=== PATIENT | male | born 1945 | race Caucasian/White ===

== ENCOUNTER 2019-02-17 05:33 | Outpatient (RCR) | payer MEDICARE, OTHER, SELFPAY | END 2019-02-18 00:01 | LOC: ONCMED 05:33 | PROVIDERS: Family Provider Electrodiagnostic Medicine; Visit Provider Internal Medicine Medical Oncology | DX: C90.00 Multiple myeloma not having achieved remission (principal); D46.A Refractory cytopenia with multilineage dysplasia; D47.2 Monoclonal gammopathy; N18.9 Chronic kidney disease, unspecified; E78.5 Hyperlipidemia, unspecified; I25.10 Atherosclerotic heart disease of native coronary artery without angina pectoris; I50.9 Heart failure, unspecified; J44.9 Chronic obstructive pulmonary disease, unspecified; F17.210 Nicotine dependence, cigarettes, uncomplicated; Z95.1 Presence of aortocoronary bypass graft | CPT/HCPCS: 36415; 36430; 80053 ×2; 82728; 83540; 83550; 85025 ×9; 86850 ×3; 86900 ×3; 86901 ×3; 86920 ×4; 96374; 99214; J1642 ×3; J1940 ×2; J7050 ×3; P9040 ×5 ==

== ENCOUNTER 2019-03-03 05:41 | Outpatient (RCR) | payer MEDICARE, OTHER, SELFPAY ==
[2019-02-20 09:03] LABS: Eosinophils % 3.4 %; Hematocrit 27.2 % (42.0-52.0); Hemoglobin 8.4 g/dL (11.7-16.6); Lymphocytes # 0.4 10^3/uL (0.8-4.8); Lymphocytes % 70.7 %; Mean Corpuscular HGB Conc 30.9 g/dL (30.0-36.0); Mean Corpuscular Hemoglobin 30.2 pg (28.0-34.0); Mean Corpuscular Volume 97.8 fL (80-94); Mean Platelet Volume 13.7 fL (7.4-10.4); Monocytes % 6.9 %; Neutrophils % 13.8 %; Nucleated Red Blood Cells # 0.1 /100WBC; Nucleated Red Blood Cells % 20.7 %; Platelet Count 40 10^3/cmm (130-400); Red Blood Count 2.78 10^6/uL (4.1-5.3); Red Cell Distribution Width 19.2 % (12.1-15.1)
[2019-02-20 09:32] LABS: Add RBC Morph No; Slide Review Slide Review Perform
[2019-02-20 09:34] LABS: Neutrophils # 0.1 10^3/uL (1.8-7.7); White Blood Count 0.6 10^3/uL (4.0-10.0)
[2019-02-20 09:42] LABS: Alanine Aminotransferase 13 U/L (0-41); Albumin Level 4.5 g/dL (3.5-5.2); Alkaline Phosphatase 122 IU/L (40-130); Anion Gap 14.8 (5-19); Aspartate Amino Transferase 19 U/L (0-40); Blood Urea Nitrogen 27 mg/dL (8-23); Calcium 9.2 mg/Dl (8.8-10.2); Carbon Dioxide 25 mmol/L (22-29); Chloride 102 mmol/L (98-107); Globulin 1.9 g/dL (1.3-4.6); Glucose 99 mg/dL (74-106); Iron 215 ug/dL (59-158); Lactate Dehydrogenase 319 U/L (135-225); Potassium 3.8 mmol/L (3.5-5.1); Sodium 138 mmol/L (136-145); Total Bilirubin 1.1 mg/dL (0.15-1.2); Total Protein 6.4 g/dL (6.6-8.7)
[2019-02-20 10:32] LABS: Ferritin 1274 ng/mL (30-400); Unsaturated Iron Binding < 17 ug/dL (112-347)
[2019-02-20 10:33] LABS: Percent Saturation 92.6 % (20-50); Total Iron Binding Capacity 232 mg/dL
[2019-02-20] MEDS: sodium chloride 0.9% 250 ML 75 ML IV (12:30)
[2019-02-20] MEDS: diphenhydrAMINE 25 mg Capsule PO (12:35)
[2019-02-20] MEDS: acetaminophen 325 mg Tablet 650 MG PO (12:35)
[2019-02-20 12:55] VITALS: BP 102/68; BP 103/59; PULSE 69; PULSE 75; RESP 18; TEMP 36.6; TEMP 36.8; O2SAT 94; O2SAT 96
[2019-02-20 13:10] VITALS: BP 104/60; PULSE 68; RESP 18; TEMP 36.6; O2SAT 95
[2019-02-20 13:40] VITALS: BP 104/62; PULSE 69; RESP 18; TEMP 36.6; O2SAT 98
[2019-02-20 14:15] VITALS: BP 105/64; PULSE 72; RESP 18; TEMP 36.6
[2019-02-20] MEDS: FUROsemide 10 mg/mL SDV 2mL 20 MG IV (14:30)
[2019-02-24 09:10] LABS: Eosinophils % 4.1 %; Hematocrit 28.8 % (42.0-52.0); Lymphocytes # 0.3 10^3/uL (0.8-4.8); Lymphocytes % 63.3 %; Mean Corpuscular HGB Conc 31.3 g/dL (30.0-36.0); Mean Corpuscular Hemoglobin 29.2 pg (28.0-34.0); Mean Corpuscular Volume 93.5 fL (80-94); Mean Platelet Volume 13.2 fL (7.4-10.4); Monocytes # 0.1 10^3/uL (0.2-0.9); Monocytes % 10.2 %; Neutrophils % 22.4 %; Nucleated Red Blood Cells # 0.1 /100WBC; Nucleated Red Blood Cells % 24.5 %; Platelet Count 31 10^3/cmm (130-400); Red Blood Count 3.08 10^6/uL (4.1-5.3); Red Cell Distribution Width 18.5 % (12.1-15.1)
[2019-02-24 09:28] LABS: Alanine Aminotransferase 13 U/L (0-41); Albumin Level 4.4 g/dL (3.5-5.2); Alkaline Phosphatase 123 IU/L (40-130); Anion Gap 13.8 (5-19); Aspartate Amino Transferase 18 U/L (0-40); Blood Urea Nitrogen 26 mg/dL (8-23); Carbon Dioxide 27 mmol/L (22-29); Chloride 102 mmol/L (98-107); Globulin 2.1 g/dL (1.3-4.6); Glucose 141 mg/dL (74-106); Iron 201 ug/dL (59-158); Lactate Dehydrogenase 339 U/L (135-225); Potassium 3.8 mmol/L (3.5-5.1); Sodium 139 mmol/L (136-145); Total Bilirubin 1.2 mg/dL (0.15-1.2); Total Protein 6.5 g/dL (6.6-8.7)
[2019-02-24 09:55] LABS: Neutrophils # 0.1 10^3/uL (1.8-7.7); Slide Review Slide Review Perform; White Blood Count 0.5 10^3/uL (4.0-10.0)
[2019-02-24 10:08] LABS: Ferritin 1260 ng/mL (30-400)
[2019-02-24 10:09] LABS: Percent Saturation 92.2 % (20-50); Total Iron Binding Capacity 218 mg/dL; Unsaturated Iron Binding < 17 ug/dL (112-347)
[2019-02-27] VITALS (11 sets, daily range): BP systolic 94–113; BP diastolic 59–71; PULSE 55–79; RESP 18; TEMP 35.7–36.9; O2SAT 93–96
[2019-02-27 09:09] LABS: Hematocrit 27.7 % (42.0-52.0); Hemoglobin 8.6 g/dL (11.7-16.6); Lymphocytes # 0.4 10^3/uL (0.8-4.8); Lymphocytes % 69.2 %; Mean Corpuscular Hemoglobin 30.5 pg (28.0-34.0); Mean Corpuscular Volume 98.2 fL (80-94); Monocytes % 5.8 %; Nucleated Red Blood Cells # 0.1 /100WBC; Nucleated Red Blood Cells % 21.2 %; Red Blood Count 2.82 10^6/uL (4.1-5.3); Red Cell Distribution Width 19.1 % (12.1-15.1)
[2019-02-27 09:34] LABS: Platelet Count 28 10^3/cmm (130-400); White Blood Count 0.5 10^3/uL (4.0-10.0)
[2019-02-27 09:35] LABS: Mean Platelet Volume 12.8 fL (7.4-10.4); Neutrophils # 0.1 10^3/uL (1.8-7.7); Slide Review Slide Review Perform
[2019-02-27] MEDS: diphenhydrAMINE 25 mg Capsule PO (12:25)
[2019-02-27] MEDS: acetaminophen 325 mg Tablet 650 MG PO (12:25)
[2019-02-27] MEDS: sodium chloride 0.9% 250 ML 50 ML IV (12:25)
[2019-02-27] MEDS: FUROsemide 10 mg/mL SDV 2mL 20 MG IV (14:10)
[2019-03-03 09:28] LABS: Hematocrit 32.3 % (42.0-52.0); Hemoglobin 10.1 g/dL (11.7-16.6); Lymphocytes # 0.4 10^3/uL (0.8-4.8); Lymphocytes % 63.8 %; Mean Corpuscular HGB Conc 31.3 g/dL (30.0-36.0); Mean Corpuscular Hemoglobin 29.2 pg (28.0-34.0); Mean Corpuscular Volume 93.4 fL (80-94); Monocytes # 0.1 10^3/uL (0.2-0.9); Monocytes % 10.3 %; Neutrophils % 25.9 %; Nucleated Red Blood Cells # 0.1 /100WBC; Nucleated Red Blood Cells % 17.2 %; Red Blood Count 3.46 10^6/uL (4.1-5.3); Red Cell Distribution Width 18.5 % (12.1-15.1)
[2019-03-03 10:43] LABS: Platelet Count 23 10^3/cmm (130-400); White Blood Count 0.6 10^3/uL (4.0-10.0)
[2019-03-03 10:44] LABS: Neutrophils # 0.2 10^3/uL (1.8-7.7); Slide Review Slide Review Perform
== END 2019-03-03 23:59 | disposition home or self-care (01) ==
LOC: ONCMED 05:41
PROVIDERS: Family Provider Electrodiagnostic Medicine; PCP Electrodiagnostic Medicine; Visit Provider Internal Medicine Medical Oncology
DX: C90.00 Multiple myeloma not having achieved remission (principal); J43.9 Emphysema, unspecified; J84.10 Pulmonary fibrosis, unspecified; M06.00 Rheumatoid arthritis without rheumatoid factor, unspecified site; E78.5 Hyperlipidemia, unspecified; I25.10 Atherosclerotic heart disease of native coronary artery without angina pectoris; K21.9 Gastro-esophageal reflux disease without esophagitis; Z95.1 Presence of aortocoronary bypass graft; I25.2 Old myocardial infarction; Z98.1 Arthrodesis status; F17.210 Nicotine dependence, cigarettes, uncomplicated; E83.111 Hemochromatosis due to repeated red blood cell transfusions; N18.9 Chronic kidney disease, unspecified; Z79.899 Other long term (current) drug therapy
CPT/HCPCS: 36415; 36430; 80053; 82728; 83540; 83550; 83615; 85025; 86850; 86900; 99214; J1940; J7050; P9040

== ENCOUNTER 2019-03-04 15:33 | Observation (INO) | payer MEDICARE, OTHER, SELFPAY ==
[2019-03-04 15:34] VITALS: BP 112/82; PULSE 65; RESP 16; TEMP 36.5; O2SAT 92; BMI 30.6
--- NOTE | 2019-03-04 15:47 | XR_ITS ---
WS: [id number] CHEST XRAY TECHNIQUE: Portable chest. CLINICAL INFORMATION: CHEST PAIN COMPARISON: None. FINDINGS: Heart: Cardiomegaly. Left Port-A-Cath with tip in SVC. Sternotomy with mediastinal clips. Lungs: Chronic emphysematous changes. No acute pulmonary infiltrates. No focal pneumonia. Bones: Chronic Right upper rib fracture with callus formation. XR/XR chest 1V portable [id number] IMPRESSION: 1. Sternotomy with cardiomegaly. 2. Left Port-A-Cath with tip in the SVC. 3. Chronic emphysematous changes. No acute pulmonary infiltrates. 4. Slight volume loss left lung base.
--- NOTE | 2019-03-04 15:48 | ECG_ITS ---
Measurements Intervals [place] Rate: 62 P: 9 LA: 170 QRS: -17 QRSD: 104 T: 38 QT: 407 QTc: 416 SINUS RHYTHM WITH MARKED SINUS ARRHYTHMIA POSSIBLE LEFT ATRIAL ENLARGEMENT [-0.1mV P WAVE IN V1/V2] LOW QRS VOLTAGE IN EXTREMITY LEADS [QRS DEFLECTION < 0.5 mV IN LIMB LEADS] POSSIBLE ANTERIOR MYOCARDIAL INFARCTION , PROBABLY OLD [30 ms Q WAVE IN V3/V4, OR R R R R < 0.2 mV IN V4] No previous ECG available for comparison [id number]
--- NOTE | 2019-03-04 15:51 | ED_ITS ---
Entered by Sarah Muñoz, acting as scribe for HPI - Chest Pain General: Chief Complaint: Chest Pain Stated Complaint: chest pain Time Seen by Provider: 03/04/19 15:47 Source: patient Mode of arrival: EMS Limitations: no limitations History of Present Illness: HPI narrative: 73 yo Male present to ED with complaint of chest pain. Pt states that he had left side chest pain that radiated into his left arm. Pt states that he had an episode of sweating, nausea, vomiting, and diarrhea. Pt states that he has myelodysplastic syndrome. Pt sees Dr. Truong for hematology and Dr. Soria is his PCP. MD complaint: chest pain Onset (ago): hour(s) (1500 today) Timing of current episode: episodic and still present Prior episodes: No Onset: during rest Pain location: left chest Pain radiation: left arm Pain scale (0-10): 5 Quality: sharp Relieving factors: nothing Exacerbating factors: nothing Associated symptoms: Reports diaphoresis, nausea and vomiting; Deny dyspnea, fever(s), palpitations or syncope Treatment prior to arrival: aspirin and nitroglycerin Review of Systems General: Reports: other (negative unless marked) Const: Reports: diaphoresis; Denies: fever Eyes: Denies: change in vision or blurry vision ENMT: Denies: throat pain, painful swallowing, hoarseness, ear pain, ear discharge, Change in hearing or nasal discharge Card: Reports: chest pain; Denies: palpitations, irregular heart rhythm, syncope, pre-syncope, shortness of breath on exertion or shortness of breath when lying down Resp: Reports: pain on inspiration; Denies: shortness of breath, productive cough, non-productive cough, wheezing, coughing up blood or chest congestion GI: Reports: nausea, vomiting and diarrhea : Denies: flank pain, difficulty urinating, painful urination, urinary frequency, urinary urgency, decreased urine ouput, urinary incontinence or blood in urine Musc: Denies: neck pain, back pain, extremity pain, extremity swelling, joint pain, joint swelling, joint warmth or joint stiffness Skin/Breast: Denies: rash, skin tenderness or yellow skin Neuro: Denies: headache, numbness in extremities, weakness in extremities, changes in sensation, lack of coordination, difficulty walking, dizziness, vertigo or confusion Endo: Denies: excessive thirst, tired all the time, cold intolerance, excessive sweating, flushing or hot flashes Nafi/Lymph: Denies: easy bruising, easy bleeding, petechiae or enlarged lymph nodes All/Imm: Denies: hives, throat swelling, tongue swelling, facial swelling or acute wheezing PFSH ED PFSH: Statuses (acute, chronic, etc) shown below reflect problem list status as previously entered and may not be historically accurate Social History Smoking and tobacco status: current every day smoker cigarettes Packs smoked per day: 1.25 Alcohol intake: never Substance/Drug Use: never Physical Exam Const: COMMON NORMALS: no apparent distress, oriented x3, no limitations, healthy appearing and well nourished EXAM LIMITATIONS: no altered mental status GENERAL APPEARANCE: cooperative, well kempt and well developed ORIENTATION/CONSCIOUSNESS: Yes awake HENMT: COMMON NORMALS: normocephalic, head/scalp atraumatic, hearing grossly normal bilaterally, external ears normal, EAC's normal, external nose normal and moist oral mucous membranes HEAD & SCALP: normal to inspection, normocephalic and atraumatic FACE & SINUS: normal facial exam and face symmetric NOSE: external nose normal and nares normal EXTERNAL EAR: Yes external ears normal EXTERNAL AUDITORY CANAL: EAC's normal MOUTH: oral and palatal mucosa normal and tongue normal Eye: COMMON NORMALS: PERRL, EOMs intact bilaterally, conjunctivae normal and no scleral icterus GENERAL EYE: normal appearance of both eyes and normal light reflex CONJUNCTIVA: Yes conjunctivae normal SCLERA: sclerae normal CORNEA: Yes corneas normal PUPIL: Yes PERRL DIRECT OPHTHALMOSCOPY: Yes normal light reflex Neck/C-Spine: COMMON NORMALS: full ROM, no lymphadenopathy, supple, no meningeal signs and no JVD GENERAL: Yes normal visual inspection and Yes trachea midline CERVICAL SPINE: Yes cervical ROM normal Chest: COMMONS NORMALS: inspection of chest normal and palpation of chest normal Resp: COMMON NORMALS: normal respiratory effort, no retractions, no use of accessory muscles and clear to auscultation bilaterally EFFORT & INSPECTION: Yes able to speak in complete sentences AUSCULTATION: clear to auscultation bilaterally Cardio: COMMON NORMALS: no JVD, regular rate, regular rhythm, S1 normal heart sound, S2 normal heart sound, no gallops, no clicks, no murmurs and no rub JUGULAR VENOUS DISTENTION: no JVD RATE: regular rate RHYTHM: regular rhythm HEART SOUNDS: S1 normal and S2 normal GI: COMMON NORMALS: soft to palpation, non-tender, no hepatosplenomegaly and no masses INSPECTION: Yes normal to inspection PALPATION: Yes soft and Yes no hepatosplenomegaly : COMMON NORMALS: Yes no CVA tenderness BLADDER/KIDNEY EXAM: Yes no CVA tenderness Back/Pelvis: COMMON NORMALS: no CVA tenderness, thoracic and lumbar spine normal to inspection, no thoracic nor lumbar tenderness and thoraco-lumbar ROM normal Extremity: COMMON NORMALS: normal to inspection, full ROM, normal capillary refill, no joint enlargement, no clubbing, cyanosis or edema and no calf tenderness Neuro: COMMON NORMALS: oriented x3, CN's II-XII intact bilaterally, moves all extremities, no focal motor deficits and no sensory deficits noted MENINGEAL SIGNS: Yes no meningeal signs Psych: COMMON NORMALS: mental status grossly normal, thought process normal, cooperative, affect normal, speech normal and activity/motor behavior normal APPEARANCE: Yes well kempt SPEECH: Yes normal speech THOUGHT PROCESS: normal thought process Skin: COMMON NORMALS: no rashes or lesions noted, skin turgor normal, no jaundice, no petechiae and no mottling GENERAL SKIN EXAM: no rashes or lesions noted and turgor normal Course Vital Signs: Vital signs: Vital Signs Temperature 98.3 F 03/05/19 11:21 Pulse Rate 71 03/05/19 11:21 Respiratory Rate 18 03/05/19 11:21 Blood Pressure 110/60 03/05/19 11:21 Pulse Oximetry 92 03/05/19 11:21 MDM - Chest Pain Lab Data: Labs: Lab Results 03/04/19 03/04/19 03/04/19 Range/Units 15:06 15:06 15:06 WBC 0.7 L* (4.0-10.0) 10^3/ uL RBC 3.60 L (4.1-5.3) 10^6/u L Hgb 10.4 L (11.7-16.6) g/dL Hct 33.8 L (42.0-52.0) % MCV 93.9 (80-94) fL MCH 28.9 (28.0-34.0) pg MCHC 30.8 (30.0-36.0) g/dL RDW 18.6 H (12.1-15.1) % Plt Count 34 L (130-400) 10^3/c mm MPV Log Buncher Neut % (Auto) 23.2 % Lymph % (Auto) 66.7 % Brantley % (Auto) 10.1 % Eos % (Auto) 0.0 % Baso % (Auto) 0.0 % Neut # (Auto) 0.2 L* (1.8-7.7) 10^3/u L Lymph # (Auto) 0.5 L (0.8-4.8) 10^3/u L Brantley # (Auto) 0.1 L (0.2-0.9) 10^3/u L Eos # (Auto) 0.0 (0.0-0.8) 10^3/u L Baso # (Auto) 0.0 (0.0-0.1) 10^3/u L Nucleated RBC % (a uto) 21.7 % Nucleated RBCs # 0.2 /100WBC PT 13.80 H (10.5-13.3) SECO NDS INR 1.02 (0.8-1.2) APTT 26.8 (23.9-36.7) SECO NDS D-Dimer 0.75 H (0-0.59) ug/mIFE U Sodium 138 (136-145) mmol/L Potassium 3.7 (3.5-5.1) mmol/L Chloride 100 (98-107) mmol/L Carbon Dioxide 29 (22-29) mmol/L Anion Gap 12.7 (5-19) BUN 24 H (8-23) mg/dL Creatinine 1.4 H (0.7-1.2) mg/dL Glucose 125 H (74-106) mg/dL Calcium 9.4 (8.8-10.2) mg/Dl Total Bilirubin 1.2 (0.15-1.2) mg/dL AST 20 (0-40) U/L ALT 14 (0-41) U/L Alkaline Phosphata se 144 H (40-130) IU/L Troponin T Baselin e (0-15) ng/mL Troponin T 120 Min seminole (0-15) ng/mL Delta Troponin T (0-10) ABS# NT-Pro-B Natriuret Pep 858 H (0-450) pg/mL Total Protein 7.5 (6.6-8.7) g/dL Albumin 4.1 (3.5-5.2) g/dL Globulin 3.4 (1.3-4.6) g/dL Lipase 23 (13-60) U/L Urine Color (Yellow) Urine Appearance (CLEAR) Urine pH (5-7) Ur Specific Gravit y (1.005-1.030) Urine Protein (Negative) Urine Glucose (UA) (Normal) Urine Ketones (Negative) Urine Occult Blood (Negative) Urine Nitrate (Negative) Urine Bilirubin (NEGATIVE) Urine Urobilinogen (Negative) mg/dL Ur Leukocyte Aislinn ase (Negative) Urine RBC (0-2) /hpf Urine WBC (0-5) /hpf Ur Squamous Epith Cells (0-5) Urine Bacteria (NONE) Hyaline Casts Urine Mucus 03/04/19 03/04/19 03/04/19 Range/Units 15:06 16:27 17:45 WBC (4.0-10.0) 10^3/ uL RBC (4.1-5.3) 10^6/u L Hgb (11.7-16.6) g/dL Hct (42.0-52.0) % MCV (80-94) fL MCH (28.0-34.0) pg MCHC (30.0-36.0) g/dL RDW (12.1-15.1) % Plt Count (130-400) 10^3/c mm MPV Neut % (Auto) % Lymph % (Auto) % Brantley % (Auto) % Eos % (Auto) % Baso % (Auto) % Neut # (Auto) (1.8-7.7) 10^3/u L Lymph # (Auto) (0.8-4.8) 10^3/u L Brantley # (Auto) (0.2-0.9) 10^3/u L Eos # (Auto) (0.0-0.8) 10^3/u L Baso # (Auto) (0.0-0.1) 10^3/u L Nucleated RBC % (a uto) % Nucleated RBCs # /100WBC PT (10.5-13.3) SECO NDS INR (0.8-1.2) APTT (23.9-36.7) SECO NDS D-Dimer (0-0.59) ug/mIFE U Sodium (136-145) mmol/L Potassium (3.5-5.1) mmol/L Chloride (98-107) mmol/L Carbon Dioxide (22-29) mmol/L Anion Gap (5-19) BUN (8-23) mg/dL Creatinine (0.7-1.2) mg/dL Glucose (74-106) mg/dL Calcium (8.8-10.2) mg/Dl Total Bilirubin (0.15-1.2) mg/dL AST (0-40) U/L ALT (0-41) U/L Alkaline Phosphata se (40-130) IU/L Troponin T Baselin e 22 H (0-15) ng/mL Troponin T 120 Min seminole 20.89 H (0-15) ng/mL Delta Troponin T -1.11 L (0-10) ABS# NT-Pro-B Natriuret Pep (0-450) pg/mL Total Protein (6.6-8.7) g/dL Albumin (3.5-5.2) g/dL Globulin (1.3-4.6) g/dL Lipase (13-60) U/L Urine Color Yellow (Yellow) Urine Appearance Clear (CLEAR) Urine pH 5 (5-7) Ur Specific Gravit y 1.020 (1.005-1.030) Urine Protein Neg (Negative) Urine Glucose (UA) Norm (Normal) Urine Ketones Negative (Negative) Urine Occult Blood 3+ H (Negative) Urine Nitrate Negative (Negative) Urine Bilirubin 1+ H (NEGATIVE) Urine Urobilinogen 4 H (Negative) mg/dL Ur Leukocyte Aislinn ase Negative (Negative) Urine RBC 0-4 H (0-2) /hpf Urine WBC 0-4 H (0-5) /hpf Ur Squamous Epith Cells 0-4 H (0-5) Urine Bacteria Trace (NONE) Hyaline Casts 0-4 H Urine Mucus 3+ Imaging Data^: CXR: Radiologist's impression: [address] [address] XRay Report Signed Patient: Gabriel Thakkarelis #: [id number] : 4Acct#:[id number] Age/Sex: 73 / MADM Date: 03/04/19 Loc: ERRoom/Bed: Attending Dr: Ordering Provider/Ordering MD: Shavon Walls DO Date of Service: 03/04/19 Procedure(s): XR chest 1V portable [id number] Accession Number(s): [id number] Report Number: [id number] WS: [id number] CHEST XRAY TECHNIQUE: Portable chest. CLINICAL INFORMATION: CHEST PAIN COMPARISON: None. FINDINGS: Heart: Cardiomegaly. Left Port-A-Cath with tip in SVC. Sternotomy with mediastinal clips. Lungs: Chronic emphysematous changes. No acute pulmonary infiltrates. No focal pneumonia. Bones: Chronic Right upper rib fracture with callus formation. XR/XR chest 1V portable [id number] IMPRESSION: 1. Sternotomy with cardiomegaly. 2. Left Port-A-Cath with tip in the SVC. 3. Chronic emphysematous changes. No acute pulmonary infiltrates. 4. Slight volume loss left lung base. Dictated By:Remberto Sandra MD Signed By:Remberto Sandra MDSigned Date/Time:03/04/19 1620 DD/ 1618 CTA Chest: Radiologist's impression: [place] [address] CT Scan Report Signed Patient: Gabriel Thakkar #: [id number] : 4At#:[id number] Age/Sex: 73 / MADM Date: 03/04/19 Loc: ERRoom/Bed: Attending Dr: Ordering Provider/Ordering MD: Shavon Walls DO Date of Service: 03/04/19 Procedure(s): CT angio chest PE protcl [id number] Accession Number(s): [id number] Report Number: [id number] PROCEDURE INFORMATION: Exam: CT Angiography Chest With Contrast Exam date and time: 03/04/2019 5:47 PM Age: 73 years old Clinical indication: Left-sided chest pain; Prior surgery; Surgery type: Bypass, port TECHNIQUE: Imaging protocol: Computed tomographic angiography of the chest with intravenous contrast. 3D rendering: MIP and/or 3D reconstructed images were created by the technologist. Total DLP: 1172.74 mGy-cm Radiation optimization: All CT scans at this facility use at least one of these dose optimization techniques: automated exposure control; mA and/or kV adjustment per patient size (includes targeted exams where dose is matched to clinical indication); or iterative reconstruction. Contrast material: VISI 320; Contrast volume: 95 ml; Contrast route: IV; COMPARISON: CT chest wo con [id number] 11/21/2017 1:05 PM FINDINGS: Pulmonary arteries: Normal. No pulmonary emboli. Aorta: Unremarkable. No aortic aneurysm. No aortic dissection. Lungs: Mild atelectasis in the lower lobes. The lungs are otherwise clear. Pleural space: Unremarkable. No pneumothorax. No pleural effusion. Heart: Unremarkable. No cardiomegaly. No pericardial effusion. Kidneys and ureters: Left renal cyst. Lymph nodes: Unremarkable. No enlarged lymph nodes. Bones/joints: Mild chronic T6 and L1 compression fractures. Soft tissues: Unremarkable. CT/CT angio chest PE protcl [id number] IMPRESSION: 1. No evidence for pulmonary embolus or other acute abnormality. Radiation Dose CTDIVOL = (mGy): DLP = 1172.74 (mGy-cm) Dictated By:Uri Lorenzana Signed By:Uri LorenzanaSigned Date/Time:03/04/19 1801 DD/ 1800 Discharge Plan Discharge Patient Disposition: Placed in Observation Admit Provider: Brian Benavidez Discharge Date/Time: 03/04/19 20:08 Coding Level of Care Code ED Stem Mounter for Chg Fwd Exam Problem Focused The documentation recorded by the Wanda lackey Carmen, accurately reflects the service I personally performed and the decisions made by Titi ro Eli N Mar 04, 2019 15:33
[2019-03-04 16:35] LABS: Hematocrit 33.8 % (42.0-52.0); Hemoglobin 10.4 g/dL (11.7-16.6); Lymphocytes # 0.5 10^3/uL (0.8-4.8); Lymphocytes % 66.7 %; Mean Corpuscular HGB Conc 30.8 g/dL (30.0-36.0); Mean Corpuscular Hemoglobin 28.9 pg (28.0-34.0); Mean Corpuscular Volume 93.9 fL (80-94); Monocytes # 0.1 10^3/uL (0.2-0.9); Monocytes % 10.1 %; Neutrophils % 23.2 %; Nucleated Red Blood Cells # 0.2 /100WBC; Nucleated Red Blood Cells % 21.7 %; Platelet Count 34 10^3/cmm (130-400); Red Cell Distribution Width 18.6 % (12.1-15.1)
[2019-03-04 16:37] LABS: INR 1.02 (0.8-1.2)
[2019-03-04 16:38] LABS: Partial Thromboplastin Time 26.8 SECONDS (23.9-36.7)
[2019-03-04 16:40] LABS: D Dimer 0.75 ug/mIFEU (0-0.59)
[2019-03-04 16:49] LABS: Troponin(5th) Baseline 22 ng/mL (0-15)
[2019-03-04 16:52] LABS: Alanine Aminotransferase 14 U/L (0-41); Albumin Level 4.1 g/dL (3.5-5.2); Alkaline Phosphatase 144 IU/L (40-130); Anion Gap 12.7 (5-19); Aspartate Amino Transferase 20 U/L (0-40); Blood Urea Nitrogen 24 mg/dL (8-23); Calcium 9.4 mg/Dl (8.8-10.2); Carbon Dioxide 29 mmol/L (22-29); Chloride 100 mmol/L (98-107); Globulin 3.4 g/dL (1.3-4.6); Glucose 125 mg/dL (74-106); Lipase 23 U/L (13-60); NT Pro B Type Natriuretic Pept 858 pg/mL (0-450); Potassium 3.7 mmol/L (3.5-5.1); Sodium 138 mmol/L (136-145); Total Bilirubin 1.2 mg/dL (0.15-1.2); Total Protein 7.5 g/dL (6.6-8.7)
[2019-03-04] MEDS: sodium chloride 0.9% 500 ML 999 ML IV (17:00)
--- NOTE | 2019-03-04 17:01 | CTR_ITS ---
PROCEDURE INFORMATION: Exam: CT Angiography Chest With Contrast Exam date and time: 03/04/2019 5:47 PM Age: 73 years old Clinical indication: Left-sided chest pain; Prior surgery; Surgery type: Bypass, port TECHNIQUE: Imaging protocol: Computed tomographic angiography of the chest with intravenous contrast. 3D rendering: MIP and/or 3D reconstructed images were created by the technologist. Total DLP: 1172.74 mGy-cm Radiation optimization: All CT scans at this facility use at least one of these dose optimization techniques: automated exposure control; mA and/or kV adjustment per patient size (includes targeted exams where dose is matched to clinical indication); or iterative reconstruction. Contrast material: VISI 320; Contrast volume: 95 ml; Contrast route: IV; COMPARISON: CT chest wo [facility] [id number] 11/21/2017 1:05 PM FINDINGS: Pulmonary arteries: Normal. No pulmonary emboli. Aorta: Unremarkable. No aortic aneurysm. No aortic dissection. Lungs: Mild atelectasis in the lower lobes. The lungs are otherwise clear. Pleural space: Unremarkable. No pneumothorax. No pleural effusion. Heart: Unremarkable. No cardiomegaly. No pericardial effusion. Kidneys and ureters: Left renal cyst. Lymph nodes: Unremarkable. No enlarged lymph nodes. Bones/joints: Mild chronic T6 and L1 compression fractures. Soft tissues: Unremarkable. CT/CT angio chest PE protcl [id number] IMPRESSION: 1. No evidence for pulmonary embolus or other acute abnormality. Radiation Dose CTDIVOL = (mGy): DLP = 1172.74 (mGy-cm)
[2019-03-04 17:24] LABS: Add Urine Microscopic? YES; Bilirubin Urine 1+ (NEGATIVE); Blood Urine 3+ (Negative); Glucose Urine UA Norm (Normal); Ketones Urine Negative (Negative); Leukocyte Esterase Urine Negative (Negative); Nitrate Urine Negative (Negative); Protein Urine Neg (Negative); Urine Appearance Clear (CLEAR); Urine Color Yellow (Yellow); Urobilinogen Urine 4 mg/dL (Negative); pH Urine 5 (5-7)
[2019-03-04] MEDS: ondansetron 2 mg/ML SDV 2 mL 4 MG IVP (17:24)
[2019-03-04] MEDS: aspirin 81 mg Chew Tablet 324 MG PO (17:24)
[2019-03-04 17:25] LABS: Mucus Urine 3+
[2019-03-04] MEDS: HYDROcodone-acetaminophen 10-325 mg Tablet 1 TAB PO (17:25)
[2019-03-04 17:26] LABS: Add Urine Culture? No; Bacteria Urine TRACE; Hyaline Casts Urine 0-4; RBC Urine 0-4 /hpf (0-2); Squamous Epithelial Cell Urine 0-4 (0-5); WBC Urine 0-4 /hpf (0-5)
[2019-03-04] MEDS: nitroglycerin 0.4 mg sublingual Tablet SUBLINGUAL (17:26)
[2019-03-04] MEDS: iodixanol 320 mg/mL 100mL Btl 95 ML IV (17:47)
[2019-03-04 17:53] LABS: White Blood Count 0.7 10^3/uL (4.0-10.0)
[2019-03-04 17:54] LABS: Neutrophils # 0.2 10^3/uL (1.8-7.7)
[2019-03-04 18:00] LABS: Slide Review Slide Review Perform
[2019-03-04 18:21] LABS: Troponin 5 2HR 20.89 ng/mL (0-15)
[2019-03-04 18:44] LABS: Troponin 5 2HR Delta -1.11 ABS# (0-10)
[2019-03-04 19:58] VITALS: BP 117/65; PULSE 78; RESP 24; O2SAT 95
[2019-03-04] MEDS: HYDROcodone-acetaminophen 5-325 mg Tablet 1 TAB PO (20:05)
--- NOTE | 2019-03-04 20:08 | PM.HP ---
Providers/Chief Complaint Admitting Physician: Katie Campos MD Primary Care Provider: Edvin Soria DO Chief Complaint: chest pain History of Present Illness Gabriel Thakkar is a 73 year old male with PMHx of Myelodysplastic syndrome with chronic transfusion dependent anemia, leukopenia and thrombocytopenia, Dyslipidemia, CAD status post CABG x4, CKD stage 2, GERD, COPD, Chronic smoker, Chronic back pain; presents from home following an episode of chest discomfort, back pain and resulting diaphoresis, episode of nausea and vomiting as well as urinary and bowel incontinence. Episode occurred around 1500 this afternoon. Patient states that he does have intermittent chest pain but nothing like this in the past. He follows up with Dr. Tavares as his primary security and privacy consultant. Last chest pain work-up was done in 2018 which included an echo with ejection fraction of 55% and grade 1 diastolic dysfunction as well as a chemical stress test which is negative for significant ischemia. Patient states that he took some hydrocodone which seemed to help alleviate his symptoms but he did also take some nitroglycerin which did not seem to help as much. He did not take any aspirin due to his history of thrombocytopenia. Med rec is currently pending though I reviewed his list from his last visit with Dr. Truong in January 2019. He is currently sitting in a wheelchair during my assessment in the ER as he finds the stretcher very uncomfortable for his back. He states that his pain is starting to return and is requesting some hydrocodone for this. Dr. Walls in the ER already spoke to Dr. Tavares who will see the patient in the morning. He recommended serial troponins, telemetry monitoring and EKG monitoring in the interim. Labs indicate leukopenia with a white count of 0.7, anemia with a hemoglobin of 10.4, thrombocytopenia with a platelet count of 34, BUN of 24, creatinine of 1.4 all of which appears to be his baseline per review of medical record. Genfiber troponin x2 hours shows a negative delta. He had a slight elevation of his d-dimer so had a CTA which ruled out PE. Urinalysis shows some blood but is otherwise unremarkable. Chest x-ray is also unremarkable. Vital signs are currently stable. Given patient's underlying history and risk factors for ACS he is being admitted for further evaluation and pending cardiology evaluation in the a.m. Will be admitted to the medical surgical floor under telemetry as no CSU beds currently available. Review of Systems Const: Reports: fatigue and diaphoresis; Denies: fever, chills or change in appetite Eyes: Denies: change in vision ENMT: Denies: throat pain Card: Reports: chest pain, edema (chronic), swelling of feet/ankles (chronic) and pre-syncope; Denies: palpitations or lightheadedness Resp: Denies: shortness of breath or productive cough GI: Reports: nausea, vomiting and fecal incontinence; Denies: abdominal pain, vomiting blood or blood in stool : Reports: urinary incontinence; Denies: painful urination Musc: Reports: back pain (chronic) Skin/Breast: Denies: rash Neuro: Denies: numbness in extremities or weakness in extremities Psych: Denies: anxiety Medications/Allergies Allergies Allergy/AdvReac Type Severity Reaction Status Date / Time No Known Allergies Allergy Verified 03/04/19 20:00 Additional Medication Information Additional Medication Information: -med rec pending PFSH Acute PFSH: Statuses (acute, chronic, etc) shown below reflect problem list status as previously entered and may not be historically accurate Medical History (Updated 03/04/19 @ 20:24 by Katie Campos MD) CAD (coronary artery disease) (Acute) CHF (congestive heart failure) (Acute) Chronic kidney disease (CKD) stage G2/A3, mildly decreased glomerular filtration rate (GFR) between 60-89 mL/min/1.73 square meter and albuminuria creatinine ratio greater than 300 mg/g (Acute) COPD (chronic obstructive pulmonary disease) (Acute) GERD (gastroesophageal reflux disease) (Acute) GI bleed (Acute) Myelodysplastic syndrome (Acute) Myocardial infarction (Acute) Surgical History (Updated 03/04/19 @ 20:12 by Katie Campos MD) History of abdominal aortic aneurysm (AAA) repair (Acute) History of back surgery (Acute) Hx of CABG (Acute) x 4 vessel, in 2001 Social History (Updated 03/04/19 @ 20:12 by Katie Campos MD) Smoking and tobacco status: current every day smoker cigarettes Packs smoked per day: 1.25 Alcohol intake: never Substance/Drug Use: never Vitals/I&O/Wt Last Vital Signs Temp 97.7 F 03/04/19 15:34 Pulse 78 03/04/19 19:58 Resp 24 H 03/04/19 19:58 BP 117/65 03/04/19 19:58 Pulse Ox 95 03/04/19 19:58 Weight last 48 hrs Weight 111.13 kg Physical Exam Const: COMMON NORMALS: no apparent distress, oriented x3 and alert GENERAL APPEARANCE: cooperative and comfortable NUTRITIONAL APPEARANCE: overweight ORIENTATION/CONSCIOUSNESS: Yes awake HENMT: COMMON NORMALS: normocephalic, head/scalp atraumatic, hearing grossly normal bilaterally and moist oral mucous membranes HEAD & SCALP: normocephalic and atraumatic Eye: COMMON NORMALS: PERRL, EOMs intact bilaterally and conjunctivae normal CONJUNCTIVA: Yes conjunctivae normal PUPIL: Yes PERRL Neck/C-Spine: COMMON NORMALS: full ROM GENERAL: Yes normal visual inspection and Yes trachea midline Chest: OTHER: [id number] in place Resp: COMMON NORMALS: normal respiratory effort, no retractions, no use of accessory muscles and clear to auscultation bilaterally EFFORT & INSPECTION: Yes able to speak in complete sentences, Yes symmetric chest movement and No tachypneic AUSCULTATION: clear to auscultation bilaterally Cardio: COMMON NORMALS: regular rate, regular rhythm, S1 normal heart sound, S2 normal heart sound and no murmurs RATE: regular rate RHYTHM: regular rhythm HEART SOUNDS: S1 normal and S2 normal GI: COMMON NORMALS: normal to inspection, nondistended, normoactive bowel sounds, soft to palpation and non-tender PALPATION: Yes soft Extremity: COMMON NORMALS: normal to inspection, full ROM and no clubbing, cyanosis or edema; negative for no pedal edema Neuro: COMMON NORMALS: oriented x3, moves all extremities, no focal motor deficits and no sensory deficits noted Psych: COMMON NORMALS: mental status grossly normal, thought process normal, cooperative, affect normal and speech normal SPEECH: Yes normal speech THOUGHT PROCESS: normal thought process Skin: COMMON NORMALS: no rashes or lesions noted, no jaundice, no petechiae and no mottling GENERAL SKIN EXAM: no rashes or lesions noted OTHER: -noted chronic venous stasis dermatitis on bilateral LEs Data : 03/04/19 15:06 03/04/19 15:06 A&P Assessment and plan (1) Chest pain: -seems atypical chest pain though has significant risk factors for ACS including prior MN, CAD s/p CABG, chronic smoker, COPD -trend troponins, serial ECGs; so far negative delta following 2 hr gen 5 troponins -telemetry monitoring -CXR unremarkable -noted slight D-dimer elevation, CTA negative for PE -not on ASA due to underlying thrombocytopenia -MON -follows up with Dr. 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 Truong -Baseline hemoglobin is around 8-9 -Baseline platelet count is 20-30 -Baseline leukopenic, WBC 0.5-0.7 Status: Acute Code(s): D46.9 - Myelodysplastic syndrome, unspecified Additional A&P Information -History of prior traumatic vertebral compression fracture status post kyphoplasty in 02/2016 -Dyslipidemia; currently off statin therapy -CAD status post CABG x4 in 2001 -COPD, not oxygen dependent, no acute exacerbation -GERD, on PPI -Chronic smoker -Chronic diastolic CHF, no acute exacerbation, BNP-850 -CKD stage II; with evidence of segmental membranous glomerulonephropathy -cardiac diet as tolerated -GI ppx with PPI -DVT ppx with SCDs, no AC due to bleeding risk from chronic anemia and thrombocytopenia -Ambulate as tolerated -Dispo: home -Code status: FULL code Attestations Medical Necessity Statement*: Gabriel Thakkar's hospital stay will be less than 2 midnights for workup of chest pain including serial troponins, ECGs, telemetry monitoring and cardiology evaluation. Time Spent in Patient Care: Greater than 35 minutes (>than 50% of time spent in counselling and/or direct pt care on unit). Coding Level of Care Code Acute In Flight Technician for Chg Fwd Diagnoses Chest pain R07.89 Chest pain type: other chest pain Myelodysplastic syndrome D46.9
[2019-03-04 20:56] VITALS: BP 107/67; PULSE 95; RESP 20; TEMP 37.4; O2SAT 96
[2019-03-04] MEDS: sodium chloride 0.9% 1,000 ML 100 ML IV (21:56)
[2019-03-04 22:07] LABS: Troponin 5 6HR 19.04 ng/L (0-15)
[2019-03-04 22:11] LABS: Troponin 5 6HR Delta -2.96 ng/L (0-12)
[2019-03-05] VITALS (9 sets, daily range): BP systolic 105–119; BP diastolic 60–72; PULSE 70–88; RESP 14–20; TEMP 36.8–36.9; O2SAT 92–97
[2019-03-05] MEDS: HYDROcodone-acetaminophen 7.5-325 mg Tablet 1 TAB PO ×2 (03:22→21:30)
--- NOTE | 2019-03-05 06:04 | ECG_ITS ---
Measurements Intervals [place] Rate: 83 P: 5 IL: 145 QRS: -2 QRSD: 100 T: 36 QT: 363 QTc: 427 SINUS RHYTHM WITH MARKED SINUS ARRHYTHMIA POSSIBLE LEFT ATRIAL ENLARGEMENT [-0.1mV P WAVE IN V1/V2] LOW QRS VOLTAGE IN PRECORDIAL LEADS [QRS DEFLECTION < 1.0 mV IN CHEST LEADS] ANTEROSEPTAL MYOCARDIAL INFARCTION [40+ ms Q WAVE IN V1-V4], PROBABLY OLD ST ELEVATION, CONSIDER INFERIOR INJURY [MARKED ST ELEVATION W/O NORMALLY INFLECTED T WAVE IN II/aVF] ACUTE MO Compared to ECG 10/23/2018 21:15:29 Myocardial infarct finding now present ST (T wave) deviation still present Electronically Signed On 03-05-2019 20:11:47 PRODUCTION GRIP by Azar Tavares M.D. [email or web address]
[2019-03-05 06:11] LABS: Hematocrit 29.1 % (42.0-52.0); Hemoglobin 9.1 g/dL (11.7-16.6); Lymphocytes # 0.4 10^3/uL (0.8-4.8); Lymphocytes % 56.5 %; Mean Corpuscular HGB Conc 31.3 g/dL (30.0-36.0); Mean Corpuscular Hemoglobin 29.3 pg (28.0-34.0); Mean Corpuscular Volume 93.6 fL (80-94); Mean Platelet Volume 12.9 fL (7.4-10.4); Monocytes # 0.1 10^3/uL (0.2-0.9); Monocytes % 14.5 %; Nucleated Red Blood Cells # 0.1 /100WBC; Nucleated Red Blood Cells % 11.3 %; Red Blood Count 3.11 10^6/uL (4.1-5.3); Red Cell Distribution Width 18.6 % (12.1-15.1)
[2019-03-05] MEDS: nitroglycerin 0.4 mg sublingual Tablet SUBLINGUAL ×3 (06:11→06:25)
[2019-03-05] MEDS: morphine 4 mg/mL SDV 1 mL 2 MG IVP ×2 (06:20→10:27)
[2019-03-05] MEDS: ondansetron 2 mg/ML SDV 2 mL 4 MG IVP (06:24)
[2019-03-05 06:37] LABS: Alanine Aminotransferase 12 U/L (0-41); Albumin Level 3.8 g/dL (3.5-5.2); Alkaline Phosphatase 117 IU/L (40-130); Anion Gap 13.1 (5-19); Aspartate Amino Transferase 17 U/L (0-40); Blood Urea Nitrogen 24 mg/dL (8-23); Calcium 8.9 mg/Dl (8.8-10.2); Carbon Dioxide 27 mmol/L (22-29); Chloride 102 mmol/L (98-107); Globulin 2.9 g/dL (1.3-4.6); Glucose 111 mg/dL (74-106); Potassium 4.1 mmol/L (3.5-5.1); Sodium 138 mmol/L (136-145); Total Bilirubin 1.4 mg/dL (0.15-1.2); Total Protein 6.7 g/dL (6.6-8.7)
[2019-03-05 06:43] LABS: Neutrophils # 0.2 10^3/uL (1.8-7.7); Platelet Count 23 10^3/cmm (130-400); White Blood Count 0.6 10^3/uL (4.0-10.0)
[2019-03-05 06:44] LABS: Slide Review Slide Review Perform
[2019-03-05 07:11] LABS: Troponin T (5th) Once 27 ng/mL (0-15)
[2019-03-05 07:14] LABS: Troponin T (5th) Once 24 ng/mL (0-15)
--- NOTE | 2019-03-05 07:39 | PC.NURSE ---
pt complained of severe chest pain at 5:50 am. vitals obtained: 125/72, 80 HR, 95%o2, pain-9/10, EKG obtained, 2L NC applied, stat troponin ordered, called Dr. Campos with patient condition, Andres ordered Nitro. Nitro administered every 5 minutes X3. Chest pain improved to 4/10 after 3rd nitro and patient states he feels better. Dr. Campos came to floor and assesed pt. guitar instructor dr. cunningham to see patient.
[2019-03-05] MEDS: carvedilol 12.5 mg Tablet PO ×2 (09:25→17:40)
[2019-03-05] MEDS: pantoprazole DR 40 mg Tablet PO (09:25)
[2019-03-05] MEDS: bumetanide 1 mg Tablet 2 MG PO (09:25)
--- NOTE | 2019-03-05 10:45 | PC.CHAP ---
Pastoral Care Encounter/Spiritual Assessment Type of Contact [] Declined branch employment coordinator visit [] Patient/Family/Request visit [] Outpatient visit [] Follow-up visit [] Physician referral [] Code/Alert [] Routine visit [] Staff referral [] Actively dying [] Patient sleeping [] Family support [] [] Out of room [] Palliative care [] [] Receiving care in room [] Pre-surgical visit [] Trauma [] Long length of stay [] ICU visit [] Other: Relational/Emotional Strength [] Patient feels connected with others/family/visitors/staff [] Distress [] Loneliness/isolation [] Abandonment Spirituality of Patient [] Person of Renea [] Attends Jainism of their Renea [] Believes in Prayer [] Reads Bible or Buddhist materials [] There are Spiritual issues to be addressed Airplane Gastank Liner Assembler Interventions [] Prayer [] Active listening [] Non-anxious presence [] Spiritual/emotional support [] Crisis/trauma care [] Spiritual counseling [] Bereavement support [] Provided bereavement packet [] Provided Bible/devotional materials [] Provided toy/stuffed animal, coloring book to patient or family member [] Completed spiritual assessment [] Provided Communion [] Anointing/[place] [] Salvation [] Other: Impact on Illness or Injury [] Angry [] Fearful [] Anxious [] Often cries [] Exhaustion [] Unable to work [] Unable to attend sikhism [] Unable to walk/stand [] Unable to read [] Unable to drive [] Unable to eat/drink [] Unable to sleep [] Unable to be with family [] Other: Summary iosolation Time spent with patient
[2019-03-05] MEDS: ketorolac 30 mg/mL INJ IVP ×2 (10:58→18:14)
--- NOTE | 2019-03-05 12:47 | PM.CONSULT ---
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 Pain was so severe that he decided to come to ER. Initial cardiac markers were indeterminate with slight troponin elevation at presentation after 3 hours of chest pain not suggestive of acute coronary syndrome, delta cardiac markers further declined ruling out cardiac event. CT angiogram ruled out pulmonary embolism. Patient continues to suffer from pain which was tried to control with medicine. He had renal dysfunction upon presentation which improved this morning. When I saw him in the room he still have as having left upper back pain towards the chest. It was not relieved with nitroglycerin. Twelve-lead EKG was within his normal range without significant ST-T changes. He denies PND orthopnea he denies exertional component to it his chest pain is mostly at rest and upon taking deep breath. Review of Systems General: Reports: other (negative unless marked) Const: Reports: fatigue and diaphoresis; Denies: fever, chills or change in appetite Eyes: Denies: change in vision or blurry vision ENMT: Denies: throat pain, painful swallowing, hoarseness, ear pain, ear discharge, change in hearing or nasal discharge Card: Reports: chest pain, edema (chronic), swelling of feet/ankles (chronic) and pre-syncope; Denies: palpitations, irregular heart rhythm, lightheadedness, syncope, shortness of breath on exertion or shortness of breath when lying down Resp: Reports: pain on inspiration; Denies: shortness of breath, productive cough, non-productive cough, wheezing, coughing up blood or chest congestion GI: Reports: nausea, vomiting, diarrhea and fecal incontinence; Denies: abdominal pain, vomiting blood or blood in stool : Reports: urinary incontinence; Denies: flank pain, difficulty urinating, painful urination, urinary frequency, urinary urgency, decreased urine ouput or blood in urine Musc: Reports: back pain (chronic); Denies: neck pain, extremity pain, extremity swelling, joint pain, joint swelling, joint warmth or joint stiffness Skin/Breast: Denies: rash, skin tenderness or yellow skin Neuro: Denies: headache, numbness in extremities, weakness in extremities, changes in sensation, lack of coordination, difficulty walking, dizziness, vertigo or confusion Psych: Denies: anxiety Endo: Denies: excessive thirst, tired all the time, cold intolerance, excessive sweating, flushing or hot flashes Naif/Lymph: Denies: easy bruising, easy bleeding, petechiae or enlarged lymph nodes All/Imm: Denies: hives, throat swelling, tongue swelling, facial swelling or acute wheezing Meds/Allergies Home Medications and Allergies Home Medications Medication Instructions Recorded Confirmed Type Calcium 600 + D(3) 1 tab PO BID 03/05/19 03/05/19 History atorvastatin 40 mg PO DAILY 03/05/19 03/05/19 History bumetanide 2 - 4 mg PO PRN PRN 03/05/19 03/05/19 History carvedilol 12.5 mg PO DAILY 03/05/19 03/05/19 History deferasirox [Jadenu] 1 mg PO BID 03/05/19 03/05/19 History hydrocodone-acetaminophen 1 tab PO TID PRN 03/05/19 03/05/19 History levofloxacin 500 mg PO DAILY 03/05/19 03/05/19 History lidocaine HCl [Aspercreme 1 applic TOPICAL BID PRN 03/05/19 03/05/19 History (lidocaine)] nitroglycerin [Nitrostat] See Rx Instructions .ROUTE 03/05/19 03/05/19 History .COMPLEX PRN pantoprazole 40 mg PO DAILY PRN 03/05/19 03/05/19 History potassium chloride [Klor-Con M20] 1 meq PO DAILY 03/05/19 03/05/19 History sennosides-docusate sodium [Senna 2 tab-cap PO DAILY PRN 03/05/19 03/05/19 History Plus] Allergies Allergy/AdvReac Type Severity Reaction Status Date / Time No Known Allergies Allergy Verified 03/04/19 20:00 Current Medications Current Medications Generic Name Dose Route Start Last Admin Trade Name Freq PRN Reason Stop Dose Admin Hydrocodone Bitart/Acetaminophen 1 tab 03/04/19 20:56 03/05/19 03:22 Gordon 7.5-325 Mg PO 1 tab TID PRN Administration MODERATE PAIN Atorvastatin Calcium 40 mg 03/04/19 21:00 03/04/19 21:58 Lipitor PO Not Given BEDTIME ZONIA Bumetanide 2 mg 03/05/19 09:00 03/05/19 09:25 Bumex PO 2 mg DAILY ZONIA Administration Carvedilol 12.5 mg 03/05/19 09:00 03/05/19 09:25 Coreg PO 12.5 mg BID ZONIA Administration Ketorolac Tromethamine 30 mg 03/05/19 10:37 03/05/19 10:58 Toradol IVP 03/10/19 10:36 30 mg Q6H PRN Administration MODERATE PAIN Morphine Sulfate 2 mg 03/04/19 20:56 03/05/19 10:27 Morphine IVP 2 mg Q4H PRN Administration SEVERE PAIN Nitroglycerin 0.4 mg 03/05/19 06:05 03/05/19 06:25 Nitrostat SUBLINGUAL 0.4 mg Q5M PRN Administration CHEST PAIN Ondansetron HCl 4 mg 03/04/19 20:56 03/05/19 06:24 Zofran IVP 4 mg Q6H PRN Administration NAUSEA AND VOMITING Pantoprazole Sodium 40 mg 03/05/19 09:00 03/05/19 09:25 Protonix PO 40 mg DAILY ZONIA Administration Potassium Chloride 10 meq 03/05/19 09:00 03/05/19 09:25 Klor-Con 10 PO 10 meq DAILY ZONIA Administration Additional Medication Information -med rec pending PFSH Acute PFSH: Statuses (acute, chronic, etc) shown below reflect problem list status as previously entered and may not be historically accurate Social History Smoking and tobacco status: current every day smoker cigarettes Packs smoked per day: 1.25 Alcohol intake: never Substance/Drug Use: never Vitals/I&O/Wt Last Vital Signs Temp 98.3 F 03/05/19 11:21 Pulse 71 03/05/19 11:21 Resp 18 03/05/19 11:21 BP 110/60 03/05/19 11:21 Pulse Ox 92 01/15/20 11:21 03/04/19 03/05/19 03/05/19 22:59 06:59 14:59 Intake Total 1456.666 / 1456.666 480 / 480 Output Total 100 / 100 Balance 1356.666 / 1356.666 480 / 480 Weight last 48 hrs Weight 247 lb Weight 249 lb 9 oz Weight 245 lb Physical Exam Narrative: EXAM NARRATIVE: GENERAL: Patient is alert, awake and oriented x3 but in moderate distress because of the pain. NECK: No jugular vein distension. HEENT: No cyanosis. No icterus. No pallor. HEART: Regular S1 and S2. No murmur, rub or gallop. LUNGS: Clear to auscultate bilaterally. ABDOMEN: Soft, nontender and nondistended. Positive bowel sounds. No guarding, rebound or tenderness. CENTRAL NERVOUS SYSTEM: Grossly nonfocal. EXTREMITIES: Lower extremities with 1+ edema bilaterally. A&P Assessment and plan (1) Chest pain: Most likely days noncardiac though he has history of coronary artery disease, my suspicion is because of the fact he had chest pain going on for more than 12 hours and cardiac markers along with EKG part baseline normal. Pattern of chest pain is more of pleuritic. In any case she is not a good candidate for invasive strategy due to MDS, leukopenia , anemia and thrombocytopenia. From a cardiac perspective we will continue to monitor him and continue to treat him medically. For chest pain I will try Toradol since creatinine is normal. Status: Acute Qualifiers: Chest pain type: other chest pain Qualified Code(s): R07.89 - Other chest pain Code(s): R07.9 - Chest pain, unspecified (2) Myelodysplastic syndrome: He follows up with oncology. We will Seek their opinion while in the hospital, continue home meds Status: Acute Code(s): D46.9 - Myelodysplastic syndrome, unspecified (3) Chronic kidney disease (CKD) stage G2/A3, mildly decreased glomerular filtration rate (GFR) between 60-89 mL/min/1.73 square meter and albuminuria creatinine ratio greater than 300 mg/g: Status: Acute Code(s): N18.2 - Chronic kidney disease, stage 2 (mild) (4) CHF (congestive heart failure): Patient appeared to be well compensated. He was infected drive any came in he was given IV fluid.. His creatinine has normalized. I will resume Lasix today. Status: Acute Code(s): I50.9 - Heart failure, unspecified (5) COPD (chronic obstructive pulmonary disease): Stable , continue as per medicine recommendations Status: Acute Code(s): J44.9 - Chronic obstructive pulmonary disease, unspecified (6) GI bleed: Stable Status: Acute Code(s): K92.2 - Gastrointestinal hemorrhage, unspecified (7) CAD (coronary artery disease): Appeared to be stable as i documented my findings under chest pain , we will continue to monitor him closely he is not a candidate for invasive strategy therefore continue to treat Status: Acute Code(s): I25.10 - Atherosclerotic heart disease of unga coronary artery without angina pectoris (8) Acute renal failure (ARF): Most likely prerenal. With IV fluid it has improved. Discontinue fluid now. Status: Acute Code(s): N17.9 - Acute kidney failure, unspecified Coding Level of Care Code Acute Chemistry Quality Control Analyst for Chg Fwd History Comprehensive Exam Detailed Medical Decision Making High Complexity Diagnoses Chest pain R07.89 Chest pain type: other chest pain Myelodysplastic syndrome D46.9 Chronic kidney disease (CKD) stage G2/A3, mildly decreased glomerular filtration rate (GFR) between 60-89 mL/min/1.73 square meter and albuminuria creatinine ratio greater than 300 mg/g N18.2 CHF (congestive heart failure) I50.9 COPD (chronic obstructive pulmonary disease) J44.9 GI bleed K92.2 CAD (coronary artery disease) I25.10 Acute renal failure (ARF) N17.9
--- NOTE | 2019-03-05 20:28 | PM.PN ---
Subjective Subjective: Interval history: This afternoon he was feeling better, still some discomfort in the left side of his chest. Reports that this is triggered by deep inspiration, movement. Denies cough. Denies shortness of breath. Vitals/I&O/Wt Last Vital Signs Temp 98.4 F 03/05/19 16:00 Pulse 70 03/05/19 16:00 Resp 16 03/05/19 16:00 BP 119/70 03/05/19 16:00 Pulse Ox 95 03/05/19 16:00 03/05/19 03/05/19 03/05/19 06:59 14:59 22:59 Intake Total 1456.666 / 1456.666 480 / 480 Output Total 100 / 100 Balance 1356.666 / 1356.666 480 / 480 Weight last 48 hrs Weight 112.037 kg Weight 113.2 kg Weight 111.13 kg Physical Exam Const: COMMON NORMALS: no apparent distress and oriented x3 OTHER: Sitting up in chair. is at his side. HENMT: COMMON NORMALS: oropharynx normal Neck/C-Spine: COMMON NORMALS: no JVD Resp: COMMON NORMALS: normal respiratory effort and clear to auscultation bilaterally AUSCULTATION: clear to auscultation bilaterally Cardio: COMMON NORMALS: no JVD, regular rhythm, S1 normal heart sound, S2 normal heart sound and no murmurs RHYTHM: regular rhythm HEART SOUNDS: S1 normal and S2 normal GI: COMMON NORMALS: normal to inspection, nondistended, normoactive bowel sounds, soft to palpation and non-tender PALPATION: Yes soft Extremity: COMMON NORMALS: no joint enlargement and no pedal edema Neuro: COMMON NORMALS: oriented x3 and moves all extremities Skin: COMMON NORMALS: no rashes or lesions noted GENERAL SKIN EXAM: no rashes or lesions noted A&P Assessment and plan (1) Chest pain: Atypical chest pain, likely musculoskeletal. He has no respiratory symptoms. There was no abnormal finding on CTA. Pain does not appear cardiac. Appreciate cardiology assessment. At this time no additional investigation, but given his underlying comorbidities and still some persistence of discomfort on the left side will observe him an additional night as per request of cardiology. 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 Truong -Baseline hemoglobin is around 8-9 -Baseline platelet count is 20-30 -Baseline leukopenic, WBC 0.5-0.7 Status: Acute Code(s): D46.9 - Myelodysplastic syndrome, unspecified Additional A&P Information -History of prior traumatic vertebral compression fracture status post kyphoplasty in 02/2016 -Dyslipidemia; currently off statin therapy -CAD status post CABG x4 in 2001 -COPD, not oxygen dependent, no acute exacerbation -GERD, on PPI -Chronic smoker -Chronic diastolic CHF, no acute exacerbation, BNP-850 -CKD stage II; with evidence of segmental membranous glomerulonephropathy Attestations Medical Necessity Statement*: Continue observation status due to chest pain in a gentleman with known coronary disease, MDS with pancytopenia and other underlying comorbidities. 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
[2019-03-05] MEDS: atorvastatin 40 mg Tablet PO (21:26)
[2019-03-06] VITALS (16 sets, daily range): BP systolic 92–129; BP diastolic 57–79; PULSE 60–80; RESP 14–20; TEMP 36.4–37; O2SAT 93–96
[2019-03-06 06:29] LABS: Eosinophils % 3.8 %; Hematocrit 25.3 % (42.0-52.0); Hemoglobin 7.9 g/dL (11.7-16.6); Lymphocytes # 0.4 10^3/uL (0.8-4.8); Lymphocytes % 67.3 %; Mean Corpuscular HGB Conc 31.2 g/dL (30.0-36.0); Mean Corpuscular Hemoglobin 30.3 pg (28.0-34.0); Mean Corpuscular Volume 96.9 fL (80-94); Monocytes % 7.7 %; Neutrophils % 15.4 %; Nucleated Red Blood Cells # 0.1 /100WBC; Nucleated Red Blood Cells % 13.5 %; Red Blood Count 2.61 10^6/uL (4.1-5.3); Red Cell Distribution Width 18.4 % (12.1-15.1)
[2019-03-06 06:44] LABS: Alanine Aminotransferase 10 U/L (0-41); Albumin Level 3.2 g/dL (3.5-5.2); Alkaline Phosphatase 99 IU/L (40-130); Aspartate Amino Transferase 14 U/L (0-40); Blood Urea Nitrogen 30 mg/dL (8-23); Calcium 8.7 mg/Dl (8.8-10.2); Carbon Dioxide 24 mmol/L (22-29); Chloride 100 mmol/L (98-107); Glucose 110 mg/dL (74-106); Sodium 135 mmol/L (136-145); Total Bilirubin 0.9 mg/dL (0.15-1.2); Total Protein 6.2 g/dL (6.6-8.7)
[2019-03-06 07:00] LABS: Neutrophils # 0.1 10^3/uL (1.8-7.7); White Blood Count 0.5 10^3/uL (4.0-10.0)
[2019-03-06 07:01] LABS: Platelet Count 20 10^3/cmm (130-400); Slide Review Slide Review Perform
[2019-03-06 07:02] LABS: Mean Platelet Volume 11.9 fL (7.4-10.4)
[2019-03-06 08:43] LABS: Creatine Phosphokinase 30 U/L (39-308)
[2019-03-06] MEDS: bumetanide 1 mg Tablet 2 MG PO (09:21)
[2019-03-06] MEDS: carvedilol 12.5 mg Tablet PO (09:21)
[2019-03-06] MEDS: pantoprazole DR 40 mg Tablet PO (09:21)
[2019-03-06] MEDS: HYDROcodone-acetaminophen 7.5-325 mg Tablet 1 TAB PO (09:26)
--- NOTE | 2019-03-06 11:36 | PM.DCS ---
Discharge Providers Date of Admission: 03/04/19 18:34 Date of Discharge: 03/06/19 Attending Provider at Admission: Brian Benavidez Attending Provider at Discharge: Brian Benavidez Consults: Azar Tavares Primary Care Provider: Edvin Soria DO Diagnoses at Discharge Discharge Diagnosis (1) Chest pain: Status: Acute Qualifiers: Chest pain type: other chest pain Qualified Code(s): R07.89 - Other chest pain (2) Myelodysplastic syndrome: Status: Acute Reason for Visit Reason for Visit: Reason For Visit: chest pain Hospital Course Hospital Course: 73-year-old gentleman with history of MDS, with pancytopenia, CAD, status post CABG, history of CHF, chronic kidney disease, COPD, AAA repair was placed in observation after experiencing chest pain, which she describes as left-sided, across upper left side of his chest, shoulder, on discussion with him he describes pain is worse with deep inspiration, with movement. His pain has been noted atypical, he was assessed by cardiology who agreed his pain was non-cardiac most likely. Due to suspected musculoskeletal nature of the pain he is started on short course of Toradol. He has remained afebrile, without tachycardia. He has had no pulmonary symptoms without shortness of breath, cough. CTA on presentation without PE or suggestion of acute infection. He is noted to have recurrence of anemia for which he will receive 2 units of leuko-reduced, irradiated PRBC. Physical Exam Const: COMMON NORMALS: no apparent distress and oriented x3 OTHER: Sitting up in chair. is at his side. HENMT: COMMON NORMALS: oropharynx normal Neck/C-Spine: COMMON NORMALS: no JVD Resp: COMMON NORMALS: normal respiratory effort and clear to auscultation bilaterally AUSCULTATION: clear to auscultation bilaterally Cardio: COMMON NORMALS: no JVD, regular rhythm, S1 normal heart sound, S2 normal heart sound and no murmurs RHYTHM: regular rhythm HEART SOUNDS: S1 normal and S2 normal GI: COMMON NORMALS: normal to inspection, nondistended, normoactive bowel sounds, soft to palpation and non-tender PALPATION: Yes soft Extremity: COMMON NORMALS: no joint enlargement and no pedal edema Neuro: COMMON NORMALS: oriented x3 and moves all extremities Skin: COMMON NORMALS: no rashes or lesions noted GENERAL SKIN EXAM: no rashes or lesions noted Discharge Data Data Completed and Pending: Completed Studies During Hospitalization Category Date Time Status CT angio chest PE protcl [id number] Urge nt Cat Scan 03/04/19 17:01 Completed XR chest 1V hailey ble [id number] Stat Exams 03/04/19 15:47 Completed Pending at discharge Category Date Time Status Irradiated Leuko Red RBC Routine Lab 03/06/19 10:27 Received Type and Screen R outine Lab 03/06/19 10:27 Received Labs from last 24 hours 03/06/19 03/06/19 03/06/19 06:03 06:03 06:03 WBC 0.5 L* RBC 2.61 L Hgb 7.9 L Hct 25.3 L MCV 96.9 H MCH 30.3 MCHC 31.2 RDW 18.4 H Plt Count 20 L* MPV 11.9 H Neut % (Auto) 15.4 Lymph % (Auto) 67.3 Calloway % (Auto) 7.7 Eos % (Auto) 3.8 Baso % (Auto) 0.0 Neut # (Auto) 0.1 L* Lymph # (Auto) 0.4 L Calloway # (Auto) 0.0 L Eos # (Auto) 0.0 Baso # (Auto) 0.0 Nucleated RBC % (a uto) 13.5 Nucleated RBCs # 0.1 Sodium 135 L Potassium 4.0 Chloride 100 Carbon Dioxide 24 Anion Gap 15.0 BUN 30 H Creatinine 1.4 H Glucose 110 H Calcium 8.7 L Total Bilirubin 0.9 AST 14 ALT 10 Alkaline Phosphata se 99 Creatine Kinase 30 L Total Protein 6.2 L Albumin 3.2 L Globulin 3.0 Vitals: Last Vital Signs Temp 97.7 F 03/06/19 08:00 Pulse 68 03/06/19 08:00 Resp 14 03/06/19 08:00 BP 124/67 03/06/19 08:00 Pulse Ox 93 03/06/19 08:00 Discharge Plan Discharge Patient Disposition: Home, Self-Care Condition: Stable Prescriptions: New ibuprofen 400 mg tablet 400 mg PO TID PRN (Reason: pain) Qty: 9 RF: 0 Continued atorvastatin 40 mg Tablet 40 mg PO DAILY RF: 0 bumetanide 2 mg Tablet 2 - 4 mg PO PRN PRN (Reason: Edema) RF: 0 Calcium 600 + D(3) 600-125 mg-unit Tablet 1 tab PO BID RF: 0 carvedilol 12.5 mg Tablet 12.5 mg PO DAILY RF: 0 hydrocodone-acetaminophen 7.5-325 mg Tablet 1 tab PO TID PRN (Reason: Pain) RF: 0 levofloxacin 500 mg Tablet 500 mg PO DAILY RF: 0 Nitrostat 0.4 mg Tablet, Sublingual See Rx Instructions .ROUTE .COMPLEX PRN (Reason: Chest Pain) RF: 0 pantoprazole 40 mg Tablet,Delayed Release (Dr/Ec) 40 mg PO DAILY PRN (Reason: Acid Reflux) RF: 0 Klor-Con M20 20 mEq Tablet,Er Particles/Crystals 1 meq PO DAILY RF: 0 Senna Plus 8.6-50 mg Tablet 2 tab-cap PO DAILY PRN (Reason: Constipation) RF: 0 Jadenu 360 mg Tablet 1 mg PO BID RF: 0 Aspercreme (lidocaine) 4 % Cream 1 applic TOPICAL BID PRN (Reason: Itching) RF: 0 Discharge Orders: Discharge Order (Routine); Ordered 03/06/19 Ordered By: Brian Benavidez Referrals: Eduardo Truong MD [Hospitalist] - (As before) Edvin Soria DO [Primary Care Provider] - 4-7 days Activity Restrictions/Additional Instructions: Continue neutropenic diet and precautions. 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
--- NOTE | 2019-03-06 17:45 | PC.NURSE ---
Toradol 15 mg po TID PRN #12 called to [facility] at [facility].
--- NOTE | 2019-03-06 18:45 | P.PN_ITS ---
Subjective Subjective: Interval history: Denies any more chest pain shoulder pain or back pain. Hb is low. He requires transfusion Medications: Medication Review Details: -med rec pending Vitals/I&O/Wt Last Vital Signs Temp 98.2 F 03/06/19 17:40 Pulse 64 03/06/19 17:40 Resp 16 03/06/19 17:40 BP 111/71 03/06/19 17:40 Pulse Ox 95 03/06/19 17:40 03/06/19 03/06/19 03/06/19 06:59 14:59 22:59 Intake Total 100 / 700 240 / 240 500 / 740 Balance 100 / 700 240 / 240 500 / 740 Weight last 48 hrs Weight 260 lb 1 oz Weight 247 lb Weight 249 lb 9 oz Physical Exam Narrative: EXAM NARRATIVE: GENERAL: Patient is alert, awake and oriented x3. NECK: No jugular vein distension. HEENT: No cyanosis. No icterus. No pallor. HEART: Regular S1 and S2. No murmur, rub or gallop. LUNGS: Clear to auscultate bilaterally. ABDOMEN: Soft, nontender and nondistended. Positive bowel sounds. No guarding, rebound or tenderness. CENTRAL NERVOUS SYSTEM: Grossly nonfocal. EXTREMITIES: Lower extremities with 1+ edema bilaterally. Pulses palpable in the lower extremities, both dorsalis pedis and posterior tibial. A&P Assessment and plan (1) Chest pain: Patient chest pain and then resolved after Toradol injection. He will be discharged on nonsteroidal anti-inflammatory medicine for a few days. Advised to keep Protonix intact Status: Acute Qualifiers: Chest pain type: other chest pain Qualified Code(s): R07.89 - Other chest pain Code(s): R07.9 - Chest pain, unspecified (2) Myelodysplastic syndrome: He follows up with oncology. Patient required transfusion. He will get today 1 and he will be following up with oncology as an outpatient Status: Acute Code(s): D46.9 - Myelodysplastic syndrome, unspecified (3) Chronic kidney disease (CKD) stage G2/A3, mildly decreased glomerular filtration rate (GFR) between 60-89 mL/min/1.73 square meter and albuminuria creatinine ratio greater than 300 mg/g: Stable Status: Acute Code(s): N18.2 - Chronic kidney disease, stage 2 (mild) (4) CHF (congestive heart failure): Well compensated. Continue medicine Status: Acute Qualifiers: Heart failure type: diastolic Qualified Code(s): I50.30 - Unspecified diastolic (congestive) heart failure Code(s): I50.9 - Heart failure, unspecified (5) COPD (chronic obstructive pulmonary disease): Stable , continue as per medicine recommendations Status: Acute Qualifiers: COPD type: unspecified COPD Qualified Code(s): J44.9 - Chronic obstructive pulmonary disease, unspecified Code(s): J44.9 - Chronic obstructive pulmonary disease, unspecified (6) CAD (coronary artery disease): Stable. Status: Acute Qualifiers: Coronary Disease-Associated Artery/Lesion type: [place] artery Qualified Code(s): I25.10 - Atherosclerotic heart disease of [place] coronary artery without angina pectoris Code(s): I25.10 - Atherosclerotic heart disease of [place] coronary artery without angina pectoris (7) Acute renal failure (ARF): Stable. Status: Acute Qualifiers: Acute renal failure type: unspecified Qualified Code(s): N17.9 - Acute kidney failure, unspecified Code(s): N17.9 - Acute kidney failure, unspecified Attestations Medical Necessity Statement*: Patient can be discharged home on nonsteroidal anti-inflammatory medicine. 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 [facility] History Expanded Problem Focused Exam Expanded Problem Focused Medical Decision Making Moderate Complexity Diagnoses Chest pain R07.89 Chest pain type: other chest pain Myelodysplastic syndrome D46.9 Chronic kidney disease (CKD) stage G2/A3, mildly decreased glomerular filtration rate (GFR) between 60-89 mL/min/1.73 square meter and albuminuria creatinine ratio greater than 300 mg/g N18.2 CHF (congestive heart failure) I50.30 Heart failure type: diastolic COPD (chronic obstructive pulmonary disease) J44.9 COPD type: unspecified COPD CAD (coronary artery disease) I25.10 Coronary Disease-Associated Artery/Lesion type: [place] artery Acute renal failure (ARF) N17.9 Acute renal failure type: unspecified
== END 2019-03-06 18:00 | disposition home or self-care (01) ==
LOC: ER 16:09 → MEDSURG 18:54
PROVIDERS: Family Medicine; Admitting Provider Internal Medicine; Emergency Provider Emergency Medicine; Family Provider Electrodiagnostic Medicine; PCP Electrodiagnostic Medicine; Visit Provider Internal Medicine
DX: R07.89 Other chest pain (principal); D46.9 Myelodysplastic syndrome, unspecified; E78.5 Hyperlipidemia, unspecified; I25.10 Atherosclerotic heart disease of native coronary artery without angina pectoris; Z95.1 Presence of aortocoronary bypass graft; J44.9 Chronic obstructive pulmonary disease, unspecified; K21.9 Gastro-esophageal reflux disease without esophagitis; F17.210 Nicotine dependence, cigarettes, uncomplicated; N18.2 Chronic kidney disease, stage 2 (mild); I50.32 Chronic diastolic (congestive) heart failure; D72.819 Decreased white blood cell count, unspecified; D69.6 Thrombocytopenia, unspecified; I25.2 Old myocardial infarction; Z79.891 Long term (current) use of opiate analgesic; G89.29 Other chronic pain; M54.9 Dorsalgia, unspecified
CPT/HCPCS: 12345; 36415; 36430; 71045; 71275; 80053; 81003; 82550; 83690; 83880; 84484; 85025; 85378; 85610; 85730; 86850; 86900; 93005; 96360; 96361; 96374; 96375; 99282; 99285; G0378; J1885; J2270; J2405; J7030; J7040; P9040; P9058; Q9967

== ENCOUNTER 2019-03-12 09:09 | Outpatient (CLI) | payer MEDICARE, OTHER, SELFPAY ==
[2019-03-12] VITALS (10 sets, daily range): BP systolic 96–128; BP diastolic 62–72; PULSE 65–82; RESP 18; TEMP 36.6–37.1; O2SAT 94–98
[2019-03-12 09:49] LABS: Alanine Aminotransferase 12 U/L (0-41); Albumin Level 3.5 g/dL (3.5-5.2); Alkaline Phosphatase 101 IU/L (40-130); Anion Gap 15.1 (5-19); Aspartate Amino Transferase 12 U/L (0-40); Blood Urea Nitrogen 29 mg/dL (8-23); Calcium 9.2 mg/Dl (8.8-10.2); Carbon Dioxide 27 mmol/L (22-29); Chloride 99 mmol/L (98-107); Globulin 2.7 g/dL (1.3-4.6); Glucose 137 mg/dL (74-106); Potassium 4.1 mmol/L (3.5-5.1); Sodium 137 mmol/L (136-145); Total Protein 6.2 g/dL (6.6-8.7)
[2019-03-12] MEDS: acetaminophen 325 mg Tablet 650 MG PO (11:45)
[2019-03-12] MEDS: diphenhydrAMINE 25 mg Capsule PO (11:45)
[2019-03-12] MEDS: sodium chloride 0.9% 250 ML 999 ML IV (11:45)
[2019-03-12] MEDS: FUROsemide 10 mg/mL SDV 2mL 20 MG IV (13:40)
== END 2019-03-12 09:10 | disposition home or self-care (01) ==
LOC: LAB 09:14
PROVIDERS: Family Provider Electrodiagnostic Medicine; PCP Electrodiagnostic Medicine; Visit Provider Electrodiagnostic Medicine
DX: R07.89 Other chest pain (principal); D64.9 Anemia, unspecified; D72.819 Decreased white blood cell count, unspecified; I12.9 Hypertensive chronic kidney disease with stage 1 through stage 4 chronic kidney disease, or unspecified chronic kidney disease; N18.3 Chronic kidney disease, stage 3 (moderate)
CPT/HCPCS: 36430; 80053; 86850; 86900; J1940; J7050; P9040

== ENCOUNTER 2019-03-18 07:03 | Day surgery (SDC) | payer MEDICARE, OTHER, SELFPAY ==
[2019-03-17 12:57] VITALS: BMI 29.9
--- NOTE | 2019-03-18 07:22 | ANES.PREANES ---
Pre-Anesthetic Assessment Pre-Anesthetic Assessment: Height/Weight: Height 1.91 m Weight 108.862 kg Proposed Procedure: Operation Date: 03/18/19 08:30 Proposed Procedures p EGD 67067 K92.1(Not Applicable) - Devang Kaur MD Social: Social History: Tobacco and No alcohol Exam: Pre-Anes Outpt Exam: alert, oriented x 3, clear to auscultation bilaterally and regular rate & rhythm Airway: Submandibular: WNL Cervical ROM: WNL MP: 2 Dentition: Other (poor) History/ROS: No significant history except as noted Pulmonary: Pulmonary: COPD, RODGERS and Sleep apnea CV/HEM: CV/HEM: CAD, CHF, HTN and CT : : Chronic renal Insufficiency Hepatic: Hepatic: None reported GI: GI: GERD (occ) Metabolic: Metabolic: Hyperlipidemia and Morbid obesity Musc/skel: Musc/skel: Lower Back Pain and OA/DJD Anesthetic Plan: ASA status: III Anesthesia: Anesthesia Evaluation and MAC Risk of > 500 ml blood loss (7ml/kg in children): No PFSH Anesthesia PFSH: Medical History CAD (coronary artery disease) (Acute) CHF (congestive heart failure) (Acute) Chronic kidney disease (CKD) stage G2/A3, mildly decreased glomerular filtration rate (GFR) between 60-89 mL/min/1.73 square meter and albuminuria creatinine ratio greater than 300 mg/g (Acute) COPD (chronic obstructive pulmonary disease) (Acute) GERD (gastroesophageal reflux disease) (Acute) Hypercholesterolemia (Acute) Myelodysplastic syndrome (Acute) Myocardial infarction (Acute) Port-A-Cath in place (Acute) Surgical History H/O circumcision (Acute) History of abdominal aortic aneurysm (AAA) repair (Acute) History of back surgery (Acute) Hx of CABG (Acute) x 4 vessel, in 2001 Hx of cataract surgery (Acute) 12/07 Status post colonoscopy (Acute) Family History Other Cancer Diabetes Heart disease Denies family history of Anesthesia complication Bleeding disorder Social History Smoking and tobacco status: current every day smoker cigarettes Packs smoked per day: 1.25 Alcohol intake: never Household members: spouse Marital status: Current occupational status: retired Data Anesthesia Cardiac Studies: No Data to Display
[2019-03-18] MEDS: diphenhydrAMINE 50 mg/mL SDV 1mL 25 MG IVP (07:58)
[2019-03-18 08:03] VITALS: BP 97/59; PULSE 74; RESP 18; TEMP 36.9; O2SAT 94
--- NOTE | 2019-03-18 09:41 | PM.HPUD ---
H&P update H&P Update: DATE OF SURGERY/PROCEDURE: 03/18/19 DATE H&P PERFORMED: 03/13/19 H&P UPDATE INFORMATION: H&P completed within last 30 days and No changes to prior documentation PLANNED PROCEDURE: Operation Date: 03/18/19 08:30 Proposed Procedures p EGD 23648 K92.1(Not Applicable) - Devang Kaur MD Full H&P Perinent History: Medical/Surgical History: Medical History (Updated 03/13/19 @ 10:36 by Devang Kaur MD) CAD (coronary artery disease) (Acute) CHF (congestive heart failure) (Acute) Chronic kidney disease (CKD) stage G2/A3, mildly decreased glomerular filtration rate (GFR) between 60-89 mL/min/1.73 square meter and albuminuria creatinine ratio greater than 300 mg/g (Acute) COPD (chronic obstructive pulmonary disease) (Acute) GERD (gastroesophageal reflux disease) (Acute) Hypercholesterolemia (Acute) Myelodysplastic syndrome (Acute) Myocardial infarction (Acute) Port-A-Cath in place (Acute) Family History: Family History (Updated 03/13/19 @ 10:22 by Teodora Bhat LPN) Other Cancer Diabetes Heart disease Denies family history of Anesthesia complication Bleeding disorder Social History: Social History Smoking and tobacco status: current every day smoker cigarettes Packs smoked per day: 1.25 Alcohol intake: never Household members: spouse Marital status: Current occupational status: retired
[2019-03-18 10:11] VITALS: BP 104/64; PULSE 67; RESP 16; TEMP 36.6; O2SAT 95
--- NOTE | 2019-03-18 10:14 | ANE.PACU ---
 Inpatient post-anesthesia follow up: Airway intact: Yes Vital signs: Temperature 98.4 F Pulse Rate [Monito r] 74 Respiratory Rate 18 Blood Pressure [Le ft Arm] 97/59 Pulse Oximetry 94 Oxygen Delivery Me thod Room Air Oxygen Flow Rate Fraction of Inspir ed Oxygen Hydration adequate: Yes Nausea and vomiting: No Pain level: 2 Mental status: Baseline
[2019-03-18 10:23] VITALS: BP 107/65; PULSE 70; RESP 18; O2SAT 95
[2019-03-18] MEDS: sodium chloride 0.9% 1,000 ML 30 ML (10:44)
== END 2019-03-18 10:42 | disposition home or self-care (01) ==
PROVIDERS: Family Provider Electrodiagnostic Medicine; PCP Electrodiagnostic Medicine; Visit Provider Surgery
PROC: 0DJ08ZZ Inspection of Upper Intestinal Tract, Via Natural or Artificial Opening Endoscopic (ICD-10-PCS; CPT 43235; principal; 2019-03-18 08:30)
DX: K92.1 Melena (principal); D46.9 Myelodysplastic syndrome, unspecified; Z79.891 Long term (current) use of opiate analgesic; I25.10 Atherosclerotic heart disease of native coronary artery without angina pectoris; J44.9 Chronic obstructive pulmonary disease, unspecified; K21.9 Gastro-esophageal reflux disease without esophagitis; E78.00 Pure hypercholesterolemia, unspecified; I25.2 Old myocardial infarction; Z95.1 Presence of aortocoronary bypass graft; I13.0 Hypertensive heart and chronic kidney disease with heart failure and stage 1 through stage 4 chronic kidney disease, or unspecified chronic kidney disease; N18.3 Chronic kidney disease, stage 3 (moderate); I50.9 Heart failure, unspecified; Z82.49 Family history of ischemic heart disease and other diseases of the circulatory system; Z83.3 Family history of diabetes mellitus; F17.210 Nicotine dependence, cigarettes, uncomplicated; G47.30 Sleep apnea, unspecified; E78.5 Hyperlipidemia, unspecified; E66.01 Morbid (severe) obesity due to excess calories; Z68.30 Body mass index [BMI] 30.0-30.9, adult; M19.90 Unspecified osteoarthritis, unspecified site
CPT/HCPCS: 12345; 43235; 96365; J1200; J1642; J7030

== ENCOUNTER 2019-03-20 05:37 | Outpatient (RCR) | payer MEDICARE, OTHER, SELFPAY ==
[2019-03-10 09:41] LABS: Hematocrit 29.2 % (42.0-52.0); Hemoglobin 9.1 g/dL (11.7-16.6); Lymphocytes # 0.4 10^3/uL (0.8-4.8); Lymphocytes % 62.7 %; Mean Corpuscular HGB Conc 31.2 g/dL (30.0-36.0); Mean Corpuscular Hemoglobin 29.8 pg (28.0-34.0); Mean Corpuscular Volume 95.7 fL (80-94); Mean Platelet Volume 13.4 fL (7.4-10.4); Monocytes # 0.1 10^3/uL (0.2-0.9); Monocytes % 13.4 %; Neutrophils % 22.4 %; Nucleated Red Blood Cells # 0.1 /100WBC; Nucleated Red Blood Cells % 10.4 %; Platelet Count 43 10^3/cmm (130-400); Red Blood Count 3.05 10^6/uL (4.1-5.3); Red Cell Distribution Width 18.1 % (12.1-15.1)
[2019-03-10 09:54] LABS: Neutrophils # 0.2 10^3/uL (1.8-7.7); White Blood Count 0.7 10^3/uL (4.0-10.0)
[2019-03-10 09:55] LABS: Slide Review Slide Review Perform
[2019-03-12 09:38] LABS: Hematocrit 23.3 % (42.0-52.0); Hemoglobin 7.4 g/dL (11.7-16.6); Lymphocytes # 0.4 10^3/uL (0.8-4.8); Lymphocytes % 63.2 %; Mean Corpuscular HGB Conc 31.8 g/dL (30.0-36.0); Mean Corpuscular Hemoglobin 29.6 pg (28.0-34.0); Mean Corpuscular Volume 93.2 fL (80-94); Mean Platelet Volume 12.5 fL (7.4-10.4); Monocytes # 0.1 10^3/uL (0.2-0.9); Monocytes % 11.8 %; Neutrophils % 23.5 %; Nucleated Red Blood Cells # 0.1 /100WBC; Nucleated Red Blood Cells % 14.7 %; Platelet Count 43 10^3/cmm (130-400); Red Cell Distribution Width 17.5 % (12.1-15.1)
[2019-03-12 09:55] LABS: Slide Review Slide Review Perform
[2019-03-12 09:56] LABS: Neutrophils # 0.2 10^3/uL (1.8-7.7); White Blood Count 0.7 10^3/uL (4.0-10.0)
[2019-03-14 10:08] LABS: Hematocrit 28.4 % (42.0-52.0); Hemoglobin 9.1 g/dL (11.7-16.6); Lymphocytes # 0.4 10^3/uL (0.8-4.8); Lymphocytes % 67.7 %; Mean Corpuscular Hemoglobin 30.6 pg (28.0-34.0); Mean Corpuscular Volume 95.6 fL (80-94); Mean Platelet Volume 12.8 fL (7.4-10.4); Monocytes # 0.1 10^3/uL (0.2-0.9); Monocytes % 11.3 %; Nucleated Red Blood Cells # 0.2 /100WBC; Nucleated Red Blood Cells % 27.4 %; Platelet Count 41 10^3/cmm (130-400); Red Blood Count 2.97 10^6/uL (4.1-5.3); Red Cell Distribution Width 16.9 % (12.1-15.1)
[2019-03-14 10:24] LABS: Iron 196 ug/dL (59-158); Lactate Dehydrogenase 292 U/L (135-225); Total Iron Binding Capacity 220 mg/dL; Unsaturated Iron Binding 24 ug/dL (112-347)
[2019-03-14 10:40] LABS: Neutrophils # 0.1 10^3/uL (1.8-7.7); White Blood Count 0.6 10^3/uL (4.0-10.0)
[2019-03-14 10:42] LABS: Slide Review Slide Review Perform
[2019-03-14 10:54] LABS: Ferritin 1420 ng/mL (30-400)
[2019-03-17 09:29] LABS: Hematocrit 27.4 % (42.0-52.0); Hemoglobin 8.6 g/dL (11.7-16.6); Lymphocytes # 0.4 10^3/uL (0.8-4.8); Lymphocytes % 52.8 %; Mean Corpuscular HGB Conc 31.4 g/dL (30.0-36.0); Mean Corpuscular Hemoglobin 29.7 pg (28.0-34.0); Mean Corpuscular Volume 94.5 fL (80-94); Mean Platelet Volume 12.4 fL (7.4-10.4); Monocytes # 0.1 10^3/uL (0.2-0.9); Monocytes % 15.3 %; Neutrophils % 29.1 %; Nucleated Red Blood Cells # 0.3 /100WBC; Nucleated Red Blood Cells % 34.7 %; Platelet Count 39 10^3/cmm (130-400); Red Cell Distribution Width 17.8 % (12.1-15.1)
[2019-03-17 09:51] LABS: Neutrophils # 0.2 10^3/uL (1.8-7.7); White Blood Count 0.7 10^3/uL (4.0-10.0)
[2019-03-17 09:52] LABS: Slide Review Slide Review Perform
[2019-03-17] MEDS: acetaminophen 325 mg Tablet 650 MG PO (12:35)
[2019-03-17 12:40] VITALS: BP 104/64; PULSE 74; RESP 18; TEMP 36.9; O2SAT 94
[2019-03-17 12:55] VITALS: BP 101/59; PULSE 67; RESP 18; TEMP 36.8; O2SAT 94
[2019-03-17 13:10] VITALS: BP 106/71; PULSE 65; RESP 18; TEMP 36.9; O2SAT 94
[2019-03-17 13:40] VITALS: BP 107/72; PULSE 67; RESP 18; TEMP 36.6; O2SAT 95
[2019-03-17 14:15] VITALS: BP 108/67; PULSE 71; RESP 18; TEMP 36.9; O2SAT 95
[2019-03-17] MEDS: sodium chloride 0.9% 250 ML 999 ML IV (14:56)
[2019-03-17] MEDS: diphenhydrAMINE 25 mg Capsule PO (14:57)
[2019-03-18 08:20] VITALS: BP 97/59; PULSE 74; RESP 18; TEMP 36.9; O2SAT 94
[2019-03-18 08:24] VITALS: BP 112/66; PULSE 73; RESP 18; TEMP 36.7
[2019-03-18 08:29] VITALS: BP 116/74; PULSE 81; RESP 18; TEMP 36.6; O2SAT 95
[2019-03-18 15:16] LABS: ABNORMAL PROTEIN BAND 1 0.5 g/dL (NONE DETECTED); ALBUMIN 3.3 g/dL (3.8-4.8); ALPHA 1 GLOBULIN 0.4 g/dL (0.2-0.3); ALPHA 2 GLOBULIN 0.4 g/dL (0.5-0.9); BETA 1 GLOBULIN 0.4 g/dL (0.4-0.6); BETA 2 GLOBULIN 0.3 g/dL (0.2-0.5); GAMMA GLOBULIN 1.3 g/dL (0.8-1.7); KAPPA LIGHT CHAIN, FREE, SERUM 128.5 mg/L (3.3-19.4); KAPPA/LAMBDA LIGHT CHAINS FREE 4.19 (0.26-1.65); LAMBDA LIGHT CHAIN, FREE, SERU 30.7 mg/L (5.7-26.3); PROTEIN, TOTAL 5.9 g/dL (6.1-8.1)
[2019-03-20 09:16] LABS: Eosinophils % 1.7 %; Hematocrit 28.7 % (42.0-52.0); Hemoglobin 8.9 g/dL (11.7-16.6); Lymphocytes # 0.3 10^3/uL (0.8-4.8); Mean Corpuscular Hemoglobin 30.3 pg (28.0-34.0); Mean Corpuscular Volume 97.6 fL (80-94); Mean Platelet Volume 11.9 fL (7.4-10.4); Monocytes # 0.1 10^3/uL (0.2-0.9); Neutrophils % 28.3 %; Nucleated Red Blood Cells # 0.2 /100WBC; Platelet Count 32 10^3/cmm (130-400); Positive C 1; Positive M 1; Red Blood Count 2.94 10^6/uL (4.1-5.3); Red Cell Distribution Width 17.9 % (12.1-15.1)
[2019-03-20 10:12] LABS: White Blood Count 0.6 10^3/uL (4.0-10.0)
[2019-03-20 10:13] LABS: Neutrophils # 0.2 10^3/uL (1.8-7.7)
== END 2019-03-21 23:59 | disposition home or self-care (01) ==
LOC: ONCMED 05:37
PROVIDERS: Family Provider Electrodiagnostic Medicine; PCP Electrodiagnostic Medicine; Visit Provider Internal Medicine Medical Oncology
DX: D50.8 Other iron deficiency anemias (principal); C90.00 Multiple myeloma not having achieved remission; D46.A Refractory cytopenia with multilineage dysplasia; R19.5 Other fecal abnormalities; K92.1 Melena; D46.9 Myelodysplastic syndrome, unspecified; Z79.891 Long term (current) use of opiate analgesic; I25.10 Atherosclerotic heart disease of native coronary artery without angina pectoris; J44.9 Chronic obstructive pulmonary disease, unspecified; K21.9 Gastro-esophageal reflux disease without esophagitis; E78.00 Pure hypercholesterolemia, unspecified; I25.2 Old myocardial infarction; Z95.1 Presence of aortocoronary bypass graft; I13.0 Hypertensive heart and chronic kidney disease with heart failure and stage 1 through stage 4 chronic kidney disease, or unspecified chronic kidney disease; N18.3 Chronic kidney disease, stage 3 (moderate); I50.9 Heart failure, unspecified; Z82.49 Family history of ischemic heart disease and other diseases of the circulatory system; Z83.3 Family history of diabetes mellitus; F17.210 Nicotine dependence, cigarettes, uncomplicated; G47.30 Sleep apnea, unspecified; E78.5 Hyperlipidemia, unspecified; E66.01 Morbid (severe) obesity due to excess calories; Z68.30 Body mass index [BMI] 30.0-30.9, adult; M19.90 Unspecified osteoarthritis, unspecified site
CPT/HCPCS: 12345; 36415; 36430; 43235; 80053; 82274; 82728; 83540; 83550; 83615; 83883; 84155; 84165; 85025; 86850; 86900; 96365; J1200; J1642; J1940; J7030; J7050; P9037; P9040

== ENCOUNTER 2019-04-17 05:47 | Outpatient (RCR) | payer MEDICARE, OTHER, SELFPAY ==
[2019-03-24 09:51] LABS: Lymphocytes # 0.3 10^3/uL (0.8-4.8); Lymphocytes % 56.9 %; Mean Corpuscular Volume 96.7 fL (80-94); Mean Platelet Volume 13.4 fL (7.4-10.4); Monocytes # 0.1 10^3/uL (0.2-0.9); Monocytes % 13.8 %; Neutrophils % 24.1 %; Nucleated Red Blood Cells # 0.2 /100WBC; Nucleated Red Blood Cells % 29.3 %; Platelet Count 43 10^3/cmm (130-400); Red Cell Distribution Width 17.8 % (12.1-15.1)
[2019-03-24 10:19] LABS: Slide Review Slide Review Perform
[2019-03-24 10:20] LABS: White Blood Count 0.6 10^3/uL (4.0-10.0)
[2019-03-24 10:21] LABS: Neutrophils # 0.1 10^3/uL (1.8-7.7)
[2019-03-27] VITALS (11 sets, daily range): BP systolic 100–129; BP diastolic 64–72; PULSE 60–86; RESP 18; TEMP 36.6–37; O2SAT 94–96
[2019-03-27 09:24] LABS: Hematocrit 25.6 % (42.0-52.0); Lymphocytes # 0.4 10^3/uL (0.8-4.8); Lymphocytes % 69.5 %; Mean Corpuscular HGB Conc 31.3 g/dL (30.0-36.0); Mean Corpuscular Hemoglobin 29.5 pg (28.0-34.0); Mean Corpuscular Volume 94.5 fL (80-94); Monocytes # 0.1 10^3/uL (0.2-0.9); Monocytes % 10.2 %; Neutrophils % 20.3 %; Nucleated Red Blood Cells # 0.2 /100WBC; Nucleated Red Blood Cells % 32.2 %; Platelet Count 46 10^3/cmm (130-400); Red Blood Count 2.71 10^6/uL (4.1-5.3); Red Cell Distribution Width 17.6 % (12.1-15.1)
[2019-03-27 10:01] LABS: Add RBC Morph Yes; Neutrophils # 0.1 10^3/uL (1.8-7.7); Slide Review Slide Review Perform; White Blood Count 0.6 10^3/uL (4.0-10.0)
[2019-03-27 10:02] LABS: Dimorphic RBC 2+
[2019-03-27 10:03] LABS: Anisocytosis 2+; Ovalocytes 2+; Poikilocytosis 2+; Polychromasia 1+; RBC Morph Comp Yes; Tear Drop Cells Trace
[2019-03-27] MEDS: acetaminophen 325 mg Tablet 650 MG PO (16:32)
[2019-03-27] MEDS: diphenhydrAMINE 25 mg Capsule PO (16:33)
[2019-03-27] MEDS: sodium chloride 0.9% 250 ML 999 ML IV (16:44)
[2019-03-27] MEDS: FUROsemide 10 mg/mL SDV 2mL 20 MG IV (16:46)
[2019-03-31 09:39] LABS: Hematocrit 30.2 % (42.0-52.0); Hemoglobin 9.5 g/dL (11.7-16.6); Lymphocytes # 0.4 10^3/uL (0.8-4.8); Lymphocytes % 68.4 %; Mean Corpuscular HGB Conc 31.5 g/dL (30.0-36.0); Mean Corpuscular Hemoglobin 29.5 pg (28.0-34.0); Mean Corpuscular Volume 93.8 fL (80-94); Mean Platelet Volume 12.9 fL (7.4-10.4); Monocytes # 0.1 10^3/uL (0.2-0.9); Monocytes % 10.5 %; Neutrophils % 21.1 %; Nucleated Red Blood Cells # 0.2 /100WBC; Nucleated Red Blood Cells % 26.3 %; Platelet Count 36 10^3/cmm (130-400); Red Blood Count 3.22 10^6/uL (4.1-5.3); Red Cell Distribution Width 17.7 % (12.1-15.1)
[2019-03-31 10:04] LABS: Alanine Aminotransferase 8 U/L (0-41); Albumin Level 3.7 g/dL (3.5-5.2); Alkaline Phosphatase 110 IU/L (40-130); Anion Gap 16.9 (5-19); Aspartate Amino Transferase 16 U/L (0-40); Blood Urea Nitrogen 21 mg/dL (8-23); Carbon Dioxide 26 mmol/L (22-29); Chloride 101 mmol/L (98-107); Globulin 2.9 g/dL (1.3-4.6); Glucose 146 mg/dL (65-115); Iron 206 ug/dL (59-158); Lactate Dehydrogenase 371 U/L (135-225); Percent Saturation 89.9 % (20-50); Potassium 3.9 mmol/L (3.5-5.1); Sodium 140 mmol/L (136-145); Total Bilirubin 1.3 mg/dL (0.15-1.2); Total Iron Binding Capacity 229 mcg/dl; Total Protein 6.6 g/dL (6.6-8.7); Unsaturated Iron Binding 23 ug/dL (112-347)
[2019-03-31 10:16] LABS: Neutrophils # 0.1 10^3/uL (1.8-7.7); Slide Review Slide Review Perform; White Blood Count 0.6 10^3/uL (4.0-10.0)
[2019-03-31 10:30] LABS: Ferritin 1509 ng/mL (30-400)
[2019-04-01 06:22] LABS: PROTEIN, TOTAL 6.3 g/dL (6.1-8.1)
--- NOTE | 2019-04-01 07:14 | ONC FU_ITS ---
Dr. Truong Patient Follow-Up Note Patient: Gabriel Thakkar V Unit #: [id number]: 1945 Dicatated By: Eduardo Truong M.D.Date of Visit:Mar 31, 2019 Onc Med Follow-up/Prog Note Chief Complaint: Myelodysplastic syndrome/monoclonal gammopathy. 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 He also has monoclonal gammopathy, now with evidence of early stage myeloma. I had seen him initially on 09/24/2015. Approximately 7 weeks earlier he had developed acute onset of joint pain, which included pain and swelling in his hands/fingers and pain in his shoulders and upper arms. The pain later progressed to involve his knees and ankles. The pain was severe enough that it had affected his ability to function. He had seen Dr. Soria, and an initial steroid injection gave him only temporary benefit. He then took prednisone at 20 mg daily for 1 week, which did give him some relief. Within 2 days after stopping it, he was having severe pain again. He had subsequently restarted prednisone at 10 mg daily, and it did seem to be helping a little. He also had an emergency room visit on 08/26/2015. His evaluation included a CBC which showed moderately severe anemia, hemoglobin 9.5 g and hematocrit 31%. The red cell indices were normal. The white blood cell count was 6800 and the platelet count was normal at 203,000. Chem profile showed borderline renal function BUN 21 and creatinine 1.2 mg/dL. The liver enzymes were normal. Albumin was low at 2.9 g/dL with the calculated serum globulin 4.0 g/dL. Chest x-ray showed slight increased left lateral lower lung zone pleural thickening, effusion, or overlying soft tissue artifact. Clinically, he was felt to have some component of congestive heart failure, and at that time he did start diuretic therapy with furosemide. He had a noncontrast chest CT for follow-up of a pulmonary nodule on 08/30/2015. That study showed a 7 mm left upper lobe nodule which appeared stable from a previous study in March 2015. There was evidence of chronic emphysema. Left upper lobe interstitial fibrosis and honeycombing also appeared stable. An incompletely included left upper pole renal lesion was felt to most likely represent a cyst, though ultrasound was suggested for confirmation. His subsequent evaluation included CBC showing slight improvement in the hemoglobin to 10.7 g with hematocrit 34.9%. The white count was normal at 7700 and platelet count was normal at 187,000. The uncorrected reticulocyte count was 3.1%, but with normal haptoglobin and LDH levels. Sedimentation rate was minimally elevated at 15 mm/hr with CRP also just mildly elevated at 1.730 mg/dL. Comprehensive metabolic profile showed slightly low albumin at 3.2 g/dL. Renal function was stable and liver enzymes were normal. Protein electrophoresis was normal. The free light chain assay did show a slightly elevated kappa/lambda ratio at 3.39. LIANE screen was negative. RA titer was less than 10.0 and the IgG anti-CCP was normal. A tick fever panel also was negative. He was then seen by a slot floor attendant, and he was diagnosed with seronegative rheumatoid arthritis. He initially was placed back on higher dose prednisone, and he was started on treatment with Xeljanz. He subsequently tapered the prednisone. On 11/19/15 his fell and he attempted to catch her. In the process he sustained an L3 compression fracture. He then continued to have low back pain. MRI of the lumbar spine on 11/19/2015 showed a subacute 20% burst compression fracture at L3 with only mild impingement upon the ventral thecal sac. There was evidence of moderate central canal stenosis at L2-L3 and at L3-L4 with inferolateral recess stenosis also. There was no severe neural foraminal stenosis noted. There were right hemilaminectomy defects at the L4-L5 and the L5-S1 levels. There was significant multilevel degenerative disc disease and facet arthropathy, most significant at the L4-L5 level. He underwent a kyphoplasty procedure in February 2016. He initially did report improvement in his back pain, but he subsequently developed some new pain in his right lower back area, which he thought was probably just a pulled muscle. A followup MRI of the lumbar spine on 04/26/2016 showed chronic compression of the L3 vertebral body with post vertebroplasty changes. There was slightly more compression from the prior study. There were new acute to subacute compression fractures involving the L1 and L2 superior endplates. There was moderate spinal canal narrowing at the L3-L4 disc space. Repeat chest CT on 04/26/2016 showed stable 7 mm noncalcified nodule in the left upper lobe. There was evidence of interstitial fibrosis with honeycombing in the anteromedial left lung, also stable. There was no mediastinal or hilar adenopathy. On his follow-up visit in May 2016 his blood count was basically unchanged with hemoglobin at 10.9 g, white blood cell count 6200, and platelet count 189,000. The sedimentation rate was normal 13 mm/hour. Comprehensive metabolic profile showed stable renal function with BUN 22 and creatinine 1.3 mg/dL. The alkaline phosphatase was mildly elevated at 169/117 IU/L. Serum iron studies show transferrin saturation normal at 42%, but the ferritin was relatively low at 45 ng/mL. Further studies from 06/29/2016 showed his B-12 level at 1353 pg/mL. Repeat protein electrophoresis showed normal pattern with no monoclonal protein detected. The free kappa light chain was elevated at 65.71 mg/L with the kappa/lambda ratio elevated 3.60. He underwent bone marrow aspiration/biopsy on 07/12/2016. The cellularity was increased, estimated at 95-100%. There was no evidence of an infiltrative process. There were just rare dyspoietic changes in the red cells. Blasts were estimated at 1%. Plasma cells were also just 1%. Iron stores were noted to be absent. The chromosome analysis was normal, and the FISH panel for MDS was unrevealing. With those findings, I did opt to give him parenteral iron replacement with infusions of Injectafer on 07/26/2016 and 08/02/2016. His followup CBC in August showed his hemoglobin unchanged at 11.2 g. I had seen him for a follow-up visit on 11/30/2016. At that point his CBC was stable with hemoglobin 11.8 g. Sedimentation rate was normal at 11 mm/hour. He had decline in renal function with increase in BUN to 37 and creatinine to 1.8 mg/dL. I had suspected that it might be associated with diuretic therapy, as he was having ongoing problems with lower extremity edema. He then had nephrology consultation with Dr. Maurice Pearson in [place]. He underwent renal biopsy on 01/29/2017. 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 Other findings included segmental and global glomerulosclerosis, mild interstitial fibrosis and tubular atrophy, severe arteriolosclerosis, and mild arteriolar hyalinosis. The Congo red stain was noted to be negative for amyloid. Immunofluorescence staining showed a preponderance of kappa light chain (1-2+) with negative to trace lambda light chain. The immunofluorescence studies for IgG subtypes showed segmental positive staining for IgG1 and IgG2, but negative for PLA2R, IgG3, and IgG4. He was seen for follow-up visit here on 02/22/2017. His hemoglobin at that point was 9.8 g with a mildly elevated sedimentation rate at 24 mm/hour. His BUN was 28 with creatinine 1.4 mg/dL. Protein electrophoresis showed increased alpha-1 and alpha-2 globulins, consistent with acute phase reactive process. The free light chain assay showed elevated kappa free light chain at 80.65 mg/L with elevated kappa/lambda ratio at 2.79. His 24-hour urine showed a total protein excretion of 144 mg, with no monoclonal protein detectable by urine protein electrophoresis. With those findings together with the renal biopsy results, there was concern about the possibility of monoclonal gammopathy with renal significance, and he was referred to [facility] for further evaluation. He had nephrology consultation with Dr. Brett Graff at [facility] in March 2017, and he was then seen by Dr. Adam Woods on 05/18/2017. Myeloma was felt to be unlikely. An additional amyloid stain was requested on the bone marrow, and that came back negative. He also underwent cardiac evaluation at [facility], but I did not receive any of those reports. I had seen him for a follow-up visit on 06/11/2017. His clinical status appeared stable, though his protein electrophoresis showed a faint band in the gamma region which appeared to show free kappa light chain specificity. It was too small to quantitate. The free light chain assay continued to show elevated kappa free light chain at 90.18 mg/L with elevated kappa/lambda ratio at 3.55. At that point he was continuing pain management with Dr. Galdamez. His repeat laboratory studies from 10/31/2017 included CBC showing further decline in the hemoglobin to 8.9 g with white blood cell count low at 2700 and platelet count mildly decreased at 96,000. Sedimentation rate was just minimally elevated at 19 mm/hour. Chem profile showed stable renal function with BUN 23 and creatinine 1.5 mg/dL. Protein electrophoresis showed monoclonal paraprotein identified is free kappa light chain measuring 0.44 g/dL. The free light chain assay showed further increase in the free kappa light chain to 111.08 mg/L with kappa/lambda ratio increased to 4.59. With those changes he underwent repeat bone marrow aspiration/biopsy on 12/06/2017. The marrow was 100% cellular. There was limited megakaryocyte dyspoiesis. There was no significant dyserythropoiesis noted. Plasma cells were not increased. Blasts were estimated at 1.0%. Iron stores were noted to be absent. The FISH panel for myeloma was positive for the IGH/CCND1 (11;14) fusion and loss of distal IGH. The FISH panel for MDS was positive for deletion of PTPRT(chromosome 20q). The standard chromosome analysis showed deletion in the long arm of chromosome 20 in 50% of cells and normal male chromosome complement in the remaining 50%. 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 IPSS-R calculated to 3.0, low risk. Based on the monoclonal gammopathy and the 11;14 fusion, early myeloma was also possible. He began transfusion support in December 2017. As his baseline erythropoietin level was low relative to the anemia at 59 mIU/mL, he began a trial of therapy with Procrit 40,000 U weekly on 01/17/2018. During subsequent follow-up he required additional transfusions on 01/25/2018 and on 02/22/2018. At that point the Procrit dosage was increased to 60,000 U weekly. His repeat CBC on 03/21/2018 showed hemoglobin back down to 7.3 g with white blood cell count 1300 and platelet count 103,000. The absolute neutrophil count was 700. Differential reported 42% nucleated RBCs and 1% blasts. He was given another transfusion of 2 units of PRBC. During that time he also was evaluated with a Foundation One Heme study. There were no actionable mutations identified. Repeat bone marrow aspiration/biopsy on 03/25/2018 again showed hypercellular marrow at 100% cellularity. There was again evidence of chromosome 20q deletion by FISH and by the standard chromosome analysis. Plasma cells and blasts were both estimated at 2%. He then proceeded with a trial of therapy with 5-azacytidine, cycle 1 beginning on 03/28/2018. It was administered subcutaneously for 7 days. As expected, there was further decline in his blood counts after starting the 5-azacytidine. His cycle 2 was delayed pending hematologic recovery. During that time he did undergo placement of Port-A-Cath venous access device. He remained transfusion dependent. He was then able to continue with cycle 2 of 5-azacytidine on 05/15/2018. During subsequent followup his blood counts again declined. On 06/04/2018 he was admitted to the hospital with hypotension. His ANC was 400. He was not febrile, but he was having diarrhea. He began treatment with Neupogen and he was given broad-spectrum antibiotic coverage. His blood cultures remained negative. During the hospitalization his platelet count dropped to less than 20,000, but he did not have any evidence of bleeding tendency, and he did not require platelet transfusion. He did receive a transfusion of PRBC. He was discharged on 06/13/2018. His hemoglobin was adequate at 10.0 g. His ANC was still low, but he was not febrile. Platelet count was 23,000. During follow-up, his treatment remained on hold due to persistent neutropenia and thrombocytopenia, and during subsequent followup he remained transfusion dependent. He underwent repeat bone marrow aspiration/biopsy on 10/31/2018. The marrow was noted to be hypercellular for age, approximately 50-70%, but with trilineage dyspoiesis. Myeloblasts were noted to be increased at 3.2%. Plasma cells were also noted to be increased at 5-10%. There was focally increased reticulin fibrosis present and there was markedly increased storage iron. The FISH panel for MDS was unrevealing, but the chromosome analysis showed a deletion 12 P. Overall, the findings were consistent with myelodysplastic syndrome with multilineage dysplasia and they were suggestive of low-level involvement by a plasma cell neoplasm. With those findings, we opted to continue with supportive care measures, including transfusion support, as the likelihood of benefit with further treatment with a hypomethylating agent appeared to be low. During this time his ferritin level had been gradually increasing. As of 11/04/2018, it was up to 1402 ng/mL, and he then started treatment with Jadenu. He had significant GI side effects at the initial dosage of 1440 mg daily, and it subsequently was decreased to 720 mg daily. His other medical illnesses include dyslipidemia, coronary artery disease, COOPD, and GERD. He underwent a quadruple bypass following myocardial infarction in 2001. 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 His only other surgery was the lumbar hemilaminectomy, which was done in 1984. He has a history of smoking at least a pack of cigarettes daily for more than 50 years. INTERIM HISTORY: He is seen for a follow-up visit. He has not been feeling good generally. His energy is about the same, but his activity remains limited due to the back pain. He is up and around at home. ECOG score is 2. He has pretty good appetite with breakfast, but not much the rest of the day. He has no fever or night sweats. He does not complain of shortness of breath or cough, and he has not recently been having any chest pain. He has no GI or complaints other than frequent urination after taking the diuretic. He continues have significant back pain, Dr. Galdamez apparently is increasing his hydrocodone dosage. He does not complain of headache or dizziness, and he has no focal neurologic symptoms. Medications: Atorvastatin Calcium 1 Tablet (of 40 mg) Oral daily, Bumex 1 Tablet (of 2 mg) Oral daily PRN, Calcium 1 (600 mg) Capsule Oral daily, Carvedilol 1 Tablet (of 12.5 mg) Oral daily, Hydrocodone-Acetaminophen 1 Tablet (of 7.5-325 mg) Oral t.i.d. PRN, Jadenu 2 Tablet (of 360 mg) Oral daily, levoFLOXacin 1 Tablet (of 500 mg) Oral daily PRN, Pantoprazole Sodium 1 (40 mg) Tablet, enteric coated Oral daily, Potassium Chloride ER 1 Tablet (of 10 meq) Capsule, controlled release Oral daily Allergies: No Known Allergies. Review of Systems: Constitutional - He has limited activity, but he is up and around at home. His appetite is pretty good, but his weight is down about 6 pounds. No fever, chills, hot flashes, or night sweats. ECOG score is 2, ENMT - No sinus congestion/drainage. He has a sore in his mouth. No sore throat or difficulty swallowing, Hematologic/Lymphatic - He bruises easily, Respiratory - No shortness of breath. No cough. No pleuritic pain or hemoptysis, Cardiovascular - No angina pain. No palpitations, Gastrointestinal - No nausea or vomiting. No heartburn or acid reflux. No diarrhea or constipation. His bowels are better and the bleeding has resolved, Genitourinary (M) - No dysuria or hematuria. No urinary frequency. No urgency or incontinence, Musculoskeletal - He has chronic pain in his back that does seem to be getting worse. His pain medicine will be increased on his next fill, Integumentary - No skin complications, Neurologic - No headache or dizziness. No numbness/paresthesias or other focal neurologic symptoms, Psychiatric - No anxiety or depression. He does not sleep well at night due to his pain. Vital Signs: Performed on Mar 31, 2019 10:05 Height - 76.00 in Weight - 244.6 lbs (LOW) BSA - 2.41 sq.m BMI - 29.77 Temperature - 98.3 F (LOW) Pulse - 72 /min Respiration - 22 /min BP - 126/70 mm(hg) O2 Sat - 98 % Pain - 5 Physical Examination: Constitutional - He appears generally weak, Eyes - Sclerae nonicteric. Conjunctivae clear, ENMT - No lesions noted in the oral cavity, Hematologic/Lymphatic - No cervical, clavicular, or axillary adenopathy, Respiratory - Lungs sound clear with diminished air movement bilaterally, Cardiovascular - Heart rhythm is irregular. There is a II/ systolic murmur. There is no gallop or rub noted, Abdomen - Soft. Liver and spleen are not enlarged. There is no abdominal mass or ascites noted and there is no inguinal adenopathy, Extremities - There are venous stasis changes bilaterally. There is mild to moderately severe lower extremity edema. He has extensive purpura, Neurologic - No focal neurologic deficits noted. Lab/Imaging: Test performed on Mar 31, 2019 08:30 Ferritin 1509 ng/mL Iron 206 ug/dL LDH (Total) 371 U/L Sodium 140 mmol/L Potassium 3.9 mmol/L Chloride 101 mmol/L CO2 26 mmol/L UIBC 23 ug/dL Anion Gap 16.9 BUN 21 mg/dL Creatinine 1.2 mg/dL Cr Clearance (Est) 80.4000 mL/min Glucose 146 mg/dL Calcium 9.0 mg/dL Protein, Total 6.6 g/dL Albumin 3.7 g/dL Globulin 2.9 g/dL Bilirubin, Total 1.3 mg/dL ALT (SGPT) 8 U/L AST (SGOT) 16 U/L Alkaline Phosphatase 110 IU/L WBC 0.6 10 3/uL RBC 3.22 10 6/uL HGB 9.5 g/dL HCT 30.2 % MCV 93.8 fL MCH 29.5 pg MCHC 31.5 g/dL RDW 17.7 % Platelet Count 36 10 3/cmm MPV 12.9 fL Neutrophils 0.1 10 3/uL Lymphocytes 0.4 10 3/uL Monocytes 0.1 10 3/uL Eosinophils 0.0 10 3/uL Basophils 0.0 10 3/uL Neutrophil % 21.1 % Lymphocyte % 68.4 % Monocyte % 10.5 % Eosinophil % 0.0 % Basophils % 0.0 % CBC Slide Review Slide Review Perform SLIDE REVIEW AGREES WITH AUTOMATED RESULTS ST Impression: 1. Patient with pancytopenia, initially presenting with moderately severe anemia. 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 His IPSS-R calculated to 3.0, low risk. 2. As of December 2017 he had become transfusion dependent. 3. He also has kappa light chain monoclonal gammopathy. Based on the bone marrow findings from 10/31/2018 he likely has early stage myeloma. 4. He developed transfusion dependent iron overload. 5. During follow-up he developed persistent lower extremity edema and chronic kidney disease. 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 There was also evidence of glomerulosclerosis and severe arteriolosclerosis. The immunofluorescence showed a preponderance of kappa light chain staining, 1-2+ versus negative to trace staining for lambda light chain. The [place] red stain for amyloid was negative. 6. His management has been further complicated by traumatic vertebral compression fracture for which he underwent kyphoplasty in February 2016. His other medical illnesses include: 7. Dyslipidemia, currently off statin therapy. 8. Coronary artery disease with previous coronary artery bypass surgery. 9. He has had suspected congestive heart failure. 10. He has previously undergone repair of iliac artery aneurysm. 11. COPD. 12. GERD. 13. Nicotine dependence (cigarettes). He began a trial of Procrit 40,000 U weekly on 01/17/2018. During subsequent follow-up he remained transfusion dependent. As of 02/22/2018 the Procrit dosage was increased to 60,000 U weekly, but still with no evidence of response. 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 Both plasma cells and blasts were estimated at 2%. On 03/28/2018 he began a trial of therapy with 5-azacytidine. It was administered subcutaneously for 7 days. During subsequent follow-up, there was further decline in his blood counts, as expected. His 2nd cycle of treatment was delayed. As of 05/15/2018 his blood counts had recovered to baseline. He remained transfusion dependent, and he continued to have very marginal performance status. At that point he continued with cycle 2 of 5-azacytidine. During that time he had undergone placement of portacath venous access device. During followup his blood counts again declined. On 06/04/2018 he was admitted with hypotension in association with pancytopenia. He did not have fever, and his blood cultures remained negative. He did show some recovery with neupogen, antibiotic coverage, and other supportive measures. During subsequent follow-up his neutrophil count and platelet count have remained low. He continued to have poor performance status, and he remained transfusion dependent. His further treatment remained on hold. Repeat bone marrow aspiration/biopsy on 10/31/2018 showed mildly increased cellularity, estimated at 50-70%, but with trilineage dyspoiesis. Blasts were slightly increased at 3.2%. Plasma cells were also mildly increased, estimated at 5-10% of the cellularity. The FISH panel for MDS was unrevealing, but the cytogenetic study did show deletion 12 P. 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 With those findings he has continued symptomatic/supportive care, and during follow-up he has remained transfusion dependent. He has severe neutropenia and moderately severe thrombocytopenia, but he has not had fever, bleeding, or other complications associated with it. He has continued to have very limited activity, but his overall clinical status has remained stable. Plan: He will continue symptomatic/supportive care. His blood counts will be checked twice weekly, and he will be transfused PRBC as indicated. He will continue Jadenu 720 mg daily for the iron overload. He has Levaquin available at home to start immediately should he develop fever or other symptoms of infection. He will be scheduled for a follow-up visit in 1 month. Signed By: Eduardo Truong M.D. <<Signature on File>>
[2019-04-01 12:37] LABS: ABNORMAL PROTEIN BAND 1 0.4 g/dL (NONE DETECTED); ALBUMIN 3.4 g/dL (3.8-4.8); ALPHA 1 GLOBULIN 0.4 g/dL (0.2-0.3); ALPHA 2 GLOBULIN 0.5 g/dL (0.5-0.9); BETA 1 GLOBULIN 0.4 g/dL (0.4-0.6); BETA 2 GLOBULIN 0.3 g/dL (0.2-0.5); GAMMA GLOBULIN 1.4 g/dL (0.8-1.7)
[2019-04-01 14:50] LABS: KAPPA LIGHT CHAIN, FREE, SERUM 133.2 mg/L (3.3-19.4); KAPPA/LAMBDA LIGHT CHAINS FREE 4.77 (0.26-1.65); LAMBDA LIGHT CHAIN, FREE, SERU 27.9 mg/L (5.7-26.3)
[2019-04-03 09:43] LABS: Hematocrit 29.2 % (42.0-52.0); Hemoglobin 9.1 g/dL (11.7-16.6); Lymphocytes # 0.4 10^3/uL (0.8-4.8); Lymphocytes % 70.6 %; Mean Corpuscular HGB Conc 31.2 g/dL (30.0-36.0); Mean Corpuscular Hemoglobin 29.4 pg (28.0-34.0); Mean Corpuscular Volume 94.5 fL (80-94); Monocytes # 0.1 10^3/uL (0.2-0.9); Monocytes % 9.8 %; Neutrophils % 13.7 %; Nucleated Red Blood Cells # 0.1 /100WBC; Nucleated Red Blood Cells % 21.6 %; Red Blood Count 3.09 10^6/uL (4.1-5.3); Red Cell Distribution Width 18.4 % (12.1-15.1)
[2019-04-03 09:59] LABS: Slide Review Slide Review Perform
[2019-04-03 10:00] LABS: Neutrophils # 0.1 10^3/uL (1.8-7.7); Platelet Count 26 10^3/cmm (130-400); White Blood Count 0.5 10^3/uL (4.0-10.0)
[2019-04-07 09:32] LABS: Hematocrit 27.7 % (42.0-52.0); Hemoglobin 8.5 g/dL (11.7-16.6); Mean Corpuscular HGB Conc 30.7 g/dL (30.0-36.0); Mean Corpuscular Hemoglobin 28.9 pg (28.0-34.0); Mean Corpuscular Volume 94.2 fL (80-94); Red Blood Count 2.94 10^6/uL (4.1-5.3); Red Cell Distribution Width 18.6 % (12.1-15.1)
[2019-04-07 10:01] LABS: White Blood Count 0.6 10^3/uL (4.0-10.0)
[2019-04-07 10:02] LABS: Platelet Count 21 10^3/cmm (130-400)
[2019-04-07 10:14] LABS: Eosinophils 2 %; Lymphocytes 66 %; Lymphocytes Absolute 0.4 10^3/cmm (1.2-3.4); Segmented Neutrophils 8 %; Total Cells Counted 50 (0-100)
[2019-04-07 10:15] LABS: Corrected White Blood Count 0.5 10^3/cmm (4.8-10.8); Ovalocytes 1+; Platelet Estimate Decreased (Normal); Poikilocytosis 1+; Polychromasia 1+
[2019-04-07 10:16] LABS: Blastocytes 2 % (0-0)
[2019-04-08] VITALS (9 sets, daily range): BP systolic 94–122; BP diastolic 54–75; PULSE 54–85; RESP 18; TEMP 36.8–37; O2SAT 94–98
[2019-04-08] MEDS: acetaminophen 325 mg Tablet 650 MG PO (15:22)
[2019-04-08] MEDS: diphenhydrAMINE 25 mg Capsule PO (15:22)
[2019-04-08] MEDS: FUROsemide 10 mg/mL SDV 2mL 20 MG IV (15:23)
[2019-04-08] MEDS: sodium chloride 0.9% 250 ML 999 ML IV (15:24)
[2019-04-10 09:34] LABS: Hematocrit 30.2 % (42.0-52.0); Hemoglobin 9.4 g/dL (11.7-16.6); Lymphocytes # 0.4 10^3/uL (0.8-4.8); Lymphocytes % 59.7 %; Mean Corpuscular HGB Conc 31.1 g/dL (30.0-36.0); Mean Corpuscular Hemoglobin 29.3 pg (28.0-34.0); Mean Corpuscular Volume 94.1 fL (80-94); Monocytes # 0.1 10^3/uL (0.2-0.9); Monocytes % 13.4 %; Neutrophils % 25.4 %; Nucleated Red Blood Cells # 0.2 /100WBC; Nucleated Red Blood Cells % 26.9 %; Red Blood Count 3.21 10^6/uL (4.1-5.3); Red Cell Distribution Width 18.2 % (12.1-15.1)
[2019-04-10 09:50] LABS: Neutrophils # 0.2 10^3/uL (1.8-7.7); Platelet Count 21 10^3/cmm (130-400); White Blood Count 0.7 10^3/uL (4.0-10.0)
[2019-04-10 09:51] LABS: Slide Review Slide Review Perform
[2019-04-14 09:26] LABS: Eosinophils % 1.2 %; Hematocrit 30.9 % (42.0-52.0); Hemoglobin 9.4 g/dL (11.7-16.6); Lymphocytes # 0.6 10^3/uL (0.8-4.8); Lymphocytes % 69.5 %; Mean Corpuscular HGB Conc 30.4 g/dL (30.0-36.0); Mean Corpuscular Hemoglobin 29.4 pg (28.0-34.0); Mean Corpuscular Volume 96.6 fL (80-94); Mean Platelet Volume 11.8 fL (7.4-10.4); Monocytes # 0.1 10^3/uL (0.2-0.9); Neutrophils % 15.9 %; Nucleated Red Blood Cells # 0.2 /100WBC; Nucleated Red Blood Cells % 19.5 %; Red Cell Distribution Width 18.9 % (12.1-15.1)
[2019-04-14 09:47] LABS: Neutrophils # 0.1 10^3/uL (1.8-7.7); Platelet Count 24 10^3/cmm (130-400); Slide Review Slide Review Perform; White Blood Count 0.8 10^3/uL (4.0-10.0)
[2019-04-17] VITALS (10 sets, daily range): BP systolic 100–123; BP diastolic 26–68; PULSE 63–73; RESP 17–18; TEMP 36.1–36.8; O2SAT 95–99
[2019-04-17 09:21] LABS: Hematocrit 28.3 % (42.0-52.0); Hemoglobin 8.6 g/dL (11.7-16.6); Lymphocytes # 0.4 10^3/uL (0.8-4.8); Lymphocytes % 57.7 %; Mean Corpuscular HGB Conc 30.4 g/dL (30.0-36.0); Mean Corpuscular Hemoglobin 29.7 pg (28.0-34.0); Mean Corpuscular Volume 97.6 fL (80-94); Monocytes # 0.1 10^3/uL (0.2-0.9); Monocytes % 19.7 %; Neutrophils % 21.2 %; Nucleated Red Blood Cells # 0.2 /100WBC; Nucleated Red Blood Cells % 26.8 %; Red Cell Distribution Width 19.3 % (12.1-15.1)
[2019-04-17 10:08] LABS: Platelet Count 22 10^3/cmm (130-400); White Blood Count 0.7 10^3/uL (4.0-10.0)
[2019-04-17 10:09] LABS: Neutrophils # 0.2 10^3/uL (1.8-7.7); Slide Review Slide Review Perform
[2019-04-17] MEDS: sodium chloride 0.9% 250 ML 999 ML IV (12:30)
[2019-04-17] MEDS: acetaminophen 325 mg Tablet 650 MG PO (12:38)
[2019-04-17] MEDS: diphenhydrAMINE 25 mg Capsule PO (12:38)
[2019-04-17] MEDS: FUROsemide 10 mg/mL SDV 2mL 20 MG IV (16:03)
== END 2019-04-19 23:59 | disposition home or self-care (01) ==
LOC: ONCMED 05:47
PROVIDERS: Family Provider Electrodiagnostic Medicine; PCP Electrodiagnostic Medicine; Visit Provider Internal Medicine Medical Oncology
DX: C90.00 Multiple myeloma not having achieved remission (principal); D64.9 Anemia, unspecified; J43.9 Emphysema, unspecified; E78.5 Hyperlipidemia, unspecified; I25.10 Atherosclerotic heart disease of native coronary artery without angina pectoris; K21.9 Gastro-esophageal reflux disease without esophagitis; I25.2 Old myocardial infarction; Z98.1 Arthrodesis status; F17.210 Nicotine dependence, cigarettes, uncomplicated; G89.29 Other chronic pain; Z79.891 Long term (current) use of opiate analgesic; Z79.899 Other long term (current) drug therapy; Z95.1 Presence of aortocoronary bypass graft
CPT/HCPCS: 36415; 36430; 80053; 82728; 83540; 83550; 83615; 83883; 84155; 84165; 85007; 85025; 85027; 86850; 86900; 86920; 99214; J1940; J7050; P9040

== ENCOUNTER 2019-05-01 05:43 | Outpatient (RCR) | payer MEDICARE, OTHER, SELFPAY ==
[2019-04-21 09:20] LABS: Hematocrit 32.1 % (42.0-52.0); Hemoglobin 9.8 g/dL (11.7-16.6); Lymphocytes # 0.4 10^3/uL (0.8-4.8); Lymphocytes % 51.4 %; Mean Corpuscular HGB Conc 30.5 g/dL (30.0-36.0); Mean Corpuscular Hemoglobin 29.5 pg (28.0-34.0); Mean Corpuscular Volume 96.7 fL (80-94); Monocytes # 0.1 10^3/uL (0.2-0.9); Monocytes % 13.9 %; Neutrophils % 33.3 %; Nucleated Red Blood Cells # 0.1 /100WBC; Nucleated Red Blood Cells % 12.5 %; Red Blood Count 3.32 10^6/uL (4.1-5.3); Red Cell Distribution Width 18.7 % (12.1-15.1)
[2019-04-21 10:19] LABS: Mean Platelet Volume 9.5 fL (7.4-10.4); Neutrophils # 0.2 10^3/uL (1.8-7.7); Platelet Count 18 10^3/cmm (130-400); White Blood Count 0.7 10^3/uL (4.0-10.0)
[2019-04-21 10:20] LABS: Slide Review Slide Review Perform
[2019-04-24 09:36] LABS: Hematocrit 32.9 % (42.0-52.0); Lymphocytes # 0.4 10^3/uL (0.8-4.8); Lymphocytes % 59.5 %; Mean Corpuscular HGB Conc 30.4 g/dL (30.0-36.0); Mean Corpuscular Hemoglobin 30.1 pg (28.0-34.0); Mean Corpuscular Volume 99.1 fL (80-94); Monocytes # 0.1 10^3/uL (0.2-0.9); Monocytes % 10.8 %; Neutrophils % 28.3 %; Nucleated Red Blood Cells # 0.1 /100WBC; Nucleated Red Blood Cells % 17.6 %; Positive C 1; Positive M 1; Red Blood Count 3.32 10^6/uL (4.1-5.3); Red Cell Distribution Width 19.2 % (12.1-15.1)
[2019-04-24 09:48] LABS: Neutrophils # 0.2 10^3/uL (1.8-7.7); Platelet Count 20 10^3/cmm (130-400); Slide Review Slide Review Perform; White Blood Count 0.7 10^3/uL (4.0-10.0)
[2019-04-28] VITALS (10 sets, daily range): BP systolic 98–122; BP diastolic 58–77; PULSE 65–82; RESP 16; TEMP 36–36.7; O2SAT 92–96
[2019-04-28 08:59] LABS: Hematocrit 28.3 % (42.0-52.0); Hemoglobin 8.6 g/dL (11.7-16.6); Lymphocytes # 0.5 10^3/uL (0.8-4.8); Lymphocytes % 60.8 %; Mean Corpuscular HGB Conc 30.4 g/dL (30.0-36.0); Mean Corpuscular Hemoglobin 30.4 pg (28.0-34.0); Monocytes # 0.1 10^3/uL (0.2-0.9); Monocytes % 16.5 %; Neutrophils % 21.4 %; Nucleated Red Blood Cells # 0.2 /100WBC; Nucleated Red Blood Cells % 24.1 %; Red Blood Count 2.83 10^6/uL (4.1-5.3)
[2019-04-28 09:13] LABS: Alanine Aminotransferase 9 U/L (0-41); Albumin Level 3.4 g/dL (3.5-5.2); Alkaline Phosphatase 98 IU/L (40-130); Anion Gap 14.7 (5-19); Aspartate Amino Transferase 19 U/L (0-40); Blood Urea Nitrogen 26 mg/dL (8-23); Calcium 8.8 mg/dL (8.5-10.5); Carbon Dioxide 25 mmol/L (22-29); Chloride 103 mmol/L (98-107); Globulin 3.1 g/dL (1.3-4.6); Glucose 126 mg/dL (65-115); Iron 203 ug/dL (59-158); Lactate Dehydrogenase 350 U/L (135-225); Osmolality Calculated 286 mOsm/kg (285-295); Potassium 3.7 mmol/L (3.5-5.1); Sodium 139 mmol/L (136-145); Total Bilirubin 1.3 mg/dL (0.15-1.2); Total Iron Binding Capacity 228 mcg/dl; Total Protein 6.5 g/dL (6.6-8.7); Unsaturated Iron Binding 25 ug/dL (112-347)
[2019-04-28 09:27] LABS: Ferritin 1232 ng/mL (30-400)
[2019-04-28 09:57] LABS: Neutrophils # 0.2 10^3/uL (1.8-7.7); Platelet Count 22 10^3/cmm (130-400); White Blood Count 0.8 10^3/uL (4.0-10.0)
[2019-04-28 09:58] LABS: Slide Review Slide Review Perform
[2019-04-28] MEDS: acetaminophen 325 mg Tablet 650 MG PO (11:30)
[2019-04-28] MEDS: sodium chloride 0.9% 250 ML 999 ML IV (11:30)
[2019-04-28] MEDS: diphenhydrAMINE 25 mg Capsule PO (11:30)
[2019-04-28] MEDS: FUROsemide 10 mg/mL SDV 2mL 20 MG IV (13:20)
[2019-04-28] MEDS: sodium chloride 0.9% 100 ML 240 ML (13:23)
[2019-04-29] VITALS (8 sets, daily range): BP systolic 103–114; BP diastolic 66–73; PULSE 66–87; RESP 18; TEMP 36.1–36.6; O2SAT 93–98
--- NOTE | 2019-04-29 06:24 | ONC FU_ITS ---
Dr. Truong Patient Follow-Up Note Patient: Gabriel Thakkar V Unit #: [id number]: 1945 Dicatated By: Eduardo Truong M.D.Date of Visit:Apr 28, 2019 Onc Med Follow-up/Prog Note Chief Complaint: Myelodysplastic syndrome/monoclonal gammopathy. 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 He also has monoclonal gammopathy, now with evidence of early stage myeloma. I had seen him initially on 09/24/2015. Approximately 7 weeks earlier he had developed acute onset of joint pain, which included pain and swelling in his hands/fingers and pain in his shoulders and upper arms. The pain later progressed to involve his knees and ankles. The pain was severe enough that it had affected his ability to function. He had seen Dr. Soria, and an initial steroid injection gave him only temporary benefit. He then took prednisone at 20 mg daily for 1 week, which did give him some relief. Within 2 days after stopping it, he was having severe pain again. He had subsequently restarted prednisone at 10 mg daily, and it did seem to be helping a little. He also had an emergency room visit on 08/26/2015. His evaluation included a CBC which showed moderately severe anemia, hemoglobin 9.5 g and hematocrit 31%. The red cell indices were normal. The white blood cell count was 6800 and the platelet count was normal at 203,000. Chem profile showed borderline renal function BUN 21 and creatinine 1.2 mg/dL. The liver enzymes were normal. Albumin was low at 2.9 g/dL with the calculated serum globulin 4.0 g/dL. Chest x-ray showed slight increased left lateral lower lung zone pleural thickening, effusion, or overlying soft tissue artifact. Clinically, he was felt to have some component of congestive heart failure, and at that time he did start diuretic therapy with furosemide. He had a noncontrast chest CT for follow-up of a pulmonary nodule on 08/30/2015. That study showed a 7 mm left upper lobe nodule which appeared stable from a previous study in March 2015. There was evidence of chronic emphysema. Left upper lobe interstitial fibrosis and honeycombing also appeared stable. An incompletely included left upper pole renal lesion was felt to most likely represent a cyst, though ultrasound was suggested for confirmation. His subsequent evaluation included CBC showing slight improvement in the hemoglobin to 10.7 g with hematocrit 34.9%. The white count was normal at 7700 and platelet count was normal at 187,000. The uncorrected reticulocyte count was 3.1%, but with normal haptoglobin and LDH levels. Sedimentation rate was minimally elevated at 15 mm/hr with CRP also just mildly elevated at 1.730 mg/dL. Comprehensive metabolic profile showed slightly low albumin at 3.2 g/dL. Renal function was stable and liver enzymes were normal. Protein electrophoresis was normal. The free light chain assay did show a slightly elevated kappa/lambda ratio at 3.39. LIANE screen was negative. RA titer was less than 10.0 and the IgG anti-CCP was normal. A tick fever panel also was negative. He was then seen by a retail merchandiser technician, and he was diagnosed with seronegative rheumatoid arthritis. He initially was placed back on higher dose prednisone, and he was started on treatment with Xeljanz. He subsequently tapered the prednisone. On 11/19/15 his fell and he attempted to catch her. In the process he sustained an L3 compression fracture. He then continued to have low back pain. MRI of the lumbar spine on 11/19/2015 showed a subacute 20% burst compression fracture at L3 with only mild impingement upon the ventral thecal sac. There was evidence of moderate central canal stenosis at L2-L3 and at L3-L4 with inferolateral recess stenosis also. There was no severe neural foraminal stenosis noted. There were right hemilaminectomy defects at the L4-L5 and the L5-S1 levels. There was significant multilevel degenerative disc disease and facet arthropathy, most significant at the L4-L5 level. He underwent a kyphoplasty procedure in February 2016. He initially did report improvement in his back pain, but he subsequently developed some new pain in his right lower back area, which he thought was probably just a pulled muscle. A followup MRI of the lumbar spine on 04/26/2016 showed chronic compression of the L3 vertebral body with post vertebroplasty changes. There was slightly more compression from the prior study. There were new acute to subacute compression fractures involving the L1 and L2 superior endplates. There was moderate spinal canal narrowing at the L3-L4 disc space. Repeat chest CT on 04/26/2016 showed stable 7 mm noncalcified nodule in the left upper lobe. There was evidence of interstitial fibrosis with honeycombing in the anteromedial left lung, also stable. There was no mediastinal or hilar adenopathy. On his follow-up visit in May 2016 his blood count was basically unchanged with hemoglobin at 10.9 g, white blood cell count 6200, and platelet count 189,000. The sedimentation rate was normal 13 mm/hour. Comprehensive metabolic profile showed stable renal function with BUN 22 and creatinine 1.3 mg/dL. The alkaline phosphatase was mildly elevated at 169/117 IU/L. Serum iron studies show transferrin saturation normal at 42%, but the ferritin was relatively low at 45 ng/mL. Further studies from 06/29/2016 showed his B-12 level at 1353 pg/mL. Repeat protein electrophoresis showed normal pattern with no monoclonal protein detected. The free kappa light chain was elevated at 65.71 mg/L with the kappa/lambda ratio elevated 3.60. He underwent bone marrow aspiration/biopsy on 07/12/2016. The cellularity was increased, estimated at 95-100%. There was no evidence of an infiltrative process. There were just rare dyspoietic changes in the red cells. Blasts were estimated at 1%. Plasma cells were also just 1%. Iron stores were noted to be absent. The chromosome analysis was normal, and the FISH panel for MDS was unrevealing. With those findings, I did opt to give him parenteral iron replacement with infusions of Injectafer on 07/26/2016 and 08/02/2016. His followup CBC in August showed his hemoglobin unchanged at 11.2 g. I had seen him for a follow-up visit on 11/30/2016. At that point his CBC was stable with hemoglobin 11.8 g. Sedimentation rate was normal at 11 mm/hour. He had decline in renal function with increase in BUN to 37 and creatinine to 1.8 mg/dL. I had suspected that it might be associated with diuretic therapy, as he was having ongoing problems with lower extremity edema. He then had nephrology consultation with Dr. Maurice Pearson in [place]. He underwent renal biopsy on 01/29/2017. 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 Other findings included segmental and global glomerulosclerosis, mild interstitial fibrosis and tubular atrophy, severe arteriolosclerosis, and mild arteriolar hyalinosis. The Congo red stain was noted to be negative for amyloid. Immunofluorescence staining showed a preponderance of kappa light chain (1-2+) with negative to trace lambda light chain. The immunofluorescence studies for IgG subtypes showed segmental positive staining for IgG1 and IgG2, but negative for PLA2R, IgG3, and IgG4. He was seen for follow-up visit here on 02/22/2017. His hemoglobin at that point was 9.8 g with a mildly elevated sedimentation rate at 24 mm/hour. His BUN was 28 with creatinine 1.4 mg/dL. Protein electrophoresis showed increased alpha-1 and alpha-2 globulins, consistent with acute phase reactive process. The free light chain assay showed elevated kappa free light chain at 80.65 mg/L with elevated kappa/lambda ratio at 2.79. His 24-hour urine showed a total protein excretion of 144 mg, with no monoclonal protein detectable by urine protein electrophoresis. With those findings together with the renal biopsy results, there was concern about the possibility of monoclonal gammopathy with renal significance, and he was referred to [facility] for further evaluation. He had nephrology consultation with Dr. Brett Graff at [facility] in March 2017, and he was then seen by Dr. Adam Woods on 05/18/2017. Myeloma was felt to be unlikely. An additional amyloid stain was requested on the bone marrow, and that came back negative. He also underwent cardiac evaluation at [facility], but I did not receive any of those reports. I had seen him for a follow-up visit on 06/11/2017. His clinical status appeared stable, though his protein electrophoresis showed a faint band in the gamma region which appeared to show free kappa light chain specificity. It was too small to quantitate. The free light chain assay continued to show elevated kappa free light chain at 90.18 mg/L with elevated kappa/lambda ratio at 3.55. At that point he was continuing pain management with Dr. Galdamez. His repeat laboratory studies from 10/31/2017 included CBC showing further decline in the hemoglobin to 8.9 g with white blood cell count low at 2700 and platelet count mildly decreased at 96,000. Sedimentation rate was just minimally elevated at 19 mm/hour. Chem profile showed stable renal function with BUN 23 and creatinine 1.5 mg/dL. Protein electrophoresis showed monoclonal paraprotein identified is free kappa light chain measuring 0.44 g/dL. The free light chain assay showed further increase in the free kappa light chain to 111.08 mg/L with kappa/lambda ratio increased to 4.59. With those changes he underwent repeat bone marrow aspiration/biopsy on 12/06/2017. The marrow was 100% cellular. There was limited megakaryocyte dyspoiesis. There was no significant dyserythropoiesis noted. Plasma cells were not increased. Blasts were estimated at 1.0%. Iron stores were noted to be absent. The FISH panel for myeloma was positive for the IGH/CCND1 (11;14) fusion and loss of distal IGH. The FISH panel for MDS was positive for deletion of PTPRT(chromosome 20q). The standard chromosome analysis showed deletion in the long arm of chromosome 20 in 50% of cells and normal male chromosome complement in the remaining 50%. 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 IPSS-R calculated to 3.0, low risk. Based on the monoclonal gammopathy and the 11;14 fusion, early myeloma was also possible. He began transfusion support in December 2017. As his baseline erythropoietin level was low relative to the anemia at 59 mIU/mL, he began a trial of therapy with Procrit 40,000 U weekly on 01/17/2018. During subsequent follow-up he required additional transfusions on 01/25/2018 and on 02/22/2018. At that point the Procrit dosage was increased to 60,000 U weekly. His repeat CBC on 03/21/2018 showed hemoglobin back down to 7.3 g with white blood cell count 1300 and platelet count 103,000. The absolute neutrophil count was 700. Differential reported 42% nucleated RBCs and 1% blasts. He was given another transfusion of 2 units of PRBC. During that time he also was evaluated with a Foundation One Heme study. There were no actionable mutations identified. Repeat bone marrow aspiration/biopsy on 03/25/2018 again showed hypercellular marrow at 100% cellularity. There was again evidence of chromosome 20q deletion by FISH and by the standard chromosome analysis. Plasma cells and blasts were both estimated at 2%. He then proceeded with a trial of therapy with 5-azacytidine, cycle 1 beginning on 03/28/2018. It was administered subcutaneously for 7 days. As expected, there was further decline in his blood counts after starting the 5-azacytidine. His cycle 2 was delayed pending hematologic recovery. During that time he did undergo placement of Port-A-Cath venous access device. He remained transfusion dependent. He was then able to continue with cycle 2 of 5-azacytidine on 05/15/2018. During subsequent followup his blood counts again declined. On 06/04/2018 he was admitted to the hospital with hypotension. His ANC was 400. He was not febrile, but he was having diarrhea. He began treatment with Neupogen and he was given broad-spectrum antibiotic coverage. His blood cultures remained negative. During the hospitalization his platelet count dropped to less than 20,000, but he did not have any evidence of bleeding tendency, and he did not require platelet transfusion. He did receive a transfusion of PRBC. He was discharged on 06/13/2018. His hemoglobin was adequate at 10.0 g. His ANC was still low, but he was not febrile. Platelet count was 23,000. During follow-up, his treatment remained on hold due to persistent neutropenia and thrombocytopenia, and during subsequent followup he remained transfusion dependent. He underwent repeat bone marrow aspiration/biopsy on 10/31/2018. The marrow was noted to be hypercellular for age, approximately 50-70%, but with trilineage dyspoiesis. Myeloblasts were noted to be increased at 3.2%. Plasma cells were also noted to be increased at 5-10%. There was focally increased reticulin fibrosis present and there was markedly increased storage iron. The FISH panel for MDS was unrevealing, but the chromosome analysis showed a deletion 12 P. Overall, the findings were consistent with myelodysplastic syndrome with multilineage dysplasia and they were suggestive of low-level involvement by a plasma cell neoplasm. With those findings, we opted to continue with supportive care measures, including transfusion support, as the likelihood of benefit with further treatment with a hypomethylating agent appeared to be low. During this time his ferritin level had been gradually increasing. As of 11/04/2018, it was up to 1402 ng/mL, and he then started treatment with Jadenu. He had significant GI side effects at the initial dosage of 1440 mg daily, and it subsequently was decreased to 720 mg daily. His other medical illnesses include dyslipidemia, coronary artery disease, COOPD, and GERD. He underwent a quadruple bypass following myocardial infarction in 2001. 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 His only other surgery was the lumbar hemilaminectomy, which was done in 1984. He has a history of smoking at least a pack of cigarettes daily for more than 50 years. INTERIM HISTORY: He is seen for a follow-up visit. He has been feeling worse lately. He says he is barely making it. He has very limited activity. ECOG score is 3. Appetite has decreased. He has no fever or night sweats. He complains of having a runny nose. He has a sore on his lower lip. He complains that his breathing is shallow. He has not had much cough. He has chest pain at times, and this morning he had to take nitroglycerin again. He has no GI complaints other than his stools have looked dark. Bladder function has been okay. He continues to have back pain, and he recently had to have the dose of his hydrocodone increased, as it had not really been controlling it adequately. He does not complain of headache or dizziness, and he has no focal neurologic symptoms. Medications: Atorvastatin Calcium 1 Tablet (of 40 mg) Oral daily, Bumex 1 Tablet (of 2 mg) Oral daily PRN, Calcium 1 (600 mg) Capsule Oral daily, Carvedilol 1 Tablet (of 12.5 mg) Oral daily, Hydrocodone-Acetaminophen 1 Tablet (of 10-325 mg) Oral t.i.d. PRN, Jadenu 2 Tablet (of 360 mg) Oral daily, levoFLOXacin 1 Tablet (of 500 mg) Oral daily PRN, Pantoprazole Sodium 1 (40 mg) Tablet, enteric coated Oral daily, Potassium Chloride ER 2 Tablet (of 10 meq) Capsule, controlled release Oral daily Allergies: No Known Allergies. Review of Systems: Constitutional - His energy level is low. He is mainly sendentary. Appetite is poor and his weight is stable. No fever, chills, hot flashes, or night sweats. ECOG score is 3, ENMT - He has sinus drainage. He has a sore to his right lower lip. No sore throat or difficulty swallowing, Hematologic/Lymphatic - No abnormal bruising or bleeding, Respiratory - He has shortness of breath. No cough. No pleuritic pain or hemoptysis, Cardiovascular - He occasionally has chest pain. He had to take nitroglycerin again this morning. No palpitations, Gastrointestinal - No nausea or vomiting. No heartburn or acid reflux. No diarrhea or constipation. He states his stool is dark but he denies aydin blood, Genitourinary (M) - No dysuria or hematuria. No urinary frequency. No urgency or incontinence, Musculoskeletal - He has back pain and he feels that his pain medication isn't working as well. He recently increased the dose of hydrocodone to 7.5mg, Integumentary - No skin complication, Neurologic - No headache or dizziness. No numbness/paresthesias or other focal neurologic symptoms, Psychiatric - No anxiety or depression. He is up every few hours during the night. Vital Signs: Performed on Apr 28, 2019 09:30 Height - 76.00 in Weight - 244.4 lbs (LOW) BSA - 2.41 sq.m BMI - 29.75 Temperature - 98.5 F Pulse - 77 /min Respiration - 20 /min BP - 119/72 mm(hg) O2 Sat - 98 % Pain - 5 Physical Examination: Constitutional - He appears generally weak, Eyes - Sclerae nonicteric. Conjunctivae clear, ENMT - There is an ulceration on the lower inner lip on the right side. There are no other lesions noted in the oral cavity, Hematologic/Lymphatic - No cervical, clavicular, or axillary adenopathy, Respiratory - Lungs sound clear with diminished air movement bilaterally, Cardiovascular - Heart rhythm is irregular. There is a II/ systolic murmur. There is no gallop or rub noted, Abdomen - Soft. Liver and spleen are not enlarged. There is no abdominal mass or ascites noted and there is no inguinal adenopathy, Extremities - There are venous stasis changes bilaterally. There is 2 to 3+ lower extremity edema, which appears to be a little worse, Neurologic - No focal neurologic deficits noted. Lab/Imaging: Test performed on Apr 28, 2019 08:10 Ferritin 1232 ng/mL Iron 203 ug/dL LDH (Total) 350 U/L Sodium 139 mmol/L Iron Binding Capacity (TIBC) 228 mcg/dl Potassium 3.7 mmol/L % Iron Saturation 89.0 % Chloride 103 mmol/L CO2 25 mmol/L UIBC 25 ug/dL Anion Gap 14.7 BUN 26 mg/dL Creatinine 1.3 mg/dL Cr Clearance (Est) 74.2100 mL/min Glucose 126 mg/dL Calcium 8.8 mg/dL Protein, Total 6.5 g/dL Albumin 3.4 g/dL Globulin 3.1 g/dL Bilirubin, Total 1.3 mg/dL ALT (SGPT) 9 U/L AST (SGOT) 19 U/L Alkaline Phosphatase 98 IU/L WBC 0.8 10 3/uL RBC 2.83 10 6/uL HGB 8.6 g/dL HCT 28.3 % MCV 100.0 fL MCH 30.4 pg MCHC 30.4 g/dL RDW 19.0 % Platelet Count 22 10 3/cmm Neutrophils 0.2 10 3/uL Lymphocytes 0.5 10 3/uL Monocytes 0.1 10 3/uL Eosinophils 0.0 10 3/uL Basophils 0.0 10 3/uL Neutrophil % 21.4 % Lymphocyte % 60.8 % Monocyte % 16.5 % Eosinophil % 0.0 % Basophils % 0.0 % CBC Slide Review Slide Review Perform SLIDE REVIEW AGREES WITH AUTOMATED RESULTS ST Impression: 1. Patient with pancytopenia, initially presenting with moderately severe anemia. 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 His IPSS-R calculated to 3.0, low risk. 2. As of December 2017 he had become transfusion dependent. 3. He also has kappa light chain monoclonal gammopathy. Based on the bone marrow findings from 10/31/2018 he likely has early stage myeloma. 4. He developed transfusion dependent iron overload. 5. During follow-up he developed persistent lower extremity edema and chronic kidney disease. 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 There was also evidence of glomerulosclerosis and severe arteriolosclerosis. The immunofluorescence showed a preponderance of kappa light chain staining, 1-2+ versus negative to trace staining for lambda light chain. The [place] red stain for amyloid was negative. 6. His management has been further complicated by traumatic vertebral compression fracture for which he underwent kyphoplasty in February 2016. His other medical illnesses include: 7. Dyslipidemia, currently off statin therapy. 8. Coronary artery disease with previous coronary artery bypass surgery. 9. He has had suspected congestive heart failure. 10. He has previously undergone repair of iliac artery aneurysm. 11. COPD. 12. GERD. 13. Nicotine dependence (cigarettes). He began a trial of Procrit 40,000 U weekly on 01/17/2018. During subsequent follow-up he remained transfusion dependent. As of 02/22/2018 the Procrit dosage was increased to 60,000 U weekly, but still with no evidence of response. 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 Both plasma cells and blasts were estimated at 2%. On 03/28/2018 he began a trial of therapy with 5-azacytidine. It was administered subcutaneously for 7 days. During subsequent follow-up, there was further decline in his blood counts, as expected. His 2nd cycle of treatment was delayed. As of 05/15/2018 his blood counts had recovered to baseline. He remained transfusion dependent, and he continued to have very marginal performance status. At that point he continued with cycle 2 of 5-azacytidine. During that time he had undergone placement of portacath venous access device. During followup his blood counts again declined. On 06/04/2018 he was admitted with hypotension in association with pancytopenia. He did not have fever, and his blood cultures remained negative. He did show some recovery with neupogen, antibiotic coverage, and other supportive measures. During subsequent follow-up his neutrophil count and platelet count have remained low. He continued to have poor performance status, and he remained transfusion dependent. His further treatment remained on hold. Repeat bone marrow aspiration/biopsy on 10/31/2018 showed mildly increased cellularity, estimated at 50-70%, but with trilineage dyspoiesis. Blasts were slightly increased at 3.2%. Plasma cells were also mildly increased, estimated at 5-10% of the cellularity. The FISH panel for MDS was unrevealing, but the cytogenetic study did show deletion 12 P. 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 With those findings he continued symptomatic/supportive care. During follow-up he has remained transfusion dependent. He also has severe neutropenia and moderately severe thrombocytopenia, but he has not had fever, bleeding, or other complications associated with it. He has had ongoing problems with back pain, and there has been further decline in his performance status. Plan: With his recent chest pain and further decline in activity tolerance, he will be transfused PRBC today. He will continue Jadenu 720 mg daily. He will be treated empirically with acyclovir and fluconazole for the lip ulceration, and he also will be given a prescription for Magic mouthwash. I will continue to monitor blood counts twice weekly. He will be scheduled for a follow-up visit in 1 month. Signed By: Eduardo Truong M.D. <<Signature on File>>
[2019-05-01] MEDS: diphenhydrAMINE 25 mg Capsule PO (11:58)
[2019-05-01] MEDS: acetaminophen 325 mg Tablet 650 MG PO (11:58)
[2019-05-01] MEDS: sodium chloride 0.9% 250 ML 999 ML IV (12:10)
[2019-05-01] MEDS: FUROsemide 10 mg/mL SDV 2mL 20 MG IV (14:15)
[2019-05-01 14:18] VITALS: BP 102/67; PULSE 78; RESP 18; TEMP 36.1; O2SAT 97
[2019-05-01 14:33] VITALS: BP 111/70; PULSE 78; RESP 18; TEMP 36.3; O2SAT 95
[2019-05-01 14:48] VITALS: BP 107/67; PULSE 80; RESP 18; TEMP 36.1; O2SAT 97
[2019-05-01 15:18] VITALS: BP 105/68; PULSE 73; RESP 18; TEMP 37.1; O2SAT 96
[2019-05-01 15:45] VITALS: BP 119/74; PULSE 73; RESP 18; TEMP 36.1; O2SAT 95
--- NOTE | 2019-05-01 16:19 | PM.HP ---
Providers/Chief Complaint Primary Care Provider: Edvin Soria DO Chief Complaint: Multiple Myeloma, Myelodysplastic Syndrome History of Present Illness Gabriel Thakkar is a 73 year old male who presents as a direct admission from oncology. Patient is referred by Dr. Truong, for concern of history of black stools, and need for transfusion. Recently has CBC has an increasing number of blasts. Patient reports for the last several weeks, to a month he has been having some dark stools on occasion. He reports he does not eat or take anything that should make his stool dark. He reports he has been having at least 2 stools a day that have been dark, and formed. He denies any nausea, vomiting, abdominal pain. He reports no bright red blood in his stool. He went in to get a routine transfusion Sunday, and was very surprised his hemoglobin was down to 8 by . He has been feeling more weak than normal. No fever. Review of Systems General: Reports: 10 or more systems reviewed and unremarkable except in HPI and below Const: Denies: fever or chills Eyes: Denies: blurry vision ENMT: Denies: throat pain Card: Denies: chest pain Resp: Reports: shortness of breath GI: Reports: black tarry stool; Denies: abdominal pain, nausea, vomiting or blood in stool : Denies: difficulty urinating Musc: Reports: back pain; Denies: neck pain Skin/Breast: Denies: rash Neuro: Denies: headache Psych: Denies: anxiety or depression Endo: Denies: excessive urination Naif/Lymph: Reports: easy bruising All/Imm: Denies: hives Medications/Allergies Home Medications Medication Instructions Recorded Confirmed Last Taken Type acyclovir 400 mg PO QID 05/01/19 05/01/19 05/01/19 16:00 History fluconazole 100 mg PO DAILY 05/01/19 05/01/19 05/01/19 08:00 History Allergies Allergy/AdvReac Type Severity Reaction Status Date / Time No Known Allergies Allergy Verified 03/04/19 20:00 PFSH Acute PFSH: Medical History (Updated 05/01/19 @ 17:19 by Augusto Granados MD) CAD (coronary artery disease) CHF (congestive heart failure) Chronic kidney disease (CKD) stage G2/A3, mildly decreased glomerular filtration rate (GFR) between 60-89 mL/min/1.73 square meter and albuminuria creatinine ratio greater than 300 mg/g COPD (chronic obstructive pulmonary disease) DJD (degenerative joint disease) GERD (gastroesophageal reflux disease) Hypercholesterolemia Iron overload Myelodysplastic syndrome Myocardial infarction Nicotine dependence Pancytopenia Port-A-Cath in place Surgical History H/O circumcision H/O esophagogastroduodenoscopy 03/18/2019: Normal History of abdominal aortic aneurysm (AAA) repair History of back surgery Hx of CABG x 4 vessel, in 2001 Hx of cataract surgery 12/07 Status post colonoscopy Family History Other Cancer Diabetes Heart disease Denies family history of Anesthesia complication Bleeding disorder Social History (Updated 05/01/19 @ 16:22 by Augusto Granados MD) Smoking and tobacco status: current every day smoker cigarettes Packs smoked per day: 1.25 Alcohol intake: never Substance/Drug Use: never Household members: spouse Marital status: Current occupational status: retired Vitals/I&O/Wt Last Vital Signs Temp 97.1 F L 04/29/19 14:53 Pulse 75 04/29/19 14:53 Resp 18 04/29/19 14:53 BP 104/66 04/29/19 14:53 Pulse Ox 95 04/29/19 14:53 05/01/19 05/01/19 05/01/19 06:59 14:59 22:59 Intake Total 250 / 250 Balance 250 / 250 Physical Exam Narrative: EXAM NARRATIVE: General exam demonstrates a white male in no apparent distress. Vital signs from the nurse were reviewed HEENT: Pupils equally round. Oropharynx with small ulcer. Neck is supple with no lymphadenopathy or thyromegaly Cardiovascular regular rate and rhythm without murmur. Frequent premature beats. Lungs a few expiratory wheezes Abdomen is soft with positive bowel sounds. No obvious organomegaly was deferred Extremities no cyanosis clubbing. 1+ to 2+ edema is noted which she reports is chronic Skin easy bruising noted Neuro no focal deficits Data : 05/01/19 09:00 04/28/19 08:10 A&P Assessment and plan (1) Anemia: Recently has required increasing transfusions, and patient has noted black stool. Likely he is having a lower GI bleed. Will check stool Hemoccult. Repeat hemoglobin following transfusion he had today. Note that he had 2 units at hematology oncology clinic prior to transfer over here. We will keep a close eye on platelets. He had a platelet transfusion this week. If he has bleeding significantly these will need to be transfused again perhaps tomorrow Check stool Hemoccult Protonix 40 mg twice daily, as he is describing black tarry stools most consistent with upper GI bleeding. Clear liquid diet secondary to potential bleeding. If improving, consider increasing diet to pur?ed secondary to recent mouth ulceration. Status: Acute Code(s): D64.9 - Anemia, unspecified (2) GI bleed: See notations above Status: Acute Code(s): K92.2 - Gastrointestinal hemorrhage, unspecified (3) Myelodysplastic syndrome: Followed by oncology. Usually he requires transfusions every week. Recently noted to have blasts on CBC. Oncology will follow this up. Status: Acute Code(s): D46.9 - Myelodysplastic syndrome, unspecified Additional A&P Information Mouth ulcer. Continue fluconazole, acyclovir started by oncology Chronic kidney disease stage II COPD, not currently in exacerbation. Provide albuterol as needed Ongoing tobacco dependency History of CHF with chronic lower extremity edema. Currently appears compensated DJD with history of chronic back pain History of hyperlipidemia, on statin chronically Coronary artery disease. On statin, beta-chano. 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
[2019-05-01 16:25] VITALS: BP 110/70; PULSE 79; RESP 18; TEMP 36.2; O2SAT 96
== END 2019-05-01 23:59 | disposition home or self-care (01) ==
LOC: ONCMED 05:43
PROVIDERS: Family Provider Electrodiagnostic Medicine; PCP Electrodiagnostic Medicine; Visit Provider Internal Medicine Medical Oncology
DX: C90.00 Multiple myeloma not having achieved remission (principal); M06.00 Rheumatoid arthritis without rheumatoid factor, unspecified site; N18.9 Chronic kidney disease, unspecified; E78.5 Hyperlipidemia, unspecified; I25.10 Atherosclerotic heart disease of native coronary artery without angina pectoris; J44.9 Chronic obstructive pulmonary disease, unspecified; K21.9 Gastro-esophageal reflux disease without esophagitis; I25.2 Old myocardial infarction; F17.210 Nicotine dependence, cigarettes, uncomplicated; Z79.899 Other long term (current) drug therapy; Z98.1 Arthrodesis status; Z95.1 Presence of aortocoronary bypass graft
CPT/HCPCS: 12345; 36430; 80053; 82728; 83540; 83550; 83615; 85007; 85025; 86850; 86900; 86920; 99214; J1940; J7050; P9037; P9040

== ENCOUNTER 2019-05-01 17:08 | Inpatient (IN) | payer MEDICARE, OTHER, SELFPAY ==
[2019-05-01 09:18] LABS: Hematocrit 26.8 % (42.0-52.0); Lymphocytes # 0.6 10^3/uL (0.8-4.8); Lymphocytes % 56.6 %; Mean Corpuscular HGB Conc 29.9 g/dL (30.0-36.0); Mean Corpuscular Hemoglobin 28.5 pg (28.0-34.0); Mean Corpuscular Volume 95.4 fL (80-94); Mean Platelet Volume 12.4 fL (7.4-10.4); Monocytes # 0.2 10^3/uL (0.2-0.9); Monocytes % 18.9 %; Neutrophils % 24.5 %; Nucleated Red Blood Cells # 0.3 /100WBC; Nucleated Red Blood Cells % 28.3 %; Platelet Count 34 10^3/cmm (130-400); Red Blood Count 2.81 10^6/uL (4.1-5.3); Red Cell Distribution Width 19.9 % (12.1-15.1); White Blood Count 1.1 10^3/uL (4.0-10.0)
[2019-05-01 09:50] LABS: Slide Review Slide Review Perform
[2019-05-01 10:02] LABS: Absolute Segmented Neutrophil 0.1 10/cmm (1.6-7.1); Eosinophils 9 %; Lymphocytes 56 %; Lymphocytes Absolute 0.7 10^3/cmm (1.2-3.4); Segmented Neutrophils 15 %; Total Cells Counted 100 (0-100)
[2019-05-01 10:03] LABS: Anisocytosis 1+; Corrected White Blood Count 0.8 10^3/cmm (4.8-10.8)
[2019-05-01 10:04] LABS: Platelet Estimate Decreased (Normal); Poikilocytosis 1+; Polychromasia 1+
[2019-05-01 10:06] LABS: Neutrophils # 0.3 10^3/uL (1.8-7.7)
[2019-05-01 10:07] LABS: Blastocytes 13 % (0-0)
[2019-05-01 18:26] VITALS: BP 112/69; PULSE 70; RESP 22; TEMP 36.5; O2SAT 93
[2019-05-01 19:46] LABS: Hematocrit 26.6 % (42.0-52.0); Hemoglobin 8.4 g/dL (11.7-16.6); Lymphocytes # 0.5 10^3/uL (0.8-4.8); Mean Corpuscular HGB Conc 31.6 g/dL (30.0-36.0); Mean Corpuscular Hemoglobin 28.8 pg (28.0-34.0); Mean Corpuscular Volume 91.1 fL (80-94); Mean Platelet Volume 10.6 fL (7.4-10.4); Monocytes # 0.1 10^3/uL (0.2-0.9); Monocytes % 13.6 %; Neutrophils % 23.4 %; Nucleated Red Blood Cells # 0.2 /100WBC; Nucleated Red Blood Cells % 24.7 %; Platelet Count 36 10^3/cmm (130-400); Red Blood Count 2.92 10^6/uL (4.1-5.3); Red Cell Distribution Width 18.3 % (12.1-15.1)
[2019-05-01 19:55] LABS: Neutrophils # 0.2 10^3/uL (1.8-7.7); White Blood Count 0.8 10^3/uL (4.0-10.0)
[2019-05-01 19:59] LABS: Alanine Aminotransferase 10 U/L (0-41); Albumin Level 3.6 g/dL (3.5-5.2); Alkaline Phosphatase 78 IU/L (40-130); Anion Gap 13.7 (5-19); Aspartate Amino Transferase 18 U/L (0-40); Blood Urea Nitrogen 34 mg/dL (8-23); Calcium 8.9 mg/dL (8.5-10.5); Carbon Dioxide 26 mmol/L (22-29); Chloride 100 mmol/L (98-107); Globulin 2.4 g/dL (1.3-4.6); Glucose 150 mg/dL (65-115); INR 1.07 (0.8-1.2); Osmolality Calculated 282 mOsm/kg (285-295); Potassium 3.7 mmol/L (3.5-5.1); Sodium 136 mmol/L (136-145); Total Bilirubin 1.5 mg/dL (0.15-1.2)
[2019-05-01 20:00] VITALS: BP 90/59; PULSE 66; RESP 18; TEMP 36.9; O2SAT 93
[2019-05-01] MEDS: pantoprazole 40 mg SDV IVP (21:08)
[2019-05-01] MEDS: acyclovir 400 mg Tablet PO (21:08)
[2019-05-01 23:29] VITALS: PULSE 64; RESP 17; O2SAT 94
[2019-05-02] VITALS (18 sets, daily range): BP systolic 103–134; BP diastolic 60–85; PULSE 57–76; RESP 16–19; TEMP 36.5–37; O2SAT 93–98
[2019-05-02] MEDS: HYDROcodone-acetaminophen 7.5-325 mg Tablet 1 TAB PO (05:43)
[2019-05-02 08:06] LABS: Hematocrit 25.5 % (42.0-52.0); Lymphocytes # 0.4 10^3/uL (0.8-4.8); Mean Corpuscular HGB Conc 31.4 g/dL (30.0-36.0); Mean Corpuscular Hemoglobin 29.9 pg (28.0-34.0); Mean Corpuscular Volume 95.1 fL (80-94); Mean Platelet Volume 9.9 fL (7.4-10.4); Monocytes # 0.2 10^3/uL (0.2-0.9); Monocytes % 27.1 %; Neutrophils % 22.9 %; Nucleated Red Blood Cells # 0.2 /100WBC; Red Blood Count 2.68 10^6/uL (4.1-5.3); Red Cell Distribution Width 18.6 % (12.1-15.1)
[2019-05-02] MEDS: bumetanide 1 mg Tablet 2 MG PO (08:22)
[2019-05-02] MEDS: fluconazole 100 mg Tablet PO (08:22)
[2019-05-02] MEDS: pantoprazole 40 mg SDV IVP ×2 (08:23→21:01)
[2019-05-02] MEDS: carvedilol 12.5 mg Tablet PO (08:23)
[2019-05-02] MEDS: atorvastatin 40 mg Tablet PO (08:23)
[2019-05-02] MEDS: acyclovir 400 mg Tablet PO ×4 (08:23→21:01)
[2019-05-02 08:26] LABS: Alanine Aminotransferase 8 U/L (0-41); Albumin Level 3.3 g/dL (3.5-5.2); Alkaline Phosphatase 74 IU/L (40-130); Anion Gap 13.1 (5-19); Aspartate Amino Transferase 17 U/L (0-40); Blood Urea Nitrogen 27 mg/dL (8-23); Calcium 8.7 mg/dL (8.5-10.5); Carbon Dioxide 27 mmol/L (22-29); Chloride 102 mmol/L (98-107); Globulin 2.5 g/dL (1.3-4.6); Glucose 112 mg/dL (65-115); Osmolality Calculated 284 mOsm/kg (285-295); Potassium 4.1 mmol/L (3.5-5.1); Sodium 138 mmol/L (136-145); Total Bilirubin 1.3 mg/dL (0.15-1.2); Total Protein 5.8 g/dL (6.6-8.7)
[2019-05-02 08:52] LABS: Slide Review Slide Review Perform
[2019-05-02 08:56] LABS: Platelet Count 27 10^3/cmm (130-400); White Blood Count 0.7 10^3/uL (4.0-10.0)
[2019-05-02 08:57] LABS: Neutrophils # 0.2 10^3/uL (1.8-7.7)
--- NOTE | 2019-05-02 11:26 | P.PN_ITS ---
Subjective Subjective: Interval history: Gabriel reports he is feeling okay. Does not feel dizzy or tired. Reports he often gets chest pain when he gets up and around and his hemoglobin is less than 8.5. He reports he has not had any chest discomfort here but that is why he is often transfused with hemoglobin above 8 at oncology's office. Medications: Reviewed: Yes Vitals/I&O/Wt Last Vital Signs Temp 98.4 F 05/02/19 11:13 Pulse 64 05/02/19 11:13 Resp 18 05/02/19 11:13 BP 108/64 05/02/19 11:13 Pulse Ox 95 05/02/19 11:13 05/01/19 05/02/19 05/02/19 22:59 06:59 14:59 Intake Total 60 / 60 720 / 720 Balance 60 / 60 720 / 720 Weight last 48 hrs Weight 107.275 kg Physical Exam Narrative: EXAM NARRATIVE: General exam no apparent distress Cardiovascular regular rate and rhythm without murmur Lungs clear Abdomen is soft with positive bowel sounds, obese Extremities 1-2+ edema Data : 05/02/19 07:35 05/02/19 07:35 A&P Assessment and plan (1) GI bleed: He reports no bowel movements overnight. I am concerned that his resistant anemia may not solely be secondary to GI bleeding. Check haptoglobin Continue Protonix 40 mg IV twice daily Status: Acute Code(s): K92.2 - Gastrointestinal hemorrhage, unspecified (2) Anemia: See above Still significantly low. Transfusion of platelets, 2 units packed red blood cells Status: Acute Code(s): D64.9 - Anemia, unspecified (3) Myelodysplastic syndrome: Followed by oncology Status: Acute Code(s): D46.9 - Myelodysplastic syndrome, unspecified Additional A&P Information Mouth ulceration. Continue fluconazole, acyclovir Chronic kidney disease stage II COPD, no evidence of current exacerbation. Albuterol as needed. Tobacco dependency History of CHF, compensated Coronary disease, on statin and beta-chano. No antiplatelet drugs secondary to the severe thrombocytopenia Hyperlipidemia, continue statin DJD with chronic back pain Attestations Medical Necessity Statement*: Needs continued hospitalization secondary to significant anemia requiring transfusion and thrombocytopenia requiring platelet transfusion. Coding Level of Care Code Acute Nursing Service Administrator for [facility] Dania Diagnoses GI bleed K92.2 Anemia D64.9 Myelodysplastic syndrome D46.9
[2019-05-02] MEDS: FUROsemide 10 mg/mL SDV 2mL 20 MG IVP ×2 (13:01→15:20)
--- NOTE | 2019-05-02 18:23 | P.CONIM_ITS ---
Providers/Reason For Consult Consulting Physican/Specialty*: Hematology. Reason for Consult*: Anemia and possible hemolysis Attending Physician: Augusto Granados MD Primary Care Provider: Edvin Soria DO History of Present Illness History of Present Illness Gabriel Thakkar is a 73 year-old man who is well-known to me and has been under treatment for myelodysplastic syndrome with severe pancytopenia and transfusion dependent anemia. 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 I had seen him initially in September 2015 with fairly acute onset of joint pain and anemia. He was initially treated for seronegative rheumatoid arthritis, but ultimately he was suspected to have myelodysplastic syndrome based on bone marrow findings from June 2016. At that point he was managed expectantly, as he was still just mildly anemic. His repeat bone marrow aspiration/biopsy in November 2017 showed 100% cellularity with blast estimated 1%. 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 By March 2018 he had become pancytopenic and transfusion dependent. At that point he had a trial of therapy with 5- azacytidine. He received 2 cycles of treatment, both resulting in hospitalization. Ultimately, we felt that the likelihood of benefit with further treatment would be low, and he then continued with symptomatic/supportive care. During follow-up, he remained transfusion dependent and he had gradual worsening of his pancytopenia. His most recent bone marrow aspiration/biopsy, from 10/31/2018, was still hypercellular but with blast estimated at 3.2%. Plasma cells had increased to 5 to 10% of the marrow cellularity, suggestive of early stage myeloma. He has significant underlying medical illnesses, including coronary artery disease and COPD. In February he was admitted to the hospital with chest pain, and he had a subsequent admission for suspected GI bleeding. EGD at that time showed no abnormalities. Following discharge, he continued outpatient follow-up and transfusion support. Earlier this week he had reported recurrence of loose, dark stools. With suspected recurrence of GI bleeding, he was given outpatient PRBC and platelet transfusions. He had then reported worsening of his GI symptoms, and as his hemoglobin had remained low at 8 g, I arrange for further transfusion of PRBC and platelets and for direct hospital admission. I am asked to see him because of possible hemolysis. Following admission the hospital he had not been having melena or other overt symptoms of GI bleeding, but his hemoglobin was still not increasing with the transfusion. His hemoglobin yesterday was 8.4 g, and this morning it was 8.0 g. He is chronically had a very low neutrophil count, the range of 100-200. His platelet count yesterday was 36,000 and this morning it was 27,000. I did review the blood smear yesterday, and confirmed presence of multiple nucleated red blood cells and a small percentage of blasts. His other current laboratory studies include a mildly elevated total bilirubin, LDH elevated at 350/225 U/L, and haptoglobin low at 10.0 mg/L. Review of Systems Const: Reports: fatigue; Denies: fever or night sweats ENMT: Reports: oral sores/lesions; Denies: throat pain, painful swallowing, hoarseness, change in hearing or tinnitus Card: Reports: chest pain and swelling of feet/ankles; Denies: palpitations, lightheadedness or shortness of breath when lying down Resp: Reports: shortness of breath; Denies: productive cough, non-productive cough, wheezing, pain on inspiration or coughing up blood GI: Reports: black tarry stool; Denies: abdominal pain, nausea, vomiting, difficulty swallowing, heartburn/indigestion, diarrhea, constipation or blood in stool : Denies: difficulty urinating, painful urination, urinary frequency, urinary urgency, urinary hesitancy, urinary incontinence or blood in urine Musc: Reports: back pain; Denies: neck pain or joint pain Skin/Breast: Denies: rash or new lesion Neuro: Denies: headache, numbness in extremities, changes in sensation or dizziness Psych: Denies: anxiety or depression Naif/Lymph: Reports: easy bruising; Denies: easy bleeding Meds/Allergies Home Medications and Allergies Home Medications Medication Instructions Recorded Confirmed Type Calcium 600 + D(3) 1 tab PO BID 03/05/19 05/01/19 History atorvastatin 40 mg PO DAILY 03/05/19 05/01/19 History bumetanide 2 mg PO DAILY 03/05/19 05/01/19 History carvedilol 12.5 mg PO DAILY 03/05/19 05/01/19 History deferasirox [Jadenu] 1 mg PO BID 03/05/19 05/01/19 History hydrocodone-acetaminophen 1 tab PO TID PRN 03/05/19 05/01/19 History lidocaine HCl [Aspercreme 1 applic TOPICAL BID PRN 03/05/19 05/01/19 History (lidocaine)] nitroglycerin [Nitrostat] See Rx Instructions .ROUTE 03/05/19 05/01/19 History .COMPLEX PRN pantoprazole 40 mg PO DAILY 03/05/19 05/01/19 History potassium chloride [Klor-Con M20] 1 meq PO DAILY 03/05/19 05/01/19 History levofloxacin 500 mg tablet 500 mg PO DAILY PRN 03/13/19 05/01/19 History acyclovir 400 mg PO QID 05/01/19 05/01/19 History fluconazole 100 mg PO DAILY 05/01/19 05/01/19 History Allergies Allergy/AdvReac Type Severity Reaction Status Date / Time No Known Allergies Allergy Verified 03/04/19 20:00 Current Medications Current Medications Generic Name Dose Route Start Last Admin Trade Name Freq PRN Reason Stop Dose Admin Hydrocodone Bitart/Acetaminophen 1 tab 05/01/19 17:45 05/02/19 05:43 [place] 7.5-325 Mg PO 1 tab TID PRN Administration Pain Acyclovir 400 mg 05/01/19 21:00 05/02/19 16:41 Zovirax PO 400 mg QID ZONIA Administration Atorvastatin Calcium 40 mg 05/02/19 09:00 05/02/19 08:23 Lipitor PO 40 mg DAILY ZONIA Administration Bumetanide 2 mg 05/02/19 09:00 05/02/19 08:22 Bumex PO 2 mg DAILY ZONIA Administration Carvedilol 12.5 mg 05/02/19 09:00 05/02/19 08:23 Coreg PO 12.5 mg DAILY ZONIA Administration Fluconazole 100 mg 05/02/19 09:00 05/02/19 08:22 Diflucan Tab PO 100 mg DAILY ZONIA Administration Pantoprazole Sodium 40 mg 05/01/19 21:00 05/02/19 08:23 Protonix IVP 40 mg Q12H ZONIA Administration Potassium Chloride 20 meq 05/02/19 10:15 05/02/19 11:16 Klor-Con 10 PO 20 meq DAILY ZONIA Administration PFSH Acute PFSH: Medical History (Updated 05/01/19 @ 17:19 by Augusto Granados MD) CAD (coronary artery disease) CHF (congestive heart failure) Chronic kidney disease (CKD) stage G2/A3, mildly decreased glomerular filtration rate (GFR) between 60-89 mL/min/1.73 square meter and albuminuria creatinine ratio greater than 300 mg/g COPD (chronic obstructive pulmonary disease) DJD (degenerative joint disease) GERD (gastroesophageal reflux disease) Hypercholesterolemia Iron overload Myelodysplastic syndrome Myocardial infarction Nicotine dependence Pancytopenia Port-A-Cath in place Social History (Updated 05/01/19 @ 16:22 by Augusto Granados MD) Smoking and tobacco status: current every day smoker cigarettes Packs smoked per day: 1.25 Alcohol intake: never Household members: spouse Marital status: Current occupational status: retired Vitals/I&O/Wt Last Vital Signs Temp 97.8 F 05/02/19 15:50 Pulse 63 05/02/19 15:25 Resp 18 05/02/19 15:50 BP 110/66 05/02/19 15:50 Pulse Ox 98 05/02/19 15:50 05/02/19 05/02/19 05/02/19 06:59 14:59 22:59 Intake Total 1210 / 1210 293 / 1503 Output Total 1600 / 1600 1200 / 2800 Balance -390 / -390 -907 / -1297 Weight last 48 hrs Weight 107.275 kg Physical Exam Const: COMMON NORMALS: no apparent distress OTHER: He appears generally weak but not in acute distress. HENMT: MOUTH: other (There is a healing ulceration on the lower inner lip on the right side.); oral and palatal mucosa not normal THROAT: posterior oropharynx normal Eye: COMMON NORMALS: conjunctivae normal and no scleral icterus CONJUNCTIVA: Yes conjunctivae normal Lymph: LYMPHATIC: no lymphadenopathy noted (No cervical, clavicular, axillary, or inguinal lymphadenopathy) Resp: COMMON NORMALS: clear to auscultation bilaterally (but with diminished air movement bilaterally) AUSCULTATION: clear to auscultation bilaterally (but with diminished air movement bilaterally) Cardio: COMMON NORMALS: regular rate, regular rhythm, no gallops and no rub; negative for no murmurs (There is a II/ systolic murmur) RATE: regular rate RHYTHM: regular rhythm GI: COMMON NORMALS: soft to palpation, non-tender, no hepatosplenomegaly and no masses PALPATION: Yes soft and Yes no hepatosplenomegaly : COMMON NORMALS: Yes no CVA tenderness BLADDER/KIDNEY EXAM: Yes no CVA tenderness Back/Pelvis: COMMON NORMALS: no CVA tenderness and no thoracic nor lumbar tenderness Extremity: NARRATIVE EXTREMITY EXAM: There is 2 to 3+ lower extremity edema. There are venous stasis changes bilaterally. There is chronic purpura. Neuro: COMMON NORMALS: no focal motor deficits and no sensory deficits noted Skin: NARRATIVE SKIN EXAM: No evidence of skin eruption. No suspicious skin lesions noted. A&P Assessment and plan (1) GI bleed: Status: Acute Code(s): K92.2 - Gastrointestinal hemorrhage, unspecified (2) Myelodysplastic syndrome: Status: Acute Code(s): D46.9 - Myelodysplastic syndrome, unspecified (3) Nicotine dependence: Status: Acute Code(s): F17.200 - Nicotine dependence, unspecified, uncomplicated (4) Acute renal failure (ARF): Status: Acute Qualifiers: Acute renal failure type: unspecified Qualified Code(s): N17.9 - Acute kidney failure, unspecified Code(s): N17.9 - Acute kidney failure, unspecified (5) CAD (coronary artery disease): Status: Acute Qualifiers: Coronary Disease-Associated Artery/Lesion type: [place] artery Qualified Code(s): I25.10 - Atherosclerotic heart disease of [place] coronary artery with out angina pectoris Code(s): I25.10 - Atherosclerotic heart disease of [place] coronary artery without angina pectoris (6) COPD (chronic obstructive pulmonary disease): Status: Acute Qualifiers: COPD type: unspecified COPD Qualified Code(s): J44.9 - Chronic obstructive pulmonary disease, unspecified Code(s): J44.9 - Chronic obstructive pulmonary disease, unspecified (7) CHF (congestive heart failure): Status: Acute Qualifiers: Heart failure type: diastolic Qualified Code(s): I50.30 - Unspecified diastolic (congestive) heart failure Code(s): I50.9 - Heart failure, unspecified (8) Chronic kidney disease (CKD) stage G2/A3, mildly decreased glomerular filtration rate (GFR) between 60-89 mL/min/1.73 square meter and albuminuria creatinine ratio greater than 300 mg/g: Status: Acute Code(s): N18.2 - Chronic kidney disease, stage 2 (mild) (9) Chest pain: Status: Acute Qualifiers: Chest pain type: other chest pain Qualified Code(s): R07.89 - Other chest pain Code(s): R07.9 - Chest pain, unspecified (10) Anemia: Status: Acute Code(s): D64.9 - Anemia, unspecified Additional A&P Information He was admitted with suspected GI blood loss, as his anemia did not seem to be responding to transfusion. Based on the other laboratory studies, mainly the low haptoglobin, there is some suspicion that he may have a component of hemolysis. The low haptoglobin, though, may just be a reflection of his ineffective erythropoiesis, and he may very well have some component of GI blood loss, as he did have 2 loose and tarry bowel movements earlier this afternoon. As his antibody screens have been negative, my main concern regarding the issue of hemolysis would be the possibility of DIC. In any other case, his management would still just be supportive. I think that the most significant overall issue at this point is the fact that with development of blasts and increasing nucleated red cells peripherally, his disease is likely evolving to acute leukemia. At least for now close observation and transfusion support is still appropriate. I will request additional laboratory studies for tomorrow morning, including total and direct bilirubin levels, LDH level, repeat haptoglobin, and a DIC screen. 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 Surgeon for [facility] Fwd Exam Comprehensive Diagnoses GI bleed K92.2 Myelodysplastic syndrome D46.9 Nicotine dependence F17.200 Acute renal failure (ARF) N17.9 Acute renal failure type: unspecified CAD (coronary artery disease) I25.10 Coronary Disease-Associated Artery/Lesion type: [place] artery COPD (chronic obstructive pulmonary disease) J44.9 COPD type: unspecified COPD CHF (congestive heart failure) I50.30 Heart failure type: diastolic Chronic kidney disease (CKD) stage G2/A3, mildly decreased glomerular filtration rate (GFR) between 60-89 mL/min/1.73 square meter and albuminuria creatinine ratio greater than 300 mg/g N18.2 Chest pain R07.89 Chest pain type: other chest pain Anemia D64.9
[2019-05-02 20:05] LABS: INR 1.11 (0.8-1.2); Partial Thromboplastin Time 24.5 SECONDS (23.9-36.7)
[2019-05-02 20:06] LABS: Fibrinogen 276 mg/dL (184-529)
[2019-05-02 20:09] LABS: D Dimer 1.61 ug/mIFEU (0-0.59)
[2019-05-02 20:13] LABS: Lactate Dehydrogenase 336 U/L (135-225)
[2019-05-03] MEDS: HYDROcodone-acetaminophen 7.5-325 mg Tablet 1 TAB PO ×2 (01:39→08:24)
[2019-05-03 04:00] VITALS: BP 108/74; PULSE 64; RESP 18; TEMP 36.6; O2SAT 93
[2019-05-03 04:49] LABS: INR 1.16 (0.8-1.2)
[2019-05-03 04:50] LABS: Fibrinogen 261 mg/dL (184-529); Partial Thromboplastin Time 28.3 SECONDS (23.9-36.7)
[2019-05-03 04:53] LABS: D Dimer 1.51 ug/mIFEU (0-0.59)
[2019-05-03 04:58] LABS: Alanine Aminotransferase 9 U/L (0-41); Albumin Level 3.3 g/dL (3.5-5.2); Alkaline Phosphatase 77 IU/L (40-130); Anion Gap 9.8 (5-19); Aspartate Amino Transferase 18 U/L (0-40); Blood Urea Nitrogen 23 mg/dL (8-23); Calcium 8.5 mg/dL (8.5-10.5); Carbon Dioxide 31 mmol/L (22-29); Chloride 104 mmol/L (98-107); Globulin 2.5 g/dL (1.3-4.6); Glucose 105 mg/dL (65-115); Osmolality Calculated 289 mOsm/kg (285-295); Potassium 3.8 mmol/L (3.5-5.1); Sodium 141 mmol/L (136-145); Total Bilirubin 1.2 mg/dL (0.15-1.2); Total Protein 5.8 g/dL (6.6-8.7)
[2019-05-03 05:00] LABS: Lactate Dehydrogenase 321 U/L (135-225)
[2019-05-03 05:56] LABS: Hematocrit 27.3 % (42.0-52.0); Hemoglobin 8.8 g/dL (11.7-16.6); Lymphocytes # 0.5 10^3/uL (0.8-4.8); Lymphocytes % 63.3 %; Mean Corpuscular HGB Conc 32.2 g/dL (30.0-36.0); Mean Corpuscular Hemoglobin 29.7 pg (28.0-34.0); Mean Corpuscular Volume 92.2 fL (80-94); Mean Platelet Volume 9.3 fL (7.4-10.4); Monocytes # 0.1 10^3/uL (0.2-0.9); Monocytes % 17.7 %; Nucleated Red Blood Cells # 0.2 /100WBC; Nucleated Red Blood Cells % 30.4 %; Platelet Count 32 10^3/cmm (130-400); Red Blood Count 2.96 10^6/uL (4.1-5.3); Red Cell Distribution Width 17.2 % (12.1-15.1)
[2019-05-03 07:18] LABS: Slide Review Slide Review Perform
[2019-05-03 07:21] LABS: Neutrophils # 0.2 10^3/uL (1.8-7.7); White Blood Count 0.8 10^3/uL (4.0-10.0)
[2019-05-03 07:42] VITALS: BP 119/72; PULSE 76; RESP 20; TEMP 36.4; O2SAT 95
[2019-05-03] MEDS: carvedilol 12.5 mg Tablet PO (08:23)
[2019-05-03] MEDS: bumetanide 1 mg Tablet 2 MG PO (08:24)
[2019-05-03] MEDS: fluconazole 100 mg Tablet PO (08:24)
[2019-05-03] MEDS: acyclovir 400 mg Tablet PO (08:24)
[2019-05-03] MEDS: atorvastatin 40 mg Tablet PO (08:24)
[2019-05-03] MEDS: pantoprazole 40 mg SDV IVP (08:25)
[2019-05-03 11:53] VITALS: BP 119/72; PULSE 76; RESP 20; TEMP 36.4; O2SAT 95
--- NOTE | 2019-05-03 12:51 | PM.DCS ---
Discharge Providers Date of Admission: 05/01/19 17:08 Date of Discharge: May 03, 2019 Attending Provider at Admission: Jennifer Nolan DO Attending Provider at Discharge: Francis Conroy MD Primary Care Provider: Edvin Soria DO Diagnoses at Discharge Discharge Diagnosis (1) GI bleed: Status: Acute (2) Myelodysplastic syndrome: Status: Acute (3) Nicotine dependence: Status: Acute (4) Acute renal failure (ARF): Status: Acute Qualifiers: Acute renal failure type: unspecified Qualified Code(s): N17.9 - Acute kidney failure, unspecified (5) CAD (coronary artery disease): Status: Acute Qualifiers: Coronary Disease-Associated Artery/Lesion type: pamunkey artery Qualified Code(s): I25.10 - Atherosclerotic heart disease of pamunkey coronary artery without angina pectoris (6) COPD (chronic obstructive pulmonary disease): Status: Acute Qualifiers: COPD type: unspecified COPD Qualified Code(s): J44.9 - Chronic obstructive pulmonary disease, unspecified (7) CHF (congestive heart failure): Status: Acute Qualifiers: Heart failure type: diastolic Qualified Code(s): I50.30 - Unspecified diastolic (congestive) heart failure (8) Chronic kidney disease (CKD) stage G2/A3, mildly decreased glomerular filtration rate (GFR) between 60-89 mL/min/1.73 square meter and albuminuria creatinine ratio greater than 300 mg/g: Status: Acute (9) Chest pain: Status: Acute Qualifiers: Chest pain type: other chest pain Qualified Code(s): R07.89 - Other chest pain (10) Anemia: Status: Acute Reason for Visit Reason for Visit: Reason For Visit: MULTIPLE MYELOMA Hospital Course Discharge Summary: This is a 73-year-old male who is currently under treatment for myelodysplastic syndrome with severe pancytopenia and transfusion dependent anemia, monoclonal gammopathy, possible early stage myeloma, traumatic L3 vertebral fracture, iron overload, CAD, COPD, CKD, GERD, with a Port-A-Cath in place who was a direct admit from Dr. Corley's office due to concerns for anemia and black tarry stools, need for transfusion. Patient was admitted for acute GI bleed, his Hemoccult stool was positive, received IV hydration, Protonix, status post 2 unit PRBC. Patient's response to hemoglobin was a bit lackluster, but hemoglobin stabilized 8.8, no repeat black stools, no hemodynamic compromise, no significant orthostasis, patient was clinically doing well. Likely patient has a component of anemia secondary to his predisposing myelodysplastic syndrome, with concerns for evolving into leukemia and an upper GI bleed. In congruence with Dr. Corley, patient was discharged with instructions to continue Protonix 40 twice daily, carafate, and to drink plenty of electrolyte balance fluids; patient was instructed if he were to have lightheadedness, dizziness, worsening bloody or black stools come back to the emerency room. Patient is to follow-up with Dr. Corley on Sunday. Patient was also referred for surgery for consideration of a EGD if his symptomatology were to persist. Physical Exam Const: COMMON NORMALS: no apparent distress and oriented x3 HENMT: COMMON NORMALS: normocephalic HEAD & SCALP: normocephalic Neck/C-Spine: COMMON NORMALS: no JVD Resp: COMMON NORMALS: normal respiratory effort, no retractions, no use of accessory muscles and clear to auscultation bilaterally AUSCULTATION: clear to auscultation bilaterally Cardio: COMMON NORMALS: no JVD, regular rate, regular rhythm, S1 normal heart sound and S2 normal heart sound RATE: regular rate RHYTHM: regular rhythm HEART SOUNDS: S1 normal and S2 normal GI: COMMON NORMALS: normal to inspection, nondistended, normoactive bowel sounds, soft to palpation, non-tender, no hepatosplenomegaly, no masses and no bruits PALPATION: Yes soft and Yes no hepatosplenomegaly Extremity: COMMON NORMALS: normal capillary refill, no clubbing, cyanosis or edema, no calf tenderness and no pedal edema Neuro: COMMON NORMALS: oriented x3 Psych: COMMON NORMALS: mental status grossly normal Discharge Data Data Completed and Pending: Labs from last 24 hours 05/03/19 05/03/19 05/03/19 04:08 04:08 04:08 WBC RBC Hgb Hct MCV MCH MCHC RDW Plt Count MPV Neut % (Auto) Lymph % (Auto) Woodson % (Auto) Eos % (Auto) Baso % (Auto) Neut # (Auto) Lymph # (Auto) Woodson # (Auto) Eos # (Auto) Baso # (Auto) Nucleated RBC % (a uto) Nucleated RBCs # Haptoglobin 10.0 L PT 15.20 H INR 1.16 APTT 28.3 Fibrinogen 261 Fibrin Degrad Prod ucts Neg, <10 D-Dimer 1.51 H Sodium 141 Potassium 3.8 Chloride 104 Carbon Dioxide 31 H Anion Gap 9.8 BUN 23 Creatinine 1.2 Glucose 105 Calculated Osmolal ity 289 Calcium 8.5 Total Bilirubin 1.2 Direct Bilirubin 0.30 AST 18 ALT 9 Alkaline Phosphata se 77 Lactate Dehydrogen ase 321 H Total Protein 5.8 L Albumin 3.3 L Globulin 2.5 Blood Type Rho(D) Type Antibody Screen 05/03/19 05/02/19 05/02/19 04:08 19:30 19:30 WBC 0.8 L* RBC 2.96 L Hgb 8.8 L Hct 27.3 L MCV 92.2 MCH 29.7 MCHC 32.2 RDW 17.2 H Plt Count 32 L MPV 9.3 Neut % (Auto) 19.0 Lymph % (Auto) 63.3 Woodson % (Auto) 17.7 Eos % (Auto) 0.0 Baso % (Auto) 0.0 Neut # (Auto) 0.2 L* Lymph # (Auto) 0.5 L Woodson # (Auto) 0.1 L Eos # (Auto) 0.0 Baso # (Auto) 0.0 Nucleated RBC % (a uto) 30.4 Nucleated RBCs # 0.2 Haptoglobin 10.0 L PT 14.70 H INR 1.11 APTT 24.5 Fibrinogen 276 Fibrin Degrad Prod ucts Neg, <10 D-Dimer 1.61 H Sodium Potassium Chloride Carbon Dioxide Anion Gap BUN Creatinine Glucose Calculated Osmolal ity Calcium Total Bilirubin Direct Bilirubin 0.40 H AST ALT Alkaline Phosphata se Lactate Dehydrogen ase 336 H Total Protein Albumin Globulin Blood Type Rho(D) Type Antibody Screen 05/01/19 09:00 WBC RBC Hgb Hct MCV MCH MCHC RDW Plt Count MPV Neut % (Auto) Lymph % (Auto) Woodson % (Auto) Eos % (Auto) Baso % (Auto) Neut # (Auto) Lymph # (Auto) Woodson # (Auto) Eos # (Auto) Baso # (Auto) Nucleated RBC % (a uto) Nucleated RBCs # Haptoglobin PT INR APTT Fibrinogen Fibrin Degrad Prod ucts D-Dimer Sodium Potassium Chloride Carbon Dioxide Anion Gap BUN Creatinine Glucose Calculated Osmolal ity Calcium Total Bilirubin Direct Bilirubin AST ALT Alkaline Phosphata se Lactate Dehydrogen ase Total Protein Albumin Globulin Blood Type B Positive Rho(D) Type Positive Antibody Screen Negative Vitals: Last Vital Signs Temp 97.6 F 05/03/19 11:53 Pulse 76 05/03/19 11:53 Resp 20 H 05/03/19 11:53 BP 119/72 05/03/19 11:53 Pulse Ox 95 05/03/19 11:53 Discharge Plan Discharge Patient Disposition: Home, Self-Care Condition: Stable Prescriptions: Continued atorvastatin 40 mg Tablet 40 mg PO DAILY RF: 0 bumetanide 2 mg Tablet 2 mg PO DAILY RF: 0 Calcium 600 + D(3) 600-125 mg-unit Tablet 1 tab PO BID RF: 0 carvedilol 12.5 mg Tablet 12.5 mg PO DAILY RF: 0 hydrocodone-acetaminophen 7.5-325 mg Tablet 1 tab PO TID PRN (Reason: Pain) RF: 0 nitroglycerin [Nitrostat] 0.4 mg Tablet, Sublingual See Rx Instructions .ROUTE .COMPLEX PRN (Reason: Chest Pain) RF: 0 potassium chloride [Klor-Con M20] 20 mEq Tablet,Er Particles/Crystals 1 meq PO DAILY RF: 0 lidocaine HCl [Aspercreme (lidocaine)] 4 % Cream 1 applic TOPICAL BID PRN (Reason: Itching) RF: 0 levofloxacin 500 mg tablet 500 mg PO DAILY PRN (Reason: Fever) RF: 0 acyclovir 400 mg tablet 400 mg PO QID RF: 0 fluconazole 100 mg tablet 100 mg PO DAILY RF: 0 Changed pantoprazole 40 mg Tablet,Delayed Release (Dr/Ec) 40 mg PO BIDWM 30 Days Qty: 60 RF: 0 Held deferasirox [Jadenu] 360 mg Tablet 1 mg PO BID RF: 0 Hold Instructions: Resume on 05/20/19. hold until seen dr. corley Discharge Orders: Discharge Order (Routine); Ordered 05/03/19 Ordered By: Francis Conroy Other Ambulatory Orders: Complete Blood Count w/Auto (Routine) Timeframe: 2 Days Location: Determined by Patient Ordered By: Francis Conroy Referrals: Devang Kaur MD [Physician] - 2 weeks (Call on Sunday to make an appointment to be seen in 2 weeks.) Eduardo Corley MD [Hospitalist] - 1-3 days (Follow up with Dr. Corley on Sunday.) Discharge Diet: As Directed Discharge Activity: Resume usual activity Patient Instructions: GI Bleeding, Gastrointestinal Bleeding (GEN), Neutropenia (DC), Neutropenic Precautions (GEN), Neutropenic Diet Activity Restrictions/Additional Instructions: -please monitor for black stools, if repeat episodes and you feel lightheaded or dizzy please come back to ED -hydrate well Discharge Date/Time: 05/03/19 11:54 Discharge Attestations Time Spent in Discharge Care*: less than 30 min Quality Metrics Clinical Quality Measures During this hospital stay, did patient experience: None Coding Level of Care Code Acute Self Propelled [employer] for [employer] Fwd Diagnoses GI bleed K92.2 Myelodysplastic syndrome D46.9 Nicotine dependence F17.200 Acute renal failure (ARF) N17.9 Acute renal failure type: unspecified CAD (coronary artery disease) I25.10 Coronary Disease-Associated Artery/Lesion type: pam[place]key artery COPD (chronic obstructive pulmonary disease) J44.9 COPD type: unspecified COPD CHF (congestive heart failure) I50.30 Heart failure type: diastolic Chronic kidney disease (CKD) stage G2/A3, mildly decreased glomerular filtration rate (GFR) between 60-89 mL/min/1.73 square meter and albuminuria creatinine ratio greater than 300 mg/g N18.2 Chest pain R07.89 Chest pain type: other chest pain Anemia D64.9
== END 2019-05-03 11:54 | disposition home or self-care (01) | DRG 812 ==
PROVIDERS: Internal Medicine; Internal Medicine Medical Oncology; Admitting Provider Family Medicine; Family Provider Electrodiagnostic Medicine; PCP Electrodiagnostic Medicine; Visit Provider Family Medicine
DX: D50.0 Iron deficiency anemia secondary to blood loss (chronic) (principal); K92.2 Gastrointestinal hemorrhage, unspecified; N17.9 Acute kidney failure, unspecified; I50.30 Unspecified diastolic (congestive) heart failure; J44.9 Chronic obstructive pulmonary disease, unspecified; D46.9 Myelodysplastic syndrome, unspecified; K21.9 Gastro-esophageal reflux disease without esophagitis; K12.1 Other forms of stomatitis; E78.5 Hyperlipidemia, unspecified; N18.2 Chronic kidney disease, stage 2 (mild); Z79.899 Other long term (current) drug therapy; F17.210 Nicotine dependence, cigarettes, uncomplicated; I25.2 Old myocardial infarction; I25.10 Atherosclerotic heart disease of native coronary artery without angina pectoris; Z95.1 Presence of aortocoronary bypass graft
CPT/HCPCS: 12345; 36415; 36430; 36591; 80053; 82248; 82728; 83010; 83540; 83550; 83615; 85007; 85025; 85362; 85378; 85384; 85610; 85730; 86850; 86900; 86920; 96375; 99214; C9113; J1642; J1940; J7050; J8499; P9037; P9040

== ENCOUNTER 2019-05-19 04:05 | Outpatient (RCR) | payer MEDICARE, OTHER, SELFPAY ==
[2019-05-05 09:10] LABS: Hematocrit 34.3 % (42.0-52.0); Hemoglobin 10.7 g/dL (11.7-16.6); Lymphocytes # 0.6 10^3/uL (0.8-4.8); Lymphocytes % 58.9 %; Mean Corpuscular HGB Conc 31.2 g/dL (30.0-36.0); Mean Corpuscular Hemoglobin 29.8 pg (28.0-34.0); Mean Corpuscular Volume 95.5 fL (80-94); Mean Platelet Volume 11.5 fL (7.4-10.4); Monocytes # 0.2 10^3/uL (0.2-0.9); Monocytes % 15.8 %; Neutrophils % 24.2 %; Nucleated Red Blood Cells # 0.1 /100WBC; Nucleated Red Blood Cells % 9.5 %; Platelet Count 36 10^3/cmm (130-400); Red Blood Count 3.59 10^6/uL (4.1-5.3); Red Cell Distribution Width 18.6 % (12.1-15.1)
[2019-05-05 09:40] LABS: Neutrophils # 0.2 10^3/uL (1.8-7.7); Slide Review Slide Review Perform
[2019-05-08 09:39] LABS: Hemoglobin 10.8 g/dL (11.7-16.6); Lymphocytes # 0.6 10^3/uL (0.8-4.8); Lymphocytes % 65.2 %; Mean Corpuscular HGB Conc 30.9 g/dL (30.0-36.0); Mean Corpuscular Hemoglobin 29.4 pg (28.0-34.0); Mean Corpuscular Volume 95.4 fL (80-94); Monocytes # 0.1 10^3/uL (0.2-0.9); Neutrophils % 19.6 %; Nucleated Red Blood Cells # 0.2 /100WBC; Nucleated Red Blood Cells % 16.3 %; Red Blood Count 3.67 10^6/uL (4.1-5.3); Red Cell Distribution Width 18.5 % (12.1-15.1)
[2019-05-08 10:14] LABS: White Blood Count 0.9 10^3/uL (4.0-10.0)
[2019-05-08 10:15] LABS: Neutrophils # 0.2 10^3/uL (1.8-7.7); Platelet Count 22 10^3/cmm (130-400)
[2019-05-08 10:16] LABS: Slide Review Slide Review Perform
[2019-05-12 06:21] LABS: Hematocrit 36.1 % (42.0-52.0); Hemoglobin 11.1 g/dL (11.7-16.6); Lymphocytes # 0.7 10^3/uL (0.8-4.8); Lymphocytes % 66.3 %; Mean Corpuscular HGB Conc 30.7 g/dL (30.0-36.0); Mean Corpuscular Hemoglobin 29.6 pg (28.0-34.0); Mean Corpuscular Volume 96.3 fL (80-94); Monocytes # 0.1 10^3/uL (0.2-0.9); Monocytes % 11.5 %; Neutrophils % 22.2 %; Nucleated Red Blood Cells # 0.1 /100WBC; Nucleated Red Blood Cells % 10.6 %; Red Blood Count 3.75 10^6/uL (4.1-5.3); Red Cell Distribution Width 18.8 % (12.1-15.1)
[2019-05-12 08:28] LABS: Platelet Count 18 10^3/cmm (130-400); Slide Review Slide Review Perform
[2019-05-12 08:29] LABS: Absolute Segmented Neutrophil 0.2 10/cmm (1.6-7.1); Blastocytes 4 % (0-0); Corrected White Blood Count 0.9 10^3/cmm (4.8-10.8); Eosinophils 3 %; Segmented Neutrophils 24 %; Total Cells Counted 100 (0-100)
[2019-05-12 08:30] LABS: Lymphocytes 68 %
[2019-05-12 08:31] LABS: Anisocytosis 1+; Platelet Estimate Decreased (Normal); Poikilocytosis 1+; Polychromasia Trace
[2019-05-12 08:32] LABS: Neutrophils # 0.2 10^3/uL (1.8-7.7)
[2019-05-15 10:37] LABS: Hematocrit 34.8 % (42.0-52.0); Hemoglobin 10.6 g/dL (11.7-16.6); Lymphocytes # 0.7 10^3/uL (0.8-4.8); Lymphocytes % 68.4 %; Mean Corpuscular HGB Conc 30.5 g/dL (30.0-36.0); Mean Corpuscular Hemoglobin 29.6 pg (28.0-34.0); Mean Corpuscular Volume 97.2 fL (80-94); Monocytes # 0.1 10^3/uL (0.2-0.9); Monocytes % 10.2 %; Neutrophils % 20.4 %; Nucleated Red Blood Cells # 0.1 /100WBC; Nucleated Red Blood Cells % 11.2 %; Red Blood Count 3.58 10^6/uL (4.1-5.3); Red Cell Distribution Width 19.1 % (12.1-15.1)
[2019-05-15 10:57] LABS: Platelet Count 15 10^3/cmm (130-400)
[2019-05-15 10:58] LABS: Neutrophils # 0.2 10^3/uL (1.8-7.7)
[2019-05-15 11:02] LABS: Slide Review Slide Review Perform
[2019-05-19 12:00] LABS: Hematocrit 33.6 % (42.0-52.0); Lymphocytes # 0.5 10^3/uL (0.8-4.8); Lymphocytes % 57.1 %; Mean Corpuscular HGB Conc 29.8 g/dL (30.0-36.0); Mean Corpuscular Hemoglobin 29.8 pg (28.0-34.0); Monocytes # 0.1 10^3/uL (0.2-0.9); Monocytes % 10.7 %; Nucleated Red Blood Cells # 0.1 /100WBC; Nucleated Red Blood Cells % 16.7 %; Red Blood Count 3.36 10^6/uL (4.1-5.3); Red Cell Distribution Width 19.3 % (12.1-15.1)
[2019-05-19 13:27] LABS: Platelet Count 12 10^3/cmm (130-400); White Blood Count 0.8 10^3/uL (4.0-10.0)
[2019-05-19 13:29] LABS: Neutrophils # 0.3 10^3/uL (1.8-7.7)
[2019-05-19 13:31] LABS: Slide Review Slide Review Perform
== END 2019-05-20 23:59 | disposition home or self-care (01) ==
LOC: ONCMED 04:05
PROVIDERS: Family Medicine; Family Provider Electrodiagnostic Medicine; PCP Electrodiagnostic Medicine; Visit Provider Internal Medicine Medical Oncology
DX: C90.00 Multiple myeloma not having achieved remission (principal); D46.A Refractory cytopenia with multilineage dysplasia; D47.2 Monoclonal gammopathy; D50.8 Other iron deficiency anemias
CPT/HCPCS: 36415; 85007; 85025

== ENCOUNTER 2019-06-17 09:22 | Day surgery (SDC) | payer MEDICARE, OTHER, SELFPAY ==
[2019-06-16 17:41] VITALS: BMI 29.3
--- NOTE | 2019-06-17 08:44 | ANES.PREANE2 ---
Pre-Anesthetic Assessment Pre-Anesthetic Assessment: Height/Weight: Height 1.91 m Weight 106.594 kg Preop Diagnosis: melena Proposed Procedure: Operation Date: 06/17/19 10:30 Proposed Procedures p Bone Marrow Biospy With Aspiration(Not Applicable) - Maddison Adorno MD Familial anesthetic complications: Hard time waking up Was Beta Melanie taken within 24 hours: Yes Social: Social History: No alcohol and No tobacco Exam: Pre-Anes Outpt Exam: alert, oriented x 3, clear to auscultation bilaterally and regular rate & rhythm Airway: Cervical ROM: WNL MP: 3 Additional comments: edentulous Pulmonary: Pulmonary: None reported CV/HEM: CV/HEM: HTN and CO Comments: CABG 2 years ago : Comments: unilateral kidney Hepatic: Hepatic: None reported GI: GI: None reported Metabolic: Metabolic: None reported Musc/skel: Musc/skel: Lower Back Pain Neuropsych: Neuropsych: None reported Anesthetic Plan: ASA status: 3 Anesthesia: General Risk of > 500 ml blood loss (7ml/kg in children): No PFSH Anesthesia PFSH: Medical History (Updated 05/01/19 @ 17:19 by Augusto Granados MD) CAD (coronary artery disease) CHF (congestive heart failure) Chronic kidney disease (CKD) stage G2/A3, mildly decreased glomerular filtration rate (GFR) between 60-89 mL/min/1.73 square meter and albuminuria creatinine ratio greater than 300 mg/g COPD (chronic obstructive pulmonary disease) DJD (degenerative joint disease) GERD (gastroesophageal reflux disease) Hypercholesterolemia Iron overload Myelodysplastic syndrome Myocardial infarction Nicotine dependence Pancytopenia Port-A-Cath in place Social History (Updated 05/01/19 @ 16:22 by Augusto Granados MD) Smoking and tobacco status: current every day smoker cigarettes Packs smoked per day: 1.25 Alcohol intake: never Household members: spouse Marital status: Current occupational status: retired Data Anesthesia Cardiac Studies: No Data to Display
[2019-06-17 09:45] VITALS: BP 132/82; PULSE 76; RESP 18; TEMP 36.3; O2SAT 96
[2019-06-17] MEDS: sodium chloride 0.9% 1,000 ML 30 ML IV (09:54)
[2019-06-17 10:14] LABS: Hematocrit 29.7 % (42.0-52.0); Hemoglobin 8.4 g/dL (11.7-16.6); Lymphocytes # 0.6 10^3/uL (0.8-4.8); Lymphocytes % 54.5 %; Mean Corpuscular HGB Conc 28.3 g/dL (30.0-36.0); Mean Corpuscular Hemoglobin 29.3 pg (28.0-34.0); Mean Corpuscular Volume 103.5 fL (80-94); Monocytes # 0.2 10^3/uL (0.2-0.9); Monocytes % 16.8 %; Neutrophils % 27.7 %; Nucleated Red Blood Cells # 0.2 /100WBC; Nucleated Red Blood Cells % 20.8 %; Red Blood Count 2.87 10^6/uL (4.1-5.3); Red Cell Distribution Width 22.3 % (12.1-15.1)
[2019-06-17 10:43] LABS: Platelet Count 12 10^3/cmm (130-400)
[2019-06-17 10:44] LABS: Neutrophils # 0.3 10^3/uL (1.8-7.7); Slide Review Slide Review Perform
[2019-06-17 10:53] VITALS: BP 96/67; PULSE 69; RESP 18; TEMP 36.8; O2SAT 100
--- NOTE | 2019-06-17 10:59 | PM.BMB ---
Bone Marrow Biopsy Bone Marrow Biopsy: I was consulted by [] office regarding bone marrow biopsy on [Jose hernández,,]. Briefly, the patient is [id number] old [m] with [history of myelodysplasia]. In the Outpatient Services Department, with nursing staff and laboratory technologists in attendance, the procedure was discussed with the patient. Appropriate consent form had been signed. Appropriate alternatives, benefits and risks of procedure were discussed with the patient and she was pre-operatively assessed with a history and physical by myself and cleared for the biopsy procedure. The patient did request IV sedation and that was provided by the Anesthesia Department. Under aseptic conditions the right posterior iliac area was cleaned and prepped.. Local anesthesia was give and about 10 cc of bone marrow aspirate and core biopsy was obtained.. Patient tolerated procedure well hemostasis was obtained. Specimen was sent for routine histopathology and flow cytometry/cytogenetics and MDS panel.. Postprocedure nursing instructions were given.. Thank you for allowing me to participate in this patient's care and diagnosis. Coding Level of Care Code Acute Motor Assembly Supervisor for Jassi Najera
[2019-06-17 11:12] VITALS: BP 100/54; PULSE 66; RESP 18; O2SAT 99
[2019-06-24 09:21] LABS: Miscellaneous Test See Scanned Lab Rpt
[2019-07-02 10:25] LABS: Miscellaneous Test See Scanned Lab Rpt
== END 2019-06-17 11:37 | disposition home or self-care (01) ==
LOC: GILAB 09:27 → OPS 09:28
PROVIDERS: Family Provider Electrodiagnostic Medicine; PCP Electrodiagnostic Medicine; Visit Provider Internal Medicine Hematology & Oncology
PROC: 07DT3ZX Extraction of Bone Marrow, Percutaneous Approach, Diagnostic (ICD-10-PCS; CPT 38222; principal; 2019-06-17 10:30)
DX: D46.9 Myelodysplastic syndrome, unspecified (principal)
CPT/HCPCS: 12345; 36415; 38222; 85025; 85097; 88184; 88185; 88305; 88311; 88313; J2001; J2704; J7030

== ENCOUNTER 2019-06-19 12:44 | Outpatient (RCR) | payer MEDICARE, OTHER, SELFPAY ==
[2019-05-22 10:39] LABS: Hematocrit 31.6 % (42.0-52.0); Hemoglobin 9.5 g/dL (11.7-16.6); Lymphocytes # 0.6 10^3/uL (0.8-4.8); Lymphocytes % 63.3 %; Mean Corpuscular HGB Conc 30.1 g/dL (30.0-36.0); Mean Corpuscular Hemoglobin 29.8 pg (28.0-34.0); Mean Corpuscular Volume 99.1 fL (80-94); Monocytes # 0.1 10^3/uL (0.2-0.9); Monocytes % 13.3 %; Neutrophils % 23.4 %; Nucleated Red Blood Cells # 0.2 /100WBC; Nucleated Red Blood Cells % 15.3 %; Red Blood Count 3.19 10^6/uL (4.1-5.3)
[2019-05-22 11:09] LABS: Neutrophils # 0.2 10^3/uL (1.8-7.7); Platelet Count 12 10^3/cmm (130-400)
[2019-05-22 11:10] LABS: Slide Review Slide Review Perform
[2019-05-26 07:34] LABS: Hematocrit 32.1 % (42.0-52.0); Hemoglobin 9.4 g/dL (11.7-16.6); Lymphocytes # 0.6 10^3/uL (0.8-4.8); Lymphocytes % 59.6 %; Mean Corpuscular HGB Conc 29.3 g/dL (30.0-36.0); Mean Corpuscular Hemoglobin 29.7 pg (28.0-34.0); Mean Corpuscular Volume 101.6 fL (80-94); Monocytes # 0.2 10^3/uL (0.2-0.9); Neutrophils % 23.3 %; Nucleated Red Blood Cells # 0.2 /100WBC; Nucleated Red Blood Cells % 21.3 %; Red Blood Count 3.16 10^6/uL (4.1-5.3); Red Cell Distribution Width 20.3 % (12.1-15.1)
[2019-05-26 08:22] LABS: Neutrophils # 0.2 10^3/uL (1.8-7.7); Platelet Count 12 10^3/cmm (130-400); Slide Review Slide Review Perform; White Blood Count 0.9 10^3/uL (4.0-10.0)
[2019-05-29 09:48] LABS: Hematocrit 29.8 % (42.0-52.0); Hemoglobin 8.8 g/dL (11.7-16.6); Lymphocytes # 0.5 10^3/uL (0.8-4.8); Lymphocytes % 61.4 %; Mean Corpuscular HGB Conc 29.5 g/dL (30.0-36.0); Mean Corpuscular Hemoglobin 29.8 pg (28.0-34.0); Monocytes # 0.1 10^3/uL (0.2-0.9); Monocytes % 15.9 %; Neutrophils % 21.6 %; Nucleated Red Blood Cells # 0.1 /100WBC; Nucleated Red Blood Cells % 14.8 %; Red Blood Count 2.95 10^6/uL (4.1-5.3); Red Cell Distribution Width 20.6 % (12.1-15.1)
[2019-05-29 10:03] LABS: Alanine Aminotransferase 15 U/L (0-41); Albumin Level 3.9 g/dL (3.5-5.2); Alkaline Phosphatase 99 IU/L (40-130); Anion Gap 15.9 (5-19); Aspartate Amino Transferase 23 U/L (0-40); Blood Urea Nitrogen 18 mg/dL (8-23); Calcium 8.9 mg/dL (8.5-10.5); Carbon Dioxide 27 mmol/L (22-29); Chloride 102 mmol/L (98-107); Globulin 2.9 g/dL (1.3-4.6); Glucose 94 mg/dL (65-115); Iron 148 ug/dL (59-158); Lactate Dehydrogenase 383 U/L (135-225); Osmolality Calculated 288 mOsm/kg (285-295); Potassium 3.9 mmol/L (3.5-5.1); Sodium 141 mmol/L (136-145); Total Bilirubin 0.9 mg/dL (0.15-1.2); Total Iron Binding Capacity 170 mcg/dl; Total Protein 6.8 g/dL (6.6-8.7); Unsaturated Iron Binding 22 ug/dL (112-347)
[2019-05-29 10:45] LABS: Ferritin 1256 ng/mL (30-400)
[2019-05-29 10:51] LABS: Platelet Count 14 10^3/cmm (130-400); White Blood Count 0.9 10^3/uL (4.0-10.0)
[2019-05-29 10:52] LABS: Neutrophils # 0.2 10^3/uL (1.8-7.7)
[2019-05-29 10:53] LABS: Slide Review Slide Review Perform
[2019-05-30 05:39] LABS: PROTEIN, TOTAL 6.1 g/dL (6.1-8.1)
[2019-05-30 10:41] LABS: KAPPA LIGHT CHAIN, FREE, SERUM 148.9 mg/L (3.3-19.4); LAMBDA LIGHT CHAIN, FREE, SERU 26.6 mg/L (5.7-26.3)
[2019-05-30 11:06] LABS: ABNORMAL PROTEIN BAND 1 0.3 g/dL (NONE DETECTED); ALBUMIN 3.4 g/dL (3.8-4.8); ALPHA 1 GLOBULIN 0.4 g/dL (0.2-0.3); ALPHA 2 GLOBULIN 0.5 g/dL (0.5-0.9); BETA 1 GLOBULIN 0.3 g/dL (0.4-0.6); BETA 2 GLOBULIN 0.3 g/dL (0.2-0.5); GAMMA GLOBULIN 1.2 g/dL (0.8-1.7)
[2019-06-02 09:22] LABS: Hematocrit 31.6 % (42.0-52.0); Hemoglobin 9.2 g/dL (11.7-16.6); Lymphocytes # 0.8 10^3/uL (0.8-4.8); Lymphocytes % 63.9 %; Mean Corpuscular HGB Conc 29.1 g/dL (30.0-36.0); Mean Corpuscular Hemoglobin 29.4 pg (28.0-34.0); Monocytes # 0.2 10^3/uL (0.2-0.9); Monocytes % 13.1 %; Neutrophils % 22.2 %; Nucleated Red Blood Cells # 0.2 /100WBC; Nucleated Red Blood Cells % 16.4 %; Red Blood Count 3.13 10^6/uL (4.1-5.3); Red Cell Distribution Width 21.2 % (12.1-15.1); White Blood Count 1.2 10^3/uL (4.0-10.0)
[2019-06-02 10:30] LABS: Neutrophils # 0.3 10^3/uL (1.8-7.7); Platelet Count 19 10^3/cmm (130-400); Slide Review Slide Review Perform
[2019-06-05 10:36] LABS: Eosinophils % 1.7 %; Hematocrit 30.9 % (42.0-52.0); Lymphocytes # 0.6 10^3/uL (0.8-4.8); Lymphocytes % 54.2 %; Mean Corpuscular HGB Conc 29.1 g/dL (30.0-36.0); Monocytes # 0.3 10^3/uL (0.2-0.9); Monocytes % 23.7 %; Neutrophils % 19.6 %; Nucleated Red Blood Cells # 0.2 /100WBC; Nucleated Red Blood Cells % 15.3 %; Red Cell Distribution Width 21.7 % (12.1-15.1); White Blood Count 1.2 10^3/uL (4.0-10.0)
[2019-06-05 10:54] LABS: Slide Review Slide Review Perform
[2019-06-05 11:05] LABS: Absolute Segmented Neutrophil 0.1 10/cmm (1.6-7.1); Blastocytes 10 % (0-0); Eosinophils 2 %; Lymphocytes 64 %; Monocytes Absolute 0.1 10^3/cmm (0.1-0.6); Platelet Count 19 10^3/cmm (130-400); Platelet Estimate Decreased (Normal); Segmented Neutrophils 13 %
[2019-06-05 11:06] LABS: Absolute Neutrophil 0.1 10^3/cmm (1.4-6.5); Giant Platelets Trace; Poikilocytosis 1+; Polychromasia 1+
[2019-06-05 11:07] LABS: Anisocytosis 1+; Macrocytosis 1+; Neutrophils # 0.1 10^3/uL (1.8-7.7); Ovalocytes 1+; Tear Drop Cells 1+
[2019-06-05 11:09] LABS: Total Cells Counted 100 (0-100)
[2019-06-09 08:45] LABS: Hematocrit 32.3 % (42.0-52.0); Hemoglobin 9.3 g/dL (11.7-16.6); Lymphocytes # 0.9 10^3/uL (0.8-4.8); Lymphocytes % 65.2 %; Mean Corpuscular HGB Conc 28.8 g/dL (30.0-36.0); Mean Corpuscular Hemoglobin 29.3 pg (28.0-34.0); Mean Corpuscular Volume 101.9 fL (80-94); Monocytes # 0.2 10^3/uL (0.2-0.9); Monocytes % 13.5 %; Neutrophils % 19.9 %; Nucleated Red Blood Cells # 0.2 /100WBC; Nucleated Red Blood Cells % 13.5 %; Red Blood Count 3.17 10^6/uL (4.1-5.3); White Blood Count 1.4 10^3/uL (4.0-10.0)
[2019-06-09 09:27] LABS: Neutrophils # 0.3 10^3/uL (1.8-7.7); Platelet Count 17 10^3/cmm (130-400)
[2019-06-09 09:28] LABS: Slide Review Slide Review Perform
[2019-06-12 08:41] LABS: Hematocrit 31.5 % (42.0-52.0); Lymphocytes # 0.7 10^3/uL (0.8-4.8); Lymphocytes % 53.7 %; Mean Corpuscular HGB Conc 28.6 g/dL (30.0-36.0); Mean Corpuscular Hemoglobin 29.8 pg (28.0-34.0); Mean Corpuscular Volume 104.3 fL (80-94); Monocytes # 0.3 10^3/uL (0.2-0.9); Monocytes % 20.3 %; Neutrophils % 25.2 %; Nucleated Red Blood Cells # 0.3 /100WBC; Nucleated Red Blood Cells % 20.3 %; Positive C 1; Positive M 1; Red Blood Count 3.02 10^6/uL (4.1-5.3); Red Cell Distribution Width 22.8 % (12.1-15.1); White Blood Count 1.2 10^3/uL (4.0-10.0)
[2019-06-12 08:59] LABS: Alanine Aminotransferase 16 U/L (0-41); Albumin Level 3.9 g/dL (3.5-5.2); Alkaline Phosphatase 105 IU/L (40-130); Anion Gap 16.8 (5-19); Aspartate Amino Transferase 28 U/L (0-40); Blood Urea Nitrogen 19 mg/dL (8-23); Carbon Dioxide 26 mmol/L (22-29); Chloride 101 mmol/L (98-107); Glucose 126 mg/dL (65-115); Iron 166 ug/dL (59-158); Lactate Dehydrogenase 459 U/L (135-225); Osmolality Calculated 288 mOsm/kg (285-295); Potassium 3.8 mmol/L (3.5-5.1); Sodium 140 mmol/L (136-145); Total Bilirubin 1.2 mg/dL (0.15-1.2); Total Protein 6.9 g/dL (6.6-8.7)
[2019-06-12 09:20] LABS: Ferritin 1244 ng/mL (30-400)
[2019-06-12 09:21] LABS: Percent Saturation 90.7 % (20-50); Total Iron Binding Capacity 183 mcg/dl; Unsaturated Iron Binding < 17 ug/dL (112-347)
[2019-06-12 09:54] LABS: Neutrophils # 0.3 10^3/uL (1.8-7.7); Platelet Count 16 10^3/cmm (130-400)
[2019-06-12 09:55] LABS: Slide Review Slide Review Perform
[2019-06-13 07:46] LABS: PROTEIN, TOTAL 6.1 g/dL (6.1-8.1)
[2019-06-13 13:47] LABS: ABNORMAL PROTEIN BAND 1 0.4 g/dL (NONE DETECTED); ALBUMIN 3.4 g/dL (3.8-4.8); ALPHA 1 GLOBULIN 0.3 g/dL (0.2-0.3); ALPHA 2 GLOBULIN 0.5 g/dL (0.5-0.9); BETA 1 GLOBULIN 0.3 g/dL (0.4-0.6); BETA 2 GLOBULIN 0.3 g/dL (0.2-0.5); GAMMA GLOBULIN 1.3 g/dL (0.8-1.7)
[2019-06-13 16:02] LABS: KAPPA LIGHT CHAIN, FREE, SERUM 152.8 mg/L (3.3-19.4); KAPPA/LAMBDA LIGHT CHAINS FREE 5.58 (0.26-1.65); LAMBDA LIGHT CHAIN, FREE, SERU 27.4 mg/L (5.7-26.3)
--- NOTE | 2019-06-14 09:26 | ONC FU_ITS ---
Dr. Truong Patient Follow-Up Note Patient: Gabriel Thakkar V Unit #: [id number]: 1945 Dicatated By: Eduardo Truong M.D.Date of Visit:Jun 12, 2019 Onc Med Follow-up/Prog Note Chief Complaint: Myelodysplastic syndrome/monoclonal gammopathy. 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 He also has monoclonal gammopathy, now with evidence of early stage myeloma. I had seen him initially on 09/24/2015. Approximately 7 weeks earlier he had developed acute onset of joint pain, which included pain and swelling in his hands/fingers and pain in his shoulders and upper arms. The pain later progressed to involve his knees and ankles. The pain was severe enough that it had affected his ability to function. He had seen Dr. Soria, and an initial steroid injection gave him only temporary benefit. He then took prednisone at 20 mg daily for 1 week, which did give him some relief. Within 2 days after stopping it, he was having severe pain again. He had subsequently restarted prednisone at 10 mg daily, and it did seem to be helping a little. He also had an emergency room visit on 08/26/2015. His evaluation included a CBC which showed moderately severe anemia, hemoglobin 9.5 g and hematocrit 31%. The red cell indices were normal. The white blood cell count was 6800 and the platelet count was normal at 203,000. Chem profile showed borderline renal function BUN 21 and creatinine 1.2 mg/dL. The liver enzymes were normal. Albumin was low at 2.9 g/dL with the calculated serum globulin 4.0 g/dL. Chest x-ray showed slight increased left lateral lower lung zone pleural thickening, effusion, or overlying soft tissue artifact. Clinically, he was felt to have some component of congestive heart failure, and at that time he did start diuretic therapy with furosemide. He had a noncontrast chest CT for follow-up of a pulmonary nodule on 08/30/2015. That study showed a 7 mm left upper lobe nodule which appeared stable from a previous study in March 2015. There was evidence of chronic emphysema. Left upper lobe interstitial fibrosis and honeycombing also appeared stable. An incompletely included left upper pole renal lesion was felt to most likely represent a cyst, though ultrasound was suggested for confirmation. His subsequent evaluation included CBC showing slight improvement in the hemoglobin to 10.7 g with hematocrit 34.9%. The white count was normal at 7700 and platelet count was normal at 187,000. The uncorrected reticulocyte count was 3.1%, but with normal haptoglobin and LDH levels. Sedimentation rate was minimally elevated at 15 mm/hr with CRP also just mildly elevated at 1.730 mg/dL. Comprehensive metabolic profile showed slightly low albumin at 3.2 g/dL. Renal function was stable and liver enzymes were normal. Protein electrophoresis was normal. The free light chain assay did show a slightly elevated kappa/lambda ratio at 3.39. LIANE screen was negative. RA titer was less than 10.0 and the IgG anti-CCP was normal. A tick fever panel also was negative. He was then seen by a exercise physiologist, and he was diagnosed with seronegative rheumatoid arthritis. He initially was placed back on higher dose prednisone, and he was started on treatment with Xeljanz. He subsequently tapered the prednisone. On 11/19/15 his fell and he attempted to catch her. In the process he sustained an L3 compression fracture. He then continued to have low back pain. MRI of the lumbar spine on 11/19/2015 showed a subacute 20% burst compression fracture at L3 with only mild impingement upon the ventral thecal sac. There was evidence of moderate central canal stenosis at L2-L3 and at L3-L4 with inferolateral recess stenosis also. There was no severe neural foraminal stenosis noted. There were right hemilaminectomy defects at the L4-L5 and the L5-S1 levels. There was significant multilevel degenerative disc disease and facet arthropathy, most significant at the L4-L5 level. He underwent a kyphoplasty procedure in February 2016. He initially did report improvement in his back pain, but he subsequently developed some new pain in his right lower back area, which he thought was probably just a pulled muscle. A followup MRI of the lumbar spine on 04/26/2016 showed chronic compression of the L3 vertebral body with post vertebroplasty changes. There was slightly more compression from the prior study. There were new acute to subacute compression fractures involving the L1 and L2 superior endplates. There was moderate spinal canal narrowing at the L3-L4 disc space. Repeat chest CT on 04/26/2016 showed stable 7 mm noncalcified nodule in the left upper lobe. There was evidence of interstitial fibrosis with honeycombing in the anteromedial left lung, also stable. There was no mediastinal or hilar adenopathy. On his follow-up visit in May 2016 his blood count was basically unchanged with hemoglobin at 10.9 g, white blood cell count 6200, and platelet count 189,000. The sedimentation rate was normal 13 mm/hour. Comprehensive metabolic profile showed stable renal function with BUN 22 and creatinine 1.3 mg/dL. The alkaline phosphatase was mildly elevated at 169/117 IU/L. Serum iron studies show transferrin saturation normal at 42%, but the ferritin was relatively low at 45 ng/mL. Further studies from 06/29/2016 showed his B-12 level at 1353 pg/mL. Repeat protein electrophoresis showed normal pattern with no monoclonal protein detected. The free kappa light chain was elevated at 65.71 mg/L with the kappa/lambda ratio elevated 3.60. He underwent bone marrow aspiration/biopsy on 07/12/2016. The cellularity was increased, estimated at 95-100%. There was no evidence of an infiltrative process. There were just rare dyspoietic changes in the red cells. Blasts were estimated at 1%. Plasma cells were also just 1%. Iron stores were noted to be absent. The chromosome analysis was normal, and the FISH panel for MDS was unrevealing. With those findings, I did opt to give him parenteral iron replacement with infusions of Injectafer on 07/26/2016 and 08/02/2016. His followup CBC in August showed his hemoglobin unchanged at 11.2 g. I had seen him for a follow-up visit on 11/30/2016. At that point his CBC was stable with hemoglobin 11.8 g. Sedimentation rate was normal at 11 mm/hour. He had decline in renal function with increase in BUN to 37 and creatinine to 1.8 mg/dL. I had suspected that it might be associated with diuretic therapy, as he was having ongoing problems with lower extremity edema. He then had nephrology consultation with Dr. Maurice Pearson in [place]. He underwent renal biopsy on 01/29/2017. 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 Other findings included segmental and global glomerulosclerosis, mild interstitial fibrosis and tubular atrophy, severe arteriolosclerosis, and mild arteriolar hyalinosis. The Congo red stain was noted to be negative for amyloid. Immunofluorescence staining showed a preponderance of kappa light chain (1-2+) with negative to trace lambda light chain. The immunofluorescence studies for IgG subtypes showed segmental positive staining for IgG1 and IgG2, but negative for PLA2R, IgG3, and IgG4. He was seen for follow-up visit here on 02/22/2017. His hemoglobin at that point was 9.8 g with a mildly elevated sedimentation rate at 24 mm/hour. His BUN was 28 with creatinine 1.4 mg/dL. Protein electrophoresis showed increased alpha-1 and alpha-2 globulins, consistent with acute phase reactive process. The free light chain assay showed elevated kappa free light chain at 80.65 mg/L with elevated kappa/lambda ratio at 2.79. His 24-hour urine showed a total protein excretion of 144 mg, with no monoclonal protein detectable by urine protein electrophoresis. With those findings together with the renal biopsy results, there was concern about the possibility of monoclonal gammopathy with renal significance, and he was referred to [facility] for further evaluation. He had nephrology consultation with Dr. Brett Graff at [facility] in March 2017, and he was then seen by Dr. Adam Woods on 05/18/2017. Myeloma was felt to be unlikely. An additional amyloid stain was requested on the bone marrow, and that came back negative. He also underwent cardiac evaluation at [facility], but I did not receive any of those reports. I had seen him for a follow-up visit on 06/11/2017. His clinical status appeared stable, though his protein electrophoresis showed a faint band in the gamma region which appeared to show free kappa light chain specificity. It was too small to quantitate. The free light chain assay continued to show elevated kappa free light chain at 90.18 mg/L with elevated kappa/lambda ratio at 3.55. At that point he was continuing pain management with Dr. Galdamez. His repeat laboratory studies from 10/31/2017 included CBC showing further decline in the hemoglobin to 8.9 g with white blood cell count low at 2700 and platelet count mildly decreased at 96,000. Sedimentation rate was just minimally elevated at 19 mm/hour. Chem profile showed stable renal function with BUN 23 and creatinine 1.5 mg/dL. Protein electrophoresis showed monoclonal paraprotein identified is free kappa light chain measuring 0.44 g/dL. The free light chain assay showed further increase in the free kappa light chain to 111.08 mg/L with kappa/lambda ratio increased to 4.59. With those changes he underwent repeat bone marrow aspiration/biopsy on 12/06/2017. The marrow was 100% cellular. There was limited megakaryocyte dyspoiesis. There was no significant dyserythropoiesis noted. Plasma cells were not increased. Blasts were estimated at 1.0%. Iron stores were noted to be absent. The FISH panel for myeloma was positive for the IGH/CCND1 (11;14) fusion and loss of distal IGH. The FISH panel for MDS was positive for deletion of PTPRT(chromosome 20q). The standard chromosome analysis showed deletion in the long arm of chromosome 20 in 50% of cells and normal male chromosome complement in the remaining 50%. 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 IPSS-R calculated to 3.0, low risk. Based on the monoclonal gammopathy and the 11;14 fusion, early myeloma was also possible. He began transfusion support in December 2017. As his baseline erythropoietin level was low relative to the anemia at 59 mIU/mL, he began a trial of therapy with Procrit 40,000 U weekly on 01/17/2018. During subsequent follow-up he required additional transfusions on 01/25/2018 and on 02/22/2018. At that point the Procrit dosage was increased to 60,000 U weekly. His repeat CBC on 03/21/2018 showed hemoglobin back down to 7.3 g with white blood cell count 1300 and platelet count 103,000. The absolute neutrophil count was 700. Differential reported 42% nucleated RBCs and 1% blasts. He was given another transfusion of 2 units of PRBC. During that time he also was evaluated with a [facility] One Heme study. There were no actionable mutations identified. Repeat bone marrow aspiration/biopsy on 03/25/2018 again showed hypercellular marrow at 100% cellularity. There was again evidence of chromosome 20q deletion by FISH and by the standard chromosome analysis. Plasma cells and blasts were both estimated at 2%. He then proceeded with a trial of therapy with 5-azacytidine, cycle 1 beginning on 03/28/2018. It was administered subcutaneously for 7 days. As expected, there was further decline in his blood counts after starting the 5-azacytidine. His cycle 2 was delayed pending hematologic recovery. During that time he did undergo placement of Port-A-Cath venous access device. He remained transfusion dependent. He was then able to continue with cycle 2 of 5-azacytidine on 05/15/2018. During subsequent followup his blood counts again declined. On 06/04/2018 he was admitted to the hospital with hypotension. His ANC was 400. He was not febrile, but he was having diarrhea. He began treatment with Neupogen and he was given broad-spectrum antibiotic coverage. His blood cultures remained negative. During the hospitalization his platelet count dropped to less than 20,000, but he did not have any evidence of bleeding tendency, and he did not require platelet transfusion. He did receive a transfusion of PRBC. He was discharged on 06/13/2018. His hemoglobin was adequate at 10.0 g. His ANC was still low, but he was not febrile. Platelet count was 23,000. During follow-up, his treatment remained on hold due to persistent neutropenia and thrombocytopenia, and during subsequent followup he remained transfusion dependent. He underwent repeat bone marrow aspiration/biopsy on 10/31/2018. The marrow was noted to be hypercellular for age, approximately 50-70%, but with trilineage dyspoiesis. Myeloblasts were noted to be increased at 3.2%. Plasma cells were also noted to be increased at 5-10%. There was focally increased reticulin fibrosis present and there was markedly increased storage iron. The FISH panel for MDS was unrevealing, but the chromosome analysis showed a deletion 12 P. Overall, the findings were consistent with myelodysplastic syndrome with multilineage dysplasia and they were suggestive of low-level involvement by a plasma cell neoplasm. With those findings, we opted to continue with supportive care measures, including transfusion support, as the likelihood of benefit with further treatment with a hypomethylating agent appeared to be low. During this time his ferritin level had been gradually increasing. As of 11/04/2018, it was up to 1402 ng/mL, and he then started treatment with Jadenu. He had significant GI side effects at the initial dosage of 1440 mg daily, and it subsequently was decreased to 720 mg daily. His other medical illnesses include dyslipidemia, coronary artery disease, COOPD, and GERD. He underwent a quadruple bypass following myocardial infarction in 2001. 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 His only other surgery was the lumbar hemilaminectomy, which was done in 1984. He has a history of smoking at least a pack of cigarettes daily for more than 50 years. INTERIM HISTORY: In February 2019 he had presented with melanotic stools. He was seen by Dr. Kaur. His EGD on 03/18/2019 was unrevealing. The melena resolved with conservative treatment measures, which included platelet pheresis and PRBC transfusion. On 05/01/2019 he was admitted to the hospital with recurrence of GI bleeding. He was again managed conservatively. At that point the Jadenu was discontinued. He is seen for a follow-up visit. He still feels generally weak, and he has very limited activity. That is due, least in part, to the fact that he has severe back pain with standing or walking. His ECOG score is 3. His appetite has been okay. He has not had fever. He occasionally has night sweating. He has some shortness of breath. He does not complain of cough and he has not been having chest pain. He currently has no GI complaints. His constipation has been managed adequately with senna/docusate. He has frequent urination with his diuretic. He has occasional headache. He has no focal neurologic symptoms. Medications: Atorvastatin Calcium 1 Tablet (of 40 mg) Oral daily, Bumex 1 Tablet (of 2 mg) Oral daily PRN, Calcium 1 (600 mg) Capsule Oral daily, Carvedilol 1 Tablet (of 12.5 mg) Oral daily, Hydrocodone-Acetaminophen 1 Tablet (of 10-325 mg) Oral t.i.d. PRN, levoFLOXacin 1 Tablet (of 500 mg) Oral daily PRN, Pantoprazole Sodium 1 (40 mg) Tablet, enteric coated Oral daily, Potassium Chloride ER 2 Tablet (of 10 meq) Capsule, controlled release Oral daily, Senna Plus 2 Capsule (of 50-8.6 mg) Oral daily Allergies: No Known Allergies. Review of Systems: Constitutional - His energy level is low. He is mainly sedentary at home. His appetite is good and weight is stable. No fever, chills, or hot flashes. He has occasional night sweats. ECOG score is 3, ENMT - No sinus congestion/drainage. No mouth sores. No sore throat or difficulty swallowing, Hematologic/Lymphatic - He bruises easily, Respiratory - He has some shortness of breath. No cough. No pleuritic pain or hemoptysis, Cardiovascular - No angina pain. No palpitations, Gastrointestinal - No nausea or vomiting. No heartburn or acid reflux. His constipation is adequately managed with senna/docusate. No blood in the stool or black stools, Genitourinary (M) - No dysuria or hematuria. He has frequent urination with the diuretic. No urgency or incontinence, Musculoskeletal - He continues to have significant back pain that worsenes with any activity, Integumentary - No skin complications, Neurologic - He has occasional headaches. No dizziness. No numbness/paresthesias or other focal neurologic symptoms, Psychiatric - No anxiety or depression. He sleep 3-4 hours at a time. Vital Signs: Performed on Jun 12, 2019 09:37 Height - 76.00 in Weight - 0243.8 lbs (LOW) BSA - 2.41 sq.m BMI - 29.68 Temperature - 98.5 F Pulse - 82 /min Respiration - 24 /min BP - 135/80 mm(hg) O2 Sat - 98 % Pain - 6 Physical Examination: Constitutional - He appears generally weak, Eyes - Sclerae nonicteric. Conjunctivae clear, ENMT - There are no lesions noted in the oral cavity, Hematologic/Lymphatic - No cervical, clavicular, or axillary adenopathy, Respiratory - Lungs sound clear with diminished air movement bilaterally, Cardiovascular - Heart rhythm is irregular. There is a II/ systolic murmur. There is no gallop or rub noted, Abdomen - Soft. Liver and spleen are not enlarged. There is no abdominal mass or ascites noted and there is no inguinal adenopathy, Extremities - There are venous stasis changes bilaterally. There is 2 to 3+ lower extremity edema. There are scattered purpuric lesions, Neurologic - No focal neurologic deficits noted. Lab/Imaging: Test performed on Jun 12, 2019 08:15 Ferritin 1244 ng/mL Iron 166 mcg/dL LDH (Total) 459 U/L Sodium 140 mmol/L Iron Binding Capacity (TIBC) 183 mcg/dl Potassium 3.8 mmol/L % Iron Saturation 90.7 % Chloride 101 mmol/L CO2 26 mmol/L UIBC < 17 mcg/dL Anion Gap 16.8 BUN 19 mg/dL Creatinine 1.2 mg/dL Cr Clearance (Est) 80.4000 mL/min Glucose 126 mg/dL Calcium 9.0 mg/dL Protein, Total 6.9 g/dL Albumin 3.9 g/dL Globulin 3.0 g/dL Bilirubin, Total 1.2 mg/dL ALT (SGPT) 16 U/L AST (SGOT) 28 U/L Alkaline Phosphatase 105 IU/L WBC 1.2 10 3/uL RBC 3.02 10 6/uL HGB 9.0 g/dL HCT 31.5 % MCV 104.3 fL MCH 29.8 pg MCHC 28.6 g/dL RDW 22.8 % Platelet Count 16 10 3/cmm Neutrophils 0.3 10 3/uL Lymphocytes 0.7 10 3/uL Monocytes 0.3 10 3/uL Eosinophils 0.0 10 3/uL Basophils 0.0 10 3/uL Neutrophil % 25.2 % Lymphocyte % 53.7 % Monocyte % 20.3 % Eosinophil % 0.0 % Basophils % 0.0 % CBC Slide Review Slide Review Perform BLASTS NOTED ON SLIDE PREVIOUS DIFFERENTIAL NRBC ON SLIDE PREVIOUS DIFFERENTIAL SLIDE REVIEWED BY DR GERARD, PATHOLOGIST Impression: 1. Patient with pancytopenia, initially presenting with moderately severe anemia. 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 His IPSS-R calculated to 3.0, low risk. 2. As of December 2017 he had become transfusion dependent. 3. He also has kappa light chain monoclonal gammopathy. Based on the bone marrow findings from 10/31/2018 he likely has early stage myeloma. 4. He developed transfusion dependent iron overload. 5. During follow-up he developed persistent lower extremity edema and chronic kidney disease. 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 There was also evidence of glomerulosclerosis and severe arteriolosclerosis. The immunofluorescence showed a preponderance of kappa light chain staining, 1-2+ versus negative to trace staining for lambda light chain. The Congo red stain for amyloid was negative. 6. His management has been further complicated by traumatic vertebral compression fracture for which he underwent kyphoplasty in February 2016. His other medical illnesses include: 7. Dyslipidemia, currently off statin therapy. 8. Coronary artery disease with previous coronary artery bypass surgery. 9. He has had suspected congestive heart failure. 10. He has previously undergone repair of iliac artery aneurysm. 11. COPD. 12. GERD. 13. Nicotine dependence (cigarettes). He began a trial of Procrit 40,000 U weekly on 01/17/2018. During subsequent follow-up he remained transfusion dependent. As of 02/22/2018 the Procrit dosage was increased to 60,000 U weekly, but still with no evidence of response. 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 Both plasma cells and blasts were estimated at 2%. On 03/28/2018 he began a trial of therapy with 5-azacytidine. It was administered subcutaneously for 7 days. During subsequent follow-up, there was further decline in his blood counts, as expected. His 2nd cycle of treatment was delayed. As of 05/15/2018 his blood counts had recovered to baseline. He remained transfusion dependent, and he continued to have very marginal performance status. At that point he continued with cycle 2 of 5-azacytidine. During that time he had undergone placement of portacath venous access device. During followup his blood counts again declined. On 06/04/2018 he was admitted with hypotension in association with pancytopenia. He did not have fever, and his blood cultures remained negative. He did show some recovery with neupogen, antibiotic coverage, and other supportive measures. During subsequent follow-up his neutrophil count and platelet count have remained low. He continued to have poor performance status, and he remained transfusion dependent. His further treatment remained on hold. Repeat bone marrow aspiration/biopsy on 10/31/2018 showed mildly increased cellularity, estimated at 50-70%, but with trilineage dyspoiesis. Blasts were slightly increased at 3.2%. Plasma cells were also mildly increased, estimated at 5-10% of the cellularity. The FISH panel for MDS was unrevealing, but the cytogenetic study did show deletion 12 P. 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 With those findings he continued symptomatic/supportive care. During follow-up he has remained transfusion dependent. He also has severe neutropenia and thrombocytopenia. He has had several episodes of GI bleeding, felt to be most likely upper GI, though with unrevealing EGD. Those episodes have been managed conservatively. It was suspected that the Jadenu may have been a contributing factor, and it has been discontinued. He has remained afebrile despite the severe neutropenia. He has now showing a small percentage of peripheral blasts, which is suspicious for progression of the underlying MDS. Plan: I will continue to monitor blood counts twice weekly, and he will continue transfusion support as indicated. As it does appear likely that there is progression of the underlying MDS, he has offered the option to have repeat bone marrow aspiration/biopsy. Treatment options, though, would be limited. If there is evolution to high-grade MDS or acute leukemia, he may be eligible for treatment with a hypomethylating agent in combination with venetoclax. The only other option would be the possibility of a targeted therapy if he were to have an actionable mutation on a next generation sequencing study. He is going to think about it and let me know if he wants to schedule the bone marrow procedure. I will otherwise just plan a follow-up visit in 1 month. Signed By: Eduardo Truong M.D. <<Signature on File>>
[2019-06-16 10:34] LABS: Hemoglobin 9.5 g/dL (11.7-16.6); Lymphocytes # 0.8 10^3/uL (0.8-4.8); Lymphocytes % 52.4 %; Mean Corpuscular HGB Conc 28.8 g/dL (30.0-36.0); Mean Corpuscular Hemoglobin 29.9 pg (28.0-34.0); Mean Corpuscular Volume 103.8 fL (80-94); Monocytes # 0.3 10^3/uL (0.2-0.9); Monocytes % 19.7 %; Neutrophils % 27.2 %; Nucleated Red Blood Cells # 0.3 /100WBC; Nucleated Red Blood Cells % 18.4 %; Red Blood Count 3.18 10^6/uL (4.1-5.3); Red Cell Distribution Width 22.1 % (12.1-15.1); White Blood Count 1.5 10^3/uL (4.0-10.0)
[2019-06-16 10:50] LABS: Anion Gap 16.5 (5-19); Blood Urea Nitrogen 21 mg/dL (8-23); Calcium 9.2 mg/dL (8.5-10.5); Carbon Dioxide 26 mmol/L (22-29); Chloride 99 mmol/L (98-107); Glucose 96 mg/dL (65-115); Osmolality Calculated 282 mOsm/kg (285-295); Potassium 3.5 mmol/L (3.5-5.1); Sodium 138 mmol/L (136-145)
[2019-06-16 11:02] LABS: Neutrophils # 0.4 10^3/uL (1.8-7.7); Platelet Count 15 10^3/cmm (130-400); Slide Review Slide Review Perform
[2019-06-19] VITALS (10 sets, daily range): BP systolic 98–117; BP diastolic 54–76; PULSE 59–93; RESP 18; TEMP 32.7–37.2; O2SAT 92–96
[2019-06-19 08:59] LABS: Hematocrit 28.9 % (42.0-52.0); Lymphocytes # 0.6 10^3/uL (0.8-4.8); Mean Corpuscular HGB Conc 27.7 g/dL (30.0-36.0); Mean Corpuscular Hemoglobin 29.3 pg (28.0-34.0); Mean Corpuscular Volume 105.9 fL (80-94); Monocytes # 0.2 10^3/uL (0.2-0.9); Monocytes % 18.3 %; Neutrophils % 26.7 %; Nucleated Red Blood Cells # 0.2 /100WBC; Red Blood Count 2.73 10^6/uL (4.1-5.3); Red Cell Distribution Width 22.4 % (12.1-15.1); White Blood Count 1.1 10^3/uL (4.0-10.0)
[2019-06-19 10:30] LABS: Platelet Count 11 10^3/cmm (130-400); Slide Review Slide Review Perform
[2019-06-19 10:31] LABS: Neutrophils # 0.3 10^3/uL (1.8-7.7)
[2019-06-19] MEDS: diphenhydrAMINE 25 mg Capsule PO (13:45)
[2019-06-19] MEDS: sodium chloride 0.9% 250 ML 999 ML IV (13:45)
[2019-06-19] MEDS: acetaminophen 325 mg Tablet 650 MG PO (13:45)
[2019-06-19] MEDS: FUROsemide 10 mg/mL SDV 2mL 20 MG IV (13:45)
[2019-06-20 10:29] VITALS: BP 114/71; PULSE 78; RESP 18; TEMP 36.4; O2SAT 96
[2019-06-20 10:44] VITALS: BP 113/70; PULSE 70; RESP 18; TEMP 37.1; O2SAT 96
== END 2019-06-19 23:59 | disposition home or self-care (01) ==
LOC: ONCMED 12:44
PROVIDERS: Family Provider Electrodiagnostic Medicine; PCP Electrodiagnostic Medicine; Visit Provider Internal Medicine Medical Oncology
DX: C90.00 Multiple myeloma not having achieved remission (principal); D46.A Refractory cytopenia with multilineage dysplasia; D47.2 Monoclonal gammopathy; D50.9 Iron deficiency anemia, unspecified; E78.5 Hyperlipidemia, unspecified; I25.10 Atherosclerotic heart disease of native coronary artery without angina pectoris; Z95.5 Presence of coronary angioplasty implant and graft; I72.3 Aneurysm of iliac artery; J44.9 Chronic obstructive pulmonary disease, unspecified; K21.9 Gastro-esophageal reflux disease without esophagitis; F17.210 Nicotine dependence, cigarettes, uncomplicated; Z79.899 Other long term (current) drug therapy
CPT/HCPCS: 36415; 36430; 36591; 80048; 80053; 82728; 83540; 83550; 83615; 83883; 84155; 84165; 85007; 85025; 86850; 86900; 86920; 99214; J1940; J7050; P9040

== ENCOUNTER 2019-06-23 | Outpatient (RCR) | payer MEDICARE, OTHER, SELFPAY ==
[2019-06-23 13:18] LABS: Hemoglobin 9.3 g/dL (11.7-16.6); Lymphocytes # 0.7 10^3/uL (0.8-4.8); Lymphocytes % 55.9 %; Mean Corpuscular HGB Conc 28.2 g/dL (30.0-36.0); Mean Corpuscular Volume 102.8 fL (80-94); Monocytes # 0.2 10^3/uL (0.2-0.9); Monocytes % 15.7 %; Neutrophils % 28.4 %; Nucleated Red Blood Cells # 0.1 /100WBC; Nucleated Red Blood Cells % 9.4 %; Red Blood Count 3.21 10^6/uL (4.1-5.3); Red Cell Distribution Width 21.2 % (12.1-15.1); White Blood Count 1.3 10^3/uL (4.0-10.0)
[2019-06-23 14:27] LABS: Platelet Count 19 10^3/cmm (130-400)
[2019-06-23 14:28] LABS: Neutrophils # 0.4 10^3/uL (1.8-7.7)
[2019-06-23 14:29] LABS: Slide Review Slide Review Perform
== END 2019-06-24 | disposition home or self-care (01) ==
LOC: ONCMED
PROVIDERS: PCP Electrodiagnostic Medicine; Visit Provider Internal Medicine Medical Oncology
DX: C90.00 Multiple myeloma not having achieved remission (principal); D46.A Refractory cytopenia with multilineage dysplasia; D47.2 Monoclonal gammopathy; D50.9 Iron deficiency anemia, unspecified
CPT/HCPCS: 85025

== ENCOUNTER 2019-07-17 08:14 | Outpatient (RCR) | payer MEDICARE, OTHER, SELFPAY ==
[2019-06-20] MEDS: acetaminophen 325 mg Tablet 650 MG PO (10:25)
[2019-06-20] MEDS: diphenhydrAMINE 25 mg Capsule PO (10:25)
[2019-06-26 11:01] LABS: Hematocrit 34.7 % (42.0-52.0); Hemoglobin 9.7 g/dL (11.7-16.6); Mean Corpuscular Hemoglobin 28.9 pg (28.0-34.0); Mean Corpuscular Volume 103.3 fL (80-94); Nucleated Red Blood Cells # 0.1 /100WBC; Nucleated Red Blood Cells % 7.1 %; Red Blood Count 3.36 10^6/uL (4.1-5.3); Red Cell Distribution Width 21.3 % (12.1-15.1); White Blood Count 1.4 10^3/uL (4.0-10.0)
[2019-06-26 11:16] LABS: Anion Gap 13.9 (5-19); Blood Urea Nitrogen 22 mg/dL (8-23); Calcium 9.3 mg/dL (8.5-10.5); Carbon Dioxide 28 mmol/L (22-29); Chloride 100 mmol/L (98-107); Glucose 84 mg/dL (65-115); Osmolality Calculated 282 mOsm/kg (285-295); Potassium 3.9 mmol/L (3.5-5.1); Sodium 138 mmol/L (136-145)
[2019-06-26 11:22] LABS: Slide Review Slide Review Perform
[2019-06-26 11:29] LABS: Absolute Segmented Neutrophil 0.3 10/cmm (1.6-7.1); Corrected White Blood Count 1.3 10^3/cmm (4.8-10.8); Eosinophils 3 %; Lymphocytes 59 %; Lymphocytes Absolute 0.9 10^3/cmm (1.2-3.4); Segmented Neutrophils 27 %; Total Cells Counted 100 (0-100)
[2019-06-26 11:30] LABS: Anisocytosis 1+; Macrocytosis 1+; Platelet Estimate Decreased (Normal); Polychromasia 1+
[2019-06-26 11:31] LABS: Blastocytes 6 % (0-0); Platelet Count 17 10^3/cmm (130-400)
[2019-06-30 12:29] LABS: Hematocrit 35.5 % (42.0-52.0); Hemoglobin 9.9 g/dL (11.7-16.6); Lymphocytes # 0.7 10^3/uL (0.8-4.8); Lymphocytes % 60.2 %; Mean Corpuscular HGB Conc 27.9 g/dL (30.0-36.0); Mean Corpuscular Volume 104.1 fL (80-94); Monocytes # 0.2 10^3/uL (0.2-0.9); Monocytes % 17.9 %; Neutrophils % 21.9 %; Nucleated Red Blood Cells # 0.1 /100WBC; Nucleated Red Blood Cells % 11.4 %; Red Blood Count 3.41 10^6/uL (4.1-5.3); Red Cell Distribution Width 20.5 % (12.1-15.1); White Blood Count 1.2 10^3/uL (4.0-10.0)
[2019-06-30 12:36] LABS: Anion Gap 16.8 (5-19); Blood Urea Nitrogen 21 mg/dL (8-23); Calcium 9.5 mg/dL (8.5-10.5); Carbon Dioxide 27 mmol/L (22-29); Chloride 101 mmol/L (98-107); Glucose 90 mg/dL (65-115); Osmolality Calculated 288 mOsm/kg (285-295); Potassium 3.8 mmol/L (3.5-5.1); Sodium 141 mmol/L (136-145)
[2019-06-30 13:07] LABS: Neutrophils # 0.3 10^3/uL (1.8-7.7); Platelet Count 12 10^3/cmm (130-400)
[2019-06-30 13:08] LABS: Slide Review Slide Review Perform
[2019-07-03 08:26] LABS: Eosinophils % 2.8 %; Hematocrit 34.4 % (42.0-52.0); Hemoglobin 9.6 g/dL (11.7-16.6); Lymphocytes # 0.8 10^3/uL (0.8-4.8); Lymphocytes % 54.9 %; Mean Corpuscular HGB Conc 27.9 g/dL (30.0-36.0); Mean Corpuscular Hemoglobin 29.1 pg (28.0-34.0); Mean Corpuscular Volume 104.2 fL (80-94); Monocytes # 0.2 10^3/uL (0.2-0.9); Monocytes % 16.9 %; Neutrophils % 24.7 %; Nucleated Red Blood Cells # 0.1 /100WBC; Nucleated Red Blood Cells % 7.7 %; Red Cell Distribution Width 20.9 % (12.1-15.1); White Blood Count 1.4 10^3/uL (4.0-10.0)
[2019-07-03 09:14] LABS: Slide Review Slide Review Perform
[2019-07-03 09:15] LABS: Platelet Count 14 10^3/cmm (130-400)
[2019-07-03 09:16] LABS: Neutrophils # 0.4 10^3/uL (1.8-7.7)
[2019-07-07 09:12] LABS: Eosinophils 2 %; Lymphocytes 56 %; Segmented Neutrophils 23 %; Total Cells Counted 100 (0-100)
[2019-07-07 09:13] LABS: Anisocytosis 1+; Macrocytosis 1+; Platelet Estimate Decreased (Normal)
[2019-07-07 09:14] LABS: Absolute Segmented Neutrophil 0.2 10/cmm (1.6-7.1); Corrected White Blood Count 1.2 10^3/cmm (4.8-10.8); Hematocrit 34.1 % (42.0-52.0); Hemoglobin 9.6 g/dL (11.7-16.6); Lymphocytes Absolute 0.8 10^3/cmm (1.2-3.4); Mean Corpuscular HGB Conc 28.2 g/dL (30.0-36.0); Mean Corpuscular Hemoglobin 29.4 pg (28.0-34.0); Mean Corpuscular Volume 104.3 fL (80-94); Red Blood Count 3.27 10^6/uL (4.1-5.3); Red Cell Distribution Width 20.9 % (12.1-15.1); White Blood Count 1.3 10^3/uL (4.0-10.0)
[2019-07-07 09:17] LABS: Absolute Neutrophil 0.4 10^3/cmm (1.4-6.5); Platelet Count 11 10^3/cmm (130-400)
[2019-07-07 09:18] LABS: Blastocytes 9 % (0-0)
[2019-07-10 08:24] LABS: Hematocrit 33.8 % (42.0-52.0); Hemoglobin 9.5 g/dL (11.7-16.6); Lymphocytes # 0.8 10^3/uL (0.8-4.8); Lymphocytes % 59.6 %; Mean Corpuscular HGB Conc 28.1 g/dL (30.0-36.0); Mean Corpuscular Hemoglobin 29.2 pg (28.0-34.0); Monocytes # 0.2 10^3/uL (0.2-0.9); Monocytes % 14.9 %; Neutrophils % 24.8 %; Nucleated Red Blood Cells # 0.2 /100WBC; Nucleated Red Blood Cells % 12.1 %; Red Blood Count 3.25 10^6/uL (4.1-5.3); Red Cell Distribution Width 20.9 % (12.1-15.1); White Blood Count 1.4 10^3/uL (4.0-10.0)
[2019-07-10 08:44] LABS: Alanine Aminotransferase 19 U/L (0-41); Albumin Level 4.2 g/dL (3.5-5.2); Alkaline Phosphatase 105 IU/L (40-130); Aspartate Amino Transferase 25 U/L (0-40); Blood Urea Nitrogen 23 mg/dL (8-23); Calcium 8.8 mg/dL (8.5-10.5); Carbon Dioxide 27 mmol/L (22-29); Chloride 100 mmol/L (98-107); Globulin 2.4 g/dL (1.3-4.6); Glucose 110 mg/dL (65-115); Lactate Dehydrogenase 412 U/L (135-225); Osmolality Calculated 285 mOsm/kg (285-295); Sodium 139 mmol/L (136-145); Total Bilirubin 1.1 mg/dL (0.15-1.2); Total Protein 6.6 g/dL (6.6-8.7)
[2019-07-10 09:01] LABS: Neutrophils # 0.4 10^3/uL (1.8-7.7)
[2019-07-10 09:02] LABS: Platelet Count 13 10^3/cmm (130-400); Slide Review Slide Review Perform
--- NOTE | 2019-07-13 19:13 | ONC FU_ITS ---
Dr. Truong Patient Follow-Up Note Patient: Gabriel Thakkar V Unit #: [id number]: 1945 Dicatated By: Eduardo Truong M.D.Date of Visit:July 10, 2019 Onc Med Follow-up/Prog Note Chief Complaint: Myelodysplastic syndrome/monoclonal gammopathy. 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 I had seen him initially on 09/24/2015. Approximately 7 weeks earlier he had developed acute onset of joint pain, which included pain and swelling in his hands/fingers and pain in his shoulders and upper arms. The pain later progressed to involve his knees and ankles. The pain was severe enough that it had affected his ability to function. He had seen Dr. Soria, and an initial steroid injection gave him only temporary benefit. He then took prednisone at 20 mg daily for 1 week, which did give him some relief. Within 2 days after stopping it, he was having severe pain again. He had subsequently restarted prednisone at 10 mg daily, and it did seem to be helping a little. He also had an emergency room visit on 08/26/2015. His evaluation included a CBC which showed moderately severe anemia, hemoglobin 9.5 g and hematocrit 31%. The red cell indices were normal. The white blood cell count was 6800 and the platelet count was normal at 203,000. Chem profile showed borderline renal function BUN 21 and creatinine 1.2 mg/dL. The liver enzymes were normal. Albumin was low at 2.9 g/dL with the calculated serum globulin 4.0 g/dL. Chest x-ray showed slight increased left lateral lower lung zone pleural thickening, effusion, or overlying soft tissue artifact. Clinically, he was felt to have some component of congestive heart failure, and at that time he did start diuretic therapy with furosemide. He had a noncontrast chest CT for follow-up of a pulmonary nodule on 08/30/2015. That study showed a 7 mm left upper lobe nodule which appeared stable from a previous study in March 2015. There was evidence of chronic emphysema. Left upper lobe interstitial fibrosis and honeycombing also appeared stable. An incompletely included left upper pole renal lesion was felt to most likely represent a cyst, though ultrasound was suggested for confirmation. His subsequent evaluation included CBC showing slight improvement in the hemoglobin to 10.7 g with hematocrit 34.9%. The white count was normal at 7700 and platelet count was normal at 187,000. The uncorrected reticulocyte count was 3.1%, but with normal haptoglobin and LDH levels. Sedimentation rate was minimally elevated at 15 mm/hr with CRP also just mildly elevated at 1.730 mg/dL. Comprehensive metabolic profile showed slightly low albumin at 3.2 g/dL. Renal function was stable and liver enzymes were normal. Protein electrophoresis was normal. The free light chain assay did show a slightly elevated kappa/lambda ratio at 3.39. LIANE screen was negative. RA titer was less than 10.0 and the IgG anti-CCP was normal. A tick fever panel also was negative. He was then seen by a front end manager, and he was diagnosed with seronegative rheumatoid arthritis. He initially was placed back on higher dose prednisone, and he was started on treatment with Xeljanz. He subsequently tapered the prednisone. On 11/19/15 his fell and he attempted to catch her. In the process he sustained an L3 compression fracture. He then continued to have low back pain. MRI of the lumbar spine on 11/19/2015 showed a subacute 20% burst compression fracture at L3 with only mild impingement upon the ventral thecal sac. There was evidence of moderate central canal stenosis at L2-L3 and at L3-L4 with inferolateral recess stenosis also. There was no severe neural foraminal stenosis noted. There were right hemilaminectomy defects at the L4-L5 and the L5-S1 levels. There was significant multilevel degenerative disc disease and facet arthropathy, most significant at the L4-L5 level. He underwent a kyphoplasty procedure in February 2016. He initially did report improvement in his back pain, but he subsequently developed some new pain in his right lower back area, which he thought was probably just a pulled muscle. A followup MRI of the lumbar spine on 04/26/2016 showed chronic compression of the L3 vertebral body with post vertebroplasty changes. There was slightly more compression from the prior study. There were new acute to subacute compression fractures involving the L1 and L2 superior endplates. There was moderate spinal canal narrowing at the L3-L4 disc space. Repeat chest CT on 04/26/2016 showed stable 7 mm noncalcified nodule in the left upper lobe. There was evidence of interstitial fibrosis with honeycombing in the anteromedial left lung, also stable. There was no mediastinal or hilar adenopathy. On his follow-up visit in May 2016 his blood count was basically unchanged with hemoglobin at 10.9 g, white blood cell count 6200, and platelet count 189,000. The sedimentation rate was normal 13 mm/hour. Comprehensive metabolic profile showed stable renal function with BUN 22 and creatinine 1.3 mg/dL. The alkaline phosphatase was mildly elevated at 169/117 IU/L. Serum iron studies show transferrin saturation normal at 42%, but the ferritin was relatively low at 45 ng/mL. Further studies from 06/29/2016 showed his B-12 level at 1353 pg/mL. Repeat protein electrophoresis showed normal pattern with no monoclonal protein detected. The free kappa light chain was elevated at 65.71 mg/L with the kappa/lambda ratio elevated 3.60. He underwent bone marrow aspiration/biopsy on 07/12/2016. The cellularity was increased, estimated at 95-100%. There was no evidence of an infiltrative process. There were just rare dyspoietic changes in the red cells. Blasts were estimated at 1%. Plasma cells were also just 1%. Iron stores were noted to be absent. The chromosome analysis was normal, and the FISH panel for MDS was unrevealing. With those findings, I did opt to give him parenteral iron replacement with infusions of Injectafer on 07/26/2016 and 08/02/2016. His followup CBC in August showed his hemoglobin unchanged at 11.2 g. I had seen him for a follow-up visit on 11/30/2016. At that point his CBC was stable with hemoglobin 11.8 g. Sedimentation rate was normal at 11 mm/hour. He had decline in renal function with increase in BUN to 37 and creatinine to 1.8 mg/dL. I had suspected that it might be associated with diuretic therapy, as he was having ongoing problems with lower extremity edema. He then had nephrology consultation with Dr. Maurice Pearson in [place]. He underwent renal biopsy on 01/29/2017. 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 Other findings included segmental and global glomerulosclerosis, mild interstitial fibrosis and tubular atrophy, severe arteriolosclerosis, and mild arteriolar hyalinosis. The Congo red stain was noted to be negative for amyloid. Immunofluorescence staining showed a preponderance of kappa light chain (1-2+) with negative to trace lambda light chain. The immunofluorescence studies for IgG subtypes showed segmental positive staining for IgG1 and IgG2, but negative for PLA2R, IgG3, and IgG4. He was seen for follow-up visit here on 02/22/2017. His hemoglobin at that point was 9.8 g with a mildly elevated sedimentation rate at 24 mm/hour. His BUN was 28 with creatinine 1.4 mg/dL. Protein electrophoresis showed increased alpha-1 and alpha-2 globulins, consistent with acute phase reactive process. The free light chain assay showed elevated kappa free light chain at 80.65 mg/L with elevated kappa/lambda ratio at 2.79. His 24-hour urine showed a total protein excretion of 144 mg, with no monoclonal protein detectable by urine protein electrophoresis. With those findings together with the renal biopsy results, there was concern about the possibility of monoclonal gammopathy with renal significance, and he was referred to [facility] for further evaluation. He had nephrology consultation with Dr. Brett Graff at [facility] in March 2017, and he was then seen by Dr. Adam Woods on 05/18/2017. Myeloma was felt to be unlikely. An additional amyloid stain was requested on the bone marrow, and that came back negative. He also underwent cardiac evaluation at [facility], but I did not receive any of those reports. I had seen him for a follow-up visit on 06/11/2017. His clinical status appeared stable, though his protein electrophoresis showed a faint band in the gamma region which appeared to show free kappa light chain specificity. It was too small to quantitate. The free light chain assay continued to show elevated kappa free light chain at 90.18 mg/L with elevated kappa/lambda ratio at 3.55. At that point he was continuing pain management with Dr. Galdamez. His repeat laboratory studies from 10/31/2017 included CBC showing further decline in the hemoglobin to 8.9 g with white blood cell count low at 2700 and platelet count mildly decreased at 96,000. Sedimentation rate was just minimally elevated at 19 mm/hour. Chem profile showed stable renal function with BUN 23 and creatinine 1.5 mg/dL. Protein electrophoresis showed monoclonal paraprotein identified is free kappa light chain measuring 0.44 g/dL. The free light chain assay showed further increase in the free kappa light chain to 111.08 mg/L with kappa/lambda ratio increased to 4.59. With those changes he underwent repeat bone marrow aspiration/biopsy on 12/06/2017. The marrow was 100% cellular. There was limited megakaryocyte dyspoiesis. There was no significant dyserythropoiesis noted. Plasma cells were not increased. Blasts were estimated at 1.0%. Iron stores were noted to be absent. The FISH panel for myeloma was positive for the IGH/CCND1 (11;14) fusion and loss of distal IGH. The FISH panel for MDS was positive for deletion of PTPRT(chromosome 20q). The standard chromosome analysis showed deletion in the long arm of chromosome 20 in 50% of cells and normal male chromosome complement in the remaining 50%. 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 IPSS-R calculated to 3.0, low risk. Based on the monoclonal gammopathy and the 11;14 fusion, early myeloma was also possible. He began transfusion support in December 2017. As his baseline erythropoietin level was low relative to the anemia at 59 mIU/mL, he began a trial of therapy with Procrit 40,000 U weekly on 01/17/2018. During subsequent follow-up he required additional transfusions on 01/25/2018 and on 02/22/2018. At that point the Procrit dosage was increased to 60,000 U weekly. His repeat CBC on 03/21/2018 showed hemoglobin back down to 7.3 g with white blood cell count 1300 and platelet count 103,000. The absolute neutrophil count was 700. Differential reported 42% nucleated RBCs and 1% blasts. He was given another transfusion of 2 units of PRBC. During that time he also was evaluated with a [facility] Heme study. There were no actionable mutations identified. Repeat bone marrow aspiration/biopsy on 03/25/2018 again showed hypercellular marrow at 100% cellularity. There was again evidence of chromosome 20q deletion by FISH and by the standard chromosome analysis. Plasma cells and blasts were both estimated at 2%. He then proceeded with a trial of therapy with 5-azacytidine, cycle 1 beginning on 03/28/2018. It was administered subcutaneously for 7 days. As expected, there was further decline in his blood counts after starting the 5-azacytidine. His cycle 2 was delayed pending hematologic recovery. During that time he did undergo placement of Port-A-Cath venous access device. He remained transfusion dependent. He was then able to continue with cycle 2 of 5-azacytidine on 05/15/2018. During subsequent followup his blood counts again declined. On 06/04/2018 he was admitted to the hospital with hypotension. His ANC was 400. He was not febrile, but he was having diarrhea. He began treatment with Neupogen and he was given broad-spectrum antibiotic coverage. His blood cultures remained negative. During the hospitalization his platelet count dropped to less than 20,000, but he did not have any evidence of bleeding tendency, and he did not require platelet transfusion. He did receive a transfusion of PRBC. He was discharged on 06/13/2018. His hemoglobin was adequate at 10.0 g. His ANC was still low, but he was not febrile. Platelet count was 23,000. During follow-up, his treatment remained on hold due to persistent neutropenia and thrombocytopenia, and during subsequent followup he remained transfusion dependent. He underwent repeat bone marrow aspiration/biopsy on 10/31/2018. The marrow was noted to be hypercellular for age, approximately 50-70%, but with trilineage dyspoiesis. Myeloblasts were noted to be increased at 3.2%. Plasma cells were also noted to be increased at 5-10%. There was focally increased reticulin fibrosis present and there was markedly increased storage iron. The FISH panel for MDS was unrevealing, but the chromosome analysis showed a deletion 12 P. Overall, the findings were consistent with myelodysplastic syndrome with multilineage dysplasia and they were suggestive of low-level involvement by a plasma cell neoplasm. With those findings, we opted to continue with supportive care measures, including transfusion support, as the likelihood of benefit with further treatment with a hypomethylating agent appeared to be low. During this time his ferritin level had been gradually increasing. As of 11/04/2018, it was up to 1402 ng/mL, and he then started treatment with Jadenu. He had significant GI side effects at the initial dosage of 1440 mg daily, and it subsequently was decreased to 720 mg daily. His other medical illnesses include dyslipidemia, coronary artery disease, COOPD, and GERD. He underwent a quadruple bypass following myocardial infarction in 2001. 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 His only other surgery was the lumbar hemilaminectomy, which was done in 1984. He has a history of smoking at least a pack of cigarettes daily for more than 50 years. INTERIM HISTORY: In February 2019 he had presented with melanotic stools. He was seen by Dr. Kaur. His EGD on 03/18/2019 was unrevealing. The melena resolved with conservative treatment measures, which included platelet pheresis and PRBC transfusion. On 05/01/2019 he was admitted to the hospital with recurrence of GI bleeding. He was again managed conservatively. At that point the Jadenu was discontinued. During subsequent follow-up his hemoglobin had stabilized just above transfusion threshold. He continued to have severe neutropenia and thrombocytopenia, and he also was noted to have a small percentage of circulating blasts. He had a repeat bone marrow aspiration/biopsy on 06/17/2019. The marrow was hypercellular, estimated at 90 to 100%. Blasts had increased to 6 to 8% of the marrow cellularity. There was marked trilineage dyspoiesis. Iron stores were increased without significantly increased ring sideroblasts. There were just rare scattered plasma cells estimated 0.8% of the total cellularity. A cytogenetic study was requested but apparently not performed by the reference laboratory. The FISH panel for MDS on the specimen was unrevealing. However, a specimen was also sent to [facility] pathology services for a Myeloseq Molecular Diagnostic study. A variety of variants were detected, including an IDH1 mutation. He is seen for a follow-up visit. He continues to have very poor energy and very limited activity. His ECOG score is 3. He still has good appetite. He has no fever or night sweats. He has some shortness of breath, but his breathing is basically normal for him. He does not complain of cough. He occasionally has chest pain. He currently has no GI complaints. He has not been aware of any further GI bleeding. He has frequent urination with his diuretic. He continues to have severe lower extremity edema. He also continues to have severe back pain with any activity. He says it is tolerable with his pain medication. He has just very rare headache. He has no focal neurologic symptoms. Medications: Atorvastatin Calcium 1 Tablet (of 40 mg) Oral daily, Bumex 1 Tablet (of 2 mg) Oral daily PRN, Calcium 1 (600 mg) Capsule Oral daily, Carvedilol 1 Tablet (of 12.5 mg) Oral daily, Hydrocodone-Acetaminophen 1 Tablet (of 10-325 mg) Oral t.i.d. PRN, levoFLOXacin 1 Tablet (of 500 mg) Oral daily PRN, Pantoprazole Sodium 1 (40 mg) Tablet, enteric coated Oral daily, Potassium Chloride ER 2 Tablet (of 10 meq) Capsule, controlled release Oral daily, Senna Plus 2 Capsule (of 50-8.6 mg) Oral daily Allergies: No Known Allergies. Review of Systems: Constitutional - His energy level is low. He has very little activity. His appetite is OK. His weight is stable. No fever or night sweats. ECOG score is 3, ENMT - No sinus congestion/drainage. No mouth sores. No sore throat or difficulty swallowing, Hematologic/Lymphatic - He bruises easily, Respiratory - He has some shortness of breath. No cough. No pleuritic pain or hemoptysis, Cardiovascular - He has occasional chest pain. No palpitations. He continues to have significant lower extremity edema, Gastrointestinal - No nausea or vomiting. No heartburn or acid reflux. Bowel function has been adequate with senna/docusate. He has not been aware of any further GI bleeding, Genitourinary (M) - No dysuria or hematuria. He has frequent urination with the diuretic. No urgency or incontinence, Musculoskeletal - He has severe back pain with any activity, Integumentary - No skin complications, Neurologic - He has very occasional headache. No dizziness. No numbness/paresthesias or other focal neurologic symptoms, Psychiatric - No anxiety or depression. He sleep 2-3 hours at a time. Vital Signs: Performed on July 10, 2019 09:36 Height - 76.00 in Weight - 247.2 lbs (HIGH) BSA - 2.42 sq.m BMI - 30.09 (HIGH) Temperature - 98.5 F Pulse - 82 /min Respiration - 24 /min BP - 109/69 mm(hg) O2 Sat - 97 % Pain - 5 Physical Examination: Constitutional - He appears generally weak, Eyes - Sclerae nonicteric. Conjunctivae clear, ENMT - There are no lesions noted in the oral cavity, Hematologic/Lymphatic - No cervical, clavicular, or axillary adenopathy, Respiratory - Lungs sound clear with diminished air movement bilaterally, Cardiovascular - Heart rhythm is irregular. There is a II/ systolic murmur. There is no gallop or rub noted, Abdomen - Soft. Liver and spleen are not enlarged. There is no abdominal mass or ascites noted and there is no inguinal adenopathy, Extremities - There are venous stasis changes bilaterally. There is 3+ lower extremity edema. There are scattered purpuric lesions, Neurologic - No focal neurologic deficits noted. Lab/Imaging: Test performed on July 10, 2019 08:10 LDH (Total) 412 U/L Sodium 139 mmol/L Potassium 4.0 mmol/L Chloride 100 mmol/L CO2 27 mmol/L Anion Gap 16.0 BUN 23 mg/dL Creatinine 1.3 mg/dL Cr Clearance (Est) 74.2100 mL/min Glucose 110 mg/dL Calcium 8.8 mg/dL Protein, Total 6.6 g/dL Albumin 4.2 g/dL Globulin 2.4 g/dL Bilirubin, Total 1.1 mg/dL ALT (SGPT) 19 U/L AST (SGOT) 25 U/L Alkaline Phosphatase 105 IU/L WBC 1.4 10 3/uL RBC 3.25 10 6/uL HGB 9.5 g/dL HCT 33.8 % MCV 104.0 fL MCH 29.2 pg MCHC 28.1 g/dL RDW 20.9 % Platelet Count 13 10 3/cmm Neutrophils 0.4 10 3/uL Lymphocytes 0.8 10 3/uL Monocytes 0.2 10 3/uL Eosinophils 0.0 10 3/uL Basophils 0.0 10 3/uL Neutrophil % 24.8 % Lymphocyte % 59.6 % Monocyte % 14.9 % Eosinophil % 0.0 % Basophils % 0.0 % CBC Slide Review Slide Review Perform SLIDE REVIEW AGREES WITH AUTOMATED RESULTS AND 07/07/19 MANUAL DIFFERENTIAL Impression: 1. Patient with pancytopenia, initially presenting with moderately severe anemia. 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 His IPSS-R calculated to 3.0, low risk. 2. As of December 2017 he had become transfusion dependent. 3. He also has kappa light chain monoclonal gammopathy. Based on the bone marrow findings from 10/31/2018 he likely has early stage myeloma. 4. He developed transfusion dependent iron overload. 5. During follow-up he developed persistent lower extremity edema and chronic kidney disease. 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 There was also evidence of glomerulosclerosis and severe arteriolosclerosis. The immunofluorescence showed a preponderance of kappa light chain staining, 1-2+ versus negative to trace staining for lambda light chain. The Congo red stain for amyloid was negative. 6. His management has been further complicated by traumatic vertebral compression fracture for which he underwent kyphoplasty in February 2016. His other medical illnesses include: 7. Dyslipidemia, currently off statin therapy. 8. Coronary artery disease with previous coronary artery bypass surgery. 9. He has had suspected congestive heart failure. 10. He has previously undergone repair of iliac artery aneurysm. 11. COPD. 12. GERD. 13. Nicotine dependence (cigarettes). He began a trial of Procrit 40,000 U weekly on 01/17/2018. During subsequent follow-up he remained transfusion dependent. As of 02/22/2018 the Procrit dosage was increased to 60,000 U weekly, but still with no evidence of response. 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 Both plasma cells and blasts were estimated at 2%. On 03/28/2018 he began a trial of therapy with 5-azacytidine. It was administered subcutaneously for 7 days. During subsequent follow-up, there was further decline in his blood counts, as expected. His 2nd cycle of treatment was delayed. As of 05/15/2018 his blood counts had recovered to baseline. He remained transfusion dependent, and he continued to have very marginal performance status. At that point he continued with cycle 2 of 5-azacytidine. During that time he had undergone placement of portacath venous access device. During followup his blood counts again declined. On 06/04/2018 he was admitted with hypotension in association with pancytopenia. He did not have fever, and his blood cultures remained negative. He did show some recovery with neupogen, antibiotic coverage, and other supportive measures. During subsequent follow-up his neutrophil count and platelet count have remained low. He continued to have poor performance status, and he remained transfusion dependent. His further treatment remained on hold. Repeat bone marrow aspiration/biopsy on 10/31/2018 showed mildly increased cellularity, estimated at 50-70%, but with trilineage dyspoiesis. Blasts were slightly increased at 3.2%. Plasma cells were also mildly increased, estimated at 5-10% of the cellularity. The FISH panel for MDS was unrevealing, but the cytogenetic study did show deletion 12 P. 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 With those findings he continued symptomatic/supportive care. During follow-up he has remained transfusion dependent. He also has severe neutropenia and thrombocytopenia. He has had several episodes of GI bleeding, felt to be most likely upper GI, though with unrevealing EGD. Those episodes have been managed conservatively. It was suspected that the Jadenu may have been a contributing factor, and it was discontinued. Since then he has had no further GI bleeding, and his hemoglobin/hematocrit levels have remained just above transfusion threshold. He continues to have severe neutropenia and thrombocytopenia, though without fever and with no bleeding manifestations other than easy bruising. He was noted to have a small percentage of circulating blasts. His repeat bone marrow aspiration/biopsy showed hypercellular marrow estimated at 90 to 100% cellularity. The blast percentage had increased to 6-8%. There were just scattered plasma cells estimated at less than 1% of the marrow cellularity. The FISH panel for MDS on the specimen was unrevealing. 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 Plan: I will be in contact with Dr. Woods at [facility] to determine whether there may be other treatment options available for him there. In the meantime, I also have been in contact with Dr. Tavares in regard to his refractory edema. At his suggestion, the carvedilol dosage will be changed to 3.125 mg twice daily, and on a temporary basis his bumetanide will be increased to 2 mg twice daily. Signed By: Eduardo Truong M.D. <<Signature on File>>
[2019-07-15 08:45] LABS: Hematocrit 30.6 % (42.0-52.0); Hemoglobin 8.6 g/dL (11.7-16.6); Lymphocytes # 0.7 10^3/uL (0.8-4.8); Lymphocytes % 56.3 %; Mean Corpuscular HGB Conc 28.1 g/dL (30.0-36.0); Mean Corpuscular Hemoglobin 29.4 pg (28.0-34.0); Mean Corpuscular Volume 104.4 fL (80-94); Monocytes # 0.2 10^3/uL (0.2-0.9); Monocytes % 17.2 %; Neutrophils % 25.7 %; Nucleated Red Blood Cells # 0.2 /100WBC; Nucleated Red Blood Cells % 11.7 %; Red Blood Count 2.93 10^6/uL (4.1-5.3); Red Cell Distribution Width 20.5 % (12.1-15.1); White Blood Count 1.3 10^3/uL (4.0-10.0)
[2019-07-15 09:01] LABS: Alanine Aminotransferase 19 U/L (0-41); Albumin Level 3.8 g/dL (3.5-5.2); Alkaline Phosphatase 100 IU/L (40-130); Anion Gap 15.5 (5-19); Aspartate Amino Transferase 24 U/L (0-40); Blood Urea Nitrogen 20 mg/dL (8-23); Calcium 8.6 mg/dL (8.5-10.5); Carbon Dioxide 28 mmol/L (22-29); Chloride 101 mmol/L (98-107); Globulin 2.6 g/dL (1.3-4.6); Glucose 125 mg/dL (65-115); Lactate Dehydrogenase 409 U/L (135-225); Osmolality Calculated 290 mOsm/kg (285-295); Potassium 3.5 mmol/L (3.5-5.1); Sodium 141 mmol/L (136-145); Total Bilirubin 0.9 mg/dL (0.15-1.2); Total Protein 6.4 g/dL (6.6-8.7)
[2019-07-15 09:37] LABS: Neutrophils # 0.3 10^3/uL (1.8-7.7); Platelet Count 10 10^3/cmm (130-400)
[2019-07-15 09:38] LABS: Slide Review Slide Review Perform
[2019-07-17 08:52] LABS: Hematocrit 31.4 % (42.0-52.0); Hemoglobin 8.9 g/dL (11.7-16.6); Lymphocytes # 0.7 10^3/uL (0.8-4.8); Lymphocytes % 48.6 %; Mean Corpuscular HGB Conc 28.3 g/dL (30.0-36.0); Mean Corpuscular Hemoglobin 29.8 pg (28.0-34.0); Monocytes # 0.3 10^3/uL (0.2-0.9); Monocytes % 20.3 %; Neutrophils % 29.7 %; Nucleated Red Blood Cells # 0.2 /100WBC; Nucleated Red Blood Cells % 13.8 %; Red Blood Count 2.99 10^6/uL (4.1-5.3); Red Cell Distribution Width 20.2 % (12.1-15.1); White Blood Count 1.4 10^3/uL (4.0-10.0)
[2019-07-17 09:20] LABS: Neutrophils # 0.4 10^3/uL (1.8-7.7); Platelet Count 12 10^3/cmm (130-400); Slide Review Slide Review Perform
== END 2019-07-20 23:59 | disposition home or self-care (01) ==
LOC: ONCMED 08:14
PROVIDERS: Family Provider Electrodiagnostic Medicine; PCP Electrodiagnostic Medicine; Visit Provider Internal Medicine Medical Oncology
DX: C90.00 Multiple myeloma not having achieved remission (principal); D46.A Refractory cytopenia with multilineage dysplasia; D47.2 Monoclonal gammopathy; D50.9 Iron deficiency anemia, unspecified; J44.9 Chronic obstructive pulmonary disease, unspecified; I25.10 Atherosclerotic heart disease of native coronary artery without angina pectoris; E78.5 Hyperlipidemia, unspecified; K21.9 Gastro-esophageal reflux disease without esophagitis; Z95.5 Presence of coronary angioplasty implant and graft; Z87.891 Personal history of nicotine dependence; Z79.899 Other long term (current) drug therapy; Z45.2 Encounter for adjustment and management of vascular access device
CPT/HCPCS: 36415; 80048; 80053; 83615; 85007; 85025; 96523; 99214

== ENCOUNTER 2019-08-15 | Outpatient (CLI) | payer MEDICARE, OTHER, SELFPAY ==
--- NOTE | 2019-08-15 13:24 | XR_ITS ---
WS: [id number] SCREENING DEXA SCAN [facility] CLINICAL INFORMATION: MULTIPLE MYELOMA, VERTEBRAL COMPRESSION FRACTURE COMPARISON: None. FINDINGS: Bone mineral density in the left forearm 1.14 g/sq cm with a T score of 1.6 and Z score of 2.6 Left femoral neck bone mineral density measures 0.752 g/cm2. This corresponds to a T score of -2.4 an d Z score of -2.0. Right femoral neck bone mineral density measures 0.772 g/cm2. This corresponds to a T score -2.3of an d Z score of -1.8. Mean femoral neck bone mineral density measures 0.762 g/cm2. This corresponds to a T score of -2.4 an d Z score of -1.9. XR/XR DEXA axial skeleton* [id number] IMPRESSION: Osteoporosis in the femoral necks at the lower end of the range. Normal bone mi neralization in the forearm. Patient's FRAX calculated 10 year probability for major osteoporotic fracture i s 24.5 % and osteoporotic hip fracture is 15.2%.
== END 2019-08-15 23:00 | disposition home or self-care (01) ==
LOC: RADWPI 10-20 10:20
PROVIDERS: PCP Electrodiagnostic Medicine; Visit Provider Internal Medicine Medical Oncology
DX: C90.00 Multiple myeloma not having achieved remission (principal); M81.0 Age-related osteoporosis without current pathological fracture
CPT/HCPCS: 77080

== ENCOUNTER 2019-08-18 08:32 | Outpatient (RCR) | payer MEDICARE, OTHER, SELFPAY ==
[2019-07-21 08:58] LABS: Hematocrit 32.9 % (42.0-52.0); Hemoglobin 9.2 g/dL (11.7-16.6); Mean Corpuscular Hemoglobin 29.3 pg (28.0-34.0); Mean Corpuscular Volume 104.8 fL (80-94); Nucleated Red Blood Cells # 0.2 /100WBC; Nucleated Red Blood Cells % 14.7 %; Red Blood Count 3.14 10^6/uL (4.1-5.3); Red Cell Distribution Width 20.6 % (12.1-15.1); White Blood Count 1.5 10^3/uL (4.0-10.0)
[2019-07-21 09:16] LABS: Platelet Count 23 10^3/cmm (130-400)
[2019-07-21 09:17] LABS: Slide Review Slide Review Perform
[2019-07-21 09:23] LABS: Absolute Segmented Neutrophil 0.4 10/cmm (1.6-7.1); Blastocytes 3 % (0-0); Corrected White Blood Count 1.4 10^3/cmm (4.8-10.8); Lymphocytes 58 %; Lymphocytes Absolute 0.9 10^3/cmm (1.2-3.4); Monocytes Absolute 0.1 10^3/cmm (0.1-0.6); Platelet Estimate Decreased (Normal); Segmented Neutrophils 28 %; Total Cells Counted 100 (0-100)
[2019-07-24] VITALS (8 sets, daily range): BP systolic 97–120; BP diastolic 59–71; PULSE 62–82; RESP 18; TEMP 19.4–36.6; O2SAT 96–97
[2019-07-24 09:21] LABS: Hematocrit 29.6 % (42.0-52.0); Hemoglobin 8.1 g/dL (11.7-16.6); Lymphocytes # 0.7 10^3/uL (0.8-4.8); Lymphocytes % 46.4 %; Mean Corpuscular HGB Conc 27.4 g/dL (30.0-36.0); Mean Corpuscular Hemoglobin 29.1 pg (28.0-34.0); Mean Corpuscular Volume 106.5 fL (80-94); Monocytes # 0.3 10^3/uL (0.2-0.9); Monocytes % 20.9 %; Neutrophils % 30.7 %; Nucleated Red Blood Cells # 0.2 /100WBC; Red Blood Count 2.78 10^6/uL (4.1-5.3); Red Cell Distribution Width 20.6 % (12.1-15.1); White Blood Count 1.5 10^3/uL (4.0-10.0)
[2019-07-24 09:35] LABS: Anion Gap 15.5 (5-19); Blood Urea Nitrogen 22 mg/dL (8-23); Calcium 9.3 mg/dL (8.5-10.5); Carbon Dioxide 24 mmol/L (22-29); Chloride 102 mmol/L (98-107); Glucose 139 mg/dL (65-115); Osmolality Calculated 285 mOsm/kg (285-295); Potassium 3.5 mmol/L (3.5-5.1); Sodium 138 mmol/L (136-145)
[2019-07-24 10:18] LABS: Platelet Count 13 10^3/cmm (130-400)
[2019-07-24 10:19] LABS: Neutrophils # 0.5 10^3/uL (1.8-7.7); Slide Review Slide Review Perform
[2019-07-24] MEDS: acetaminophen 325 mg Tablet 650 MG PO (12:55)
[2019-07-24] MEDS: sodium chloride 0.9% 250 ML 75 ML IV (12:55)
[2019-07-24] MEDS: diphenhydrAMINE 25 mg Capsule PO (13:41)
[2019-07-24] MEDS: FUROsemide 10 mg/mL SDV 2mL 20 MG IV (16:54)
[2019-07-28 08:55] LABS: Hemoglobin 8.4 g/dL (11.7-16.6); Lymphocytes # 0.6 10^3/uL (0.8-4.8); Lymphocytes % 47.2 %; Mean Corpuscular Hemoglobin 30.5 pg (28.0-34.0); Mean Corpuscular Volume 105.5 fL (80-94); Monocytes # 0.3 10^3/uL (0.2-0.9); Monocytes % 20.3 %; Neutrophils % 30.1 %; Nucleated Red Blood Cells # 0.2 /100WBC; Nucleated Red Blood Cells % 12.2 %; Red Blood Count 2.75 10^6/uL (4.1-5.3); Red Cell Distribution Width 20.1 % (12.1-15.1); White Blood Count 1.2 10^3/uL (4.0-10.0)
[2019-07-28 09:19] LABS: Neutrophils # 0.4 10^3/uL (1.8-7.7)
[2019-07-28 09:21] LABS: Platelet Count 9 10^3/cmm (130-400)
[2019-07-28 09:22] LABS: Slide Review Slide Review Perform
[2019-07-29] VITALS (10 sets, daily range): BP systolic 97–126; BP diastolic 57–82; PULSE 55–89; RESP 18; TEMP 35.9–36.6; O2SAT 92–98
[2019-07-29] MEDS: diphenhydrAMINE 25 mg Capsule PO (09:30)
[2019-07-29] MEDS: sodium chloride 0.9% 250 ML 999 ML IV (09:30)
[2019-07-29] MEDS: acetaminophen 325 mg Tablet 650 MG PO (09:40)
[2019-07-29] MEDS: FUROsemide 10 mg/mL SDV 2mL 20 MG IV (10:59)
[2019-07-31 08:29] LABS: Hematocrit 38.5 % (42.0-52.0); Hemoglobin 11.3 g/dL (11.7-16.6); Mean Corpuscular HGB Conc 29.4 g/dL (30.0-36.0); Mean Corpuscular Hemoglobin 29.4 pg (28.0-34.0); Mean Corpuscular Volume 100.3 fL (80-94); Nucleated Red Blood Cells # 0.1 /100WBC; Nucleated Red Blood Cells % 4.4 %; Red Blood Count 3.84 10^6/uL (4.1-5.3); Red Cell Distribution Width 19.2 % (12.1-15.1); White Blood Count 1.6 10^3/uL (4.0-10.0)
[2019-07-31 08:42] LABS: Anion Gap 19.3 (5-19); Blood Urea Nitrogen 22 mg/dL (8-23); Calcium 9.3 mg/dL (8.5-10.5); Carbon Dioxide 25 mmol/L (22-29); Chloride 97 mmol/L (98-107); Glucose 139 mg/dL (65-115); Osmolality Calculated 285 mOsm/kg (285-295); Potassium 3.3 mmol/L (3.5-5.1); Sodium 138 mmol/L (136-145)
[2019-07-31 09:41] LABS: Platelet Count 15 10^3/cmm (130-400); Slide Review Slide Review Perform
[2019-07-31 09:44] LABS: Total Cells Counted 50 (0-100)
[2019-07-31 09:45] LABS: Blastocytes 8 % (0-0); Eosinophils 2 %; Lymphocytes 70 %; Platelet Estimate Decreased (Normal); Segmented Neutrophils 18 %
[2019-07-31 09:51] LABS: Absolute Neutrophil 0.3 10^3/cmm (1.4-6.5); Absolute Segmented Neutrophil 0.3 10/cmm (1.6-7.1); Anisocytosis 1+; Polychromasia Trace
--- NOTE | 2019-08-01 11:58 | MR_ITS ---
WS: [id number] MRI LUMBAR SPINE WITH CONTRAST TECHNIQUE: Sagittal T1, T2 and STIR imaging. Axial T1 and T2 imaging. Post gadolinium imaging was obt ained. CLINICAL INFORMATION: BACK PAIN/DIFFICULTY WALKING COMPARISON: CT December 11, 2017 and MRI June 26, 2017 FINDINGS: Prior vertebroplasty changes L3 vertebral body. Chronic compression of the L1, L2, and L5 vertebral b odies. Prior postoperative changes right L4 and L5 hemilaminectomies. Mild central canal stenosis in cervical spine seen on the optical manufacturing technician imaging at C4-5. Diffuse replacement of the normal fatty bone marrow signal throughout the lumbar spine and visualized bony structures. This is progressed since 2016 but unchanged since 2018.This is nonspecific but can be seen with hyperplastic marrow, chronic anemias, and infiltrative marrow etiologies. No focal marrow lesions. Recommend correlation with laboratory ma jakob. Mild compression superior endplate L4 with a small amount of edema. This is new since the prior MRI i n 2017. Findings consistent with acute to subacute compression. Stable biconcave compression L1, L2, and L3. No other acute appearing compression fractures. Endovasc ular aortic endograft. L1-L2: Mild annular bulging with slight effacement of ventral thecal sac. Slight narrowing of the lef t greater than right subarticular recess. Mild facet arthropathy. Foramen are patent. L2-L3: Mild annular bulging with moderate central canal stenosis. Impingement subarticular recess ron aterally. Moderate facet arthropathy with mild ligament flavum hypertrophy. Foramen are patent. L3-L4: Mild disc bulging with moderate to severe central canal stenosis. Moderate facet arthropathy w ith ligament flavum hypertrophy. Small right synovial cyst is unchanged and contributes to impingemen t traversing right L4 nerve root. Tiny synovial cyst measures 2.6 mm. Mild left and no significant ri ght foraminal narrowing. L4-L5: Postoperative right hemilaminectomy. Disc osteophyte complex with endplate ridging and narrowi ng of the subarticular recess bilaterally. Moderate facet arthropathy. Mild central canal stenosis. M ild right and no central left foraminal narrowing. L5-S1: Postoperative changes right hemilaminectomy. Disc osteophyte complex with endplate ridging. Mi ld bilateral foraminal narrowing. Slight impingement traversing S1 nerve roots bilaterally. Partially visualized left greater than right renal cysts MR/MR lumbar spine wo/w con [id number] IMPRESSION: 1. Mild compression superior endplate L4 consistent with acute to subacute com pression. Small amount of edema. This is new since 2018. 2. Chronic biconcave compression at L1, L2, and L3 are unchanged. Prior verteb roplasty changes L3. 3. Moderate central canal stenosis L2-3 and moderate to severe central canal s tenosis L3-4 with a small right synovial cyst at this level. 2.[address] impinges the traversing right L4 nerve root unchanged. 4. Prior right hemilaminectomy at L4-L5 and L5-S1. 5. Spinal canal narrowing L2-L3 and L3-L4 unchanged since 2018. 6. Mild to moderate bony foraminal narrowing described above. 7. Diffuse replacement of the normal fatty bone marrow signal throughout the v isualized bony structures is nonspecific and unchanged since 2018 described abo bert.
[2019-08-04 10:40] LABS: Hematocrit 37.1 % (42.0-52.0); Hemoglobin 10.9 g/dL (11.7-16.6); Lymphocytes # 0.7 10^3/uL (0.8-4.8); Lymphocytes % 54.4 %; Mean Corpuscular HGB Conc 29.4 g/dL (30.0-36.0); Mean Corpuscular Volume 102.2 fL (80-94); Monocytes # 0.2 10^3/uL (0.2-0.9); Neutrophils % 28.8 %; Nucleated Red Blood Cells # 0.1 /100WBC; Nucleated Red Blood Cells % 4.8 %; Red Blood Count 3.63 10^6/uL (4.1-5.3); Red Cell Distribution Width 18.4 % (12.1-15.1); White Blood Count 1.3 10^3/uL (4.0-10.0)
[2019-08-04 10:57] LABS: Anion Gap 18.6 (5-19); Blood Urea Nitrogen 15 mg/dL (8-23); Calcium 9.2 mg/dL (8.5-10.5); Carbon Dioxide 23 mmol/L (22-29); Chloride 101 mmol/L (98-107); Glucose 113 mg/dL (65-115); Osmolality Calculated 285 mOsm/kg (285-295); Potassium 3.6 mmol/L (3.5-5.1); Sodium 139 mmol/L (136-145)
[2019-08-04 11:32] LABS: Platelet Count 13 10^3/cmm (130-400)
[2019-08-04 11:33] LABS: Neutrophils # 0.4 10^3/uL (1.8-7.7)
[2019-08-04 11:34] LABS: Slide Review Slide Review Perform
[2019-08-07 08:26] LABS: Eosinophils % 1.7 %; Hemoglobin 9.9 g/dL (11.7-16.6); Lymphocytes # 0.7 10^3/uL (0.8-4.8); Mean Corpuscular HGB Conc 29.1 g/dL (30.0-36.0); Mean Corpuscular Hemoglobin 29.3 pg (28.0-34.0); Mean Corpuscular Volume 100.6 fL (80-94); Monocytes # 0.2 10^3/uL (0.2-0.9); Monocytes % 18.3 %; Neutrophils % 24.2 %; Nucleated Red Blood Cells # 0.1 /100WBC; Nucleated Red Blood Cells % 4.2 %; Red Blood Count 3.38 10^6/uL (4.1-5.3); Red Cell Distribution Width 18.2 % (12.1-15.1); White Blood Count 1.2 10^3/uL (4.0-10.0)
[2019-08-07 08:38] LABS: Blood Urea Nitrogen 16 mg/dL (8-23); Calcium 8.8 mg/dL (8.5-10.5); Carbon Dioxide 26 mmol/L (22-29); Chloride 102 mmol/L (98-107); Glucose 118 mg/dL (65-115); Osmolality Calculated 283 mOsm/kg (285-295); Sodium 138 mmol/L (136-145)
[2019-08-07 09:34] LABS: Neutrophils # 0.3 10^3/uL (1.8-7.7); Platelet Count 13 10^3/cmm (130-400); Slide Review Slide Review Perform
[2019-08-11 09:42] LABS: Hematocrit 33.4 % (42.0-52.0); Hemoglobin 9.7 g/dL (11.7-16.6); Lymphocytes # 0.9 10^3/uL (0.8-4.8); Lymphocytes % 62.3 %; Mean Corpuscular Volume 103.4 fL (80-94); Monocytes # 0.2 10^3/uL (0.2-0.9); Monocytes % 12.3 %; Neutrophils % 24.7 %; Nucleated Red Blood Cells # 0.1 /100WBC; Nucleated Red Blood Cells % 6.5 %; Red Blood Count 3.23 10^6/uL (4.1-5.3); Red Cell Distribution Width 18.6 % (12.1-15.1); White Blood Count 1.4 10^3/uL (4.0-10.0)
[2019-08-11 09:57] LABS: Anion Gap 15.5 (5-19); Blood Urea Nitrogen 21 mg/dL (8-23); Calcium 9.4 mg/dL (8.5-10.5); Carbon Dioxide 25 mmol/L (22-29); Chloride 104 mmol/L (98-107); Glucose 85 mg/dL (65-115); Neutrophils # 0.3 10^3/uL (1.8-7.7); Osmolality Calculated 286 mOsm/kg (285-295); Platelet Count 16 10^3/cmm (130-400); Potassium 4.5 mmol/L (3.5-5.1); Sodium 140 mmol/L (136-145)
[2019-08-14 11:29] LABS: Hematocrit 31.7 % (42.0-52.0); Lymphocytes # 0.6 10^3/uL (0.8-4.8); Lymphocytes % 53.5 %; Mean Corpuscular HGB Conc 28.4 g/dL (30.0-36.0); Mean Corpuscular Hemoglobin 29.9 pg (28.0-34.0); Mean Corpuscular Volume 105.3 fL (80-94); Monocytes # 0.2 10^3/uL (0.2-0.9); Monocytes % 18.4 %; Neutrophils % 26.3 %; Nucleated Red Blood Cells # 0.1 /100WBC; Nucleated Red Blood Cells % 8.8 %; Red Blood Count 3.01 10^6/uL (4.1-5.3); Red Cell Distribution Width 18.7 % (12.1-15.1); White Blood Count 1.1 10^3/uL (4.0-10.0)
[2019-08-14 11:44] LABS: Anion Gap 16.6 (5-19); Blood Urea Nitrogen 20 mg/dL (8-23); Calcium 8.9 mg/dL (8.5-10.5); Carbon Dioxide 25 mmol/L (22-29); Chloride 101 mmol/L (98-107); Glucose 89 mg/dL (65-115); Osmolality Calculated 284 mOsm/kg (285-295); Potassium 3.6 mmol/L (3.5-5.1); Sodium 139 mmol/L (136-145)
[2019-08-14 11:59] LABS: Platelet Count 9 10^3/cmm (130-400)
[2019-08-14 12:00] LABS: Neutrophils # 0.3 10^3/uL (1.8-7.7); Slide Review Slide Review Perform
[2019-08-18 09:39] LABS: Basophils % 0.7 %; Hematocrit 29.8 % (42.0-52.0); Hemoglobin 8.6 g/dL (11.7-16.6); Lymphocytes # 0.5 10^3/uL (0.8-4.8); Lymphocytes % 33.3 %; Mean Corpuscular HGB Conc 28.9 g/dL (30.0-36.0); Mean Corpuscular Volume 103.8 fL (80-94); Monocytes # 0.4 10^3/uL (0.2-0.9); Monocytes % 25.4 %; Neutrophils % 39.2 %; Nucleated Red Blood Cells # 0.1 /100WBC; Nucleated Red Blood Cells % 8.7 %; Red Blood Count 2.87 10^6/uL (4.1-5.3); Red Cell Distribution Width 18.9 % (12.1-15.1); White Blood Count 1.4 10^3/uL (4.0-10.0)
[2019-08-18 09:46] LABS: Neutrophils # 0.5 10^3/uL (1.8-7.7); Platelet Count 11 10^3/cmm (130-400)
[2019-08-18 10:06] LABS: Anion Gap 14.9 (5-19); Blood Urea Nitrogen 19 mg/dL (8-23); Calcium 8.9 mg/dL (8.5-10.5); Carbon Dioxide 26 mmol/L (22-29); Chloride 102 mmol/L (98-107); Glucose 107 mg/dL (65-115); Osmolality Calculated 285 mOsm/kg (285-295); Potassium 3.9 mmol/L (3.5-5.1); Sodium 139 mmol/L (136-145)
[2019-08-20 09:25] LABS: Hematocrit 30.2 % (42.0-52.0); Hemoglobin 8.7 g/dL (11.7-16.6); Mean Corpuscular HGB Conc 28.8 g/dL (30.0-36.0); Mean Corpuscular Hemoglobin 30.3 pg (28.0-34.0); Mean Corpuscular Volume 105.2 fL (80-94); Nucleated Red Blood Cells # 0.2 /100WBC; Nucleated Red Blood Cells % 13.2 %; Red Blood Count 2.87 10^6/uL (4.1-5.3); Red Cell Distribution Width 19.3 % (12.1-15.1); White Blood Count 1.5 10^3/uL (4.0-10.0)
[2019-08-20 09:48] LABS: Slide Review Slide Review Perform
[2019-08-20 09:49] LABS: Absolute Segmented Neutrophil 0.5 10/cmm (1.6-7.1); Corrected White Blood Count 1.3 10^3/cmm (4.8-10.8); Eosinophils 2 %; Lymphocytes 47 %; Lymphocytes Absolute 0.8 10^3/cmm (1.2-3.4); Segmented Neutrophils 35 %; Total Cells Counted 100 (0-100)
[2019-08-20 09:50] LABS: Platelet Estimate Decreased (Normal)
[2019-08-20 09:52] LABS: Absolute Neutrophil 0.5 10^3/cmm (1.4-6.5); Blastocytes 7 % (0-0); Platelet Count 15 10^3/cmm (130-400); Poikilocytosis 1+; Polychromasia 1+
[2019-08-20 09:53] LABS: Anisocytosis 1+; Tear Drop Cells Trace
== END 2019-08-19 23:59 | disposition home or self-care (01) ==
LOC: ONCMED 08:32
PROVIDERS: PCP Electrodiagnostic Medicine; Visit Provider Internal Medicine Medical Oncology
DX: M48.061 Spinal stenosis, lumbar region without neurogenic claudication (principal); M71.38 Other bursal cyst, other site; R60.9 Edema, unspecified; C90.00 Multiple myeloma not having achieved remission; D46.A Refractory cytopenia with multilineage dysplasia; D47.2 Monoclonal gammopathy; D50.8 Other iron deficiency anemias; D64.89 Other specified anemias
CPT/HCPCS: 36415; 36430; 72158; 80048; 85007; 85025; 86850; 86900; 86920; A9579; J1940; J7050; P9040

== ENCOUNTER 2019-09-19 07:00 | Outpatient (RCR) | payer MEDICARE, OTHER, SELFPAY ==
[2019-08-25] VITALS (10 sets, daily range): BP systolic 98–141; BP diastolic 60–77; PULSE 64–90; RESP 18; TEMP 36.6–37.1; O2SAT 93–96
[2019-08-25 08:21] LABS: Hematocrit 27.3 % (42.0-52.0); Hemoglobin 7.8 g/dL (11.7-16.6); Mean Corpuscular HGB Conc 28.6 g/dL (30.0-36.0); Mean Corpuscular Hemoglobin 30.5 pg (28.0-34.0); Mean Corpuscular Volume 106.6 fL (80-94); Nucleated Red Blood Cells # 0.2 /100WBC; Nucleated Red Blood Cells % 13.1 %; Red Blood Count 2.56 10^6/uL (4.1-5.3); Red Cell Distribution Width 19.8 % (12.1-15.1); White Blood Count 1.5 10^3/uL (4.0-10.0)
[2019-08-25 08:36] LABS: Anion Gap 13.9 (5-19); Blood Urea Nitrogen 17 mg/dL (8-23); Calcium 8.9 mg/dL (8.5-10.5); Carbon Dioxide 26 mmol/L (22-29); Chloride 103 mmol/L (98-107); Glucose 102 mg/dL (65-115); Osmolality Calculated 285 mOsm/kg (285-295); Potassium 3.9 mmol/L (3.5-5.1); Sodium 139 mmol/L (136-145)
[2019-08-25 08:40] LABS: Slide Review Slide Review Perform
[2019-08-25 08:49] LABS: Absolute Segmented Neutrophil 0.3 10/cmm (1.6-7.1); Basophils Absolute 0.1 10^3/cmm (0.0-0.2); Corrected White Blood Count 1.3 10^3/cmm (4.8-10.8); Lymphocytes 60 %; Platelet Estimate Decreased (Normal); Segmented Neutrophils 21 %; Total Cells Counted 100 (0-100)
[2019-08-25 08:51] LABS: Absolute Neutrophil 0.3 10^3/cmm (1.4-6.5)
[2019-08-25 08:52] LABS: Anisocytosis 2+; Blastocytes 11 % (0-0); Giant Platelets Trace; Macrocytosis 1+; Poikilocytosis 1+
[2019-08-25 08:53] LABS: Platelet Count 19 10^3/cmm (130-400)
[2019-08-25] MEDS: sodium chloride 0.9% 250 ML 999 ML IV (11:50)
[2019-08-25] MEDS: acetaminophen 325 mg Tablet 650 MG PO (11:50)
[2019-08-25] MEDS: diphenhydrAMINE 25 mg Capsule PO (11:50)
[2019-08-25] MEDS: FUROsemide 10 mg/mL SDV 2mL 20 MG IV (13:30)
[2019-08-28 08:44] LABS: Eosinophils % 1.9 %; Hematocrit 32.9 % (42.0-52.0); Hemoglobin 9.7 g/dL (11.7-16.6); Lymphocytes # 0.6 10^3/uL (0.8-4.8); Lymphocytes % 40.3 %; Mean Corpuscular HGB Conc 29.5 g/dL (30.0-36.0); Mean Corpuscular Volume 101.9 fL (80-94); Monocytes # 0.5 10^3/uL (0.2-0.9); Monocytes % 30.2 %; Neutrophils % 25.1 %; Nucleated Red Blood Cells # 0.2 /100WBC; Nucleated Red Blood Cells % 10.1 %; Red Blood Count 3.23 10^6/uL (4.1-5.3); Red Cell Distribution Width 19.3 % (12.1-15.1); White Blood Count 1.6 10^3/uL (4.0-10.0)
[2019-08-28 09:18] LABS: Platelet Count 14 10^3/cmm (130-400)
[2019-08-28 09:19] LABS: Slide Review Slide Review Perform
[2019-09-01 09:42] LABS: Hematocrit 32.3 % (42.0-52.0); Hemoglobin 9.3 g/dL (11.7-16.6); Lymphocytes # 0.9 10^3/uL (0.8-4.8); Lymphocytes % 50.6 %; Mean Corpuscular HGB Conc 28.8 g/dL (30.0-36.0); Mean Corpuscular Volume 104.2 fL (80-94); Monocytes # 0.5 10^3/uL (0.2-0.9); Monocytes % 29.8 %; Neutrophils % 18.4 %; Nucleated Red Blood Cells # 0.1 /100WBC; Nucleated Red Blood Cells % 8.3 %; Red Cell Distribution Width 19.6 % (12.1-15.1); White Blood Count 1.7 10^3/uL (4.0-10.0)
[2019-09-01 09:56] LABS: Anion Gap 12.8 (5-19); Blood Urea Nitrogen 20 mg/dL (8-23); Carbon Dioxide 29 mmol/L (22-29); Chloride 101 mmol/L (98-107); Glucose 87 mg/dL (65-115); Osmolality Calculated 284 mOsm/kg (285-295); Potassium 3.8 mmol/L (3.5-5.1); Sodium 139 mmol/L (136-145)
[2019-09-01 11:22] LABS: Neutrophils # 0.31 10^3/uL (1.8-7.7); Platelet Count 10 10^3/cmm (130-400); Slide Review Slide Review Perform
[2019-09-04 08:42] LABS: Hemoglobin 8.8 g/dL (11.7-16.6); Mean Corpuscular HGB Conc 29.3 g/dL (30.0-36.0); Mean Corpuscular Hemoglobin 30.3 pg (28.0-34.0); Mean Corpuscular Volume 103.4 fL (80-94); Red Cell Distribution Width 19.2 % (12.1-15.1); White Blood Count 1.5 10^3/uL (4.0-10.0)
[2019-09-04 08:57] LABS: Anion Gap 14.9 (5-19); Blood Urea Nitrogen 19 mg/dL (8-23); Calcium 8.4 mg/dL (8.5-10.5); Carbon Dioxide 25 mmol/L (22-29); Chloride 101 mmol/L (98-107); Glucose 97 mg/dL (65-115); Osmolality Calculated 280 mOsm/kg (285-295); Potassium 3.9 mmol/L (3.5-5.1); Sodium 137 mmol/L (136-145)
[2019-09-04 09:51] LABS: Nucleated Red Blood Cells % 0 %; Platelet Count 9 10^3/cmm (130-400); Slide Review Slide Review Perform
[2019-09-04 09:58] LABS: Absolute Segmented Neutrophil 0.3 10/cmm (1.6-7.1); Eosinophils 1 %; Lymphocytes 64 %; Lymphocytes Absolute 1.1 10^3/cmm (1.2-3.4); Segmented Neutrophils 17 %; Total Cells Counted 100 (0-100)
[2019-09-04 09:59] LABS: Absolute Neutrophil 0.3 10^3/cmm (1.4-6.5); Blastocytes 10 % (0-0); Corrected White Blood Count 1.3 10^3/cmm (4.8-10.8); Polychromasia 1+
[2019-09-04 10:00] LABS: Anisocytosis 1+; Macrocytosis 1+; Platelet Estimate Decreased (Normal)
[2019-09-08 08:45] LABS: Hematocrit 25.5 % (42.0-52.0); Hemoglobin 7.5 g/dL (11.7-16.6); Lymphocytes # 0.9 10^3/uL (0.8-4.8); Lymphocytes % 49.7 %; Mean Corpuscular HGB Conc 29.4 g/dL (30.0-36.0); Mean Corpuscular Volume 105.4 fL (80-94); Monocytes # 0.4 10^3/uL (0.2-0.9); Monocytes % 22.4 %; Nucleated Red Blood Cells # 0.3 /100WBC; Nucleated Red Blood Cells % 16.9 %; Red Blood Count 2.42 10^6/uL (4.1-5.3); Red Cell Distribution Width 19.6 % (12.1-15.1); White Blood Count 1.8 10^3/uL (4.0-10.0)
[2019-09-08 08:57] LABS: Blood Urea Nitrogen 26 mg/dL (8-23); Calcium 8.7 mg/dL (8.5-10.5); Carbon Dioxide 25 mmol/L (22-29); Chloride 105 mmol/L (98-107); Glucose 107 mg/dL (65-115); Osmolality Calculated 283 mOsm/kg (285-295); Sodium 138 mmol/L (136-145)
[2019-09-08 09:30] LABS: Platelet Count 15 10^3/cmm (130-400)
[2019-09-08 09:31] LABS: Neutrophils # 0.42 10^3/uL (1.8-7.7)
[2019-09-08 09:35] LABS: Slide Review Slide Review Perform
[2019-09-08 10:55] VITALS: BP 107/67; PULSE 90; RESP 18; TEMP 36.8; O2SAT 88
[2019-09-08 11:10] VITALS: BP 105/71; PULSE 84; RESP 18; TEMP 36.6; O2SAT 90
[2019-09-08 11:25] VITALS: BP 109/66; PULSE 79; RESP 18; TEMP 36.4; O2SAT 97
[2019-09-08 11:55] VITALS: BP 104/67; PULSE 80; RESP 18; TEMP 36.3; O2SAT 97
[2019-09-08] MEDS: acetaminophen 325 mg Tablet 650 MG PO (12:35)
[2019-09-08] MEDS: sodium chloride 0.9% 250 ML 999 ML IV (12:35)
[2019-09-08 12:50] VITALS: BP 119/64; PULSE 94; RESP 18; TEMP 37; O2SAT 96
[2019-09-08 15:30] VITALS: BP 102/65; PULSE 67; RESP 18; TEMP 36.6; O2SAT 96
[2019-09-08] MEDS: FUROsemide 10 mg/mL SDV 2mL 20 MG IV (17:22)
[2019-09-08] MEDS: diphenhydrAMINE 25 mg Capsule PO (17:22)
[2019-09-10] VITALS (10 sets, daily range): BP systolic 97–120; BP diastolic 54–75; PULSE 64–80; RESP 18; TEMP 36.3–36.8; O2SAT 97–98
[2019-09-10 08:39] LABS: Hematocrit 25.7 % (42.0-52.0); Hemoglobin 7.6 g/dL (11.7-16.6); Mean Corpuscular HGB Conc 29.6 g/dL (30.0-36.0); Mean Corpuscular Hemoglobin 29.9 pg (28.0-34.0); Mean Corpuscular Volume 101.2 fL (80-94); Nucleated Red Blood Cells # 0.4 /100WBC; Nucleated Red Blood Cells % 19.8 %; Red Blood Count 2.54 10^6/uL (4.1-5.3); Red Cell Distribution Width 19.9 % (12.1-15.1); White Blood Count 1.8 10^3/uL (4.0-10.0)
[2019-09-10 09:12] LABS: Absolute Segmented Neutrophil 0.3 10/cmm (1.6-7.1); Band Neutrophils Absolute 0.1 10^3/cmm (0.0-1.2); Corrected White Blood Count 1.6 10^3/cmm (4.8-10.8); Lymphocytes 55 %; Lymphocytes Absolute 1.2 10^3/cmm (1.2-3.4); Platelet Estimate Decreased (Normal); Segmented Neutrophils 15 %; Total Cells Counted 100 (0-100)
[2019-09-10 09:13] LABS: Anisocytosis 1+; Poikilocytosis 1+
[2019-09-10 09:14] LABS: Blastocytes 12 % (0-0); Platelet Count 12 10^3/cmm (130-400)
[2019-09-10 09:15] LABS: Absolute Neutrophil 0.3 10^3/cmm (1.4-6.5)
[2019-09-10] MEDS: acetaminophen 325 mg Tablet 650 MG PO (10:50)
[2019-09-10] MEDS: sodium chloride 0.9% 250 ML 999 ML IV (10:55)
[2019-09-10] MEDS: diphenhydrAMINE 25 mg Capsule PO (11:57)
[2019-09-10] MEDS: FUROsemide 10 mg/mL SDV 2mL 20 MG IV (15:31)
[2019-09-12] VITALS (10 sets, daily range): BP systolic 110–128; BP diastolic 63–80; PULSE 68–90; RESP 18–76; TEMP 36.3–37; O2SAT 97–99
[2019-09-12] MEDS: diphenhydrAMINE 25 mg Capsule PO (08:25)
[2019-09-12] MEDS: acetaminophen 325 mg Tablet 650 MG PO (08:25)
[2019-09-12 08:45] LABS: Eosinophils % 0.7 %; Hemoglobin 7.9 g/dL (11.7-16.6); Lymphocytes # 1.1 10^3/uL (0.8-4.8); Lymphocytes % 38.2 %; Mean Corpuscular HGB Conc 30.4 g/dL (30.0-36.0); Mean Corpuscular Hemoglobin 30.9 pg (28.0-34.0); Mean Corpuscular Volume 101.6 fL (80-94); Mean Platelet Volume 13.2 fL (7.4-10.4); Neutrophils % 20.4 %; Nucleated Red Blood Cells # 0.6 /100WBC; Platelet Count 30 10^3/cmm (130-400); Red Blood Count 2.56 10^6/uL (4.1-5.3); Red Cell Distribution Width 20.4 % (12.1-15.1); White Blood Count 2.8 10^3/uL (4.0-10.0)
[2019-09-12 08:49] LABS: Alanine Aminotransferase 13 U/L (0-41); Albumin Level 3.6 g/dL (3.5-5.2); Alkaline Phosphatase 110 IU/L (40-130); Aspartate Amino Transferase 21 U/L (0-40); Blood Urea Nitrogen 30 mg/dL (8-23); Calcium 8.8 mg/dL (8.5-10.5); Carbon Dioxide 23 mmol/L (22-29); Chloride 104 mmol/L (98-107); Globulin 2.3 g/dL (1.3-4.6); Glucose 108 mg/dL (65-115); Osmolality Calculated 282 mOsm/kg (285-295); Sodium 137 mmol/L (136-145); Total Bilirubin 0.8 mg/dL (0.15-1.2); Total Protein 5.9 g/dL (6.6-8.7)
[2019-09-12 09:03] LABS: Neutrophils # 0.56 10^3/uL (1.8-7.7); Slide Review Slide Review Perform
--- NOTE | 2019-09-12 14:13 | PC.NURSE ---
Report received from Kolton Leroy RN at [id number]
[2019-09-15 09:16] LABS: Hematocrit 28.1 % (42.0-52.0); Hemoglobin 8.4 g/dL (11.7-16.6); Mean Corpuscular HGB Conc 29.9 g/dL (30.0-36.0); Mean Corpuscular Hemoglobin 29.9 pg (28.0-34.0); Mean Platelet Volume 12.6 fL (7.4-10.4); Nucleated Red Blood Cells # 0.5 /100WBC; Nucleated Red Blood Cells % 24.3 %; Red Blood Count 2.81 10^6/uL (4.1-5.3); Red Cell Distribution Width 19.6 % (12.1-15.1); White Blood Count 2.2 10^3/uL (4.0-10.0)
[2019-09-15 09:32] LABS: Anion Gap 14.9 (5-19); Blood Urea Nitrogen 18 mg/dL (8-23); Calcium 8.8 mg/dL (8.5-10.5); Carbon Dioxide 25 mmol/L (22-29); Chloride 102 mmol/L (98-107); Glucose 86 mg/dL (65-115); Osmolality Calculated 282 mOsm/kg (285-295); Potassium 3.9 mmol/L (3.5-5.1); Sodium 138 mmol/L (136-145)
[2019-09-15 09:43] LABS: Slide Review Slide Review Perform
[2019-09-15 09:52] LABS: Absolute Segmented Neutrophil 0.3 10/cmm (1.6-7.1); Lymphocytes 60 %; Lymphocytes Absolute 1.5 10^3/cmm (1.2-3.4); Segmented Neutrophils 13 %; Total Cells Counted 100 (0-100)
[2019-09-15 09:53] LABS: Corrected White Blood Count 1.8 10^3/cmm (4.8-10.8)
[2019-09-15 09:55] LABS: Anisocytosis 1+; Giant Platelets Trace; Macrocytosis Trace; Platelet Estimate Decreased (Normal); Poikilocytosis 1+
[2019-09-15 09:58] LABS: Absolute Neutrophil 0.3 10^3/cmm (1.4-6.5); Blastocytes 19 % (0-0); Platelet Count 28 10^3/cmm (130-400)
[2019-09-17] VITALS (7 sets, daily range): BP systolic 103–135; BP diastolic 65–90; PULSE 70–80; RESP 18; TEMP 36.6–37; O2SAT 93–95
[2019-09-17 07:51] LABS: Hematocrit 24.7 % (42.0-52.0); Hemoglobin 7.3 g/dL (11.7-16.6); Lymphocytes # 0.6 10^3/uL (0.8-4.8); Lymphocytes % 36.6 %; Mean Corpuscular HGB Conc 29.6 g/dL (30.0-36.0); Mean Corpuscular Hemoglobin 29.8 pg (28.0-34.0); Mean Corpuscular Volume 100.8 fL (80-94); Mean Platelet Volume 11.8 fL (7.4-10.4); Monocytes # 0.8 10^3/uL (0.2-0.9); Monocytes % 43.4 %; Neutrophils % 17.1 %; Nucleated Red Blood Cells # 0.4 /100WBC; Nucleated Red Blood Cells % 22.9 %; Red Blood Count 2.45 10^6/uL (4.1-5.3); Red Cell Distribution Width 19.6 % (12.1-15.1); White Blood Count 1.8 10^3/uL (4.0-10.0)
[2019-09-17 08:07] LABS: Blood Urea Nitrogen 20 mg/dL (8-23); Calcium 8.6 mg/dL (8.5-10.5); Carbon Dioxide 27 mmol/L (22-29); Chloride 106 mmol/L (98-107); Glucose 104 mg/dL (65-115); Osmolality Calculated 287 mOsm/kg (285-295); Sodium 140 mmol/L (136-145)
[2019-09-17 08:22] LABS: Slide Review Slide Review Perform
[2019-09-17 08:23] LABS: Platelet Count 14 10^3/cmm (130-400)
[2019-09-19 07:58] LABS: Anion Gap 13.1 (5-19); Blood Urea Nitrogen 23 mg/dL (8-23); Calcium 8.5 mg/dL (8.5-10.5); Carbon Dioxide 24 mmol/L (22-29); Chloride 105 mmol/L (98-107); Glucose 105 mg/dL (65-115); Osmolality Calculated 283 mOsm/kg (285-295); Potassium 4.1 mmol/L (3.5-5.1); Sodium 138 mmol/L (136-145)
[2019-09-19 08:28] LABS: Hematocrit 30.1 % (42.0-52.0); Hemoglobin 9.2 g/dL (11.7-16.6); Mean Corpuscular HGB Conc 30.6 g/dL (30.0-36.0); Mean Corpuscular Hemoglobin 29.7 pg (28.0-34.0); Mean Corpuscular Volume 97.1 fL (80-94); Red Cell Distribution Width 19.1 % (12.1-15.1); White Blood Count 1.9 10^3/uL (4.0-10.0)
[2019-09-19 08:51] LABS: Slide Review Slide Review Perform
[2019-09-19 08:52] LABS: Platelet Count 11 10^3/cmm (130-400)
[2019-09-19 08:53] LABS: Absolute Neutrophil 0.4 10^3/cmm (1.4-6.5); Absolute Segmented Neutrophil 0.3 10/cmm (1.6-7.1); Anisocytosis 1+; Band Neutrophils Absolute 0.1 10^3/cmm (0.0-1.2); Blastocytes 9 % (0-0); Lymphocytes 44 %; Platelet Estimate Decreased (Normal); Poikilocytosis 1+; Segmented Neutrophils 18 %
[2019-09-19 08:54] LABS: Polychromasia Trace; Tear Drop Cells 1+; Total Cells Counted 100 (0-100)
[2019-09-19 12:35] VITALS: BP 135/90; PULSE 80; RESP 18; TEMP 36.6; O2SAT 97
[2019-09-19 13:04] VITALS: BP 127/77; PULSE 83; RESP 18; TEMP 36.8
== END 2019-09-19 23:59 | disposition home or self-care (01) ==
LOC: ONCMED 07:00
PROVIDERS: PCP Electrodiagnostic Medicine; Visit Provider Internal Medicine Medical Oncology
DX: D46.A Refractory cytopenia with multilineage dysplasia (principal); R19.5 Other fecal abnormalities; D50.8 Other iron deficiency anemias; R06.02 Shortness of breath; R07.9 Chest pain, unspecified; C90.00 Multiple myeloma not having achieved remission; M81.0 Age-related osteoporosis without current pathological fracture
CPT/HCPCS: 36415; 36430; 80048; 80053; 85007; 85025; 86850; 86900; 86920; J1642; J1940; J7050; P9016; P9037; P9040

== ENCOUNTER 2019-09-28 08:43 | Outpatient (CLI) | payer MEDICARE, OTHER, SELFPAY ==
[2019-09-28 09:01] VITALS: BMI 17.4
[2019-09-28 09:20] LABS: Hemoglobin 9.9 g/dL (11.7-16.6); Lymphocytes # 0.6 10^3/uL (0.8-4.8); Lymphocytes % 27.5 %; Mean Corpuscular HGB Conc 30.9 g/dL (30.0-36.0); Mean Corpuscular Hemoglobin 30.1 pg (28.0-34.0); Mean Corpuscular Volume 97.3 fL (80-94); Mean Platelet Volume 11.2 fL (7.4-10.4); Monocytes # 0.8 10^3/uL (0.2-0.9); Monocytes % 41.2 %; Neutrophils % 24.9 %; Nucleated Red Blood Cells # 0.4 /100WBC; Nucleated Red Blood Cells % 21.1 %; Red Blood Count 3.29 10^6/uL (4.1-5.3); Red Cell Distribution Width 16.6 % (12.1-15.1)
[2019-09-28 09:32] VITALS: BP 133/75; PULSE 69; RESP 18; TEMP 36.8; O2SAT 96
[2019-09-28 09:42] LABS: Slide Review Slide Review Perform
[2019-09-28 09:45] LABS: Neutrophils # 0.51 10^3/uL (1.8-7.7); Platelet Count 23 10^3/cmm (130-400)
--- NOTE | 2019-09-28 10:01 | PC.NURSE ---
pt hgb was at 9.9, platelets 23, ANC 0.51. Dr. Truong notified, no new orders. Dr. Truong stated patient was able to go home.
== END 2019-09-28 10:02 | disposition home or self-care (01) ==
LOC: LAB 08:47 → MEDSURG 08:48
PROVIDERS: PCP Electrodiagnostic Medicine; Visit Provider Internal Medicine Medical Oncology
DX: D46.9 Myelodysplastic syndrome, unspecified (principal)
CPT/HCPCS: 36415; 85025

== ENCOUNTER 2019-10-07 07:37 | Outpatient (RCR) | payer MEDICARE, OTHER, SELFPAY ==
[2019-09-22] VITALS (10 sets, daily range): BP systolic 107–124; BP diastolic 70–78; PULSE 68–93; RESP 18; TEMP 35.5–37; O2SAT 95–97
[2019-09-22 08:18] LABS: Hematocrit 26.9 % (42.0-52.0); Hemoglobin 8.2 g/dL (11.7-16.6); Mean Corpuscular HGB Conc 30.5 g/dL (30.0-36.0); Mean Corpuscular Hemoglobin 30.3 pg (28.0-34.0); Mean Corpuscular Volume 99.3 fL (80-94); Nucleated Red Blood Cells # 0.9 /100WBC; Nucleated Red Blood Cells % 22.2 %; Red Blood Count 2.71 10^6/uL (4.1-5.3); Red Cell Distribution Width 19.4 % (12.1-15.1)
[2019-09-22 08:41] LABS: Anion Gap 15.9 (5-19); Blood Urea Nitrogen 28 mg/dL (8-23); Calcium 8.3 mg/dL (8.5-10.5); Carbon Dioxide 23 mmol/L (22-29); Chloride 104 mmol/L (98-107); Glucose 129 mg/dL (65-115); Osmolality Calculated 287 mOsm/kg (285-295); Potassium 3.9 mmol/L (3.5-5.1); Sodium 139 mmol/L (136-145)
[2019-09-22 08:53] LABS: Mean Platelet Volume 13.1 fL (7.4-10.4); Slide Review Slide Review Perform
[2019-09-22 09:03] LABS: Absolute Segmented Neutrophil 0.8 10/cmm (1.6-7.1); Corrected White Blood Count 3.4 10^3/cmm (4.8-10.8); Lymphocytes 55 %; Poikilocytosis Trace; Segmented Neutrophils 19 %; Total Cells Counted 100 (0-100)
[2019-09-22 09:04] LABS: Anisocytosis 2+; Macrocytosis 1+; Platelet Estimate Decreased (Normal); Smudge Cells Trace
[2019-09-22 09:05] LABS: Lymphocytes Absolute 2.5 10^3/cmm (1.2-3.4)
[2019-09-22 09:09] LABS: Absolute Neutrophil 0.8 10^3/cmm (1.4-6.5); Blastocytes 16 % (0-0)
[2019-09-22 09:11] LABS: Platelet Count 29 10^3/cmm (130-400)
[2019-09-22] MEDS: sodium chloride 0.9% 250 ML 999 ML IV (10:40)
[2019-09-22] MEDS: acetaminophen 325 mg Tablet 650 MG PO (10:40)
[2019-09-22] MEDS: diphenhydrAMINE 25 mg Capsule PO (10:44)
[2019-09-22] MEDS: FUROsemide 10 mg/mL SDV 2mL 20 MG IV (16:26)
[2019-09-24] VITALS (12 sets, daily range): BP systolic 103–125; BP diastolic 68–78; PULSE 73–83; RESP 18; TEMP 36.6–36.9; O2SAT 94–97
[2019-09-24 08:58] LABS: Hematocrit 23.4 % (42.0-52.0); Hemoglobin 7.2 g/dL (11.7-16.6); Mean Corpuscular HGB Conc 30.8 g/dL (30.0-36.0); Mean Corpuscular Volume 97.5 fL (80-94); Mean Platelet Volume 11.9 fL (7.4-10.4); Red Cell Distribution Width 17.8 % (12.1-15.1); White Blood Count 2.2 10^3/uL (4.0-10.0)
[2019-09-24 09:28] LABS: Platelet Count 25 10^3/cmm (130-400)
[2019-09-24 09:29] LABS: Slide Review Slide Review Perform
[2019-09-24 09:33] LABS: Absolute Segmented Neutrophil 0.2 10/cmm (1.6-7.1); Eosinophils 1 %; Lymphocytes 35 %
[2019-09-24 09:34] LABS: Blastocytes 5 % (0-0); Corrected White Blood Count 1.9 10^3/cmm (4.8-10.8); Platelet Estimate Decreased (Normal)
[2019-09-24 09:35] LABS: Absolute Neutrophil 0.2 10^3/cmm (1.4-6.5); Anisocytosis 2+; Segmented Neutrophils 7 %; Total Cells Counted 50 (0-100)
[2019-09-24] MEDS: diphenhydrAMINE 25 mg Capsule PO (11:30)
[2019-09-24] MEDS: acetaminophen 325 mg Tablet 650 MG PO (11:30)
[2019-09-24] MEDS: sodium chloride 0.9% 250 ML 999 ML IV (12:10)
[2019-09-24] MEDS: FUROsemide 10 mg/mL SDV 2mL 20 MG IV (14:00)
[2019-09-26 08:34] LABS: Hemoglobin 8.5 g/dL (11.7-16.6); Lymphocytes # 0.6 10^3/uL (0.8-4.8); Lymphocytes % 26.8 %; Mean Corpuscular HGB Conc 31.5 g/dL (30.0-36.0); Mean Corpuscular Hemoglobin 30.6 pg (28.0-34.0); Mean Corpuscular Volume 97.1 fL (80-94); Mean Platelet Volume 10.5 fL (7.4-10.4); Monocytes # 0.9 10^3/uL (0.2-0.9); Monocytes % 43.1 %; Nucleated Red Blood Cells # 0.4 /100WBC; Nucleated Red Blood Cells % 18.7 %; Red Blood Count 2.78 10^6/uL (4.1-5.3); White Blood Count 2.1 10^3/uL (4.0-10.0)
[2019-09-26] MEDS: acetaminophen 325 mg Tablet 650 MG PO (08:45)
[2019-09-26 09:48] VITALS: BP 110/71; PULSE 74; RESP 18; TEMP 36.6; O2SAT 96
[2019-09-26 10:22] LABS: Neutrophils # 0.46 10^3/uL (1.8-7.7); Platelet Count 26 10^3/cmm (130-400); Slide Review Slide Review Perform
[2019-09-26 11:00] VITALS: BP 126/71; RESP 18; TEMP 35.9; O2SAT 96
[2019-09-26 11:15] VITALS: BP 141/70; PULSE 67; RESP 18; TEMP 36; O2SAT 96
[2019-09-26] MEDS: FUROsemide 10 mg/mL SDV 2mL 20 MG IV (13:40)
[2019-09-26] MEDS: sodium chloride 0.9% 250 ML 999 ML IV (13:40)
[2019-09-26] MEDS: diphenhydrAMINE 25 mg Capsule PO (13:40)
[2019-09-29 09:13] LABS: Hematocrit 33.1 % (42.0-52.0); Hemoglobin 10.1 g/dL (11.7-16.6); Mean Corpuscular HGB Conc 30.5 g/dL (30.0-36.0); Mean Corpuscular Hemoglobin 30.1 pg (28.0-34.0); Mean Corpuscular Volume 98.5 fL (80-94); Mean Platelet Volume 12.2 fL (7.4-10.4); Red Blood Count 3.36 10^6/uL (4.1-5.3); Red Cell Distribution Width 16.9 % (12.1-15.1); White Blood Count 2.2 10^3/uL (4.0-10.0)
[2019-09-29 09:36] LABS: Slide Review Slide Review Perform
[2019-09-29 09:38] LABS: Platelet Count 16 10^3/cmm (130-400)
[2019-09-29 09:44] LABS: Absolute Segmented Neutrophil 0.5 10/cmm (1.6-7.1); Lymphocytes 54 %; Lymphocytes Absolute 1.4 10^3/cmm (1.2-3.4); Segmented Neutrophils 23 %; Total Cells Counted 100 (0-100)
[2019-09-29 09:45] LABS: Absolute Neutrophil 0.5 10^3/cmm (1.4-6.5); Anisocytosis 1+; Corrected White Blood Count 1.9 10^3/cmm (4.8-10.8); Macrocytosis Trace; Platelet Estimate Decreased (Normal); Poikilocytosis Trace; Smudge Cells 1+
[2019-09-29 09:48] LABS: Blastocytes 12 % (0-0)
[2019-09-29] MEDS: acetaminophen 325 mg Tablet 650 MG PO (11:00)
[2019-09-29] MEDS: denosumab 60 mg SDV SUBCUT (11:05)
--- NOTE | 2019-09-29 13:07 | ONC FU_ITS ---
[facility] Patient Note Patient: Gabriel Thakkar V Unit #: [id number]: [id number] Dictated By: Eriberto CallDate of Visit: Sep 29, 2019 Onc MED Follow-Up/Prog Note Chief Complaint: Myelodysplastic syndrome/monoclonal gammopathy. 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 Dr Truong had seen him initially on 09/24/2015. Approximately 7 weeks earlier he had developed acute onset of joint pain, which included pain and swelling in his hands/fingers and pain in his shoulders and upper arms. The pain later progressed to involve his knees and ankles. The pain was severe enough that it had affected his ability to function. He had seen Dr. Soria, and an initial steroid injection gave him only temporary benefit. He then took prednisone at 20 mg daily for 1 week, which did give him some relief. Within 2 days after stopping it, he was having severe pain again. He had subsequently restarted prednisone at 10 mg daily, and it did seem to be helping a little. He also had an emergency room visit on 08/26/2015. His evaluation included a CBC which showed moderately severe anemia, hemoglobin 9.5 g and hematocrit 31%. The red cell indices were normal. The white blood cell count was 6800 and the platelet count was normal at 203,000. Chem profile showed borderline renal function BUN 21 and creatinine 1.2 mg/dL. The liver enzymes were normal. Albumin was low at 2.9 g/dL with the calculated serum globulin 4.0 g/dL. Chest x-ray showed slight increased left lateral lower lung zone pleural thickening, effusion, or overlying soft tissue artifact. Clinically, he was felt to have some component of congestive heart failure, and at that time he did start diuretic therapy with furosemide. He had a noncontrast chest CT for follow-up of a pulmonary nodule on 08/30/2015. That study showed a 7 mm left upper lobe nodule which appeared stable from a previous study in March 2015. There was evidence of chronic emphysema. Left upper lobe interstitial fibrosis and honeycombing also appeared stable. An incompletely included left upper pole renal lesion was felt to most likely represent a cyst, though ultrasound was suggested for confirmation. His subsequent evaluation included CBC showing slight improvement in the hemoglobin to 10.7 g with hematocrit 34.9%. The white count was normal at 7700 and platelet count was normal at 187,000. The uncorrected reticulocyte count was 3.1%, but with normal haptoglobin and LDH levels. Sedimentation rate was minimally elevated at 15 mm/hr with CRP also just mildly elevated at 1.730 mg/dL. Comprehensive metabolic profile showed slightly low albumin at 3.2 g/dL. Renal function was stable and liver enzymes were normal. Protein electrophoresis was normal. The free light chain assay did show a slightly elevated kappa/lambda ratio at 3.39. LIANE screen was negative. RA titer was less than 10.0 and the IgG anti-CCP was normal. A tick fever panel also was negative. He was then seen by a lawn mower operator, and he was diagnosed with seronegative rheumatoid arthritis. He initially was placed back on higher dose prednisone, and he was started on treatment with Xeljanz. He subsequently tapered the prednisone. On 11/19/15 his fell and he attempted to catch her. In the process he sustained an L3 compression fracture. He then continued to have low back pain. MRI of the lumbar spine on 11/19/2015 showed a subacute 20% burst compression fracture at L3 with only mild impingement upon the ventral thecal sac. There was evidence of moderate central canal stenosis at L2-L3 and at L3-L4 with inferolateral recess stenosis also. There was no severe neural foraminal stenosis noted. There were right hemilaminectomy defects at the L4-L5 and the L5-S1 levels. There was significant multilevel degenerative disc disease and facet arthropathy, most significant at the L4-L5 level. He underwent a kyphoplasty procedure in February 2016. He initially did report improvement in his back pain, but he subsequently developed some new pain in his right lower back area, which he thought was probably just a pulled muscle. A followup MRI of the lumbar spine on 04/26/2016 showed chronic compression of the L3 vertebral body with post vertebroplasty changes. There was slightly more compression from the prior study. There were new acute to subacute compression fractures involving the L1 and L2 superior endplates. There was moderate spinal canal narrowing at the L3-L4 disc space. Repeat chest CT on 04/26/2016 showed stable 7 mm noncalcified nodule in the left upper lobe. There was evidence of interstitial fibrosis with honeycombing in the anteromedial left lung, also stable. There was no mediastinal or hilar adenopathy. On his follow-up visit in May 2016 his blood count was basically unchanged with hemoglobin at 10.9 g, white blood cell count 6200, and platelet count 189,000. The sedimentation rate was normal 13 mm/hour. Comprehensive metabolic profile showed stable renal function with BUN 22 and creatinine 1.3 mg/dL. The alkaline phosphatase was mildly elevated at 169/117 IU/L. Serum iron studies show transferrin saturation normal at 42%, but the ferritin was relatively low at 45 ng/mL. Further studies from 06/29/2016 showed his B-12 level at 1353 pg/mL. Repeat protein electrophoresis showed normal pattern with no monoclonal protein detected. The free kappa light chain was elevated at 65.71 mg/L with the kappa/lambda ratio elevated 3.60. He underwent bone marrow aspiration/biopsy on 07/12/2016. The cellularity was increased, estimated at 95-100%. There was no evidence of an infiltrative process. There were just rare dyspoietic changes in the red cells. Blasts were estimated at 1%. Plasma cells were also just 1%. Iron stores were noted to be absent. The chromosome analysis was normal, and the FISH panel for MDS was unrevealing. With those findings, I did opt to give him parenteral iron replacement with infusions of Injectafer on 07/26/2016 and 08/02/2016. His followup CBC in August showed his hemoglobin unchanged at 11.[address] Truong had seen him for a follow-up visit on 11/30/2016. At that point his CBC was stable with hemoglobin 11.8 g. Sedimentation rate was normal at 11 mm/hour. He had decline in renal function with increase in BUN to 37 and creatinine to 1.8 mg/dL. Dr Truong had suspected that it might be associated with diuretic therapy, as he was having ongoing problems with lower extremity edema. He then had nephrology consultation with Dr. Maurice Pearson in [place]. He underwent renal biopsy on 01/29/2017. 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 Other findings included segmental and global glomerulosclerosis, mild interstitial fibrosis and tubular atrophy, severe arteriolosclerosis, and mild arteriolar hyalinosis. The [place] red stain was noted to be negative for amyloid. Immunofluorescence staining showed a preponderance of kappa light chain (1-2+) with negative to trace lambda light chain. The immunofluorescence studies for IgG subtypes showed segmental positive staining for IgG1 and IgG2, but negative for PLA2R, IgG3, and IgG4. He was seen for follow-up visit here on 02/22/2017. His hemoglobin at that point was 9.8 g with a mildly elevated sedimentation rate at 24 mm/hour. His BUN was 28 with creatinine 1.4 mg/dL. Protein electrophoresis showed increased alpha-1 and alpha-2 globulins, consistent with acute phase reactive process. The free light chain assay showed elevated kappa free light chain at 80.65 mg/L with elevated kappa/lambda ratio at 2.79. His 24-hour urine showed a total protein excretion of 144 mg, with no monoclonal protein detectable by urine protein electrophoresis. With those findings together with the renal biopsy results, there was concern about the possibility of monoclonal gammopathy with renal significance, and he was referred to [facility] for further evaluation. He had nephrology consultation with Dr. Brett Graff at [facility] in March 2017, and he was then seen by Dr. Adam Woods on 05/18/2017. Myeloma was felt to be unlikely. An additional amyloid stain was requested on the bone marrow, and that came back negative. He also underwent cardiac evaluation at [facility], but I did not receive any of those reports. I had seen him for a follow-up visit on 06/11/2017. His clinical status appeared stable, though his protein electrophoresis showed a faint band in the gamma region which appeared to show free kappa light chain specificity. It was too small to quantitate. The free light chain assay continued to show elevated kappa free light chain at 90.18 mg/L with elevated kappa/lambda ratio at 3.55. At that point he was continuing pain management with Dr. Galdamez. His repeat laboratory studies from 10/31/2017 included CBC showing further decline in the hemoglobin to 8.9 g with white blood cell count low at 2700 and platelet count mildly decreased at 96,000. Sedimentation rate was just minimally elevated at 19 mm/hour. Chem profile showed stable renal function with BUN 23 and creatinine 1.5 mg/dL. Protein electrophoresis showed monoclonal paraprotein identified is free kappa light chain measuring 0.44 g/dL. The free light chain assay showed further increase in the free kappa light chain to 111.08 mg/L with kappa/lambda ratio increased to 4.59. With those changes he underwent repeat bone marrow aspiration/biopsy on 12/06/2017. The marrow was 100% cellular. There was limited megakaryocyte dyspoiesis. There was no significant dyserythropoiesis noted. Plasma cells were not increased. Blasts were estimated at 1.0%. Iron stores were noted to be absent. The FISH panel for myeloma was positive for the IGH/CCND1 (11;14) fusion and loss of distal IGH. The FISH panel for MDS was positive for deletion of PTPRT(chromosome 20q). The standard chromosome analysis showed deletion in the long arm of chromosome 20 in 50% of cells and normal male chromosome complement in the remaining 50%. 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 IPSS-R calculated to 3.0, low risk. Based on the monoclonal gammopathy and the 11;14 fusion, early myeloma was also possible. He began transfusion support in December 2017. As his baseline erythropoietin level was low relative to the anemia at 59 mIU/mL, he began a trial of therapy with Procrit 40,000 U weekly on 01/17/2018. During subsequent follow-up he required additional transfusions on 01/25/2018 and on 02/22/2018. At that point the Procrit dosage was increased to 60,000 U weekly. His repeat CBC on 03/21/2018 showed hemoglobin back down to 7.3 g with white blood cell count 1300 and platelet count 103,000. The absolute neutrophil count was 700. Differential reported 42% nucleated RBCs and 1% blasts. He was given another transfusion of 2 units of PRBC. During that time he also was evaluated with a Foundation One Heme study. There were no actionable mutations identified. Repeat bone marrow aspiration/biopsy on 03/25/2018 again showed hypercellular marrow at 100% cellularity. There was again evidence of chromosome 20q deletion by FISH and by the standard chromosome analysis. Plasma cells and blasts were both estimated at 2%. He then proceeded with a trial of therapy with 5-azacytidine, cycle 1 beginning on 03/28/2018. It was administered subcutaneously for 7 days. As expected, there was further decline in his blood counts after starting the 5-azacytidine. His cycle 2 was delayed pending hematologic recovery. During that time he did undergo placement of Port-A-Cath venous access device. He remained transfusion dependent. He was then able to continue with cycle 2 of 5-azacytidine on 05/15/2018. During subsequent followup his blood counts again declined. On 06/04/2018 he was admitted to the hospital with hypotension. His ANC was 400. He was not febrile, but he was having diarrhea. He began treatment with Neupogen and he was given broad-spectrum antibiotic coverage. His blood cultures remained negative. During the hospitalization his platelet count dropped to less than 20,000, but he did not have any evidence of bleeding tendency, and he did not require platelet transfusion. He did receive a transfusion of PRBC. He was discharged on 06/13/2018. His hemoglobin was adequate at 10.0 g. His ANC was still low, but he was not febrile. Platelet count was 23,000. During follow-up, his treatment remained on hold due to persistent neutropenia and thrombocytopenia, and during subsequent followup he remained transfusion dependent. He underwent repeat bone marrow aspiration/biopsy on 10/31/2018. The marrow was noted to be hypercellular for age, approximately 50-70%, but with trilineage dyspoiesis. Myeloblasts were noted to be increased at 3.2%. Plasma cells were also noted to be increased at 5-10%. There was focally increased reticulin fibrosis present and there was markedly increased storage iron. The FISH panel for MDS was unrevealing, but the chromosome analysis showed a deletion 12 P. Overall, the findings were consistent with myelodysplastic syndrome with multilineage dysplasia and they were suggestive of low-level involvement by a plasma cell neoplasm. With those findings, we opted to continue with supportive care measures, including transfusion support, as the likelihood of benefit with further treatment with a hypomethylating agent appeared to be low. During this time his ferritin level had been gradually increasing. As of 11/04/2018, it was up to 1402 ng/mL, and he then started treatment with Jadenu. He had significant GI side effects at the initial dosage of 1440 mg daily, and it subsequently was decreased to 720 mg daily. His other medical illnesses include dyslipidemia, coronary artery disease, COOPD, and GERD. He underwent a quadruple bypass following myocardial infarction in 2001. 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 His only other surgery was the lumbar hemilaminectomy, which was done in 1984. He has a history of smoking at least a pack of cigarettes daily for more than 50 years. INTERIM HISTORY: In February 2019 he had presented with melanotic stools. He was seen by Dr. Kaur. His EGD on 03/18/2019 was unrevealing. The melena resolved with conservative treatment measures, which included platelet pheresis and PRBC transfusion. On 05/01/2019 he was admitted to the hospital with recurrence of GI bleeding. He was again managed conservatively. At that point the Jadenu was discontinued. During subsequent follow-up his hemoglobin had stabilized just above transfusion threshold. He continued to have severe neutropenia and thrombocytopenia, and he also was noted to have a small percentage of circulating blasts. He had a repeat bone marrow aspiration/biopsy on 06/17/2019. The marrow was hypercellular, estimated at 90 to 100%. Blasts had increased to 6 to 8% of the marrow cellularity. There was marked trilineage dyspoiesis. Iron stores were increased without significantly increased ring sideroblasts. There were just rare scattered plasma cells estimated 0.8% of the total cellularity. A cytogenetic study was requested but apparently not performed by the reference laboratory. The FISH panel for MDS on the specimen was unrevealing. However, a specimen was also sent to [facility] pathology services for a Myeloseq Molecular Diagnostic study. A variety of variants were detected, including an IDH1 mutation. Mr Thakkar was seen by Dr Woods for consultation of the MDS. Per patient report, there was nothing he could offer us . Mr Thakkar continues to receive supportive care with transfusions and platelet pheresis as needed. His last transfusion service was 2 units on 09/26/2019. Platelets were last given per our records was 09/19/2019. He is accompanied by his today. She states he has had osteporosis treatment in the past and tolerated it well. He is requesting platelets today as his platecount is 16,000. He is not currently having symptoms of bleeding but is concerned because he had a platelet count of 23,000 in ER yesterday. He is concerned that he will redevelop bleeding as he had had it in the last 3 weeks or so. He denies any new pain today. He states he has read that the Prolia will lower his blood counts. I did discuss with him that we are monitoring his blood counts 2-3 times a week now and are monitoring them closely. He is agreeable to proceed with the Prolia. Past Medical History: Chronic obstructive pulmonary disease Coronary artery disease Dyslipidemia Gastroesophageal reflux disease Past Surgical History: Egd Flu Vaccine [id number] in [address] kaur in 2018 Nerve abalation in 2019 Prevnar 13 in 2017 Flu Vaccine [id number] Lot [id number] in 2017 PCV 13 (Prevnar 13) in 2015 Repair/graft of iliac artery aneurysm in 2012 Quadruple corornary artery bypass in 2001 Back Surgery in 1984 Allergies: No Known Allergies. Medications: Atorvastatin Calcium 1 Tablet (of 40 mg) Oral daily Bumex 1 Tablet (of 2 mg) Oral daily PRN Calcium 1 (600 mg) Capsule Oral daily Carvedilol 1 Tablet (of 12.5 mg) Oral daily Duragesic-50 1 Patch(es) (of 50 mcg/hr) Patch 72 Hr Transdermal q 72 hours Hydrocodone-Acetaminophen 1 Tablet (of 10-325 mg) Oral t.i.d. PRN levoFLOXacin 1 Tablet (of 500 mg) Oral daily PRN Pantoprazole Sodium 1 (40 mg) Tablet, enteric coated Oral daily Potassium Chloride ER 2 Tablet (of 10 meq) Capsule, controlled release Oral daily Senna Plus 2 Capsule (of 50-8.6 mg) Oral daily Family History: Mr. Thakkar's mother at age 62: congestive heart failure. Mr. Thakkar's father at age 82: Cancer. Mr. Thakkar has 1 brother who is : congestive heart failure. He has 1 sister who is : cancer. Father at age 82 with urothelial cancer. A sister at age 52 with stomach cancer. His mother of heart failure at age 62, and a brother of heart failure at age 73. He also had diabetes. Social History: Mr. Thakkar is and he is retired. He is a daily smoker who has smoked 1.0 pack/day for 50 years. He is an active drinker.He consumes 1 day/week. He has indicated exposure to the following products: cigarettes. Mr. Thakkar reports the following support systems: lives with spouse, significant other, family, or friends, lives in own house, supportive family/friends willing to assist with needs, and adequate transportation available for expected visits. His diet consists of regular meals. He indicates his activity level as: daily activities. He has a history of smoking for more than 50 years, currently a little more than a pack per day. He drinks alcohol very infrequently. 1.25 packs per day . Review Of Symptoms: Constitutional Denies fevers, chills, night sweats, excessive fatigue or weight loss. Chronic back pain. Weak in general but some better than last week. He had blood yesterday in ER. Allergic/Immunologic No reactions. Eyes Denies significant visual changes. No diplopia. No amaurosis. ENMT Denies changes in hearing, sore throat, mouth sores, difficulty or changes in swallowing ability, and/or sinus drainage. Endocrine No diabetes, thyroid disease or hormone replacement. Denies hot flashes or night sweats. Hematologic/Lymphatic Denies easy bruising or bleeding. The patient denies any tender or palpable lymph nodes. Respiratory Stable dyspnea on exertion. Denies chest pain, cough or hemoptysis. Denies orthopnea. Cardiovascular Denies anginal chest pain, palpitations or orthopnea. Gastrointestinal Denies nausea, vomiting, diarrhea, GI bleeding, or constipation currently. Denies change in bowel habits and/or stool color, no heartburn or early satiety. Genitourinary (M) Denies hematuria, dysuria, increased frequency, urgency, hesitancy or incontinence. Musculoskeletal Denies joint pain, swelling or redness. No decreased range of motion. Integumentary Denies chronic rashes, inflammation, ulcerations or skin changes. Neurologic Denies headache, blurred vision, and no areas of focal weakness or numbness. Normal gait. No new sensory problems. Psychiatric Denies insomnia, depression, omar or mood swings. Vital Signs: Performed on Sep 29, 2019 10:03 Height - 76.00 in Weight - 244.6 lbs (LOW) BSA - 2.41 sq.m BMI - 29.77 Temperature - 98.1 F (LOW) Pulse - 82 /min Respiration - 19 /min BP - 120/76 mm(hg) O2 Sat - 98 % Pain - 5,2 - Ambulatory/capable of all self-care, unable to perform any work activities. Up and about more than 50% of waking hours. (ECOG) Physical Examination: Constitutional Alert, oriented, no acute distress. Skin pink, warm and dry. Head Normocephalic; atraumatic. Eyes Conjunctivae and sclerae are clear and without icterus. Pupils are reactive and equal. Neck Supple without masses or thyromegaly. No jugular venous distension. Respiratory Lungs are clear to auscultation bilaterally. Cardiovascular Regular rate and rhythm of heart without murmurs,clicks, gallops or rubs. Back/Spine Non-tender to palpation. Extremities No visible deformities, no cyanosis, clubbing or edema. Musculoskeletal No tenderness or swelling, normal range of motion without obvious weakness. Integumentary No rashes or lesions. Neurologic No sensory or motor deficits, normal cerebellar function, gait assisted with walker. Psychiatric Alert and oriented times three. Coherent speech. Verbalizes understanding of our discussions today. Laboratory:Test performed on Sep 29, 2019 08:45 WBC 2.2 10 3/uL Manual Bands % 1.0 % RBC 3.36 10 6/uL HGB 10.1 g/dL Manual Lymphs % 54 % Atypical Lymphs % 8.0 % HCT 33.1 % MCV 98.5 fL MCH 30.1 pg MCHC 30.5 g/dL RDW 16.9 % Myelocytes % 2.0 % Platelet Count 16 10 3/cmm MPV 12.2 fL Smudge Cells 1+ Anisocytosis 1+ CBC Slide Review Slide Review Perform Macrocytosis Trace Poikilocytosis Trace Manual Bands Abs 0.0 10 3/cmm Manual Neutrophils Abs 0.5 10 3/cmm Manual Lymphocytes Abs 1.4 10 3/cmm Test performed on Sep 24, 2019 07:25 Manual Eosinophils Abs 0.0 10 3/cmm Test performed on Sep 22, 2019 07:15 Sodium 139 mmol/L Potassium 3.9 mmol/L Chloride 104 mmol/L CO2 23 mmol/L Anion Gap 15.9 Glucose 129 mg/dL BUN 28 mg/dL Creatinine 1.0 mg/dL Cr Clearance (Est) 94.9900 mL/min Calcium 8.3 mg/dL Manual Monos % 1.0 % Manual Basos % 0.0 % NRBC % 22.2 % Manual Monocytes Abs 0.0 10 3/cmm Manual Basophils Abs 0.0 10 3/cmm Test performed on Sep 19, 2019 07:00 Metamyelocytes % 1.0 % Polychromasia Trace Tear Drop Cells 1+ Test performed on Sep 17, 2019 06:52 Neutrophils 0.30 10 3/uL Lymphocytes 0.6 10 3/uL Monocytes 0.8 10 3/uL Eosinophils 0.0 10 3/uL Basophils 0.0 10 3/uL Neutrophil % 17.1 % Lymphocyte % 36.6 % Monocyte % 43.4 % Eosinophil % 0.0 % Basophils % 0.0 % Test performed on Sep 12, 2019 08:15 Protein, Total 5.9 g/dL Albumin 3.6 g/dL Globulin 2.3 g/dL Bilirubin, Total 0.8 mg/dL ALT (SGPT) 13 U/L AST (SGOT) 21 U/L Alkaline Phosphatase 110 IU/L Test performed on July 15, 2019 08:20 LDH (Total) 409 U/L Test performed on Jun 12, 2019 08:15 Ferritin 1244 ng/mL Iron 166 mcg/dL Iron Binding Capacity (TIBC) 183 mcg/dl % Iron Saturation 90.7 % UIBC < 17 mcg/dL Test performed on Jun 05, 2019 06:45 Ovalocytes 1+ Impression: 1. Patient with pancytopenia, initially presenting with moderately severe anemia. 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 His IPSS-R calculated to 3.0, low risk. 2. As of December 2017 he had become transfusion dependent. 3. He also has kappa light chain monoclonal gammopathy. Based on the bone marrow findings from 10/31/2018 he likely has early stage myeloma. 4. He developed transfusion dependent iron overload. 5. During follow-up he developed persistent lower extremity edema and chronic kidney disease. 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 There was also evidence of glomerulosclerosis and severe arteriolosclerosis. The immunofluorescence showed a preponderance of kappa light chain staining, 1-2+ versus negative to trace staining for lambda light chain. The [place] red stain for amyloid was negative. 6. His management has been further complicated by traumatic vertebral compression fracture for which he underwent kyphoplasty in February 2016. His other medical illnesses include: 7. Dyslipidemia, currently off statin therapy. 8. Coronary artery disease with previous coronary artery bypass surgery. 9. He has had suspected congestive heart failure. 10. He has previously undergone repair of iliac artery aneurysm. 11. COPD. 12. GERD. 13. Nicotine dependence (cigarettes). He began a trial of Procrit 40,000 U weekly on 01/17/2018. During subsequent follow-up he remained transfusion dependent. As of 02/22/2018 the Procrit dosage was increased to 60,000 U weekly, but still with no evidence of response. 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 Both plasma cells and blasts were estimated at 2%. On 03/28/2018 he began a trial of therapy with 5-azacytidine. It was administered subcutaneously for 7 days. During subsequent follow-up, there was further decline in his blood counts, as expected. His 2nd cycle of treatment was delayed. As of 05/15/2018 his blood counts had recovered to baseline. He remained transfusion dependent, and he continued to have very marginal performance status. At that point he continued with cycle 2 of 5-azacytidine. During that time he had undergone placement of portacath venous access device. During followup his blood counts again declined. On 06/04/2018 he was admitted with hypotension in association with pancytopenia. He did not have fever, and his blood cultures remained negative. He did show some recovery with neupogen, antibiotic coverage, and other supportive measures. During subsequent follow-up his neutrophil count and platelet count have remained low. He continued to have poor performance status, and he remained transfusion dependent. His further treatment remained on hold. Repeat bone marrow aspiration/biopsy on 10/31/2018 showed mildly increased cellularity, estimated at 50-70%, but with trilineage dyspoiesis. Blasts were slightly increased at 3.2%. Plasma cells were also mildly increased, estimated at 5-10% of the cellularity. The FISH panel for MDS was unrevealing, but the cytogenetic study did show deletion 12 P. 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 With those findings he continued symptomatic/supportive care. During follow-up he has remained transfusion dependent. He also has severe neutropenia and thrombocytopenia. He has had several episodes of GI bleeding, felt to be most likely upper GI, though with unrevealing EGD. Those episodes have been managed conservatively. It was suspected that the Jadenu may have been a contributing factor, and it was discontinued. Since then he has had no further GI bleeding, and his hemoglobin/hematocrit levels have remained just above transfusion threshold. He continues to have severe neutropenia and thrombocytopenia, though without fever and with no bleeding manifestations other than easy bruising. He was noted to have a small percentage of circulating blasts. His repeat bone marrow aspiration/biopsy showed hypercellular marrow estimated at 90 to 100% cellularity. The blast percentage had increased to 6-8%. There were just scattered plasma cells estimated at less than 1% of the marrow cellularity. The FISH panel for MDS on the specimen was unrevealing. 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 Mr Thakkar was found to have a mean femoral bone density score of -2.4 on dexa screening on 08/15/2019. He will proceed with Prolia today. Plan: 1. Proceed with Prolia 60 mg subcutaneous for osteoporsis with a recent mean [place] score [place] -2.4 [place] density [place] [place] 2. Platelet phersis for platelet count of 16,[address] Truong's authorization. No bleeding present currently but his platelet count was 25,000 yesterday in ER per patient. (23,000 per lab report). 3. Recheck CBC, Typenex and iron studies with next scheduled lab draw. 4. Plan for repeat Prolia and office visit is 6 months but return as scheduled for MDS followup. 5. The patient and family were informed of potential side effects of Prolia ( a RANK ligand inhibitor) per drug information from [email or web address] to include but not limited to nausea/vomiting, rash, fatigue, dizziness, hypophosphatemia, hypokalemia, hypomagnesemia, constipation, diarrhea, anemia, bone pain, myalgia, dyspnea, fever, cough, osteonecrosis of the jaw, hypocalcemia, cystitis and site reactions, such as infection, redness, swelling. They were instructed how to reach the provider monitoring analyst if questions or concerns arise. Signed By: Eriberto Call-, [facility] Eduardo Truong MD <<Signature on File>>
[2019-09-29] MEDS: diphenhydrAMINE 25 mg Capsule PO (13:29)
[2019-10-01 08:38] LABS: Hematocrit 31.1 % (42.0-52.0); Hemoglobin 9.6 g/dL (11.7-16.6); Lymphocytes # 0.6 10^3/uL (0.8-4.8); Lymphocytes % 33.7 %; Mean Corpuscular HGB Conc 30.9 g/dL (30.0-36.0); Mean Corpuscular Hemoglobin 31.1 pg (28.0-34.0); Mean Corpuscular Volume 100.6 fL (80-94); Monocytes # 0.7 10^3/uL (0.2-0.9); Monocytes % 40.4 %; Neutrophils % 19.7 %; Nucleated Red Blood Cells # 0.3 /100WBC; Nucleated Red Blood Cells % 16.3 %; Red Blood Count 3.09 10^6/uL (4.1-5.3); Red Cell Distribution Width 17.4 % (12.1-15.1); White Blood Count 1.8 10^3/uL (4.0-10.0)
[2019-10-01 10:27] LABS: Slide Review Slide Review Perform
[2019-10-01 10:30] LABS: Neutrophils # 0.35 10^3/uL (1.8-7.7); Platelet Count 18 10^3/cmm (130-400)
[2019-10-03 08:51] LABS: Hematocrit 30.4 % (42.0-52.0); Hemoglobin 9.2 g/dL (11.7-16.6); Lymphocytes # 0.6 10^3/uL (0.8-4.8); Lymphocytes % 32.6 %; Mean Corpuscular HGB Conc 30.3 g/dL (30.0-36.0); Mean Corpuscular Hemoglobin 30.9 pg (28.0-34.0); Mean Platelet Volume 11.5 fL (7.4-10.4); Monocytes # 0.7 10^3/uL (0.2-0.9); Neutrophils % 18.3 %; Nucleated Red Blood Cells # 0.3 /100WBC; Nucleated Red Blood Cells % 17.1 %; Red Blood Count 2.98 10^6/uL (4.1-5.3); Red Cell Distribution Width 17.5 % (12.1-15.1); White Blood Count 1.8 10^3/uL (4.0-10.0)
[2019-10-03 09:25] LABS: Platelet Count 10 10^3/cmm (130-400)
[2019-10-03 09:26] LABS: Neutrophils # 0.32 10^3/uL (1.8-7.7); Slide Review Slide Review Perform
[2019-10-03 14:34] VITALS: BP 126/54; PULSE 68; RESP 18; TEMP 36.6; O2SAT 97
[2019-10-03] MEDS: diphenhydrAMINE 25 mg Capsule PO (15:10)
[2019-10-03] MEDS: acetaminophen 325 mg Tablet 650 MG PO (15:18)
[2019-10-03 15:23] VITALS: BP 126/54; PULSE 68; RESP 18; TEMP 36.5; O2SAT 97
[2019-10-03 15:43] VITALS: BP 114/76; RESP 18; TEMP 36.1
[2019-10-06 08:23] LABS: Hematocrit 21.3 % (42.0-52.0); Mean Platelet Volume 11.2 fL (7.4-10.4); Red Blood Count 2.13 10^6/uL (4.1-5.3); Red Cell Distribution Width 17.4 % (12.1-15.1); White Blood Count 2.5 10^3/uL (4.0-10.0)
[2019-10-06 08:30] LABS: Slide Review Slide Review Perform
[2019-10-06 08:33] LABS: Hemoglobin 6.4 g/dL (11.7-16.6); Platelet Count 13 10^3/cmm (130-400)
[2019-10-06 08:48] LABS: Absolute Segmented Neutrophil 0.5 10/cmm (1.6-7.1); Corrected White Blood Count 2.2 10^3/cmm (4.8-10.8); Lymphocytes 54 %; Lymphocytes Absolute 1.6 10^3/cmm (1.2-3.4); Segmented Neutrophils 19 %; Total Cells Counted 100 (0-100)
[2019-10-06 08:49] LABS: Anisocytosis 2+; Macrocytosis Trace; Microcytosis Trace; Ovalocytes Trace; Poikilocytosis 1+; Smudge Cells 1+
[2019-10-06 08:50] LABS: Platelet Estimate Decreased (Normal)
[2019-10-06 08:52] LABS: Absolute Neutrophil 0.5 10^3/cmm (1.4-6.5); Blastocytes 10 % (0-0)
[2019-10-06 08:58] LABS: Anion Gap 10.4 (5-19); Blood Urea Nitrogen 25 mg/dL (8-23); Calcium 7.4 mg/dL (8.5-10.5); Carbon Dioxide 23 mmol/L (22-29); Chloride 109 mmol/L (98-107); Glucose 122 mg/dL (65-115); Osmolality Calculated 284 mOsm/kg (285-295); Potassium 4.4 mmol/L (3.5-5.1); Sodium 138 mmol/L (136-145)
[2019-10-06 10:25] VITALS: BP 111/75; PULSE 92; RESP 18; TEMP 36.6; O2SAT 98
[2019-10-06 10:40] VITALS: BP 114/75; PULSE 83; RESP 18; TEMP 36.4; O2SAT 98
[2019-10-06 13:55] VITALS: BP 114/76; PULSE 80; RESP 18; TEMP 37.1; O2SAT 98
[2019-10-06 14:10] VITALS: BP 112/78; PULSE 80; RESP 18; TEMP 37.1; O2SAT 98
[2019-10-07 08:16] LABS: Hematocrit 21.6 % (42.0-52.0); Hemoglobin 6.7 g/dL (11.7-16.6); Lymphocytes # 0.6 10^3/uL (0.8-4.8); Lymphocytes % 28.6 %; Mean Corpuscular Hemoglobin 29.8 pg (28.0-34.0); Mean Platelet Volume 11.5 fL (7.4-10.4); Monocytes # 0.9 10^3/uL (0.2-0.9); Monocytes % 43.9 %; Neutrophils % 20.4 %; Nucleated Red Blood Cells # 0.3 /100WBC; Nucleated Red Blood Cells % 14.8 %; Red Blood Count 2.25 10^6/uL (4.1-5.3); Red Cell Distribution Width 16.7 % (12.1-15.1)
[2019-10-07 08:30] LABS: Anion Gap 10.4 (5-19); Blood Urea Nitrogen 32 mg/dL (8-23); Calcium 8.1 mg/dL (8.5-10.5); Carbon Dioxide 24 mmol/L (22-29); Chloride 109 mmol/L (98-107); Glucose 111 mg/dL (65-115); Osmolality Calculated 286 mOsm/kg (285-295); Potassium 4.4 mmol/L (3.5-5.1); Sodium 139 mmol/L (136-145)
[2019-10-07 08:46] LABS: Platelet Count 18 10^3/cmm (130-400)
[2019-10-07 08:47] LABS: Slide Review Slide Review Perform
== END 2019-10-07 10:00 | disposition home or self-care (01) ==
LOC: ONCMED 07:37
PROVIDERS: Nurse Practitioner; PCP Electrodiagnostic Medicine; Visit Provider Internal Medicine Medical Oncology
DX: M81.0 Age-related osteoporosis without current pathological fracture (principal); D46.A Refractory cytopenia with multilineage dysplasia; D47.2 Monoclonal gammopathy; R60.0 Localized edema; N18.9 Chronic kidney disease, unspecified; N26.9 Renal sclerosis, unspecified; E83.111 Hemochromatosis due to repeated red blood cell transfusions; E78.5 Hyperlipidemia, unspecified; I25.10 Atherosclerotic heart disease of native coronary artery without angina pectoris; J44.9 Chronic obstructive pulmonary disease, unspecified; K21.9 Gastro-esophageal reflux disease without esophagitis; F17.210 Nicotine dependence, cigarettes, uncomplicated; Z95.1 Presence of aortocoronary bypass graft
CPT/HCPCS: 36415; 36430; 80048; 85007; 85025; 86850; 86900; 86920; 96372; 99214; J0897; J1940; J7050; P9037; P9040; P9058

== ENCOUNTER 2019-10-07 10:02 | Inpatient (IN) | payer MEDICARE, OTHER, SELFPAY ==
[2019-10-07] VITALS (20 sets, daily range): BP systolic 108–153; BP diastolic 57–84; PULSE 69–104; RESP 12–22; TEMP 36.2–37.2; O2SAT 95–100; BMI 30.4
--- NOTE | 2019-10-07 10:21 | XR_ITS ---
WS: [id number] EXAM: AP CHEST: PORTABLE UPRIGHT DATE OF EXAM: 10/07/2019, 1042 hours COMPARISON: Chest x-ray from 03/04/2019. HISTORY: Patient is 74 years old with dyspnea and cough. FINDINGS: The cardiac silhouette is normal in size. The mediastinal contours are similar. Postop sternotomy banding again seen. The top band has undergone failure, also noted on prior imaging. Left subclavian port remains in place with the catheter ending in the SVC region. Ectasia to the aorta suggesting hyp ertension.. The pulmonary vascularity is normal. Slight chronic lung changes seen. Lungs are sligh tly hyperinflated. No infiltrate is seen. There is no effusion or pneumothorax. No acute bony abnor mality is seen. Old right posterior T4 and lateral T5 and T6 rib fracture seen. XR/XR chest 1V portable [id number] IMPRESSION: Chronic lung changes. No acute pulmonary disease.
--- NOTE | 2019-10-07 10:21 | ECG_ITS ---
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 Measurements Intervals [place] Rate: 97 P: -30 [place]: 132 QRS: -20 QRSD: 92 T: 65 QT: 346 QTc: 441 Interpretive Statements SINUS RHYTHM WITH OCCASIONAL SUPRAVENTRICULAR PREMATURE COMPLEXES POSSIBLE LEFT ATRIAL ENLARGEMENT LOW QRS VOLTAGE [QRS DEFLECTION < 0.5/1.0 mV IN LIMB/CHEST LEADS] POSSIBLE ANTERIOR MYOCARDIAL INFARCTION , PROBABLY OLD [30 ms Q WAVE IN V3/V4, OR R < 0.2 mV IN V4] Compared to ECG 03/05/2019 05:46:48 Sinus arrhythmia no longer present ST (T wave) deviation no longer present Myocardial infarct finding still present Electronically Signed On 10-07-2019 13:26:19 CDT by Cristobal Garrett M.D. [id number]
[2019-10-07 10:37] LABS: Hematocrit 21.3 % (42.0-52.0); Hemoglobin 6.6 g/dL (11.7-16.6); Lymphocytes # 0.6 10^3/uL (0.8-4.8); Lymphocytes % 26.9 %; Mean Corpuscular Hemoglobin 29.9 pg (28.0-34.0); Mean Corpuscular Volume 96.4 fL (80-94); Mean Platelet Volume 11.6 fL (7.4-10.4); Monocytes % 42.7 %; Neutrophils % 21.1 %; Nucleated Red Blood Cells # 0.3 /100WBC; Nucleated Red Blood Cells % 14.1 %; Red Blood Count 2.21 10^6/uL (4.1-5.3); Red Cell Distribution Width 16.6 % (12.1-15.1); White Blood Count 2.3 10^3/uL (4.0-10.0)
--- NOTE | 2019-10-07 10:39 | W.ED.GIBLEED ---
HPI - GI Bleed General: Chief complaint: GI Bleed Stated complaint: sent by dr truong for blood Time Seen by Provider: 10/07/19 10:12 History of Present Illness: HPI Narrative: 74-year-old male presents emergency room after having blood drawn this morning at the direction of Dr. Truong who usually sees him for myelodysplastic syndrome. They called him back his hemoglobin was 6.7 directed him to the emergency room he is weak and lethargic he has been getting chest pain with minimal exertion which for which she is taken nitro with relief of his chest pain. He has had this in the past him over the last. Over the last 3 days he had black tarry stools. 6 weeks ago he had an EGD done here at [facility] [place] was supposed of a colonoscopy as well but they were not able to do it. He denies any bright red blood per rectum or any hematemesis. MD complaint: blood streaked stool Onset (ago): day(s) Severity: moderate Relieving factors: rest Exacerbating factors: movement and other (Exertion) Context: history of GI bleed and other (Myelo dysplastic syndrome) Associated symptoms: Denies abdominal pain, chills, easy bruising, epistaxis, fever(s), headache(s), malaise, nausea, other bleeding, poor appetite, rash, syncope, vomiting or weakness Review of Systems Const: Denies: fever(s), chills or malaise ENMT: Denies: epistaxis Card: Denies: syncope GI: Denies: abdominal pain, nausea or vomiting Skin/Breast: Denies: rash Neuro: Denies: headache(s) Naif/Lymph: Denies: easy bruising [facility] PFSH: Medical History (Updated 10/08/19 @ 07:37 by Wali Caceres DO) CAD (coronary artery disease) CHF (congestive heart failure) Chronic kidney disease (CKD) stage G2/A3, mildly decreased glomerular filtration rate (GFR) between 60-89 mL/min/1.73 square meter and albuminuria creatinine ratio greater than 300 mg/g COPD (chronic obstructive pulmonary disease) DJD (degenerative joint disease) GERD (gastroesophageal reflux disease) Hypercholesterolemia Iron overload Myelodysplastic syndrome Myocardial infarction Nicotine dependence Pancytopenia Port-A-Cath in place Surgical History (Updated 10/07/19 @ 12:49 by Jnenifer Nolan DO) H/O circumcision H/O esophagogastroduodenoscopy 03/18/2019: Normal History of abdominal aortic aneurysm (AAA) repair History of iliac artery aneurysm repair History of back surgery History of bone marrow biopsy History of hemilaminectomy 1985 History of prior ablation treatment Nerve ablation Hx of CABG x 4 vessel, in 2001 Hx of cataract surgery 12/07 Status post colonoscopy Family History Other Cancer Diabetes Heart disease Denies family history of Anesthesia complication Bleeding disorder Social History (Updated 10/07/19 @ 12:50 by Jennifer Nolan DO) Smoking and tobacco status: current every day smoker cigarettes Packs smoked per day: 1.25 Alcohol intake: former Former alcohol use details: occasional former use Substance/Drug Use: never Household members: spouse Marital status: Current occupational status: retired Physical Exam Const: COMMON NORMALS: no acute distress GENERAL APPEARANCE: cooperative and comfortable ORIENTATION/CONSCIOUSNESS: Yes awake, Yes oriented to person, Yes oriented to place and Yes oriented to time HENMT: COMMON NORMALS: normocephalic and atraumatic HEAD & SCALP: normocephalic and atraumatic Eye: COMMON NORMALS: Equal, round and reactive pupils present, EOMs intact bilaterally, conjunctivae normal and no scleral icterus CONJUNCTIVA: Yes conjunctivae normal PUPIL: Yes Equal, round and reactive pupils present Neck/C-Spine: COMMON NORMALS: full ROM, no lymphadenopathy, supple and no JVD Resp: COMMON NORMALS: normal respiratory effort, No retractions, No use of accessory muscles and clear to auscultation bilaterally AUSCULTATION: clear to auscultation bilaterally Cardio: COMMON NORMALS: no JVD, regular rate, regular rhythm and No murmurs present (Cardio) RATE: regular rate RHYTHM: regular rhythm GI: COMMON NORMALS: Soft to palpation and No hepatosplenomegaly present AUSCULTATION: Yes normoactive bowel sounds PALPATION: Yes Soft to palpation, No Tenderness to palpation present (GI), No Guarding due to palpation present (GI) and Yes No hepatosplenomegaly present Extremity: COMMON NORMALS: normal to inspection, capillary refill normal, no clubbing, cyanosis or edema, no calf tenderness and no pedal edema Neuro: SENSORIUM/ORIENTATION: Yes oriented to person, Yes oriented to place and Yes oriented to time Skin: COMMON NORMALS: no rashes or lesions noted GENERAL SKIN EXAM: no rashes or lesions noted Course Vital Signs: Vital signs: Vital Signs Temperature 98.1 F 10/08/19 07:11 Pulse Rate 96 10/08/19 07:11 Respiratory Rate 22 H 10/08/19 07:11 Blood Pressure 135/75 10/08/19 07:11 Pulse Oximetry 98 10/08/19 07:11 MDM - GI Bleed MDM Narrative: Medical decision making narrative: Patient at this point is in rather dire straits he is essentially reliant on transfusions of blood and platelets. He has quite a bit of blasts afraid that he may be going to some form of leukemia. Discussed with Dr. Nolan she will be admitting the patient and consulting with Dr. Truong. Lab Data: Labs: Lab Results 10/07/19 10/07/19 10/07/19 Range/Units 07:37 10:33 10:33 WBC 2.3 L (4.0-10.0) 10^3/ uL RBC 2.21 L (4.1-5.3) 10^6/u L Hgb 6.6 L (11.7-16.6) g/dL Hct 21.3 L (42.0-52.0) % MCV 96.4 H (80-94) fL MCH 29.9 (28.0-34.0) pg MCHC 31.0 (30.0-36.0) g/dL RDW 16.6 H (12.1-15.1) % Plt Count 18 L* (130-400) 10^3/c mm MPV 11.6 H (7.4-10.4) fL Neut % (Auto) 21.1 % Lymph % (Auto) 26.9 % [place] % (Auto) 42.7 % Eos % (Auto) 0.0 % Baso % (Auto) 0.0 % Neut # (Auto) 0.48 L* (1.8-7.7) 10^3/u L Lymph # (Auto) 0.6 L (0.8-4.8) 10^3/u L [place] # (Auto) 1.0 H (0.2-0.9) 10^3/u L Eos # (Auto) 0.0 (0.0-0.8) 10^3/u L Baso # (Auto) 0.0 (0.0-0.1) 10^3/u L Nucleated RBC % (a uto) 14.1 % Nucleated RBCs # 0.3 /100WBC PT 14.60 (12.1-14.9) SECO NDS INR 1.11 (0.8-1.2) APTT 26.7 (23.9-36.7) SECO NDS Sodium (136-145) mmol/L Potassium (3.5-5.1) mmol/L Chloride (98-107) mmol/L Carbon Dioxide (22-29) mmol/L Anion Gap (5-19) BUN (8-23) mg/dL Creatinine (0.7-1.2) mg/dL GFR Calculation Glucose (65-115) mg/dL Calculated Osmolal ity (285-295) mOsm/k g Calcium (8.5-10.5) mg/dL Total Bilirubin (0.15-1.2) mg/dL AST (0-40) U/L ALT (0-41) U/L Alkaline Phosphata se (40-130) IU/L Total Protein (6.6-8.7) g/dL Albumin (3.5-5.2) g/dL Globulin (1.3-4.6) g/dL TSH (0.27-4.20) uIU/ mL Blood Type B Positive Rho(D) Type Positive Antibody Screen Negative Crossmatch See Detail 10/07/19 10/07/19 Range/Units 10:33 10:33 WBC (4.0-10.0) 10^3/ uL RBC (4.1-5.3) 10^6/u L Hgb (11.7-16.6) g/dL Hct (42.0-52.0) % MCV (80-94) fL MCH (28.0-34.0) pg MCHC (30.0-36.0) g/dL RDW (12.1-15.1) % Plt Count (130-400) 10^3/c mm MPV (7.4-10.4) fL Neut % (Auto) % Lymph % (Auto) % [place] % (Auto) % Eos % (Auto) % Baso % (Auto) % Neut # (Auto) (1.8-7.7) 10^3/u L Lymph # (Auto) (0.8-4.8) 10^3/u L [place] # (Auto) (0.2-0.9) 10^3/u L Eos # (Auto) (0.0-0.8) 10^3/u L Baso # (Auto) (0.0-0.1) 10^3/u L Nucleated RBC % (a uto) % Nucleated RBCs # /100WBC PT (12.1-14.9) SECO NDS INR (0.8-1.2) APTT (23.9-36.7) SECO NDS Sodium 137 (136-145) mmol/L Potassium 4.1 (3.5-5.1) mmol/L Chloride 108 H (98-107) mmol/L Carbon Dioxide 21 L (22-29) mmol/L Anion Gap 12.1 (5-19) BUN 33 H (8-23) mg/dL Creatinine 0.9 (0.7-1.2) mg/dL GFR Calculation Not Reportable Glucose 128 H (65-115) mg/dL Calculated Osmolal ity 283 L (285-295) mOsm/k g Calcium 7.7 L (8.5-10.5) mg/dL Total Bilirubin 0.8 (0.15-1.2) mg/dL AST 23 (0-40) U/L ALT 14 (0-41) U/L Alkaline Phosphata se 85 (40-130) IU/L Total Protein 5.4 L (6.6-8.7) g/dL Albumin 3.2 L (3.5-5.2) g/dL Globulin 2.2 (1.3-4.6) g/dL TSH 3.04 (0.27-4.20) uIU/ mL Blood Type Rho(D) Type Antibody Screen Crossmatch Discharge Plan Discharge Patient Disposition: Admitted As Inpatient Admit Provider: Jennifer Nolan Clinical Impression: Myelodysplastic syndrome, COPD (chronic obstructive pulmonary disease), CAD (coronary artery disease), CHF (congestive heart failure), Acute renal failure (ARF), Anemia, GI bleed, Nicotine dependence Condition: Stable Interventions: ED Discharge Assessment Last Done: 10/07/19 12:30 ED Charges Last Done: 10/07/19 12:30 Discharge Date/Time: 10/07/19 12:30 Coding Level of Care Code ED Employee Benefits Coordinator for Chg Fwd Exam Comprehensive
--- NOTE | 2019-10-07 10:47 | PC.NURSE ---
portable xray at bedside
[2019-10-07 10:50] LABS: INR 1.11 (0.8-1.2)
[2019-10-07 10:51] LABS: Partial Thromboplastin Time 26.7 SECONDS (23.9-36.7)
[2019-10-07 10:53] LABS: Neutrophils # 0.48 10^3/uL (1.8-7.7); Platelet Count 18 10^3/cmm (130-400)
[2019-10-07 10:54] LABS: Slide Review Slide Review Perform
[2019-10-07 10:58] LABS: Alanine Aminotransferase 14 U/L (0-41); Albumin Level 3.2 g/dL (3.5-5.2); Alkaline Phosphatase 85 IU/L (40-130); Anion Gap 12.1 (5-19); Aspartate Amino Transferase 23 U/L (0-40); Blood Urea Nitrogen 33 mg/dL (8-23); Calcium 7.7 mg/dL (8.5-10.5); Carbon Dioxide 21 mmol/L (22-29); Chloride 108 mmol/L (98-107); Globulin 2.2 g/dL (1.3-4.6); Glucose 128 mg/dL (65-115); Osmolality Calculated 283 mOsm/kg (285-295); Potassium 4.1 mmol/L (3.5-5.1); Sodium 137 mmol/L (136-145); Total Bilirubin 0.8 mg/dL (0.15-1.2); Total Protein 5.4 g/dL (6.6-8.7)
--- NOTE | 2019-10-07 12:39 | PM.HP ---
Providers/Chief Complaint Admitting Physician: Jennifer Nolan DO Primary Care Provider: Edvin Soria DO Chief Complaint: sent by dr corley for blood History of Present Illness Gabriel Thakkar is a 74 year old male with a past medical history of coronary artery disease, hypertension, GERD, myelodysplastic syndrome and COPD that presented to the emergency department for concern of anemia and thrombocytopenia. Patient reports that he has had dark and melanotic stools for the past 2 days. He stated that he has had symptoms of this in the past. He reports that he was diagnosed with an upper GI bleed in February, had EGD at that time which did not show any evidence of active bleeding on upper endoscopy. Patient reports no fevers at home, no recent medication changes other than increase in fentanyl dosing. He reports that he has not had any sick contacts, no fevers, no exposure to anyone under investigation are positive for COVID-19. Patient states he has chronic anemia and thrombocytopenia and requires frequent transfusions. Had platelets and blood yesterday and again on Sunday. Patient reports that he has had increased fatigue and shortness of breath. He stated that his shortness of breath is worse with exertion whenever his blood counts are low. He stated that he does have intermittent chest pain whenever his blood counts are low, improved with nitroglycerin. He did take nitroglycerin once today. Not currently having any chest pain or shortness of breath at time of exam but feels generalized weakness and fatigue. Patient was seen and evaluated in the emergency department noted to have concern for myelodysplastic syndrome and upper GI bleed with anemia and thrombocytopenia as well as severe neutropenia. Patient was admitted for further evaluation and treatment. Review of Systems Const: Reports: malaise; Denies: fever(s) or chills Eyes: Denies: change in vision ENMT: Denies: nasal congestion Card: Reports: chest pain (Intermittent chest pain, resolved at time of exam), edema and dyspnea on exertion; Denies: palpitations Resp: Reports: dyspnea and productive cough (Chronic productive cough, no acute changes); Denies: hemoptysis GI: Reports: nausea, vomiting and melena; Denies: abdominal pain, diarrhea, constipation or hematochezia : Denies: dysuria or hematuria Musc: Denies: extremity pain or muscle cramps Skin/Breast: Denies: rash or new lesions Neuro: Denies: headache(s) or dizziness Psych: Denies: anxiety or depression Endo: Denies: polyuria or hot flashes Naif/Lymph: Reports: easy bruising and easy bleeding Medications/Allergies Home Medications Medication Instructions Recorded Confirmed Last Taken Type Calcium 600 + D(3) 1 tab PO DAILY 03/05/19 10/07/19 10/06/19 History atorvastatin 40 mg PO DAILY 03/05/19 10/07/19 10/06/19 History pantoprazole 40 mg PO BIDWM 30 Days #60 tab 05/03/19 10/07/19 10/06/19 Rx carvedilol 3.125 mg tablet 3.125 mg PO BID tab 09/09/19 10/07/19 10/06/19 History furosemide 40 mg tablet See Rx Instructions .ROUTE 09/09/19 10/07/19 09/28/19 History .COMPLEX tab hydrocodone 10 mg-acetaminophen 1 tab PO QID PRN tab 09/09/19 10/07/19 10/06/19 History 325 mg tablet fentanyl 1 patch TRANSDERMAL Q72H 09/28/19 10/07/19 10/07/19 History denosumab [Prolia] See Rx Instructions .ROUTE .COMPLEX 10/07/19 10/07/19 Unknown History metolazone See Rx Instructions .ROUTE .COMPLEX 10/07/19 10/07/19 Unknown History naloxone [Narcan] See Rx Instructions .ROUTE .COMPLEX 10/07/19 10/07/19 Unknown History nitroglycerin 0.4 mg SUBLINGUAL PRN 10/07/19 10/07/19 Unknown History potassium chloride 20 meq PO DAILY 10/07/19 10/07/19 10/06/19 History sennosides-docusate sodium [Senna 2 tab PO DAILY 10/07/19 10/07/19 10/06/19 History Plus] Allergies Allergy/AdvReac Type Severity Reaction Status Date / Time No Known Allergies Allergy Verified 10/07/19 10:11 PFSH Acute PFSH: Medical History CAD (coronary artery disease) CHF (congestive heart failure) Chronic kidney disease (CKD) stage G2/A3, mildly decreased glomerular filtration rate (GFR) between 60-89 mL/min/1.73 square meter and albuminuria creatinine ratio greater than 300 mg/g COPD (chronic obstructive pulmonary disease) DJD (degenerative joint disease) GERD (gastroesophageal reflux disease) Hypercholesterolemia Iron overload Myelodysplastic syndrome Myocardial infarction Nicotine dependence Pancytopenia Port-A-Cath in place Surgical History (Updated 10/07/19 @ 12:49 by Jennifer Nolan DO) H/O circumcision H/O esophagogastroduodenoscopy 03/18/2019: Normal History of abdominal aortic aneurysm (AAA) repair History of iliac artery aneurysm repair History of back surgery History of bone marrow biopsy History of hemilaminectomy 1985 History of prior ablation treatment Nerve ablation Hx of CABG x 4 vessel, in 2001 Hx of cataract surgery 12/07 Status post colonoscopy Family History Other Cancer Diabetes Heart disease Denies family history of Anesthesia complication Bleeding disorder Social History (Updated 10/07/19 @ 12:50 by Jennifer Nolan DO) Smoking and tobacco status: current every day smoker cigarettes Packs smoked per day: 1.25 Alcohol intake: former Former alcohol use details: occasional former use Substance/Drug Use: never Household members: spouse Marital status: Current occupational status: retired Vitals/I&O/Wt Last Vital Signs Temp 97.5 F L 10/07/19 12:30 Pulse 87 10/07/19 12:30 Resp 13 10/07/19 12:30 BP 116/71 10/07/19 12:30 Pulse Ox 99 10/07/19 12:30 10/06/19 10/07/19 10/07/19 22:59 06:59 14:59 Intake Total 0 / 0 Balance 0 / 0 Weight last 48 hrs Weight 110.677 kg Physical Exam Const: COMMON NORMALS: patient oriented x3 and alert GENERAL APPEARANCE: cooperative and ill appearing ORIENTATION/CONSCIOUSNESS: Yes awake, Yes oriented to person, Yes oriented to place and Yes oriented to time HENMT: COMMON NORMALS: normocephalic and atraumatic HEAD & SCALP: normocephalic and atraumatic Eye: COMMON NORMALS: Equal, round and reactive pupils present PUPIL: Yes Equal, round and reactive pupils present Neck/C-Spine: COMMON NORMALS: supple GENERAL: Yes normal visual inspection Resp: COMMON NORMALS: normal respiratory effort and clear to auscultation bilaterally EFFORT & INSPECTION: Yes able to speak in complete sentences AUSCULTATION: clear to auscultation bilaterally, no rhonchi and no wheezes Cardio: COMMON NORMALS: regular rate, regular rhythm and No murmurs present (Cardio) RATE: regular rate RHYTHM: regular rhythm OTHER: Prior sternotomy incision over the anterior chest, well-healed GI: COMMON NORMALS: Soft to palpation INSPECTION: No abdominal distension AUSCULTATION: Yes normoactive bowel sounds PALPATION: Yes Soft to palpation OTHER: Mild tenderness to palpation in the left and right lower quadrant, no guarding or rigidity Extremity: COMMON NORMALS: no calf tenderness NARRATIVE EXTREMITY EXAM: 3+ pitting edema in the lower extremities bilaterally Neuro: COMMON NORMALS: patient oriented x3, CN's II-XII intact bilaterally, moves all extremities and no focal motor deficits SENSORIUM/ORIENTATION: Yes alert, Yes oriented to person, Yes oriented to place and Yes oriented to time SPEECH: speech normal Psych: COMMON NORMALS: mental status grossly normal and cooperative Skin: NARRATIVE SKIN EXAM: Bruising over the upper extremities bilaterally, petechiae in the eyelids bilaterally Data : 10/07/19 10:33 10/07/19 10:33 CXR: I personally reviewed and interpreted this imaging study as follows: Radiologist's impression: FINDINGS: The cardiac silhouette is normal in size. The mediastinal contours are similar. Postop sternotomy banding again seen. The top band has undergone failure, also noted on prior imaging. Left subclavian port remains in place with the catheter ending in the SVC region. Ectasia to the aorta suggesting hypertension.. The pulmonary vascularity is normal. Slight chronic lung changes seen. Lungs are slightly hyperinflated. No infiltrate is seen. There is no effusion or pneumothorax. No acute bony abnormality is seen. Old right posterior T4 and lateral T5 and T6 rib fracture seen. XR/XR chest 1V portable [id number] IMPRESSION: Chronic lung changes. No acute pulmonary disease. A&P Assessment and plan (1) GI bleed: With acute on chronic anemia Type and screen performed 2units pRBCs ordered in the ED Continue Protonix IV every 12 hours Platelets also ordered in the ED, will continue with irradiated platelets Patient also with myelodysplastic syndrome, hematology consulted, Dr. Corley, appreciate recommendations and assistance in patient's care We will hold off on EGD and colonoscopy at this time due to patient's immunocompromise status with neutropenia Clear liquid diet Hold any type of anticoagulation or antiplatelet medication Status: Acute (2) Anemia: Acute on chronic anemia, received blood on Sunday and again yesterday, continue with 2 units packed red blood cells as ordered in the ED Continue to monitor serial H&H Myelodysplastic syndrome, followed by Dr. Corley. Appreciate consultation Status: Acute (3) Myelodysplastic syndrome: Patient with myelodysplastic syndrome has been followed by Dr. Corley and has been seen in consultation at [facility]. Unfortunately patient was not a candidate for further therapy at that time and remains on intermittent transfusions Status: Acute Additional A&P Information Severe thrombocytopenia: Platelets ordered in the ED Neutropenia: Continue on broad-spectrum antibiotics and blood cultures ordered and pending. Reverse isolation precautions Coronary artery disease: Patient is not on aspirin or Plavix due to above. He is followed closely by Dr. Tavares. 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 Attestations Medical Necessity Statement*: Patient requires hospitalization due to GI bleed with myelodysplastic syndrome severe neutropenia and severe thrombocytopenia as well as acute on chronic anemia. Expected stay greater than 2 midnights Coding Level of Care Code Acute Editor Map for [facility] Fwd Exam Comprehensive Diagnoses GI bleed K92.2 Anemia D64.9 Myelodysplastic syndrome D46.9
[2019-10-07 13:08] LABS: Thyroid Stimulating Hormone 3.04 uIU/mL (0.27-4.20)
[2019-10-07] MEDS: pantoprazole 40 mg SDV IVP (13:39)
[2019-10-07] MEDS: atorvastatin 40 mg Tablet PO (14:35)
[2019-10-07] MEDS: HYDROcodone-acetaminophen 10-325 mg Tablet 1 TAB PO (17:15)
[2019-10-07] MEDS: carvedilol 3.125 mg Tablet PO (17:15)
[2019-10-07] MEDS: piperacillin-tazobactam 3.375 GM in sodium chloride 0.9% (plus) 50 ML IV (17:15)
[2019-10-07 17:17] LABS: Add Urine Microscopic? YES; Bilirubin Urine Neg (NEGATIVE); Blood Urine 2+ (Negative); Glucose Urine UA Norm (Normal); Ketones Urine Negative (Negative); Leukocyte Esterase Urine Negative (Negative); Nitrate Urine Negative (Negative); Protein Urine Neg (Negative); Urine Appearance Hazy (CLEAR); Urine Color Yellow (Yellow); Urobilinogen Urine Norm (Negative); pH Urine 7 (5-7)
--- NOTE | 2019-10-07 17:27 | P.CONIM_ITS ---
Providers/Reason For Consult Consulting Physican/Specialty*: This is a 74-year-old man with myelodysplastic syndrome and associated pancytopenia, including transfusion dependent anemia and thrombocytopenia as well as severe neutropenia. He also has suspected myeloma involving the bone marrow, but that was presumed to be asymptomatic. He had presented in 2015 with anemia and joint pain. He was initially thought to have seronegative rheumatoid arthritis. He had only temporary improvement with steroid therapy. His initial bone marrow aspiration/biopsy in June 2016 was hypercellular but otherwise nondiagnostic. His clinical course during that time was complicated by a traumatic burst fracture involving the L3 vertebral body. His repeat bone marrow biopsy in November 2017 showed evidence of chromosome 20q deletion, consistent with myelodysplastic syndrome. He ultimately began a trial of therapy with a hypomethylating agent (5-azacytidine) in March 2018. He received a second cycle in April 2018. Both were complicated by neutropenia requiring hospitalization. He has since then been on supportive care. His most recent bone marrow aspiration/biopsy, from 06/17/2019, showed hypercellular marrow at 90 to 100%. Blasts had increased to 6 to 8% of the marrow cellularity. A Myeloseq Molecular diagnostic study done at [facility] showed a variety of variants, including an IDH1 mutation. He subsequently had a follow-up visit there with Dr. Woods, but they did not have any specific treatment to offer. The recommended options were trial of therapy with a hypomethylating agent in combination with venetoclax or just continuing supportive care measures. During follow-up he has remained transfusion dependent. As of 2 weeks ago we had started platelet pheresis together with his PRBC transfusion, as he had recurrence of melanotic stools and worsening anemia. His significant other indicates that last week he been doing pretty well. However, on Sunday morning he had recurrence of melena. His hemoglobin yesterday had dropped back to 6.4 g with his platelet count at 13,000. He was given 2 units PRBC and a platelet pheresis. This morning he felt very weak and shaky. His hemoglobin was still low at 6.6 g, and with the ongoing GI bleeding, I had recommended that he go to the hospital for inpatient therapy. Reason for Consult*: Pancytopenia with GI bleeding Attending Physician: Jennifer Nolan DO Primary Care Provider: Edvin Soria DO History of Present Illness History of Present Illness Gabriel Thakkar is a 74 year old male Review of Systems Narrative: He feels generally weak and shaky. Appetite is poor. He is not having fever or night sweats. Const: Denies: fever(s), night sweats or other (no hot flashes) ENMT: Denies: throat pain, odynophagia, hoarseness, oral sores, change in hearing or tinnitus Card: Reports: other (He has chest pain Calreticulin his blood count is low. He does get relief with nitroglycerin. He has had refractory swelling in the lo wer extremities. ); Denies: palpitations, orthopnea or leg pain with exertion Resp: Reports: other (He has shortness of breath when his blood count is low. He has a smoker's cough.); Denies: wheezing, pain on inspiration or hemoptysis GI: Reports: other (He has had nausea and occasional vomiting. He has been having melanotic stools.); Denies: abdominal pain, dysphagia, heartburn, diarrhea or constipation : Reports: other (His urine has been dark. He is not having difficulty voiding.); Denies: difficulty urinating, dysuria, urinary frequency, urinary urgency, urinary hesitancy, urinary incontinence or hematuria Musc: Reports: other (He has had chronic back pain associated with the vertebral compression fracture. The pain is adequately managed with medication.); Denies: neck pain, joint pain, joint stiffness or muscle cramps Skin/Breast: Denies: rash or new lesions Neuro: Denies: headache(s), numbness in extremities or sensory changes Psych: Denies: anxiety or depression Meds/Allergies Home Medications and Allergies Home Medications Medication Instructions Recorded Confirmed Last Taken Type Calcium 600 + D(3) 1 tab PO DAILY 03/05/19 10/07/19 10/06/19 History atorvastatin 40 mg PO DAILY 03/05/19 10/07/19 10/06/19 History pantoprazole 40 mg PO BIDWM 30 Days #60 tab 05/03/19 10/07/19 10/06/19 Rx carvedilol 3.125 mg tablet 3.125 mg PO BID tab 09/09/19 10/07/19 10/06/19 History furosemide 40 mg tablet See Rx Instructions .ROUTE 09/09/19 10/07/19 09/28/19 History .COMPLEX tab hydrocodone 10 mg-acetaminophen 1 tab PO QID PRN tab 09/09/19 10/07/19 10/06/19 History 325 mg tablet fentanyl 1 patch TRANSDERMAL Q72H 09/28/19 10/07/19 10/07/19 History denosumab [Prolia] See Rx Instructions .ROUTE .COMPLEX 10/07/19 10/07/19 Unknown History metolazone See Rx Instructions .ROUTE .COMPLEX 10/07/19 10/07/19 Unknown History naloxone [Narcan] See Rx Instructions .ROUTE .COMPLEX 10/07/19 10/07/19 Unknown History nitroglycerin 0.4 mg SUBLINGUAL PRN 10/07/19 10/07/19 Unknown History potassium chloride 20 meq PO DAILY 10/07/19 10/07/19 10/06/19 History sennosides-docusate sodium [Senna 2 tab PO DAILY 10/07/19 10/07/19 10/06/19 History Plus] Allergies Allergy/AdvReac Type Severity Reaction Status Date / Time No Known Allergies Allergy Verified 10/07/19 10:11 Current Medications Current Medications Generic Name Dose Route Start Last Admin Trade Name Freq PRN Reason Stop Dose Admin Hydrocodone Bitart/Acetaminophen 1 tab 10/07/19 13:18 10/07/19 17:15 Tatums 10-325 Mg PO 1 tab QID PRN Administration pain Atorvastatin Calcium 40 mg 10/07/19 13:18 10/07/19 14:35 Lipitor PO 40 mg DAILY ZONIA Administration Carvedilol 3.125 mg 10/07/19 18:00 10/07/19 17:15 Coreg PO 3.125 mg BID ZONIA Administration Fentanyl 1 patch 10/07/19 13:18 10/07/19 13:49 Duragesic 50 Mcg Patch TRANSDERMA Not Given Q72H ZONIA Vancomycin HCl 1,500 mg/ 250 mls @ 166.667 mls/hr 10/07/19 14:30 10/07/19 14:39 Sodium Chloride IV 166.7 mls/hr Q12H ZONIA Administration Protocol Piperacillin Sod/Tazobactam 50 mls @ 12.5 mls/hr 10/07/19 16:00 10/07/19 17:15 Sod 3.375 gm/ Sodium Chloride IV 12.5 mls/hr Q8H ZONIA Administration Protocol Pantoprazole Sodium 40 mg 10/07/19 13:18 10/07/19 13:39 Protonix IVP 40 mg Q12H ZONIA Administration PFSH Acute PFSH: Medical History CAD (coronary artery disease) CHF (congestive heart failure) Chronic kidney disease (CKD) stage G2/A3, mildly decreased glomerular filtration rate (GFR) between 60-89 mL/min/1.73 square meter and albuminuria creatinine ratio greater than 300 mg/g COPD (chronic obstructive pulmonary disease) DJD (degenerative joint disease) GERD (gastroesophageal reflux disease) Hypercholesterolemia Iron overload Myelodysplastic syndrome Myocardial infarction Nicotine dependence Pancytopenia Port-A-Cath in place Surgical History (Updated 10/07/19 @ 12:49 by Jennifer Nolan DO) H/O circumcision H/O esophagogastroduodenoscopy 03/18/2019: Normal History of abdominal aortic aneurysm (AAA) repair History of iliac artery aneurysm repair History of back surgery History of bone marrow biopsy History of hemilaminectomy 1985 History of prior ablation treatment Nerve ablation Hx of CABG x 4 vessel, in 2001 Hx of cataract surgery 12/07 Status post colonoscopy Family History Other Cancer Diabetes Heart disease Denies family history of Anesthesia complication Bleeding disorder Social History (Updated 10/07/19 @ 12:50 by Jennifer Nolan DO) Smoking and tobacco status: current every day smoker cigarettes Packs smoked per day: 1.25 Alcohol intake: former Former alcohol use details: occasional former use Substance/Drug Use: never Household members: spouse Marital status: Current occupational status: retired Vitals/I&O/Wt Last Vital Signs Temp 98.9 F 10/07/19 17:03 Pulse 79 10/07/19 17:03 Resp 18 10/07/19 17:03 BP 127/78 10/07/19 17:03 Pulse Ox 96 10/07/19 17:03 10/07/19 10/07/19 10/07/19 06:59 14:59 22:59 Intake Total 0 / 0 250 / 250 Output Total 225 / 225 Balance 0 / 0 25 / 25 Weight last 48 hrs Weight 110.677 kg Physical Exam Const: ORIENTATION/CONSCIOUSNESS: Yes Other orientation findings (He appears generally weak, but not acutely ill.) HENMT: OTHER: There are no lesions noted in the oral cavity. In particular, there are no mucosal hemorrhages noted. Eye: OTHER: Sclera nonicteric. Conjunctiva clear. Lymph: OTHER: No cervical clavicular or axillar lymphadenopathy. Resp: OTHER: Lungs show slightly coarse breath sounds bilaterally. Cardio: OTHER: Heart rhythm is regular with some premature beats. There is no murmur, gallop, or rub noted. GI: OTHER: Abdomen is soft and nontender. There is no mass or hepatosplenomegaly. There is no inguinal adenopathy. Back/Pelvis: OTHER: There is no spine or CVA tenderness. Extremity: OTHER: There is 3+ lower extremity edema, which is chronic. Neuro: OTHER: There are no focal neurologic deficits. Data Micro: Micro: Microbiology 10/07/19 14:04 Blood Culture - Pr eliminary Blood SPECIMEN [facility] 10/07/19 14:08 Blood Culture - Pr eliminary Blood SPECIMEN [facility] A&P Assessment and plan (1) GI bleed: Status: Acute (2) Anemia: Status: Acute (3) Nicotine dependence: Status: Acute (4) CAD (coronary artery disease): Status: Acute Qualifiers: Coronary Disease-Associated Artery/Lesion type: [place] artery Qualified Code(s): I25.10 - Atherosclerotic heart disease of [place] coronary artery without angina pectoris (5) COPD (chronic obstructive pulmonary disease): Status: Acute Qualifiers: COPD type: unspecified COPD Qualified Code(s): J44.9 - Chronic obstructive pulmonary disease, unspecified (6) Myelodysplastic syndrome: Status: Acute Additional A&P Information Recommendation: The patient has myelodysplastic syndrome with severe pancytopenia. He now has active GI bleeding in association with severe thrombocytopenia. As he is at significant risk for sepsis and other complications, his overall management will be conservative. Initially I would recommend continuing with platelet pheresis on a daily basis and transfusing PRBC as needed to maintain adequate hemoglobin/hematocrit levels. He will need broad-spectrum antibiotic coverage with any evidence of infection. Given his failure to respond to his previous therapy, his overall prognosis is poor. Coding Level of Care Code Acute Body And Frame Man for [facility] Fwd Exam Problem Focused Diagnoses GI bleed K92.2 Anemia D64.9 Nicotine dependence F17.200 CAD (coronary artery disease) I25.10 Coronary Disease-Associated Artery/Lesion type: [place] artery COPD (chronic obstructive pulmonary disease) J44.9 COPD type: unspecified COPD Myelodysplastic syndrome D46.9
[2019-10-07 17:49] LABS: Add Urine Culture? Yes; Bacteria Urine TRACE
--- NOTE | 2019-10-07 19:20 | PC.NURSE ---
PT RECEIVED 2 UNITS OF BLOOD AND IS TRANSFUSING PLATELETS AT THIS TIME. PT STATES HE STILL FEELS WEAK AND FATIGUED HE DID WHEN HE CAME IN. PT TOLERATED WELL.
[2019-10-07] MEDS: ipratropium-albuterol 3 mL Neb INHALATION (20:50)
[2019-10-07] MEDS: nitroglycerin 0.4 mg sublingual Tablet SUBLINGUAL (21:20)
--- NOTE | 2019-10-07 21:44 | ECG_ITS ---
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 Measurements Intervals [place] Rate: 79 P: 14 TX: 170 QRS: -5 QRSD: 92 T: 51 QT: 394 QTc: 453 Interpretive Statements SINUS RHYTHM WITH OCCASIONAL VENTRICULAR PREMATURE COMPLEXES LOW QRS VOLTAGE [QRS DEFLECTION < 0.5/1.0 mV IN LIMB/CHEST LEADS] POSSIBLE ANTERIOR MYOCARDIAL INFARCTION [30 ms Q WAVE IN V3/V4, OR R < 0.2 mV IN V4], PROBABLY OLD Compared to ECG 10/07/2019 10:30:07 Ventricular premature complex(es) now present Myocardial infarct finding still present Electronically Signed On 10-08-2019 20:19:22 CDT by Azar Tavares M.D. [id number]
--- NOTE | 2019-10-07 21:49 | PC.NURSE ---
2117 PATIENT NOTIFIED STAFF THAT HE WAS EXPERIENCING CHEST PAIN AND NEEDED NITRO. NITRO ADMINISTERED SUBLINGUAL AT 2119. PATIENT DESCRIBED PAIN PRESSURE IN THE MIDDLE OF CHEST, NO RADIATION. V/S 121/75 P-85 O2-97%. AT 2122 THE PATIENT STATES THE PAIN HAD RESOLVED. 2139 DR. RENE NOTIFIED IN PERSON OF THE SITUATION. VERBAL ORDERS GIVEN TO HAVE A TROPONIN DRAWN AND AND EKG PERFORMED.
[2019-10-07 22:48] LABS: Troponin(5th) Baseline 21 ng/L (0-15)
[2019-10-07 23:59] LABS: Troponin 5 2HR 24.29 ng/L (0-15); Troponin 5 2HR Delta 3.29 ABS# (0-10)
[2019-10-08] VITALS (38 sets, daily range): BP systolic 93–151; BP diastolic 43–104; PULSE 68–115; RESP 8–24; TEMP 36.5–37; O2SAT 94–100
[2019-10-08] MEDS: piperacillin-tazobactam 3.375 GM in sodium chloride 0.9% (plus) 50 ML IV ×4 (01:00→23:59)
[2019-10-08] MEDS: nitroglycerin 0.4 mg sublingual Tablet SUBLINGUAL ×6 (01:10→07:07)
[2019-10-08] MEDS: pantoprazole 40 mg SDV IVP (01:37)
--- NOTE | 2019-10-08 03:44 | ECG_ITS ---
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 Measurements Intervals [place] Rate: 92 P: -18 NV: 129 QRS: -6 QRSD: 92 T: 56 QT: 381 QTc: 472 Interpretive Statements SINUS RHYTHM WITH OCCASIONAL VENTRICULAR PREMATURE COMPLEXES POSSIBLE LEFT ATRIAL ENLARGEMENT [-0.1mV P WAVE IN V1/V2] LOW QRS VOLTAGE [QRS DEFLECTION < 0.5/1.0 mV IN LIMB/CHEST LEADS] ANTEROSEPTAL MYOCARDIAL INFARCTION [40+ ms Q WAVE IN V1-V4], PROBABLY OLD INTERPRETATION BASED ON A DEFAULT AGE OF 40 YEARS Compared to ECG 10/07/2019 21:51:40 No significant changes Electronically Signed On 10-08-2019 20:26:32 CDT by Azar Tavares M.D. [id number]
[2019-10-08 04:09] LABS: Lymphocytes # 0.7 10^3/uL (0.8-4.8); Lymphocytes % 36.3 %; Mean Corpuscular HGB Conc 31.6 g/dL (30.0-36.0); Mean Corpuscular Hemoglobin 29.4 pg (28.0-34.0); Mean Corpuscular Volume 92.9 fL (80-94); Mean Platelet Volume 11.5 fL (7.4-10.4); Monocytes # 0.6 10^3/uL (0.2-0.9); Monocytes % 32.4 %; Neutrophils % 23.1 %; Nucleated Red Blood Cells # 0.3 /100WBC; Nucleated Red Blood Cells % 14.3 %; Red Blood Count 2.11 10^6/uL (4.1-5.3); Red Cell Distribution Width 17.6 % (12.1-15.1); White Blood Count 1.8 10^3/uL (4.0-10.0)
[2019-10-08 04:34] LABS: Alanine Aminotransferase 13 U/L (0-41); Albumin Level 3.2 g/dL (3.5-5.2); Alkaline Phosphatase 78 IU/L (40-130); Anion Gap 12.1 (5-19); Aspartate Amino Transferase 23 U/L (0-40); Blood Urea Nitrogen 33 mg/dL (8-23); Calcium 7.5 mg/dL (8.5-10.5); Carbon Dioxide 21 mmol/L (22-29); Chloride 111 mmol/L (98-107); Globulin 1.7 g/dL (1.3-4.6); Glucose 117 mg/dL (65-115); Osmolality Calculated 288 mOsm/kg (285-295); Potassium 4.1 mmol/L (3.5-5.1); Sodium 140 mmol/L (136-145); Total Bilirubin 0.9 mg/dL (0.15-1.2); Total Protein 4.9 g/dL (6.6-8.7)
[2019-10-08 04:35] LABS: INR 1.19 (0.8-1.2)
[2019-10-08 04:39] LABS: Troponin 5 6HR 23.99 ng/L (0-15); Troponin 5 6HR Delta 2.99 ng/L (0-12)
--- NOTE | 2019-10-08 05:57 | PC.NURSE ---
THE PATIENT HAS HAD SEVERAL EPISODES OF CHEST PAIN/PRESSURE AND REQUIRED A SINGLE DOSE OF NITRO EACH TIME. THE PATIENT STATES HE IS BLEEDING OUT ON THE INSIDE. HIS STOOLS ARE DESCRIBED WATERY, TARRY, AND NOW WITH STREAKS OF BRIGHT RED BLOOD. STATES HE FEELS WEAKER. HE STATES HE FEELS LIKE HE'S GOING TO GO INTO CARDIAC ARREST FROM NOT ENOUGH BLOOD.
[2019-10-08 06:00] LABS: Hematocrit 19.6 % (42.0-52.0); Hemoglobin 6.2 g/dL (11.7-16.6)
[2019-10-08 06:01] LABS: Neutrophils # 0.42 10^3/uL (1.8-7.7); Platelet Count 25 10^3/cmm (130-400)
[2019-10-08 06:02] LABS: Slide Review Slide Review Perform
--- NOTE | 2019-10-08 07:16 | PC.OT ---
OT Note: Hold pt due to critically low lab values. Will see pt tomorrow for eval as able.
--- NOTE | 2019-10-08 07:25 | ECG_ITS ---
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 Measurements Intervals Louise Rate: 91 P: 36 CO: 144 QRS: 38 QRSD: 90 T: 67 QT: 366 QTc: 450 Interpretive Statements SINUS RHYTHM WITH OCCASIONAL VENTRICULAR PREMATURE COMPLEXES POSSIBLE LEFT ATRIAL ENLARGEMENT [-0.1mV P WAVE IN V1/V2] Compared to ECG 10/08/2019 03:48:57 Myocardial infarct finding no longer present Electronically Signed On 10-08-2019 20:19:30 CDT by Azar Tavares M.D. [email or web address]
--- NOTE | 2019-10-08 07:40 | PC.NURSE ---
pt when arrived this am was complaining of chest pain, Bautista SINGLETARYN from manufacturing supervisor 2nd shift gave nitro at approximately 0700, blood pressure was taken 135/75 heart rate 79. Nurse notified Dr Nolan of nitro given and critical labs that was passed on from Bautista OPERATIONS SUPPORT ANALYST. Pt has had two coffee ground BM'S SINCE 0700. EKG ORDERED DUE TO PT Chest pain and chest pressure along with fatigue. Second set of vitals taken after EKG blood pressure was 129/74, heart rate of 81.
[2019-10-08] MEDS: nitroglycerin 1 gm/inch oint Pkt 0.5 INCH TOPICAL (07:51)
[2019-10-08] MEDS: ondansetron 2 mg/ML SDV 2 mL 4 MG IVP (08:24)
[2019-10-08 08:33] LABS: Fibrinogen 211 mg/dL (174-498)
[2019-10-08 08:44] LABS: Lactate Dehydrogenase 467 U/L (135-225)
--- NOTE | 2019-10-08 09:45 | PM.PN ---
Subjective Subjective: Interval history: Patient seen and evaluated earlier this morning. Reported by nursing to have melanotic stools overnight and vomiting bright red blood this morning. Patient reports abdominal discomfort with melanotic stools. Reported chest pain this morning, given nitroglycerin, EKG ordered and Nitropaste ordered. Vitals/I&O/Wt Last Vital Signs Temp 98.1 F 10/08/19 08:54 Pulse 115 H 10/08/19 08:54 Resp 18 10/08/19 08:54 BP 124/75 10/08/19 08:54 Pulse Ox 99 10/08/19 08:54 10/07/19 10/08/19 10/08/19 22:59 06:59 14:59 Intake Total 550 / 550 50 / 600 0 / 0 Output Total 475 / 475 350 / 350 Balance 75 / 75 50 / 125 -350 / -350 Weight last 48 hrs Weight 82.508 kg Weight 110.677 kg Physical Exam Const: COMMON NORMALS: patient oriented x3 and alert GENERAL APPEARANCE: cooperative, ill appearing and diaphoretic ORIENTATION/CONSCIOUSNESS: Yes awake, Yes oriented to person, Yes oriented to place and Yes oriented to time OTHER: General pallor HENMT: COMMON NORMALS: normocephalic and atraumatic HEAD & SCALP: normocephalic and atraumatic Eye: COMMON NORMALS: Equal, round and reactive pupils present PUPIL: Yes Equal, round and reactive pupils present Neck/C-Spine: COMMON NORMALS: supple GENERAL: Yes normal visual inspection Resp: COMMON NORMALS: normal respiratory effort and clear to auscultation bilaterally EFFORT & INSPECTION: Yes able to speak in complete sentences AUSCULTATION: clear to auscultation bilaterally, no rhonchi and no wheezes Cardio: COMMON NORMALS: regular rhythm and No murmurs present (Cardio) RATE: tachycardic RHYTHM: regular rhythm OTHER: Prior sternotomy incision over the anterior chest, well-healed GI: COMMON NORMALS: Soft to palpation INSPECTION: No abdominal distension AUSCULTATION: Yes normoactive bowel sounds PALPATION: Yes Soft to palpation OTHER: Mild tenderness to palpation in the left and right lower quadrant, no guarding or rigidity Extremity: COMMON NORMALS: no calf tenderness NARRATIVE EXTREMITY EXAM: 3+ pitting edema in the lower extremities bilaterally Neuro: COMMON NORMALS: patient oriented x3, CN's II-XII intact bilaterally, moves all extremities and no focal motor deficits SENSORIUM/ORIENTATION: Yes alert, Yes oriented to person, Yes oriented to place and Yes oriented to time SPEECH: speech normal Psych: COMMON NORMALS: mental status grossly normal and cooperative Skin: NARRATIVE SKIN EXAM: Bruising over the upper extremities bilaterally, petechiae in the eyelids bilaterally Data : 10/08/19 03:46 10/08/19 03:46 Micro: Microbiology 10/07/19 14:04 Blood Culture - Preliminary Blood SPECIMEN COLLECTED 10/07/19 14:08 Blood Culture - Preliminary Blood SPECIMEN COLLECTED A&P Assessment and plan (1) GI bleed: Acute on chronic anemia, given 2 units of blood yesterday, 4 units of blood ordered for today Patient had increased melanotic stools overnight and vomiting blood this morning. Urgent consultation to general surgeon, Dr. Milligan. Appreciate recommendations and assistance in patient's care. Discussed again with Dr. Truong, bridge painter helper. Platelet pheresis ordered for today, 2 units. Transferred to ICU Transition from IV Protonix every 12 hours to Protonix drip Continue on Carafate Potential endoscopy later today, patient is thrombocytopenic, anemic, neutropenic with underlying myelodysplastic syndrome with question of transition to an acute leukemia Status: Acute (2) Anemia: Ordered 4 units of packed red blood cells today Myelodysplastic syndrome, followed by Dr. Truong. Appreciate consultation Status: Acute (3) Myelodysplastic syndrome: Patient with myelodysplastic syndrome has been followed by Dr. Truong and has been seen in consultation at [facility]. Unfortunately patient was not a candidate for further therapy at that time and remains on intermittent transfusions Status: Acute Additional A&P Information Severe thrombocytopenia: 2, single donor platelet pheresis today Neutropenia: Continue on broad-spectrum antibiotics and blood cultures ordered and pending. Reverse isolation precautions Coronary artery disease: Patient is not on aspirin or Plavix due to above. He is followed closely by Dr. Tavares. Nitropaste ordered this morning. EKG repeated, serial troponin without significant change. Chest pain likely due to anemia, continue with transfusion and close monitoring on telemetry Diastolic congestive heart failure: Patient has chronic lower extremity edema is on metolazone and Lasix, hold metolazone and continue on Lasix Chronic compression fractures in the spine: Continue with current pain control, [place] 10-325 mg, morphine IV as needed for pain, continue on recently increased dose of fentanyl patch 50 mcg every 72 hours COPD without acute exacerbation: Respiratory therapy to assess and treat, oxygen per protocol, albuterol PRN DVT ppx: SCDs, no pharmacologic prophylaxis due to anemia and thrombocytopenia Diet: Clear liquid CODE STATUS: DNI/DNR, discussed with patient and his at bedside and he reported that due to his comorbidities and chronic medical condition he does not wish to have any resuscitative measures. Discussion with patient's over the phone today, discussed with her the concern for continued GI bleed and anemia, thrombocytopenia, neutropenia and underlying myelodysplastic syndrome. Discussed with her concern for poor prognosis and critical condition. Patient's verbalized understanding and stated Reggie and I are both concerned he may be nearing the end. Discussed with Mary and she has been allowed to visit her in the hospital due to his critical condition and concern of his critical condition Prognosis: poor Attestations Medical Necessity Statement*: Patient requires transfer to ICU today due to an for upper GI bleed with underlying myelodysplastic syndrome, worsening anemia and continued thrombocytopenia and neutropenia Coding Level of Care Code Acute Senior Counsel for [facility] Fwd Diagnoses GI bleed K92.2 Anemia D64.9 Myelodysplastic syndrome D46.9
--- NOTE | 2019-10-08 10:14 | P.CONIM_ITS ---
Providers/Reason For Consult Consulting Physican/Specialty*: Roger Zarate MD Reason for Consult*: Hematemesis and melanotic stool Attending Physician: Jennifer Nolan DO Primary Care Provider: Edvin Soria DO History of Present Illness History of Present Illness Chief Complaint: I vomited blood History of present illness: Mr. Gabriel Thakkar is a 74 year old male patient is well-known with history of myelodysplastic syndrome and other associated medical comorbidities including coronary artery disease, hypertension, GERD and COPD patient has been under going evaluation and management per Dr. Truong. Presented to the emergency department with melanotic stools over the past few days and back in February he was diagnosed with upper GI bleed and had an EGD at that time that showed no active bleeding, apparently today patient showed evidence of hematemesis and continued to have melanotic stools in the presence of low platelet count, patient was transferred from the floor to the ICU for further care and evaluation and general surgery was consulted for potential in tervention. Platelets are pending and patient currently undergoing blood transfusion in the ICU unit Review of Systems General: Reports: 10 or more systems reviewed and unremarkable except in HPI and below Meds/Allergies Home Medications and Allergies Home Medications Medication Instructions Recorded Confirmed Last Taken Type Calcium 600 + D(3) 1 tab PO DAILY 03/05/19 10/07/19 10/06/19 History atorvastatin 40 mg PO DAILY 03/05/19 10/07/19 10/06/19 History pantoprazole 40 mg PO BIDWM 30 Days #60 tab 05/03/19 10/07/19 10/06/19 Rx carvedilol 3.125 mg tablet 3.125 mg PO BID tab 09/09/19 10/07/19 10/06/19 History furosemide 40 mg tablet See Rx Instructions .ROUTE 09/09/19 10/07/19 09/28/19 History .COMPLEX tab hydrocodone 10 mg-acetaminophen 1 tab PO QID PRN tab 09/09/19 10/07/19 10/06/19 History 325 mg tablet fentanyl 1 patch TRANSDERMAL Q72H 09/28/19 10/07/19 10/07/19 History denosumab [Prolia] See Rx Instructions .ROUTE .COMPLEX 10/07/19 10/07/19 Unknown History metolazone See Rx Instructions .ROUTE .COMPLEX 10/07/19 10/07/19 Unknown History naloxone [Narcan] See Rx Instructions .ROUTE .COMPLEX 10/07/19 10/07/19 Unknown History nitroglycerin 0.4 mg SUBLINGUAL PRN 10/07/19 10/07/19 Unknown History potassium chloride 20 meq PO DAILY 10/07/19 10/07/19 10/06/19 History sennosides-docusate sodium [Senna 2 tab PO DAILY 10/07/19 10/07/19 10/06/19 H istory Plus] Allergies Allergy/AdvReac Type Severity Reaction Status Date / Time No Known Allergies Allergy Verified 10/08/19 10:17 Current Medications Current Medications Generic Name Dose Route Start Last Admin Trade Name Freq PRN Reason Stop Dose Admin Hydrocodone Bitart/Acetaminophen 1 tab 10/07/19 13:18 10/07/19 17:15 Belford 10-325 Mg PO 1 tab QID PRN Administration pain Albuterol/Ipratropium 3 ml 10/07/19 21:00 10/07/19 20:50 Duoneb INHALATION 3 ml Q6H.RESPIRATORY PRN Administration SHORTNESS OF BREATH Atorvastatin Calcium 40 mg 10/07/19 13:18 10/07/19 14:35 Lipitor PO 40 mg DAILY ZONIA Administration Carvedilol 3.125 mg 10/07/19 18:00 10/07/19 17:15 Coreg PO 3.125 mg BID ZONIA Administration Fentanyl 1 patch 10/07/19 13:18 10/07/19 13:49 Duragesic 50 Mcg Patch TRANSDERMA Not Given Q72H ZONIA Vancomycin HCl 1,500 mg/ 250 mls @ 166.667 mls/hr 10/07/19 14:30 10/08/19 05:15 Sodium Chloride IV 166.7 mls/hr Q12H ZONIA Administration Protocol Piperacillin Sod/Tazobactam 50 mls @ 12.5 mls/hr 10/07/19 16:00 10/08/19 07:58 Sod 3.375 gm/ Sodium Chloride IV 12.5 mls/hr Q8H ZONIA Administration Protocol Nitroglycerin 0.4 mg 10/07/19 13:18 10/08/19 07:07 Nitrostat SUBLINGUAL 0.4 mg PRN ZONIA Administration Nitroglycerin 0.5 inch 10/08/19 08:00 10/08/19 07:51 Nitro-Bid TOPICAL 0.5 inch Q6H ZONIA Administration Ondansetron HCl 4 mg 10/07/19 12:27 10/08/19 08:24 Zofran IVP 4 mg Q8H PRN Administration vomiting, or N/V if npo PFSH Acute PFSH: Medical History CAD (coronary artery disease) CHF (congestive heart failure) Chronic kidney disease (CKD) stage G2/A3, mildly decreased glomerular filtration rate (GFR) between 60-89 mL/min/1.73 square meter and albuminuria creatinine ratio greater than 300 mg/g COPD (chronic obstructive pulmonary disease) DJD (degenerative joint disease) GERD (gastroesophageal reflux disease) Hypercholesterolemia Iron overload Myelodysplastic syndrome Myocardial infarction Nicotine dependence Pancytopenia Port-A-Cath in place Surgical History H/O circumcision H/O esophagogastroduodenoscopy 03/18/2019: Normal History of abdominal aortic aneurysm (AAA) repair History of iliac artery aneurysm repair History of back surgery History of bone marrow biopsy History of hemilaminectomy 1985 History of prior ablation treatment Nerve ablation Hx of CABG x 4 vessel, in 2001 Hx of cataract surgery 12/07 Status post colonoscopy Family History Other Cancer Diabetes Heart disease Denies family history of Anesthesia complication Bleeding disorder Social History Smoking and tobacco status: current every day smoker cigarettes Packs smoked per day: 1.25 Alcohol intake: former Former alcohol use details: occasional former use Substance/Drug Use: never Household members: spouse Marital status: Current occupational status: retired Vitals/I&O/Wt Last Vital Signs Temp 98.1 F 10/08/19 08:54 Pulse 115 H 10/08/19 08:54 Resp 18 10/08/19 08:54 BP 124/75 10/08/19 08:54 Pulse Ox 99 10/08/19 08:54 10/07/19 10/08/19 10/08/19 22:59 06:59 14:59 Intake Total 550 / 550 50 / 600 0 / 0 Output Total 475 / 475 350 / 350 Balance 75 / 75 50 / 125 -350 / -350 Weight last 48 hrs Weight 181 lb 14.4 oz Weight 244 lb Physical Exam Narrative: EXAM NARRATIVE: Patient is conscious alert oriented X3 BMI 23 Head and neck examination PERRLA no masses no cervical lymphadenopathy no jaundice Cardiac examination audible S1-S2 no murmurs no gallops no arrhythmias Chest is clear bilateral,abscence of Rhonchi or wheezes,no surgical emphysema Abdominal examination nontender nondistended soft and no signs of peritonitis Data Micro: Micro: Microbiology 10/07/19 14:04 Blood Culture - Pr eliminary Blood SPECIMEN COLLE CHRISTIE 10/07/19 14:08 Blood Culture - Pr eliminary Blood SPECIMEN [facility] A&P Assessment and plan (1) GI bleed: After history taking physical examination and reviewing the chart my recommendation is to repeat a diagnostic EGD in the presence of platelets available at the time of the procedure to transfuse, less likely there will be appreciated findings on repeat EGD as the patient had one back in February yet he could have developed an ulcer or an underlying gastropathy, Shall the patient will a have negative EGD my recommendation is to obtain an enteroscopy/capsule endoscopy for further evaluation of the midgut. Indications risks benefits and alternatives were all discussed with the patient and he did agree to proceed accordingly, informed consent per chart. Thank you for consulting general surgery to participate taking care of Mr. Thakkar Status: Acute Consult Attestations Medical Necessity Statement: Per hospitalist service Time Spent in Patient Care: (>than 50% of time spent in counselling and/or direct pt care on unit) . Coding Level of Care Code Acute And Rescue Fire Fighter Crash Fire for [facility] Fwd Diagnoses GI bleed K92.2
[2019-10-08 11:29] LABS: Hematocrit 20.8 % (42.0-52.0); Hemoglobin 6.5 g/dL (11.7-16.6)
[2019-10-08] MEDS: HYDROcodone-acetaminophen 10-325 mg Tablet 1 TAB PO ×3 (11:38→23:59)
--- NOTE | 2019-10-08 13:10 | ANES.PREANE2 ---
Pre-Anesthetic Assessment Pre-Anesthetic Assessment: Height/Weight: Height 1.91 m Weight 82.508 kg Temp Pulse Resp BP Pulse Ox 98.1 F 77 18 109/66 98 10/08/19 08:54 10/08/19 12:40 10/08/19 12:40 10/08/19 12:40 10/08/19 12:40 Preop Diagnosis: melena Was Beta Melanie taken within 24 hours: N/A Social: Social History: Tobacco and No alcohol Exam: Pre-Anes Outpt Exam: alert, oriented x 3 and regular rate & rhythm Airway: Submandibular: WNL Cervical ROM: WNL MP: 2 Dentition: Full Pulmonary: Pulmonary: COPD Comments: Long smoking hx CV/HEM: CV/HEM: Anemia, Angina (Stable), CAD and HTN Comments: S/P CABG, anemia, myelodysplasia : : None reported Hepatic: Hepatic: None reported GI: GI: GERD Comments: Hematemesis Metabolic: Metabolic: None reported Musc/skel: Musc/skel: None reported Neuropsych: Neuropsych: None reported Anesthetic Plan: ASA status: 4 Anesthesia: MAC Risk of > 500 ml blood loss (7ml/kg in children): No Meds/Allergies Current Medications: Current Medications Generic Name Dose Route Start Last Admin Trade Name Freq PRN Reason Stop Dose Admin Hydrocodone Bitart /Acetaminophen 1 tab 10/07/19 13:18 10/08/19 11:38 Otis 10-325 Mg PO 1 tab QID PRN Administration pain Albuterol/Ipratrop ium 3 ml 10/07/19 21:00 10/07/19 20:50 Duoneb INHALATION 3 ml Q6H.RESPIRATORY P RN Administration SHORTNESS OF CARLYLE TH Atorvastatin Calci um 40 mg 10/07/19 13:18 10/07/19 14:35 Lipitor PO 40 mg DAILY ZONIA Administration Carvedilol 3.125 mg 10/07/19 18:00 10/07/19 17:15 Coreg PO 3.125 mg BID ZONIA Administration Fentanyl 1 patch 10/07/19 13:18 10/07/19 13:49 Duragesic 50 Mcg Patch TRANSDERMA Not Given Q72H ZONIA Vancomycin HCl 1,5 00 mg/ 250 mls @ 166.667 mls/hr 10/07/19 14:30 10/08/19 05:15 Sodium Chloride IV 166.7 mls/hr Q12H ZONIA Administration Protocol Piperacillin Sod/T azobactam 50 mls @ 12.5 mls /hr 10/07/19 16:00 10/08/19 07:58 Sod 3.375 gm/ So dium Chloride IV 12.5 mls/hr Q8H ZONIA Administration Protocol Nitroglycerin 0.4 mg 10/07/19 13:18 10/08/19 07:07 Nitrostat SUBLINGUAL 0.4 mg PRN ZONIA Administration Nitroglycerin 0.5 inch 10/08/19 08:00 10/08/19 07:51 Nitro-Bid TOPICAL 0.5 inch Q6H ZONIA Administration Ondansetron HCl 4 mg 10/07/19 12:27 10/08/19 08:24 Zofran IVP 4 mg Q8H PRN Administration vomiting, or N/V if npo PFSH Anesthesia PFSH: Medical History CAD (coronary artery disease) CHF (congestive heart failure) Chronic kidney disease (CKD) stage G2/A3, mildly decreased glomerular filtration rate (GFR) between 60-89 mL/min/1.73 square meter and albuminuria creatinine ratio greater than 300 mg/g COPD (chronic obstructive pulmonary disease) DJD (degenerative joint disease) GERD (gastroesophageal reflux disease) Hypercholesterolemia Iron overload Myelodysplastic syndrome Myocardial infarction Nicotine dependence Pancytopenia Port-A-Cath in place Surgical History H/O circumcision H/O esophagogastroduodenoscopy 03/18/2019: Normal History of abdominal aortic aneurysm (AAA) repair History of iliac artery aneurysm repair History of back surgery History of bone marrow biopsy History of hemilaminectomy 1985 History of prior ablation treatment Nerve ablation Hx of CABG x 4 vessel, in 2001 Hx of cataract surgery 12/07 Status post colonoscopy Family History Other Cancer Diabetes Heart disease Denies family history of Anesthesia complication Bleeding disorder Social History Smoking and tobacco status: current every day smoker cigarettes Packs smoked per day: 1.25 Alcohol intake: former Former alcohol use details: occasional former use Substance/Drug Use: never Household members: spouse Marital status: Current occupational status: retired Data Anesthesia CBC & Chem 7: 10/08/19 11:06 10/08/19 03:46 Other Labs: Laboratory Results - last 48 hr 10/07/19 10/07/19 10/07/19 07:37 10:33 10:33 WBC 2.3 L RBC 2.21 L Hgb 6.6 L Hct 21.3 L MCV 96.4 H MCH 29.9 MCHC 31.0 RDW 16.6 H Plt Count 18 L* MPV 11.6 H Neut % (Auto) 21.1 Lymph % (Auto) 26.9 [place] % (Auto) 42.7 Eos % (Auto) 0.0 Baso % (Auto) 0.0 Neut # (Auto) 0.48 L* Lymph # (Auto) 0.6 L [place] # (Auto) 1.0 H Eos # (Auto) 0.0 Baso # (Auto) 0.0 Nucleated RBC % (auto) 14.1 Nucleated RBCs # 0.3 PT 14.60 INR 1.11 APTT 26.7 Fibrinogen Sodium Potassium Chloride Carbon Dioxide Anion Gap BUN Creatinine GFR Calculation Glucose Calculated Osmolality Calcium Total Bilirubin AST ALT Alkaline Phosphatase Lactate Dehydrogenase Troponin T Baseline Troponin T 120 Minute Delta Troponin T Troponin T Hi Sens 6Hr Troponin T Hi Sens 6Hr Delta Total Protein Albumin Globulin TSH Urine Color Urine Appearance Urine pH Ur Specific [place] Urine Protein Urine Glucose (UA) Urine Ketones Urine Blood Urine Nitrate Urine Bilirubin Urine Urobilinogen Ur Leukocyte Esterase Urine RBC Urine WBC Ur Squamous Epith Cells Amorphous Sediment Urine Bacteria Blood Type B Positive Rho(D) Type Positive Antibody Screen Negative Crossmatch See Detail 10/07/19 10/07/19 10/07/19 10:33 10:33 16:30 WBC RBC Hgb Hct MCV MCH MCHC RDW Plt Count MPV Neut % (Auto) Lymph % (Auto) [place] % (Auto) Eos % (Auto) Baso % (Auto) Neut # (Auto) Lymph # (Auto) [place] # (Auto) Eos # (Auto) Baso # (Auto) Nucleated RBC % (auto) Nucleated RBCs # PT INR APTT Fibrinogen Sodium 137 Potassium 4.1 Chloride 108 H Carbon Dioxide 21 L Anion Gap 12.1 BUN 33 H Creatinine 0.9 GFR Calculation Not Reportable Glucose 128 H Calculated Osmolality 283 L Calcium 7.7 L Total Bilirubin 0.8 AST 23 ALT 14 Alkaline Phosphatase 85 Lactate Dehydrogenase Troponin T Baseline Troponin T 120 Minute Delta Troponin T Troponin T Hi Sens 6Hr Troponin T Hi Sens 6Hr Delta Total Protein 5.4 L Albumin 3.2 L Globulin 2.2 TSH 3.04 Urine Color Yellow Urine Appearance Hazy A Urine pH 7 Ur Specific [place] 1.010 Urine Protein Neg Urine Glucose (UA) Norm Urine Ketones Negative Urine Blood 2+ H Urine Nitrate Negative Urine Bilirubin Neg Urine Urobilinogen Norm Ur Leukocyte Esterase Negative Urine RBC 10-15 H Urine WBC None Ur Squamous Epith Cells None Amorphous Sediment Not Reportable Urine Bacteria Trace Blood Type Rho(D) Type Antibody Screen Crossmatch 10/07/19 10/07/19 10/07/19 22:00 23:24 23:25 WBC RBC Hgb Hct MCV MCH MCHC RDW Plt Count MPV Neut % (Auto) Lymph % (Auto) [place] % (Auto) Eos % (Auto) Baso % (Auto) Neut # (Auto) Lymph # (Auto) [place] # (Auto) Eos # (Auto) Baso # (Auto) Nucleated RBC % (auto) Nucleated RBCs # PT INR APTT Fibrinogen Sodium Potassium Chloride Carbon Dioxide Anion Gap BUN Creatinine GFR Calculation Glucose Calculated Osmolality Calcium Total Bilirubin AST ALT Alkaline Phosphatase Lactate Dehydrogenase 467 H Troponin T Baseline 21 H Troponin T 120 Minute 24.29 H Delta Troponin T 3.29 Troponin T Hi Sens 6Hr Troponin T Hi Sens 6Hr Delta Total Protein Albumin Globulin TSH Urine Color Urine Appearance Urine pH Ur Specific [place] Urine Protein Urine Glucose (UA) Urine Ketones Urine Blood Urine Nitrate Urine Bilirubin Urine Urobilinogen Ur Leukocyte Esterase Urine RBC Urine WBC Ur Squamous Epith Cells Amorphous Sediment Urine Bacteria Blood Type Rho(D) Type Antibody Screen Crossmatch 10/08/19 10/08/19 10/08/19 03:46 03:46 03:46 WBC 1.8 L RBC 2.11 L Hgb 6.2 L* Hct 19.6 L* MCV 92.9 MCH 29.4 MCHC 31.6 RDW 17.6 H Plt Count 25 L* MPV 11.5 H Neut % (Auto) 23.1 Lymph % (Auto) 36.3 [place] % (Auto) 32.4 Eos % (Auto) 0.0 Baso % (Auto) 0.0 Neut # (Auto) 0.42 L* Lymph # (Auto) 0.7 L [place] # (Auto) 0.6 Eos # (Auto) 0.0 Baso # (Auto) 0.0 Nucleated RBC % (auto) 14.3 Nucleated RBCs # 0.3 PT 15.50 H INR 1.19 APTT Fibrinogen Sodium 140 Potassium 4.1 Chloride 111 H Carbon Dioxide 21 L Anion Gap 12.1 BUN 33 H Creatinine 1.1 GFR Calculation Not Reportable Glucose 117 H Calculated Osmolality 288 Calcium 7.5 L Total Bilirubin 0.9 AST 23 ALT 13 Alkaline Phosphatase 78 Lactate Dehydrogenase Troponin T Baseline Troponin T 120 Minute Delta Troponin T Troponin T Hi Sens 6Hr Troponin T Hi Sens 6Hr Delta Total Protein 4.9 L Albumin 3.2 L Globulin 1.7 TSH Urine Color Urine Appearance Urine pH Ur Specific [place] Urine Protein Urine Glucose (UA) Urine Ketones Urine Blood Urine Nitrate Urine Bilirubin Urine Urobilinogen Ur Leukocyte Esterase Urine RBC Urine WBC Ur Squamous Epith Cells Amorphous Sediment Urine Bacteria Blood Type Rho(D) Type Antibody Screen Crossmatch 10/08/19 10/08/19 10/08/19 03:46 03:46 11:06 WBC RBC Hgb 6.5 L* Hct 20.8 L* MCV MCH MCHC RDW Plt Count MPV Neut % (Auto) Lymph % (Auto) [place] % (Auto) Eos % (Auto) Baso % (Auto) Neut # (Auto) Lymph # (Auto) [place] # (Auto) Eos # (Auto) Baso # (Auto) Nucleated RBC % (auto) Nucleated RBCs # PT INR APTT Fibrinogen 211 Sodium Potassium Chloride Carbon Dioxide Anion Gap BUN Creatinine GFR Calculation Glucose Calculated Osmolality Calcium Total Bilirubin AST ALT Alkaline Phosphatase Lactate Dehydrogenase Troponin T Baseline Troponin T 120 Minute Delta Troponin T Troponin T Hi Sens 6Hr 23.99 H Troponin T Hi Sens 6Hr Delta 2.99 Total Protein Albumin Globulin TSH Urine Color Urine Appearance Urine pH Ur Specific [place] Urine Protein Urine Glucose (UA) Urine Ketones Urine Blood Urine Nitrate Urine Bilirubin Urine Urobilinogen Ur Leukocyte Esterase Urine RBC Urine WBC Ur Squamous Epith Cells Amorphous Sediment Urine Bacteria Blood Type Rho(D) Type Antibody Screen Crossmatch Micro: Microbiology 10/07/19 14:04 Blood Culture - Preliminary Blood SPECIMEN COLLECTED 10/07/19 14:08 Blood Culture - Preliminary Blood SPECIMEN COLLECTED Cardiac Studies: No Data to Display
[2019-10-08] MEDS: sodium chloride 0.9% (100 ml) 100 ML 250 ML (14:22)
[2019-10-08] MEDS: sodium chloride 0.9% (100 ml) 100 ML ×2 (14:24→15:07)
[2019-10-08] MEDS: pantoprazole 40 MG in sodium chloride 0.9% (plus) 100 ML 20 MG IV ×3 (14:26→21:07)
--- NOTE | 2019-10-08 16:19 | PC.RESP ---
SMOKING CESSATION AND PULMONARY REHAB INFORMATION SENT TO PATIENT.
[2019-10-08] MEDS: sucralfate 1 gm/10 mL Oral Liq UDC PO ×2 (18:10→21:08)
[2019-10-08] MEDS: carvedilol 3.125 mg Tablet PO (18:10)
[2019-10-08 18:42] LABS: Hematocrit 24.4 % (42.0-52.0); Hemoglobin 7.4 g/dL (11.7-16.6)
[2019-10-08] MEDS: sodium chloride 0.9% 1,000 ML 30 ML IV (21:09)
[2019-10-09] VITALS (22 sets, daily range): BP systolic 93–118; BP diastolic 57–86; PULSE 64–91; RESP 8–22; TEMP 36.6–37; O2SAT 97–100
[2019-10-09 01:45] LABS: Hematocrit 20.5 % (42.0-52.0); Hemoglobin 6.5 g/dL (11.7-16.6)
[2019-10-09 01:58] LABS: Vancomycin Trough 14.7 ug/mL (10-15)
[2019-10-09] MEDS: sodium chloride 0.9% (100 ml) 100 ML 40 ML (02:56)
[2019-10-09] MEDS: pantoprazole 40 MG in sodium chloride 0.9% (plus) 100 ML 20 MG IV (03:11)
--- NOTE | 2019-10-09 04:00 | PC.NURSE ---
Patient requested to speak to charge nurse Ganga Power RN and myself regarding code status. Patient is alert and oriented x4. Patient verbalized his wishes to be AND. Reassured patient we would honor his wishes.
[2019-10-09 07:28] LABS: Lymphocytes # 0.3 10^3/uL (0.8-4.8); Lymphocytes % 27.4 %; Mean Corpuscular HGB Conc 30.5 g/dL (30.0-36.0); Mean Corpuscular Hemoglobin 28.4 pg (28.0-34.0); Mean Corpuscular Volume 93.3 fL (80-94); Mean Platelet Volume 9.6 fL (7.4-10.4); Monocytes # 0.5 10^3/uL (0.2-0.9); Monocytes % 41.6 %; Neutrophils % 19.5 %; Nucleated Red Blood Cells # 0.3 /100WBC; Nucleated Red Blood Cells % 22.1 %; Platelet Count 31 10^3/cmm (130-400); Red Blood Count 2.25 10^6/uL (4.1-5.3); Red Cell Distribution Width 18.2 % (12.1-15.1); White Blood Count 1.1 10^3/uL (4.0-10.0)
[2019-10-09 07:47] LABS: Alanine Aminotransferase 12 U/L (0-41); Albumin Level 2.8 g/dL (3.5-5.2); Alkaline Phosphatase 65 IU/L (40-130); Anion Gap 10.1 (5-19); Aspartate Amino Transferase 21 U/L (0-40); Blood Urea Nitrogen 34 mg/dL (8-23); Calcium 6.9 mg/dL (8.5-10.5); Carbon Dioxide 21 mmol/L (22-29); Chloride 114 mmol/L (98-107); Globulin 1.8 g/dL (1.3-4.6); Glucose 104 mg/dL (65-115); Osmolality Calculated 290 mOsm/kg (285-295); Potassium 4.1 mmol/L (3.5-5.1); Sodium 141 mmol/L (136-145); Total Bilirubin 0.6 mg/dL (0.15-1.2); Total Protein 4.6 g/dL (6.6-8.7)
[2019-10-09 07:54] LABS: Hemoglobin 6.4 g/dL (11.7-16.6); Neutrophils # 0.22 10^3/uL (1.8-7.7)
[2019-10-09 07:55] LABS: Slide Review Slide Review Perform
[2019-10-09 08:15] LABS: Absolute Segmented Neutrophil 0.1 10/cmm (1.6-7.1); Corrected White Blood Count 0.9 10^3/cmm (4.8-10.8); Lymphocytes 71 %; Lymphocytes Absolute 0.9 10^3/cmm (1.2-3.4); Platelet Estimate Decreased (Normal); Segmented Neutrophils 12 %; Total Cells Counted 75 (0-100)
[2019-10-09 08:16] LABS: Anisocytosis 2+; Polychromasia Trace
[2019-10-09] MEDS: sucralfate 1 gm/10 mL Oral Liq UDC PO (08:44)
[2019-10-09] MEDS: atorvastatin 40 mg Tablet PO (08:45)
[2019-10-09] MEDS: carvedilol 3.125 mg Tablet PO (08:46)
[2019-10-09] MEDS: potassium chloride ER 10 mEq Tablet 20 MEQ PO (08:47)
[2019-10-09] MEDS: HYDROcodone-acetaminophen 10-325 mg Tablet 1 TAB PO ×4 (08:48→22:56)
[2019-10-09] MEDS: piperacillin-tazobactam 3.375 GM in sodium chloride 0.9% (plus) 50 ML IV (08:49)
--- NOTE | 2019-10-09 09:14 | P.PN_ITS ---
Subjective Subjective: Interval history: Patient awake sitting in bed at time of exam today. He reported that he continues to feel short of breath due to his low hemoglobin. Patient reports no chest pain this morning. Long discussion with patient about current treatment plan, prognosis and goals of care. Patient reported that he feels tired and realizes what is to come. Discussed with moreno ent alternative plans of care including transition to hospice care or comfort care measures depending on his goals of care. Discussed with patient the concern that he has received 7 units of blood since admission and remains with a hemoglobin of 6.4, has received 4 units of platelets and platelets remain at 31. Discussed the EGD was unremarkable for any active bleeding. Patient reported that he would like to discuss further about transitioning his goals of care and focusing more on his comfort. He reported again that he does not want resuscitation. Would like to discuss with his when she arrives about transitioning to hospice care. When discussing with patient if he would like to work to get home, he stated that he did not feel comfortable going home for this transition due to his significant decrease in energy. Vitals/I&O/Wt Last Vital Signs Temp 98.1 F 10/09/19 04:24 Pulse 70 10/09/19 08:20 Resp 12 10/09/19 08:20 BP 95/59 10/09/19 05:41 Pulse Ox 100 10/09/19 08:20 10/08/19 10/09/19 10/09/19 22:59 06:59 14:59 Intake Total 1343.667 / 1643.667 400 / 2043.667 Output Total 410 / 1160 250 / 1410 250 / 250 Balance 933.667 / 483.667 150 / 633.667 -250 / -250 Weight last 48 hrs Weight 82.508 kg Weight 110.677 kg Physical Exam Const: COMMON NORMALS: patient oriented x3 and alert GENERAL APPEARANCE: cooperative, ill appearing and diaphoretic ORIENTATION/CONSCIOUSNESS: Yes awake, Yes oriented to person, Yes oriented to place and Yes oriented to time OTHER: General pallor HENMT: COMMON NORMALS: normocephalic and atraumatic HEAD & SCALP: normocephalic and atraumatic Eye: COMMON NORMALS: Equal, round and reactive pupils present PUPIL: Yes Equal, round and reactive pupils present Neck/C-Spine: COMMON NORMALS: supple GENERAL: Yes normal visual inspection Resp: COMMON NORMALS: clear to auscultation bilaterally EFFORT & INSPECTION: Yes able to speak in complete sentences and Yes tachypneic AUSCULTATION: clear to auscultation bilaterally, no rhonchi and no wheezes Cardio: COMMON NORMALS: regular rate, regular rhythm and No murmurs present (Cardio) RATE: regular rate RHYTHM: regular rhythm OTHER: Prior sternotomy incision over the anterior chest, well-healed GI: COMMON NORMALS: Soft to palpation INSPECTION: No abdominal distension AUSCULTATION: Yes normoactive bowel sounds PALPATION: Yes Soft to palpation OTHER: Nontender, nondistended Extremity: COMMON NORMALS: no calf tenderness NARRATIVE EXTREMITY EXAM: 3+ pitting edema in the lower extremities bilaterally Neuro: COMMON NORMALS: patient oriented x3, CN's II-XII intact bilaterally, moves all extremities and no focal motor deficits SENSORIUM/ORIENTATION: Yes alert, Yes oriented to person, Yes oriented to place and Yes oriented to time SPEECH: speech normal Psych: COMMON NORMALS: mental status grossly normal and cooperative Skin: NARRATIVE SKIN EXAM: Bruising over the upper extremities bilaterally, petechiae in the eyelids bilaterally Data : 10/09/19 07:18 10/09/19 07:18 Micro: Microbiology 10/07/19 14:08 Blood Culture - Preliminary Blood NEGATIVE TO DATE 10/07/19 14:04 Blood Culture - Preliminary Blood NEGATIVE TO DATE A&P Assessment and plan (1) GI bleed: Status post EGD yesterday which did not show any evidence of active bleeding Patient has had a total of 7 units of packed red blood cells since admission 4 units of blood ordered for today, 2 units transfused with 2 on hold Hemoglobin remains low at 6.4 Long discussion with patient as noted above and will likely be transitioning to comfort care once his arrives Status: Acute (2) Anemia: Patient has received a total of 7 units of packed red blood cells since admission Hemoglobin remains low at 6.4 Multifactorial with underlying myelodysplastic syndrome with concern for transition to acute leukemia and GI bleed Status: Acute (3) Myelodysplastic syndrome: Patient with myelodysplastic syndrome has been followed by Dr. Truong and has been seen in consultation at [facility]. Unfortunately patient was not a candidate for further therapy at that time and remains on intermittent transfusions Status: Acute Additional A&P Information Severe thrombocytopenia: 2, single donor platelet pheresis yesterday with 2 more units ordered for today Neutropenia: Continue on broad-spectrum antibiotics. 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 Patient reports that he feels that his time is coming to an end and once his arrives today he would like to discuss transitioning to comfort care. Ca lled and updated his via phone, she verbalized understanding and agreed with plan, reported that she worked in hospice in the past and understands the benefit of hospice care. 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
--- NOTE | 2019-10-09 11:41 | PC.OT ---
OT note: OT eval held due to low hgb. Will attempt again as able as needed.
[2019-10-09] MEDS: sodium chloride 0.9% (100 ml) 100 ML 30 ML ×2 (13:02→13:03)
[2019-10-09] MEDS: fentaNYL 50 mcg Patch 1 PATCH TRANSDERMA (13:03)
--- NOTE | 2019-10-09 17:41 | PC.OT ---
OT note: From chart review pt is to transition to comfort care, will not attempt eval.
--- NOTE | 2019-10-09 17:45 | PC.NURSE ---
Pt states that he wants to talk to Dr. Nolan. She was called to let her know. She came to the floor right away and spoke with pt. No new orders at this time.
[2019-10-10] MEDS: HYDROcodone-acetaminophen 10-325 mg Tablet 1 TAB PO ×3 (08:07→19:45)
--- NOTE | 2019-10-10 08:50 | PC.SOCIAL ---
IMM Page 2 of IMM explained to patient. Initialed, dated, and timed and placed in chart. Copy provided to patient.
--- NOTE | 2019-10-10 16:04 | P.PN_ITS ---
Subjective Subjective: Interval history: Patient awake in bed surrounded by family at time of exam this morning. Discussed with the patient regarding his acute on chronic illness, he continues to note that he would like to remain allow natural due to the hematemesis and melena and would like to remain on comfort care measures. Discussed with patient and he is concerned about going home due to the melena that he has had diffusely over the past 2 days. Patient voiced no needs at this time. at bedside. Vitals/I&O/Wt Last Vital Signs Temp 98.4 F 10/09/19 12:00 Pulse 73 10/09/19 11:42 Resp 22 H 10/09/19 11:42 BP 117/86 10/09/19 12:00 Pulse Ox 100 10/09/19 11:00 10/10/19 10/10/19 10/10/19 06:59 14:59 22:59 Intake Total 240 / 1170 480 / 480 Balance 240 / 620 480 / 480 Physical Exam Narrative: EXAM NARRATIVE: Physical exam deferred due to patient being on comfort care measures Data : 10/09/19 07:18 10/09/19 07:18 Micro: Microbiology 10/07/19 16:30 Urine Culture - Final Urine,Clean Catch A&P Assessment and plan (1) GI bleed: Status post EGD this admission that did not show any evidence of active bleeding Patient has had a total of 9 units of packed red blood cells since admission Hemoglobin remains at 6.4 Remains on hospice, comfort care, at this time Status: Acute (2) Anemia: Patient has failed outpatient chemotherapy in the past Multifactorial with underlying myelodysplastic syndrome with concern for transition to acute leukemia and GI bleed Status: Acute (3) Myelodysplastic syndrome: Patient with myelodysplastic syndrome has been followed by Dr. Truong and has been seen in consultation at [facility]. 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
--- NOTE | 2019-10-10 19:23 | PC.NURSE ---
pt has not reported any bloody stools this shift.has had back pain controlled with hydrocodone.visiting with friends and going to [employer] to [place].
[2019-10-11 03:48] VITALS: PULSE 75; RESP 18; O2SAT 97
[2019-10-11] MEDS: HYDROcodone-acetaminophen 10-325 mg Tablet 1 TAB PO ×4 (04:53→22:07)
--- NOTE | 2019-10-11 06:40 | PC.NURSE ---
Pt did well throughout the night. Reports 2 loose stools with coffee ground appearance. Spouse at bedside.
--- NOTE | 2019-10-11 10:49 | PM.PN ---
Subjective Subjective: Interval history: Patient sitting in the chair this morning with his at his side. He reported that he began having more melanotic stools this morning. He reports that he is also been having intermittent chest pain, none at time of exam. Reports that pain medication has helped Vitals/I&O/Wt Last Vital Signs Temp 98.4 F 10/09/19 12:00 Pulse 75 10/11/19 03:48 Resp 18 10/11/19 03:48 BP 117/86 10/09/19 12:00 Pulse Ox 97 10/11/19 03:48 10/10/19 10/11/19 10/11/19 22:59 06:59 14:59 Intake Total 360 / 840 240 / 1080 240 / 240 Balance 360 / 840 240 / 1080 240 / 240 Physical Exam Narrative: EXAM NARRATIVE: Full physical exam deferred due to patient being on comfort care measures Data : 10/09/19 07:18 10/09/19 07:18 Micro: Microbiology 10/07/19 16:30 Urine Culture - Final Urine,Clean Catch A&P Assessment and plan (1) GI bleed: Status post EGD this admission that did not show any evidence of active bleeding Patient has had a total of 9 units of packed red blood cells since admission Hemoglobin remains at 6.4 Remains on hospice, comfort care, at this time Status: Acute (2) Anemia: Patient has failed outpatient chemotherapy in the past Multifactorial with underlying myelodysplastic syndrome with concern for transition to acute leukemia and GI bleed Status: Acute (3) Myelodysplastic syndrome: Patient with myelodysplastic syndrome has been followed by Dr. Truong and has been seen in consultation at [facility]. 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 We will continue to follow up with patient, remain hospitalized at this time due to anticipated shortly Attestations Medical Necessity Statement*: Patient requires further hospitalization due to concern for severe neutropenia, thrombocytopenia, myelodysplastic syndrome with GI bleed with expected in the next 48 hours and remains on comfort care. Coding Level of Care Code Acute [employer] Manager for [facility] Fwd Diagnoses GI bleed K92.2 Anemia D64.9 Myelodysplastic syndrome D46.9
--- NOTE | 2019-10-11 11:16 | PC.CHAP ---
Pastoral Care Encounter/Spiritual Assessment Type of Contact [] Declined health unit coordinator visit [] Patient/Family/Request visit [] Outpatient visit [] Follow-up visit [] Physician referral [] Code/Alert [] Routine visit [X] Staff referral [] Actively dying [] Patient sleeping [] Family support [] [] Out of room [] Palliative care [] [] Receiving care in room [] Pre-surgical visit [] Trauma [] Long length of stay [] ICU visit [] Other: Relational/Emotional Strength [] Patient feels connected with others/family/visitors/staff [] Distress [] Loneliness/isolation [] Abandonment Spirituality of Patient [] Person of Renea [] Attends Zoroastrianism of their Renea [] Believes in Prayer [] Reads Bible or Adventism materials [] There are Spiritual issues to be addressed Belling Machine Operator Interventions [] Prayer [] Active listening [] Non-anxious presence [] Spiritual/emotional support [] Crisis/trauma care [] Spiritual counseling [] Bereavement support [] Provided bereavement packet [] Provided Bible/devotional materials [] Provided toy/stuffed animal, coloring book to patient or family member [] Provided Communion [] Anointing/[place] [] Salvation [] Completed spiritual assessment [] Other: Impact on Illness or Injury [] Angry [] Fearful [] Anxious [] Often cries [] Exhaustion [] Unable to work [] Unable to attend anabaptist [] Unable to walk/stand [] Unable to read [] Unable to drive [] Unable to eat/drink [] Unable to sleep [] Unable to be with family [] Patient intubated [] Other: Summary: Nurse suggested I visit with pt as he is on comfort care. He had not yet had a health unit coordinator visit despite his admission note indicating that he would welcome a health unit coordinator visit. When the nurse asked if he wanted a visit this morning, he declined wanting to focus on family today. I will check in with the nurse tomorrow as we will both be working. Time spent with patient
[2019-10-11] MEDS: fentaNYL 50 mcg Patch 1 PATCH TRANSDERMA (15:27)
--- NOTE | 2019-10-11 23:39 | PC.NURSE ---
PT OFF TIPTON AT THE BEGINNING OF THE SHIFT. PT C/O PAIN. SHOWER DOORS AND PANELS FABRICATOR NURSE TOOK PT PRN PAIN PILL. WILL CONTINUE TO MONITOR.
[2019-10-12 01:25] VITALS: PULSE 74; RESP 18; O2SAT 96
--- NOTE | 2019-10-12 05:40 | PC.NURSE ---
PT IS UP IN WHEELCHAIR. PT DOESN'T HAVE AND C/O AT THIS TIME. PT STATES THAT THIS HOSPITAL AND ALL OF ITS STAFF HAS BEEN TOP NOTCH. WILL CONTINUE TO MONITOR.
--- NOTE | 2019-10-12 07:44 | P.PN_ITS ---
Subjective Subjective: Interval history: Patient awake sitting at the side of bed upon entering the room. He reported that pain is been well controlled. He reported that he actually slept well overnight. Discussion with patient about options for care including staying here in the hospital on hospice versus going home with hospice. Vitals/I&O/Wt Last Vital Signs Temp 98.4 F 10/09/19 12:00 Pulse 74 10/12/19 01:25 Resp 18 10/12/19 01:25 BP 117/86 10/09/19 12:00 Pulse Ox 96 10/12/19 01:25 10/11/19 10/12/19 10/12/19 22:59 06:59 14:59 Intake Total 360 / 960 240 / 1200 Balance 360 / 960 240 / 1200 Physical Exam Narrative: EXAM NARRATIVE: Complete physical exam deferred due to patient being on comfort care measures Patient alert and oriented Data : 10/09/19 07:18 10/09/19 07:18 A&P Assessment and plan (1) GI bleed: Status post EGD this admission that did not show any evidence of active bleeding Patient has had a total of 9 units of packed red blood cells since admission, hemoglobin remained less than 7 Remains on hospice, comfort care, at this time. Discussed with patient potential discharge to home with hospice today Status: Acute (2) Anemia: Patient has failed outpatient chemotherapy in the past Multifactorial with underlying myelodysplastic syndrome with concern for transition to acute leukemia and GI bleed Status: Acute (3) Myelodysplastic syndrome: Patient with myelodysplastic syndrome has been followed by Dr. Truong and has been seen in consultation at [facility]. Unfortunately patient was not a candidate for further therapy at that time and remains on intermittent transfusions Status: Acute Additional A&P Information Severe thrombocytopenia Severe neutropenia Coronary artery disease Diastolic congestive heart failure Chronic compression fractures in the spine: Continue with current pain control, [place] 10-325 mg, morphine IV as needed for pain, continue on recently increased dose of fentanyl patch 50 mcg every 72 hours COPD without acute exacerbation: Respiratory therapy to assess and treat, oxygen per protocol, albuterol PRN Diet: Regular diet as tolerated CODE STATUS: DNI/DNR Patient remains on comfort care measures for the dying patient. Attestations Medical Necessity Statement*: Hospitalization due to GI bleed with underlying myelodysplastic syndrome with concern for transition to acute leukemia. Patient remains on comfort care measures Coding Level of Care Code Acute Correctional Therapy Director for Chg Fwd Diagnoses GI bleed K92.2 Anemia D64.9 Myelodysplastic syndrome D46.9
[2019-10-12] MEDS: FUROsemide 40 mg Tablet PO (08:29)
[2019-10-12] MEDS: HYDROcodone-acetaminophen 10-325 mg Tablet 1 TAB PO ×3 (08:29→21:08)
--- NOTE | 2019-10-12 09:39 | PC.SOCIAL ---
IMM completed and copy of rights given to pt.
--- NOTE | 2019-10-12 10:59 | PC.NURSE ---
bilat le's with 2-3+ edema;dry,scaly.cleansed with skin cleanser;eucerin cream applied ,and size f tubigrips.instructed to keep le's elevated.pt verb understanding of instructions
--- NOTE | 2019-10-12 11:23 | PC.CHAP ---
Pastoral Care Encounter/Spiritual Assessment Type of Contact [] Declined dinkey press operator visit [] Patient/Family/Request visit [] Outpatient visit [] Follow-up visit [] Physician referral [] Code/Alert [] Routine visit [X] Staff referral [] Actively dying [] Patient sleeping [] Family support [] [] Out of room [X] Palliative care [] [] Receiving care in room [] Pre-surgical visit [] Trauma [] Long length of stay [] ICU visit [] Other: Relational/Emotional Strength [X] Patient feels connected with others/family/visitors/staff [] Distress [] Loneliness/isolation [] Abandonment Spirituality of Patient [] Person of Renea [] Attends Yazidi of their Renea [] Believes in Prayer [] Reads Bible or Congregation materials [X] There are Spiritual issues to be addressed Coremaker Pipe Interventions [X] Prayer [X] Active listening [X] Non-anxious presence [] Spiritual/emotional support [] Crisis/trauma care [X] Spiritual counseling [] Bereavement support [] Provided bereavement packet [] Provided Bible/devotional materials [] Provided toy/stuffed animal, coloring book to patient or family member [] Provided Communion [] Anointing/[place] [] Salvation [X] Completed spiritual assessment [] Other: Impact on Illness or Injury [] Angry [] Fearful [] Anxious [] Often cries [] Exhaustion [] Unable to work [] Unable to attend synagogue [] Unable to walk/stand [] Unable to read [] Unable to drive [] Unable to eat/drink [] Unable to sleep [] Unable to be with family [] Patient intubated [] Other: Summary: Pt agreed to spiritual care visit at the suggestion of the nurse. [facility] His son-in-law was present for the visit. My approach was to assess where he was at with knowing that his life will end soon; where he was at in his relationship with God; and to ascertain what I could offer him during this time. The conversation boiled down to the fact that he remains a skeptic yet wants to believe. His son-in-law viewed this discussion as an answer to prayer because he had wanted to talk with the patient about these spiritual matters for some time but didn't know how. The son-in-law is distressed about where the pt will spend eternity. At the end of the conversation, we read scriptures and prayed. The visit was well-received overall despite my approach to meet the pt where he is at rather than strong attempt to convert him. Time spent with patient: at least 45 mins
[2019-10-12 14:16] VITALS: PULSE 80; RESP 18; O2SAT 96
[2019-10-12] MEDS: simethicone 80 mg Chew PO (18:20)
[2019-10-12 20:06] VITALS: PULSE 78; RESP 18; O2SAT 95
[2019-10-13] MEDS: simethicone 80 mg Chew PO (02:26)
[2019-10-13] MEDS: HYDROcodone-acetaminophen 10-325 mg Tablet 1 TAB PO ×4 (02:28→21:29)
[2019-10-13] MEDS: sennosides-docusate Tablet 2 TAB PO (10:16)
--- NOTE | 2019-10-13 16:41 | PC.NURSE ---
Tubigrips removed for shower. Lower extremities cleansed with skin cleanser following shower, eucerin applied followed by tubigrips and socks. Patient tolerated well.
--- NOTE | 2019-10-13 17:41 | PC.NURSE ---
Shift Summary Patient had uneventful shift. No coffee ground stools noted. Patient made frequent trips to court yard to smoke. No further needs identified at this time. Nurse to continue to monitor.
--- NOTE | 2019-10-13 20:13 | P.PN_ITS ---
Subjective Subjective: Interval history: Patient awake in bed this morning at time of exam. Discussed possibility of going home with hospice, he reported being hesitant due to the amount of bleeding he has experienced in the last week. Discussed with patient and he agreed to take with hospice company today. Vitals/I&O/Wt Last Vital Signs Temp 98.4 F 10/09/19 12:00 Pulse 78 10/12/19 20:06 Resp 18 10/12/19 20:06 BP 117/86 10/09/19 12:00 Pulse Ox 95 10/12/19 20:06 10/13/19 10/13/19 10/13/19 06:59 14:59 22:59 Intake Total 350 / 1310 360 / 360 240 / 600 Balance 350 / 1310 360 / 360 240 / 600 Physical Exam Narrative: EXAM NARRATIVE: Full exam deferred due to patient being on comfort care Awake, alert, ill appearing Data : 10/09/19 07:18 10/09/19 07:18 A&P Assessment and plan (1) GI bleed: Status post EGD this admission that did not show any evidence of active bleeding Patient has had a total of 9 units of packed red blood cells since admission, hemoglobin remained less than 7 Remains on hospice, comfort care, at this time. Discussed with patient potential discharge to home with hospice again today, he is hesistant due to the amount of blood loss he has had and does not want that to happen at home. Patient will discuss with hospice company today Status: Acute (2) Anemia: Patient has failed outpatient chemotherapy in the past Multifactorial with underlying myelodysplastic syndrome with concern for transition to acute leukemia and GI bleed Status: Acute (3) Myelodysplastic syndrome: Patient with myelodysplastic syndrome has been followed by Dr. Truong and has been seen in consultation at [facility]. Unfortunately patient was not a candidate for further therapy at that time and remains on intermittent transfusions Status: Acute Additional A&P Information Severe thrombocytopenia Severe neutropenia Coronary artery disease Diastolic congestive heart failure Chronic compression fractures in the spine: Continue with current pain control, [place] 10-325 mg, morphine IV as needed for pain, continue on recently increased dose of fentanyl patch 50 mcg every 72 hours COPD without acute exacerbation: Respiratory therapy to assess and treat, oxygen per protocol, albuterol PRN Diet: Regular diet as tolerated CODE STATUS: DNI/DNR Patient remains on comfort care measures for the dying patient. Attestations Medical Necessity Statement*: Requires hospitalization due to GI bleed with MDS and currently on comfort care measures until disposition of hospice can be arranged Coding Level of Care Code Acute Medical Auditor for dudley Najera Diagnoses GI bleed K92.2 Anemia D64.9 Myelodysplastic syndrome D46.9
--- NOTE | 2019-10-13 21:20 | PC.NURSE ---
Patient is asking for Senna. Per documentation, patient did not take Senna dose earlier, but is wanting it now. Dr. Lima ordered one time dose of Senna.
[2019-10-13] MEDS: sennosides-docusate Tablet 1 TAB PO (21:32)
[2019-10-13 22:14] VITALS: PULSE 76; RESP 18; O2SAT 96
--- NOTE | 2019-10-14 00:30 | PC.NURSE ---
Patient is currently resting with eyes closed. Will monitor.
--- NOTE | 2019-10-14 03:50 | PC.NURSE ---
Patient is currently resting with eyes closed with family member at bedside. Will monitor.
[2019-10-14] MEDS: HYDROcodone-acetaminophen 10-325 mg Tablet 1 TAB PO ×2 (04:38→10:42)
[2019-10-14 05:24] LABS: Hematocrit 23.6 % (42.0-52.0); Hemoglobin 7.4 g/dL (11.7-16.6); Lymphocytes # 0.6 10^3/uL (0.8-4.8); Lymphocytes % 27.1 %; Mean Corpuscular HGB Conc 31.4 g/dL (30.0-36.0); Mean Corpuscular Hemoglobin 29.8 pg (28.0-34.0); Mean Corpuscular Volume 95.2 fL (80-94); Mean Platelet Volume 14.1 fL (7.4-10.4); Monocytes % 47.7 %; Neutrophils % 13.3 %; Nucleated Red Blood Cells # 0.5 /100WBC; Nucleated Red Blood Cells % 24.8 %; Red Blood Count 2.48 10^6/uL (4.1-5.3); Red Cell Distribution Width 16.6 % (12.1-15.1); White Blood Count 2.2 10^3/uL (4.0-10.0)
[2019-10-14 06:02] LABS: Blood Urea Nitrogen 22 mg/dL (8-23); Calcium 7.2 mg/dL (8.5-10.5); Carbon Dioxide 24 mmol/L (22-29); Chloride 108 mmol/L (98-107); Glucose 103 mg/dL (65-115); Osmolality Calculated 285 mOsm/kg (285-295); Sodium 139 mmol/L (136-145)
[2019-10-14 06:28] LABS: Slide Review Slide Review Perform
[2019-10-14 06:29] LABS: Neutrophils # 0.29 10^3/uL (1.8-7.7); Platelet Count 9 10^3/cmm (130-400)
[2019-10-14] MEDS: sennosides-docusate Tablet 2 TAB PO (09:14)
--- NOTE | 2019-10-14 09:24 | P.DS_ITS ---
Discharge Providers Date of Admission: 10/07/19 11:27 Date of Discharge: October 14, 2019 Attending Provider at Admission: Jennifer Nolan DO Attending Provider at Discharge: Jennifer Nolan DO Primary Care Provider: Edvin Soria DO Diagnoses at Discharge Discharge Diagnosis (1) GI bleed: Status: Acute (2) Anemia: Status: Acute (3) Myelodysplastic syndrome: Status: Acute Reason for Visit Reason for Visit: sent by dr truong for blood Hospital Course Hospital Course: Patient was seen and evaluated in the emergency department noted to have concern for severe neutropenia, anemia, GI bleed, thrombocytopenia with a history of myelodysplastic syndrome. Patient was admitted to the hospital for further evaluation and treatment and started on Protonix twice daily. Patient then developed worsening melanotic stools and vomiting bright red blood therefore he was transferred to the ICU. He was transitioned to a Protonix drip and general surgery was consulted. Patient was kept n.p.o. for EGD, EGD revealed no evidence of any active bleeding however patient continued to have melanotic stools. Hematology/oncologist Dr. Truong was consulted and followed with patient throughout his stay. Patient was given a total of 9 units of packed red blood cells and 6 units of platelets. He continued to have anemia and thrombocytopenia he was also managed on broad-spectrum antibiotics due to severe neutropenia. Ultimately after discussion with patient he elected to proceed with comfort care measures, this was discussed with general surgery along with Dr. Truong and they both agreed this was the most appropriate care. Patient was transitioned to comfort care and ultimately discharged to home on hospice care Physical Exam Narrative: EXAM NARRATIVE: Full physical exam deferred due to patient being on comfort care measures Patient is awake and alert, general pallor apparent Discharge Data Data Completed and Pending: Completed Studies During Hospitalization Category Date Time Status XR chest 1V hailey ble [id number] Stat Exams 10/07/19 10:21 Completed Labs from last 24 hours 10/14/19 10/14/19 04:44 04:44 WBC 2.2 L RBC 2.48 L Hgb 7.4 L Hct 23.6 L MCV 95.2 H MCH 29.8 MCHC 31.4 RDW 16.6 H Plt Count 9 L* MPV 14.1 H Neut % (Auto) 13.3 Lymph % (Auto) 27.1 [place] % (Auto) 47.7 Eos % (Auto) 0.0 Baso % (Auto) 0.0 Neut # (Auto) 0.29 L* Lymph # (Auto) 0.6 L [place] # (Auto) 1.0 H Eos # (Auto) 0.0 Baso # (Auto) 0.0 Nucleated RBC % (a uto) 24.8 Nucleated RBCs # 0.5 Sodium 139 Potassium 4.0 Chloride 108 H Carbon Dioxide 24 Anion Gap 11.0 BUN 22 Creatinine 0.9 GFR Calculation Not Reportable Glucose 103 Calculated Osmolal ity 285 Calcium 7.2 L Vitals: Last Vital Signs Temp 98.4 F 10/09/19 12:00 Pulse 76 10/13/19 22:14 Resp 18 10/13/19 22:14 BP 117/86 10/09/19 12:00 Pulse Ox 96 10/13/19 22:14 Discharge Plan Discharge Patient Disposition: Hospice - Home Condition: Fair Prescriptions: New Isopto Atropine 1 % Drops 2 drp sublingual Q2H PRN (Reason: Secretions) 30 Days Qty: 1 RF: 0 simethicone 80 mg Tablet,Chewable 80 mg PO Q4H PRN (Reason: Flatulence) 10 Days Qty: 60 RF: 0 morphine 20 mg/5 mL (4 mg/mL) solution 10 mg PO Q3H PRN (Reason: pain or dyspnea) 10 Days Qty: 100 RF: 0 Ativan 4 mg/mL solution 2 mg BUCCAL Q1H PRN (Reason: anxiety) 10 Days Qty: 25 RF: 0 Lidocaine Viscous 2 % solution 1 applic MUCOUS MEM Q4H PRN (Reason: pain) 10 Days Qty: 100 RF: 0 Zofran 4 mg tablet 4 mg PO Q4H 10 Days Qty: 60 RF: 0 Continued hydrocodone-acetaminophen 10-325 mg tablet 1 tab PO QID PRN (Reason: pain) RF: 0 furosemide 40 mg tablet See Rx Instructions .ROUTE .COMPLEX RF: 0 pantoprazole 40 mg Tablet,Delayed Release (Dr/Ec) 40 mg PO BIDWM 30 Days Qty: 60 RF: 0 fentanyl 50 mcg/hr Patch 72 Hour 1 patch TRANSDERMAL Q72H RF: 0 Senna Plus 8.6-50 mg Tablet 2 tab PO DAILY RF: 0 nitroglycerin 0.4 mg tablet, sublingual 0.4 mg sublingual PRN RF: 0 Discontinued carvedilol 3.125 mg tablet 3.125 mg PO BID RF: 0 atorvastatin 40 mg Tablet 40 mg PO DAILY RF: 0 Calcium 600 + D(3) 600-125 mg-unit Tablet 1 tab PO DAILY RF: 0 potassium chloride 10 mEq capsule, extended release 20 meq PO DAILY RF: 0 metolazone 5 mg tablet See Rx Instructions .ROUTE .COMPLEX RF: 0 Prolia 60 mg/mL Syringe See Rx Instructions .ROUTE .COMPLEX RF: 0 Narcan 4 mg/actuation spray,non-aerosol See Rx Instructions .ROUTE .COMPLEX RF: 0 Discharge Orders: Discharge Order (Routine); Ordered 10/14/19 Ordered By: Jennifer Nolan Referrals: [facility] ([facility]) [Outside] Discharge Diet: Advance as tolerated Discharge Activity: Resume usual activity Patient Instructions: GI Discharge Instructions Activity Restrictions/Additional Instructions: Increase activity as tolerated Discharge to home with hospice services Continue with fentanyl patch, [place], prescription for morphine and Ativan to use as needed for pain or shortness of breath. Zofran as needed for nausea Simethicone as needed for gas pain Atropine drops as needed for secretions and congestion Lidocaine mouthwash as needed for mouth pain Follow-up with home hospice providers, for any questions or concerns please contact hospice provider Discharge Attestations Time Spent in Discharge Care*: greater than 30 min Specific Discharge Activities: Specific discharge activities: educating patient, educating and/or supporting family/caregiver and documenting/other paperwork Quality Metrics Clinical Quality Measures During this hospital stay, did patient experience: None Coding Level of Care Code Acute Charge Master Coordinator for [facility] Fwd Diagnoses GI bleed K92.2 Anemia D64.9 Myelodysplastic syndrome D46.9
[2019-10-14 10:17] VITALS: PULSE 68; RESP 18; O2SAT 94
--- NOTE | 2019-10-14 11:16 | PC.SOCIAL ---
IMM Updated Updated pt & his on Pg 2 IMM. Provided pt a copy. No questions voiced. Signed, dated, & timed copy in chart.
--- NOTE | 2019-10-14 12:07 | PC.NURSE ---
Discharge meds delivered by [facility]. Patient verbalizes understanding of medication teaching, indications, and side effects. Port has been deaccessed. Patient tolerated well. Patient dressed. No further needs identified. Patient to be followed by Hospice Services at discharge.
== END 2019-10-14 12:29 | disposition hospice, home (50) | DRG 378 ==
LOC: ER 10:35 → MEDSURG 12:07 → ICU 10-08 09:35 → CSU 10-09 20:47
PROVIDERS: Family Medicine; Internal Medicine; Internal Medicine Medical Oncology; Surgery; Admitting Provider Family Medicine; PCP Electrodiagnostic Medicine; Visit Provider Family Medicine
PROC: 0DJ08ZZ Inspection of Upper Intestinal Tract, Via Natural or Artificial Opening Endoscopic (ICD-10-PCS; CPT 43235; principal; 2019-10-08 16:30)
DX: K92.2 Gastrointestinal hemorrhage, unspecified (principal); I13.0 Hypertensive heart and chronic kidney disease with heart failure and stage 1 through stage 4 chronic kidney disease, or unspecified chronic kidney disease; I50.32 Chronic diastolic (congestive) heart failure; R04.2 Hemoptysis; D64.9 Anemia, unspecified; I25.10 Atherosclerotic heart disease of native coronary artery without angina pectoris; N18.3 Chronic kidney disease, stage 3 (moderate); K21.9 Gastro-esophageal reflux disease without esophagitis; J44.9 Chronic obstructive pulmonary disease, unspecified; D69.6 Thrombocytopenia, unspecified; M19.90 Unspecified osteoarthritis, unspecified site; E78.00 Pure hypercholesterolemia, unspecified; I25.2 Old myocardial infarction; F17.210 Nicotine dependence, cigarettes, uncomplicated; Z95.828 Presence of other vascular implants and grafts; Z98.1 Arthrodesis status; Z95.1 Presence of aortocoronary bypass graft; D70.9 Neutropenia, unspecified; Z79.891 Long term (current) use of opiate analgesic; Z66 Do not resuscitate; Z51.5 Encounter for palliative care; Z92.21 Personal history of antineoplastic chemotherapy
CPT/HCPCS: 12345; 36415; 36430; 36591; 43235; 71045; 80048; 80053; 80202; 81001; 83615; 84443; 84484; 85007; 85014; 85018; 85025; 85384; 85610; 85730; 86850; 86900; 86920; 87040; 87086; 93005; 94640; 94664; 96375; 99283; C9113; J1642; J2405; J2543; J3370; J7030; J7050; P9037; P9040